=== PATIENT | female | born 1975 | race Caucasian/White ===

== ENCOUNTER 2016-11-18 22:35 | Emergency (ER) | payer OTHER ==
[2016-11-18 22:39] VITALS: RESP 18
[2016-11-18] MEDS ORDERED: SODIUM CHLORIDE 0.9% 1,000 ML IV STA ×2 (22:49)
[2016-11-18] MEDS ORDERED: MORPHINE SULFATE 4 MG/ML SYRINGE IV STA (22:49)
[2016-11-18 23:06] LABS: Appearance,Urine Clear (Clear); Basophils # (A) 0.1 k/uL (0-0.2); Basophils % (A) 1 %; Bilirubin,Urine Negative (Negative); CH 30.5; CHCM 33.6; Eosinophils # (A) 0.1 k/uL (0-0.7); Eosinophils % (A) 2 %; Glucose,Urine (UA) Negative (Negative); HCT 42.1 % (34.0-46.0); HDW 2.53; HGB 13.5 gm/dL (11.4-16.0); Ketones,Urine Negative (Negative); Leukocyte Esterase,Urine Negative (Negative); Luc # (Auto) 0.11; Luc % (Auto) 2; Lymphocytes # (A) 2.4 k/uL (1.0-4.8); Lymphocytes % (A) 32 %; MCH 29.3 pg (25.0-35.0); MCHC 32.1 g/dL (31.0-37.0); MCV 91.1 fL (80.0-100.0); Monocytes # (A) 0.4 k/uL (0-1.0); Monocytes % (A) 6 %; Neutrophils # (A) 4.4 k/uL (1.3-7.7); Neutrophils % (A) 58 %; Nitrite,Urine Negative (Negative); PH, Urine 5.5 (5.0-8.0); Protein,Urine Negative (Negative); RBC 4.63 m/uL (3.80-5.40); RDW 13.6 % (11.5-15.5); Specific Gravity,Urine 1.017 (1.001-1.035); UA Billing (MACRO vs. MICRO) CHEM; Urobilinogen,Urine <2.0 mg/dL (<2.0); WBC 7.5 k/uL (3.8-10.6); WBC (Perox) 7.61
[2016-11-18 23:15] LABS: ALT 20 U/L (9-52); AST 23 U/L (14-36); Alkaline Phosphatase 81 U/L (38-126); Amylase 49 U/L (30-110); Anion Gap 14 mmol/L; Blood Urea Nitrogen 9 mg/dL (7-17); Calcium 9.3 mg/dL (8.4-10.2); Carbon Dioxide 23 mmol/L (22-30); Chloride 104 mmol/L (98-107); Glucose 121 mg/dL (74-99); Non-African American GFR(MDRD) >60 (>60 ml/min/1.73 sqM); Potassium 4.4 mmol/L (3.5-5.1); Sodium 141 mmol/L (137-145); Total Bilirubin 0.3 mg/dL (0.2-1.3); Total Protein 6.9 g/dL (6.3-8.2)
[2016-11-18 23:28] LABS: Creatine Kinase 29 U/L (30-135)
[2016-11-18 23:41] LABS: Creatine Kinase MB <0.2 ng/mL (0.0-2.4); Troponin I <0.012 ng/mL (0.000-0.034)
--- NOTE | 2016-11-18 23:50 | ED ---
General Adult HPI - General Chief complaint: Abdominal Pain Stated complaint: Abd Pain Time Seen by Provider: 11/18/16 22:42 Source: patient, RN notes reviewed, old records reviewed Mode of arrival: ambulatory Limitations: no limitations - History of Present Illness Initial comments: This is a 40-year-old female is here for evaluation of dollop injury. Patient states she has history of 2 pregnancies, 2 live births. Other medical history is significant for psychiatric disease. Patient takes no medications medically and day basis. No evolution a questionable diabetes, no significant chest pain or shortness of breath. Patient states she does have anterior epigastric and right upper quadrant abdominal pain and mild nausea no vomiting no change in bowel or bladder issues. No recent fevers. No sick contacts, no family members with similar symptoms. She denies history of gallbladder disease during her . No vaginal symptoms. - Related Data Home Medications Medication Instructions Recorded Confirmed Metoprolol Succinate [Toprol XL] 50 mg PO HS 08/14/15 11/18/16 Albuterol Sulfate [Ventolin HFA] 2 puff INHALATION RT-Q6H PRN 11/24/15 11/18/16 Cholecalciferol [Vitamin D3] 5,000 unit PO DAILY 11/18/16 11/18/16 Cyanocobalamin [Vitamin B-12] 500 mcg PO DAILY 11/18/16 11/18/16 DULoxetine HCL [Cymbalta] 60 mg PO HS 11/18/16 11/18/16 Hydrocodone/Acetaminophen [[place] 1 tab PO Q8H PRN 11/18/16 11/18/16 10-325] Allergies Allergy/AdvReac Type Severity Reaction Status Date / Time aripiprazole [From Abilify] Allergy Hallucinati Verified 11/18/16 22:55 ons Review of Systems ROS Statement: Those systems with pertinent positive or pertinent negative responses have been documented in the HPI. ROS Other: All systems not noted in ROS Statement are negative. Past Medical History Past Medical History: Hypertension Additional Past Medical History / Comment(s): Bipolar. Anemia. Morbid Obesity. LT SCIATICA. RECENT UTI, . History of Any Multi-Drug Resistant Organisms: None Reported Past Surgical History: Ablation, Hysterectomy, Tubal Ligation Additional Past Surgical History / Comment(s): d & c Past Psychological History: Anxiety, Bipolar, Depression, PTSD Additional Psychological History / Comment(s): Under care of psychiatrist. Smoking Status: Former smoker Past Alcohol Use History: None Reported Past Drug Use History: None Reported General Exam Limitations: no limitations General appearance: alert, in no apparent distress Head exam: Present: atraumatic, normocephalic, normal inspection Eye exam: Present: normal appearance, PERRL, EOMI. Absent: scleral icterus, conjunctival injection, periorbital swelling ENT exam: Present: normal exam, mucous membranes moist Neck exam: Present: normal inspection. Absent: tenderness, meningismus, lymphadenopathy Respiratory exam: Present: normal lung sounds bilaterally. Absent: respiratory distress, wheezes, rales, rhonchi, stridor Cardiovascular Exam: Present: regular rate, normal rhythm, normal heart sounds. Absent: systolic murmur, diastolic murmur, rubs, gallop, clicks GI/Abdominal exam: Present: soft, tenderness (Epigastric), normal bowel sounds. Absent: distended, guarding, rebound, rigid Extremities exam: Present: normal inspection, full ROM, normal capillary refill. Absent: tenderness, pedal edema, joint swelling, calf tenderness Back exam: Present: normal inspection Neurological exam: Present: alert, oriented X3, CN II-XII intact Psychiatric exam: Present: normal affect, normal mood Skin exam: Present: warm, dry, intact, normal color. Absent: rash Course Vital Signs 11/18/16 22:37 Temperature 97.4 F L Pulse Rate 89 Respiratory 18 Rate Blood Pressure 134/91 O2 Sat by Pulse 98 Oximetry - Reevaluation(s) Reevaluation #1: 11/19/16 00:15 Patient's pain at this point is improved, controlled, no symptoms Medical Decision Making - Medical Decision Making 40 female year for various abdominal pain, epigastric right upper quadrant abdominal pain, bowel, positive gastritis. No fevers. No significant other complaints. No specific abdominal tenderness IS NEGATIVE LAB WORK IS NORMAL PATIENT CAN BE DISCHARGED HOME. PATIENT WILL RETURN TO ER IF SYMPTOMS WORSEN, ANOREXIA OR DEVELOPED A FEVER - Lab Data Result diagrams: 11/18/16 21:50 11/18/16 21:50 Lab Results 11/18/16 11/18/16 11/18/16 Range/Units 21:50 21:50 21:50 WBC (3.8-10.6) k/uL RBC (3.80-5.40) m/uL Hgb (11.4-16.0) gm/dL Hct (34.0-46.0) % MCV (80.0-100.0) fL MCH (25.0-35.0) pg MCHC (31.0-37.0) g/dL RDW (11.5-15.5) % Plt Count (150-450) k/uL Neutrophils % % Lymphocytes % % Monocytes % % Eosinophils % % Basophils % % Neutrophils # (1.3-7.7) k/uL Lymphocytes # (1.0-4.8) k/uL Monocytes # (0-1.0) k/uL Eosinophils # (0-0.7) k/uL Basophils # (0-0.2) k/uL Sodium 141 (137-145) mmol/L Potassium 4.4 (3.5-5.1) mmol/L Chloride 104 (98-107) mmol/L Carbon Dioxide 23 (22-30) mmol/L Anion Gap 14 mmol/L BUN 9 (7-17) mg/dL Creatinine 0.80 (0.52-1.04) mg/dL Est GFR (MDRD) Af Amer >60 (>60 ml/min/1.73 sqM) Est GFR (MDRD) Non-Af >60 (>60 ml/min/1.73 sqM) Glucose 121 H (74-99) mg/dL Calcium 9.3 (8.4-10.2) mg/dL Total Bilirubin 0.3 (0.2-1.3) mg/dL AST 23 (14-36) U/L ALT 20 (9-52) U/L Alkaline Phosphatase 81 (38-126) U/L Total Creatine Kinase 29 L (30-135) U/L CK-MB (CK-2) <0.2 (0.0-2.4) ng/mL CK-MB (CK-2) Rel Index Troponin I <0.012 (0.000-0.034) ng/mL Total Protein 6.9 (6.3-8.2) g/dL Albumin 4.0 (3.5-5.0) g/dL Amylase 49 (30-110) U/L Lipase 133 (23-300) U/L Urine Color Urine Appearance (Clear) Urine pH (5.0-8.0) Ur Specific [place] (1.001-1.035) Urine Protein (Negative) Urine Glucose (UA) (Negative) Urine Ketones (Negative) Urine Blood (Negative) Urine Nitrate (Negative) Urine Bilirubin (Negative) Urine Urobilinogen (<2.0) mg/dL Ur Leukocyte Esterase (Negative) Urine HCG, Qual Not Detected (Not Detectd) 11/18/16 11/18/16 Range/Units 21:50 21:50 WBC 7.5 (3.8-10.6) k/uL RBC 4.63 (3.80-5.40) m/uL Hgb 13.5 (11.4-16.0) gm/dL Hct 42.1 (34.0-46.0) % MCV 91.1 (80.0-100.0) fL MCH 29.3 (25.0-35.0) pg MCHC 32.1 (31.0-37.0) g/dL RDW 13.6 (11.5-15.5) % Plt Count 287 (150-450) k/uL Neutrophils % 58 % Lymphocytes % 32 % Monocytes % 6 % Eosinophils % 2 % Basophils % 1 % Neutrophils # 4.4 (1.3-7.7) k/uL Lymphocytes # 2.4 (1.0-4.8) k/uL Monocytes # 0.4 (0-1.0) k/uL Eosinophils # 0.1 (0-0.7) k/uL Basophils # 0.1 (0-0.2) k/uL Sodium (137-145) mmol/L Potassium (3.5-5.1) mmol/L Chloride (98-107) mmol/L Carbon Dioxide (22-30) mmol/L Anion Gap mmol/L BUN (7-17) mg/dL Creatinine (0.52-1.04) mg/dL Est GFR (MDRD) Af Amer (>60 ml/min/1.73 sqM) Est GFR (MDRD) Non-Af (>60 ml/min/1.73 sqM) Glucose (74-99) mg/dL Calcium (8.4-10.2) mg/dL Total Bilirubin (0.2-1.3) mg/dL AST (14-36) U/L ALT (9-52) U/L Alkaline Phosphatase (38-126) U/L Total Creatine Kinase (30-135) U/L CK-MB (CK-2) (0.0-2.4) ng/mL CK-MB (CK-2) Rel Index Troponin I (0.000-0.034) ng/mL Total Protein (6.3-8.2) g/dL Albumin (3.5-5.0) g/dL Amylase (30-110) U/L Lipase (23-300) U/L Urine Color Yellow Urine Appearance Clear (Clear) Urine pH 5.5 (5.0-8.0) Ur Specific [place] 1.017 (1.001-1.035) Urine Protein Negative (Negative) Urine Glucose (UA) Negative (Negative) Urine Ketones Negative (Negative) Urine Blood Negative (Negative) Urine Nitrate Negative (Negative) Urine Bilirubin Negative (Negative) Urine Urobilinogen <2.0 (<2.0) mg/dL Ur Leukocyte Esterase Negative (Negative) Urine HCG, Qual (Not Detectd) - Radiology Data Radiology results: report reviewed (Ultrasound is negative for gallbladder disease), image reviewed Disposition Clinical Impression: Abdominal pain Disposition: HOME SELF-CARE Instructions: Abdominal Pain (ED) Referrals: Una Benson MD [Primary Care Provider] - 1-2 days
--- NOTE | 2016-11-18 23:56 | US ---
EXAMINATION TYPE: US gallbladder DATE OF EXAM: 11/18/2016 11:30 PM COMPARISON: NONE CLINICAL HISTORY: Abd pain with nausea x a few days. EXAM MEASUREMENTS: Liver Length: 19.6cm Gallbladder Wall: 0.2cm CBD: 0.7cm Right Kidney: 9.5 x 4.9 x 4.5cm ANATOMY: TECHNOLOGIST IMPRESSION: large body habitus, patient NPO 2 hours, overlying bowel gas limits exam Pancreas: limited views appears wnl Liver: enlarged and heterogeneous, probable focal fatty sparring Gallbladder: no obvious stones or abnormality seen at this time Evidence for sonographic House's sign: no CBD: upper limits of normal Right Kidney: limited views, appears wnl IMPRESSION: 1. No significant acute abnormality is noted in the right upper quadrant of abdomen. 2. No gallstones in the gallbladder. No definite acute cholecystitis changes are noted.
[2016-11-19 00:49] VITALS: BP 126/70; PULSE 82; TEMP 99
== END 2016-11-19 01:19 | disposition home or self-care (01) ==
LOC: EC 22:35
DX: R10.13 Epigastric pain (principal); R10.11 Right upper quadrant pain; R11.0 Nausea; I10 Essential (primary) hypertension; F32.9 Major depressive disorder, single episode, unspecified; F41.9 Anxiety disorder, unspecified; Z87.891 Personal history of nicotine dependence; Z79.899 Other long term (current) drug therapy; E66.01 Morbid (severe) obesity due to excess calories; Z88.8 Allergy status to other drugs, medicaments and biological substances
CPT/HCPCS: 99284; 96374; 96361; 36415; 80053; 82150; 82550; 82553; 83690; 84484; 85025; 81003; 81025; 87086; 76705; J2270

== ENCOUNTER 2016-11-23 21:12 | Emergency (ER) | payer OTHER ==
[2016-11-23 21:17] VITALS: TEMP 98.7
[2016-11-23] MEDS ORDERED: ONDANSETRON 4 MG/2 ML VIAL IVP STA (21:44)
[2016-11-23] MEDS ORDERED: HYDROmorphone 1 MG/ML 1 ML SYRINGE IVP STA (21:44)
[2016-11-23] MEDS ORDERED: SODIUM CHLORIDE 0.9% 1,000 ML IV ONE (21:46)
--- NOTE | 2016-11-23 21:52 | ED ---
Abdominal Pain HPI - General Chief Complaint: Abdominal Pain Stated Complaint: right side abdominal pain-revisit Time Seen by Provider: 11/23/16 21:27 Source: patient, RN notes reviewed Mode of arrival: ambulatory Limitations: no limitations - History of Present Illness Initial Comments: Patient is a 40-year-old female presenting to emergency department with chief complaint of right upper quadrant abdominal pain. She reports that she was seen in the emergency room one week ago and was given an ultrasound and was determined have biliary colic. She reports that yesterday she went to [facility] for similar abdominal pain and was also get an ultrasound and lab work which showed continued biliary colic no evidence of acute cholecystitis. She reports that her pain is not being managed with her at home pain medication of [place]. She also reports that she feels nauseated. She states that she is given prescription for Prilosec steroids that isn't helped with her pain. She does have an appointment with a surgeon on Friday. Patient denies any recent fever , chills, shortness of breath, chest pain, back pain, vomiting, numbness or tingling, dysuria or hematuria, constipation or diarrhea, headaches or visual changes, or any other current symptoms. His past medical history is negative for hypertension. She reports that she is a "questionable diabetic". She has a surgical history significant for hysterectomy and tubal ligation one year ago. - Related Data Home Medications Medication Instructions Recorded Confirmed Metoprolol Succinate [Toprol XL] 50 mg PO HS 08/14/15 11/23/16 Albuterol Sulfate [Ventolin HFA] 2 puff INHALATION RT-Q6H PRN 11/24/15 11/23/16 Cholecalciferol [Vitamin D3] 5,000 unit PO DAILY 11/18/16 11/23/16 Cyanocobalamin [Vitamin B-12] 500 mcg PO DAILY 11/18/16 11/23/16 DULoxetine HCL [Cymbalta] 60 mg PO HS 11/18/16 11/23/16 Hydrocodone/Acetaminophen [[place] 1 tab PO Q8H PRN 11/18/16 11/23/16 10-325] Previous Rx's Medication Instructions Recorded Ondansetron [Zofran] 4 mg PO Q8HR PRN #8 tab 11/23/16 Allergies Allergy/AdvReac Type Severity Reaction Status Date / Time aripiprazole [From Abilify] Allergy Hallucinati Verified 11/23/16 21:17 ons Review of Systems ROS Statement: Those systems with pertinent positive or pertinent negative responses have been documented in the HPI. ROS Other: All systems not noted in ROS Statement are negative. Past Medical History Past Medical History: Hypertension Additional Past Medical History / Comment(s): Bipolar. Anemia. Morbid Obesity. LT SCIATICA. RECENT UTI, . History of Any Multi-Drug Resistant Organisms: None Reported Past Surgical History: Ablation, Hysterectomy, Tubal Ligation Additional Past Surgical History / Comment(s): d & c Past Psychological History: Anxiety, Bipolar, Depression, PTSD Additional Psychological History / Comment(s): Under care of psychiatrist. Smoking Status: Former smoker Past Alcohol Use History: None Reported Past Drug Use History: None Reported General Exam - General Exam Comments Initial Comments: Patient is a morbidly obese 40-year-old female. She does not appear to be in any acute distress. Limitations: no limitations General appearance: alert, in no apparent distress Head exam: Present: atraumatic, normocephalic, normal inspection Eye exam: Present: normal appearance, PERRL, EOMI. Absent: scleral icterus, conjunctival injection, periorbital swelling ENT exam: Present: normal exam, mucous membranes moist Neck exam: Present: normal inspection. Absent: tenderness, meningismus, lymphadenopathy Respiratory exam: Present: normal lung sounds bilaterally. Absent: respiratory distress, wheezes, rales, rhonchi, stridor Cardiovascular Exam: Present: regular rate, normal rhythm, normal heart sounds. Absent: systolic murmur, diastolic murmur, rubs, gallop, clicks GI/Abdominal exam: Present: soft, tenderness (Patient has mild right upper quadrant tenderness.), normal bowel sounds. Absent: distended, guarding, rebound, rigid Extremities exam: Present: normal inspection, full ROM, normal capillary refill. Absent: tenderness, pedal edema, joint swelling, calf tenderness Back exam: Present: normal inspection Neurological exam: Present: alert, oriented X3, CN II-XII intact Psychiatric exam: Present: normal affect, normal mood Skin exam: Present: warm, dry, intact, normal color. Absent: rash Course Vital Signs 11/23/16 11/23/16 21:13 23:52 Temperature 98.7 F Pulse Rate 82 78 Respiratory 20 16 Rate Blood Pressure 141/66 118/72 O2 Sat by Pulse 98 95 Oximetry Medical Decision Making - Medical Decision Making Patient is a 40-year-old female with a chief complaint of right upper quadrant abdominal pain. She should receive in the emergency room twice in one week for similar pain however does not manage. 2 right upper quadrant ultrasound showed no evidence of acute cholecystitis and she was diagnosed with biliary colic twice. She reports she did not receive a computed tomography scan. Patient's lab work was reviewed from today and is no acute abnormalities. I did review patient's lab work from her visit yesterday at [facility]. There is no acute changes in the lab work and the ultrasound revealed a gallbladder polyp measuring 1.9 cm and recommended a 3 month follow-up exam to reassess the area. Patient continues to report pain. I advised patient that she needs to do her at home pain medication I will prescribe her some nausea medications. Patient instructed to follow-up with Dr. Coelho the surgeon on Friday. Patient understands treatment plan and will comply. Return parameters were discussed. - Lab Data Result diagrams: 11/23/16 21:30 11/23/16 21:30 Lab Results 11/23/16 11/23/16 11/23/16 Range/Units 21:30 21:30 22:42 WBC 5.3 (3.8-10.6) k/uL RBC 4.40 (3.80-5.40) m/uL Hgb 13.0 (11.4-16.0) gm/dL Hct 41.4 (34.0-46.0) % MCV 94.0 (80.0-100.0) fL MCH 29.5 (25.0-35.0) pg MCHC 31.4 (31.0-37.0) g/dL RDW 13.5 (11.5-15.5) % Plt Count 245 (150-450) k/uL Neutrophils % 50 % Lymphocytes % 39 % Monocytes % 6 % Eosinophils % 1 % Basophils % 2 % Neutrophils # 2.7 (1.3-7.7) k/uL Lymphocytes # 2.1 (1.0-4.8) k/uL Monocytes # 0.3 (0-1.0) k/uL Eosinophils # 0.1 (0-0.7) k/uL Basophils # 0.1 (0-0.2) k/uL Sodium 140 (137-145) mmol/L Potassium 4.1 (3.5-5.1) mmol/L Chloride 104 (98-107) mmol/L Carbon Dioxide 26 (22-30) mmol/L Anion Gap 10 mmol/L BUN 8 (7-17) mg/dL Creatinine 0.69 (0.52-1.04) mg/dL Est GFR (MDRD) Af Amer >60 (>60 ml/min/1.73 sqM) Est GFR (MDRD) Non-Af >60 (>60 ml/min/1.73 sqM) Glucose 103 H (74-99) mg/dL Calcium 9.1 (8.4-10.2) mg/dL Total Bilirubin 0.4 (0.2-1.3) mg/dL AST 23 (14-36) U/L ALT 27 (9-52) U/L Alkaline Phosphatase 75 (38-126) U/L Total Protein 6.8 (6.3-8.2) g/dL Albumin 3.8 (3.5-5.0) g/dL Amylase 36 (30-110) U/L Lipase 77 (23-300) U/L Urine Color Yellow Urine Appearance Clear (Clear) Urine pH 5.5 (5.0-8.0) Ur Specific [place] 1.014 (1.001-1.035) Urine Protein Negative (Negative) Urine Glucose (UA) Negative (Negative) Urine Ketones Negative (Negative) Urine Blood Negative (Negative) Urine Nitrate Negative (Negative) Urine Bilirubin Negative (Negative) Urine Urobilinogen <2.0 (<2.0) mg/dL Ur Leukocyte Esterase Negative (Negative) - Radiology Data Radiology results: report reviewed Patient's KUB x-ray shows an overall nonobstructive Bowel gas pattern. Dr. Kim gray Disposition Clinical Impression: Biliary colic Disposition: HOME SELF-CARE Condition: Good Instructions: Biliary Colic (ED) Additional Instructions: Patient instructed to follow-up with surgeon. At the bland diet and avoid any spicy or fatty foods. at home pain meds. Take nausea medication as needed. Return to the [facility] if any alarming signs or symptoms occur. Prescriptions: Ondansetron [Zofran] 4 mg PO Q8HR PRN #8 tab PRN Reason: Nausea And Vomiting Referrals: Una Benson MD [Primary Care Provider] - 1-2 days Time of Disposition: 23:53
[2016-11-23 22:27] LABS: Basophils # (A) 0.1 k/uL (0-0.2); Basophils % (A) 2 %; CH 30.8; CHCM 32.9; Eosinophils # (A) 0.1 k/uL (0-0.7); Eosinophils % (A) 1 %; HCT 41.4 % (34.0-46.0); Luc # (Auto) 0.14; Luc % (Auto) 3; Lymphocytes # (A) 2.1 k/uL (1.0-4.8); Lymphocytes % (A) 39 %; MCH 29.5 pg (25.0-35.0); MCHC 31.4 g/dL (31.0-37.0); Mean Platelet Volume 8.4; Monocytes # (A) 0.3 k/uL (0-1.0); Monocytes % (A) 6 %; Neutrophils # (A) 2.7 k/uL (1.3-7.7); Neutrophils % (A) 50 %; RDW 13.5 % (11.5-15.5); WBC 5.3 k/uL (3.8-10.6); WBC (Perox) 5.29
--- NOTE | 2016-11-23 22:28 | XR ---
EXAMINATION TYPE: XR KUB DATE OF EXAM: 11/23/2016 10:21 PM COMPARISON: November 04, 2015 HISTORY: Right upper quadrant pain and recent diagnosis of biliary colic. TECHNIQUE: 2 frontal radiographs of abdomen were obtained in upright position. FINDINGS: There is mild gaseous distention of the bowel loops in the abdomen and pelvis. No significa nt bowel obstruction is noted. No abnormal calcifications are noted. No visceromegaly is noted. IMPRESSION: 1. No significant bowel obstruction changes are present. 2. No significant interval change.
[2016-11-23 22:33] LABS: ALT 27 U/L (9-52); AST 23 U/L (14-36); Alkaline Phosphatase 75 U/L (38-126); Amylase 36 U/L (30-110); Anion Gap 10 mmol/L; Blood Urea Nitrogen 8 mg/dL (7-17); Calcium 9.1 mg/dL (8.4-10.2); Carbon Dioxide 26 mmol/L (22-30); Chloride 104 mmol/L (98-107); Glucose 103 mg/dL (74-99); Non-African American GFR(MDRD) >60 (>60 ml/min/1.73 sqM); Potassium 4.1 mmol/L (3.5-5.1); Sodium 140 mmol/L (137-145); Total Bilirubin 0.4 mg/dL (0.2-1.3); Total Protein 6.8 g/dL (6.3-8.2)
[2016-11-23 23:41] LABS: Appearance,Urine Clear (Clear); Bilirubin,Urine Negative (Negative); Glucose,Urine (UA) Negative (Negative); Ketones,Urine Negative (Negative); Leukocyte Esterase,Urine Negative (Negative); Nitrite,Urine Negative (Negative); PH, Urine 5.5 (5.0-8.0); Protein,Urine Negative (Negative); Specific Gravity,Urine 1.014 (1.001-1.035); UA Billing (MACRO vs. MICRO) CHEM; Urobilinogen,Urine <2.0 mg/dL (<2.0)
[2016-11-23 23:53] VITALS: BP 118/72; PULSE 78; RESP 16
== END 2016-11-24 00:06 | disposition home or self-care (01) ==
LOC: EC 21:12
DX: K80.50 Calculus of bile duct without cholangitis or cholecystitis without obstruction (principal); I10 Essential (primary) hypertension; E66.01 Morbid (severe) obesity due to excess calories; D64.9 Anemia, unspecified; F32.9 Major depressive disorder, single episode, unspecified; F41.9 Anxiety disorder, unspecified; Z68.43 Body mass index [BMI] 50.0-59.9, adult; Z88.8 Allergy status to other drugs, medicaments and biological substances; Z87.891 Personal history of nicotine dependence; Z79.899 Other long term (current) drug therapy
CPT/HCPCS: 99284; 96374; 96375; 96361; 36415; 80053; 82150; 83690; 85025; 81003; 74000; J2405; J1170

== ENCOUNTER → 2016-11-25 | Outpatient (CLI) | payer OTHER ==
--- NOTE | 2016-11-26 09:00 | NM ---
Nuclear medicine hepatobiliary scan. HISTORY: Pain. The patient received 8 ounces of oral ensure plus and 5 mCi of Technetium 99m Choletec. There is normal hepatic extraction. The gallbladder is seen by 20 minutes. There is biliary to robles l clearance by 30 minutes. Ejection fraction is 80%. IMPRESSION: 1. No evidence of cholecystitis. 2. Ejection fraction is 80%.
== END | disposition home or self-care (01) ==
LOC: RADNMMAIN 14:56
PROVIDERS: ATTEND Surgery
DX: R10.84 Generalized abdominal pain (principal); R11.0 Nausea
CPT/HCPCS: 78226; A9537

== ENCOUNTER → 2016-11-27 | Outpatient (CLI) | payer OTHER ==
--- NOTE | 2016-11-28 08:25 | CT ---
EXAMINATION TYPE: CT abdomen pelvis w con DATE OF EXAM: 11/27/2016 7:24 PM COMPARISON: 05/12/2015 HISTORY: Right upper quadrant pain with nausea x [address] DLP: 3984.00 mGycm Automated exposure control for dose reduction was used. CONTRAST: CT scan of the abdomen pelvis is performed with IV Contrast, patient injected with 100 mL of Omnipaqu e 300. FINDINGS- LUNG BASES- No significant abnormality is appreciated. LIVER/GB- No gross abnormality is appreciated. PANCREAS- No gross abnormality is seen. SPLEEN- No gross abnormality is seen. ADRENALS- No gross abnormality is seen. KIDNEYS/BLADDER- no hydronephrosis nephrolithiasis. Tiny hypodensity involving the upper pole the lef t kidney is too small to characterize. Finding is stable and therefore likely benign. BOWEL- no bowel dilatation. Normal appendix. LYMPH NODES- No greater than 1cm abdominal or pelvic lymph nodes are appreciated. OSSEOUS STRUCTURES- No significant abnormality is seen. OTHER: 1 cm follicle or left ovarian cyst. Correlate for previous hysterectomy. IMPRESSION- 1. No acute process. 2. 1 cm left adnexal cyst. Possibly ovarian correlate clinically
== END | disposition home or self-care (01) ==
LOC: RADCTMAIN 18:54
PROVIDERS: ATTEND Surgery
DX: N85.8 Other specified noninflammatory disorders of uterus (principal); R11.0 Nausea
CPT/HCPCS: 74177; Q9967

== ENCOUNTER → 2017-02-25 | Outpatient (CLI) | payer OTHER ==
[2017-02-05 13:25] VITALS: BMI 49.9
[2017-02-25 15:42] VITALS: BP 118/81; PULSE 78; RESP 18; TEMP 98
--- NOTE | 2017-02-26 08:06 | P.PAINCN ---
History of Present Illness - Reason for Consult Consult date: 02/25/17 - History of Present Illness This is initial consultation visit for this for 1 years old females with a chronic history of severe right-sided neck pain and headache, she had this pain for more than 5 years, and intensity of the pain increased over the last 6 months, pain is constant and increases with any neck movement and mostly localized on the right side, patient was seen by Dr. Sagar Adams neurologist, and she was diagnosed with occipital neuralgia and 1 she was referred to [facility] clinic to have right-sided occipital nerve block, patient denies any numbness or tingling in the upper extremity, he denies any weakness or night sweats she denies any loss of consciousness,, and she reported that the intensity of the headache interfering with her quality of life Past Medical History Past Medical History: Asthma, Hypertension Additional Past Medical History / Comment(s): LT SCIATICA. Neck pain,FATTY LIVER History of Any Multi-Drug Resistant Organisms: None Reported Past Surgical History: Hysterectomy, Tubal Ligation, Uterine Ablation Additional Past Surgical History / Comment(s): d & c Past Anesthesia/Blood Transfusion Reactions: No Reported Reaction Past Psychological History: Anxiety, Bipolar, Depression, PTSD Additional Psychological History / Comment(s): Under care of psychiatrist. Smoking Status: Former smoker Past Alcohol Use History: None Reported Additional Past Alcohol Use History / Comment(s): smoked off and on <1ppd quit 10 years ago Past Drug Use History: None Reported - Past Family History Mother Family Medical History: No Reported History Medications and Allergies Home Medications Medication Instructions Recorded Confirmed Type Metoprolol Succinate [Toprol XL] 50 mg PO HS 08/14/15 02/25/17 History Albuterol Sulfate [Ventolin HFA] 2 puff INHALATION RT-Q6H PRN 11/24/15 02/05/17 History Cholecalciferol [Vitamin D3] 5,000 unit PO DAILY 11/18/16 02/25/17 History Cyanocobalamin [Vitamin B-12] 500 mcg PO DAILY 11/18/16 02/25/17 History DULoxetine HCL [Cymbalta] 60 mg PO HS 11/18/16 02/25/17 History Hydrocodone/Acetaminophen [Industry 1 tab PO Q8H PRN 11/18/16 02/25/17 History 10-325] Lisinopril 40 mg PO DAILY 02/05/17 02/25/17 History Allergies Allergy/AdvReac Type Severity Reaction Status Date / Time aripiprazole [From [facility]] Allergy Hallucinati Verified 02/25/17 15:27 ons Physical Exam Vitals: Vital Signs Temp Pulse Resp BP 02/25/17 15:33 98 F 78 18 118/81 Intake and Output 02/25/17 02/26/17 02/26/17 22:59 06:59 14:59 Other: Weight 136.078 kg Social history : not smoker , NO ETOH , NO Illegal drugs use Review of Systems : 1- Constitutional : no chills , no fever , no night sweats , 2- Ears : no ear discharge , no change in hearing 3-Nose, Mouth ,Throat ; no bleeding gums, no sore throat , no epistaxis , 4-Cardiovascular : Denies chest pain, , no orthopnea , no palpitation 5-Respiratory : Denies cough , no dyspnea , no hemoptysis 6-Gastrointestinal :, no change in bowel habits , no coffee- ground emesis . 7-Genitourinary : No hematuria , no discharge , no incontinence, 8-Musculoskeletal : No gait dysfunction , report right-sided neck pain 9- Neurological : no ataxia , no tremor , no sezure , , reports headache 10-Psychatric , no suicidal ideation no hallucination 11- Endocrine : no cold intolerence , no polyuria , no polydypsia , 12-Hematologic : no easy bleeding , no easy brusing , 13-Allergic / immunology : no angioedema , no wheezing ,no allergic rhinitis 14-Integumentary : no brttle nails , no change hair / nails , no foot/leg ulcers . Physical Examinations : 1-Constitutional : Cooperative , not in acute distress . 2-HEENT : nech ; supple , no Lymphadenopathy , no Thyromegaly , :eyes , no icterus, no photophobia . ENT : , normal oropharynx , no Thrush 3- Respiratory : Chest clear to auscultations Bilaterally , no wheezing . 4- Cardiovascular : regular rate and rhythem , S1 , S2 , no S3 , no S4. 5- Gastrointestinal: abdomen soft no tenderness , no organomegally . 6- Genitourinary : Defferred . 7-Integumentary : No cellulitis , no ulcers , normal skin turgor , no cyanotic . 8- neurologic : Cranial nerve II to XII intact , no focal neurological deffecit 9-psychatric : alert , oriented X 3 , appropriate affect , intact judgment and insight . 10-Lymphatic : no Lymphadenopathy. 11- musculoskeltal: normal gait exams of the cervical spine = motor stregnth in the deltoid and biceps, normal right side , normal Left side motor stregnth biceps and the wrist extensors normal right side ,normal left side . motor stregnth in the triceps muscle . normal Right side , normal Left side deep tendon reflexes normal at the biceps , normal at Brachioradialis , normal at triceps. positive cervical facet loading test ., Mainly on the right side Multiple trigger point identified in the cervical paravertebral muscles and suprascapular area exams of the Lumber spine = moter stegnth lower extremities , thigh and legs 5/5 Right side , 5/5 Left side Assessment and Plan Plan: Assessment and plan= 1- Right occipital neuralgia. 2-myofascial pain syndrome right-sided cervical paravertebral muscles. 3-rule out cervicogenic headaches secondary to cervical spondylosis. Recommend continue Cymbalta 60 mg daily, continue Industry 10 every 8 hours, and patient could benefit from adding baclofen 10 mg twice a day, And patient will be good candidate to have right -sided occipital nerve block and also trigger point injections in the right- sided cervical paravertebral muscles, treatment plan and the procedure risk and benefits and alternatives discussed with the patient and she agreed with proceeding Time with Patient: Greater than 30 PQRS Measure Charge Sheet PQRS Narrative: Smoking Status Former smoker Do You Want the Pneumonia No Vaccine AT THIS TIME? Blood Pressure 118/81 Pain Intensity [Neck] 9 Scale Used Numeric (1 - 10) Hx Alcohol Use (MH) No Home Medications: Ambulatory Orders Metoprolol Succinate [Toprol XL] 50 mg PO HS 08/14/15 Albuterol Sulfate [Ventolin HFA] 2 puff INHALATION RT-Q6H PRN 11/24/15 Cholecalciferol [Vitamin D3] 5,000 unit PO DAILY 11/18/16 Cyanocobalamin [Vitamin B-12] 500 mcg PO DAILY 11/18/16 DULoxetine HCL [Cymbalta] 60 mg PO HS 11/18/16 Hydrocodone/Acetaminophen [Industry 10-325] 1 tab PO Q8H PRN 11/18/16 Lisinopril 40 mg PO DAILY 02/05/17
== END | disposition home or self-care (01) ==
LOC: PNWHC3 14:19
PROVIDERS: ATTEND Specialist
DX: M54.81 Occipital neuralgia (principal); M79.1 Myalgia; I10 Essential (primary) hypertension; J45.909 Unspecified asthma, uncomplicated; F41.9 Anxiety disorder, unspecified; F32.9 Major depressive disorder, single episode, unspecified; F43.10 Post-traumatic stress disorder, unspecified; Z87.891 Personal history of nicotine dependence; Z79.899 Other long term (current) drug therapy; Z88.8 Allergy status to other drugs, medicaments and biological substances
CPT/HCPCS: 99211

== ENCOUNTER → 2017-03-19 | Outpatient (CLI) | payer OTHER ==
--- NOTE | 2017-03-19 12:41 | MR ---
MR brain without contrast HISTORY: Occipital neuralgia right side, migraine headaches Correlation to head CT dated December Multiplanar multisequence imaging through the brain There is no restricted diffusion. There is no hemorrhage or hydrocephalus. Corpus callosum, cervical medullary junction, cerebellopontine angles are normal. There are normal vascular flow voids. Partial ly empty sella is present. The orbits show symmetric appearance. Abbie bullosa noted incidentally on the left. Brain signal is normal. No evident sinus disease with the exception of some minimal inflam matory change left frontal sinus. IMPRESSION: No significant brain abnormality evident. Minimal frontal sinus disease.
== END | disposition home or self-care (01) ==
LOC: RADMRIMAIN 09:57
PROVIDERS: ATTEND Psychiatry & Neurology Neurology
DX: M54.81 Occipital neuralgia (principal)
CPT/HCPCS: 70551

== ENCOUNTER 2017-03-27 12:53 | Day surgery (SDC) | payer OTHER ==
[2017-03-25 16:00] VITALS: BMI 49.1
[~2017-03-27 12:53] MED LIST: LACTATED RINGERS 1,000 ML IV SCH
[2017-03-27 13:39] VITALS: RESP 16; TEMP 95.7
[2017-03-27] MEDS ORDERED: LIDOCAINE 1% 20 ML VIAL (10MG/ML) FOR IV START INTRADERMA ONE (13:44)
[2017-03-27] MEDS ORDERED: fentaNYL (PF) 50 MCG/ML 2 ML AMP ONE (14:35)
[2017-03-27] MEDS ORDERED: BUPIVACAINE (PF) 0.75% 30 ML VIAL ONE (14:35)
[2017-03-27] MEDS ORDERED: MIDAZOLAM 2 MG/2 ML VIAL ONE (14:35)
[2017-03-27] MEDS ORDERED: TRIAMCINOLONE ACETONIDE 40 MG/ML 1 ML VIAL ONE (14:35)
[2017-03-27] MEDS ORDERED: IV FLUID CONTINUATION 1,000 ML IV ONE (14:56)
[2017-03-27] MEDS ORDERED: ONDANSETRON 4 MG/2 ML VIAL IVP ONE (15:07)
[2017-03-27 15:16] VITALS: BP 123/90; PULSE 75
--- NOTE | 2017-03-27 15:16 | P.PCN ---
Date of Procedure: 03/27/17 Procedure(s) Performed: Pre-operative diagnosis: 1- Right occipital neuralgea. 2-myofascial pain syndrome cervical paravertebral muscles. 3-cervicogenic headache Post Operative Diagnosis same as preoperative diagnosis Procedure: 1-right occipital nerve block 2-trigger point injections cervical paravertebral muscles total of 4 trigger point injected ANESTHESIA: Conscious sedation with Versed.2 mg and fentanyl 100 micrograms EBL: Minimal PROCEDURE INDICATION: The patient with neck pain and headache secondary to occipital neuralgea unresponsive to conservative treatments. PROCEDURE DESCRIPTION / TECHNIQUE: The patient was seen and identified in the preoperative area. Risks, benefits, complications, and alternatives were discussed with the patient, the patient agreed to proceed with the procedure and signed the consent. IV was started. Vital signs remained stable throughout the procedure. Patient was taken to the OR and time out was completed. The patient was placed in the sitting position on the procedure table. A pillow was placed under the patients chest to increase the cervical interlaminar space. The cervical area and right occiptial area were prepped with alcohol swab. Critical pause was taken. Vital signs were closely monitored during the procedure. Conscious sedation was used during the procedure to decrease patients anxiety. The right occiptal ridge was palpated and was then accessed with a 25 G needle. Then after negative aspiration, 6 ml of the block solution containing 6 ml of PF Buvicaine 0.5% and Kenalog 40 mg was injected. Needle was withdrawn intact. After that the trigger point which was marked in the preop holding area, 4 trigger points identified in the right-sided cervical paravertebral muscles each one of them injected with Marcaine 0.75% 2 ml injected at each trigger point using 25-gauge needle, ejection on after negative aspiration and there was no paresthesia during the injection , and also 8 ML of Marcaine 0.75% used mixed with 40 mg of Kenalog, and a used 2 mL of the mixture to each trigger point Patient tolerated procedure well. No acute complications.
== END 2017-03-27 15:26 | disposition home or self-care (01) ==
LOC: ORPAIN 12:53
PROVIDERS: ATTEND Specialist
DX: M54.81 Occipital neuralgia (principal); M79.1 Myalgia; R51 Headache
CPT/HCPCS: 20553; 64405; J2250; J3301; J2405; J3010

== ENCOUNTER 2017-04-24 08:22 | Day surgery (SDC) | payer OTHER ==
[2017-04-22 11:17] VITALS: BMI 51.9
[2017-04-24 09:05] VITALS: TEMP 98.3
[2017-04-24] MEDS ORDERED: LIDOCAINE 1% 20 ML VIAL (10MG/ML) FOR IV START SQ ONE (09:12)
[2017-04-24] MEDS ORDERED: TRIAMCINOLONE ACETONIDE 40 MG/ML 1 ML VIAL ONE (09:55)
[2017-04-24] MEDS ORDERED: fentaNYL (PF) 50 MCG/ML 2 ML AMP ONE (09:55)
[2017-04-24] MEDS ORDERED: MIDAZOLAM 2 MG/2 ML VIAL ONE (09:55)
[2017-04-24] MEDS ORDERED: BUPIVACAINE (PF) 0.75% 30 ML VIAL ONE (09:55)
--- NOTE | 2017-04-24 10:18 | P.PCN ---
Date of Procedure: 04/24/17 Preoperative Diagnosis: Postoperative Diagnosis: Procedure(s) Performed: Pre-operative diagnosis: 1- Right occipital neuralgea. 2-myofascial pain syndrome cervical paravertebral muscles. 3-cervicogenic headache Post Operative Diagnosis same as pre op diagnosis Procedure: 1- Right occipital nerve block . 2- trigger points injections cervical paravertebral muscles ( 4 trigger points injected in the right cervical paravertebral muscles ) ANESTHESIA: Conscious sedation with Versed.2 mg and fentanyl 100 micrograms EBL: Minimal PROCEDURE INDICATION: The patient with neck pain and headache secondary to occipital neuralgea unresponsive to conservative treatments. PROCEDURE DESCRIPTION / TECHNIQUE: The patient was seen and identified in the preoperative area. Risks, benefits, complications, and alternatives were discussed with the patient, the patient agreed to proceed with the procedure and signed the consent. IV was started. Vital signs remained stable throughout the procedure. Patient was taken to the OR and time out was completed. The patient was placed in the pron (sitting ) position on the procedure table. A pillow was placed under the patients chest to increase the cervical interlaminar space. The cervical area and right occiptial area were prepped with alcohol swab. Critical pause was taken. Vital signs were closely monitored during the procedure. Conscious sedation was used during the procedure to decrease patients anxiety. The right occiptal ridge was palpated and was then accessed with a 25 G needle. Then after negative aspiration, 6 ml of the block solution containing 6 ml of PF Buvicaine 0.75% and Kenalog 40 mg was injected. Needle was withdrawn intact. Then the reports injections done steril technique, showed a trigger point that is marked in the preop holding area each one of them injected with Marcaine 0.75 % 2 ml injected using 25-gauge needle, injection done after negative S aspiration under was no paresthesia during the injections, patient tolerated the procedure well without any complications Patient tolerated procedure well. No acute complications. Implants: Indications for Procedure: Operative Findings: Description of Procedure:
[2017-04-24] MEDS ORDERED: IV FLUID CONTINUATION 750 ML IV ONE ×2 (10:23)
[2017-04-24 10:46] VITALS: BP 116/78; PULSE 83; RESP 20
== END 2017-04-24 10:55 | disposition home or self-care (01) ==
LOC: ORPAIN 08:22
PROVIDERS: ATTEND Specialist
DX: M54.81 Occipital neuralgia (principal); M79.1 Myalgia; Z88.8 Allergy status to other drugs, medicaments and biological substances
CPT/HCPCS: 20553; 64405; J2250; J3301; J3010

== ENCOUNTER 2017-05-24 14:57 | Observation (INO) | payer OTHER ==
[2017-05-24] MEDS ORDERED: KETOROLAC 30 MG/ML 1 ML VIAL IVP STA (15:21)
[2017-05-24] MEDS ORDERED: SODIUM CHLORIDE 0.9% 1,000 ML IV STA (15:21)
--- NOTE | 2017-05-24 15:38 | ED ---
Abdominal Pain HPI - General Chief Complaint: Abdominal Pain Stated Complaint: RIGHT SIDED BACK PAIN RADIATING TO SHOULDER BLADE Time Seen by Provider: 05/24/17 15:15 Source: patient, RN notes reviewed Mode of arrival: ambulatory Limitations: no limitations - History of Present Illness Initial Comments: This is a 41-year-old female history of morbid obesity who states she had the onset several hours ago of right upper quadrant bowel pain radiating around to her back and shoulder blade. He states that sharp in nature severe it does increase somewhat with deep breathing or movement she has had no cough fevers chills or sweats no nausea or vomiting. She believes it is her gallbladder. She has report of the past for this which included a HIDA scan ultrasound which did not apparently show any major findings. He does not relate this to food MD Complaint: abdominal pain - Related Data Home Medications Medication Instructions Recorded Confirmed Cholecalciferol [Vitamin D3] 5,000 unit PO DAILY 11/18/16 05/24/17 Cyanocobalamin [Vitamin B-12] 1,000 mcg PO DAILY 11/18/16 05/24/17 DULoxetine HCL [Cymbalta] 60 mg PO BID 11/18/16 05/24/17 Hydrocodone/Acetaminophen [[place] 1 tab PO Q8H PRN 11/18/16 05/24/17 10-325] Lisinopril 40 mg PO DAILY 02/05/17 05/24/17 Fenofibrate Nanocrystallized 48 mg PO DAILY 03/25/17 05/24/17 [Tricor] Omeprazole [PriLOSEC] 20 mg PO AC-BRKFST 05/24/17 05/24/17 Allergies Allergy/AdvReac Type Severity Reaction Status Date / Time aripiprazole [From [facility]] Allergy Hallucinati Verified 05/24/17 15:43 ons Review of Systems ROS Statement: Those systems with pertinent positive or pertinent negative responses have been documented in the HPI. ROS Other: All systems not noted in ROS Statement are negative. Past Medical History Past Medical History: Asthma, Hypertension Additional Past Medical History / Comment(s): LT SCIATICA. Neck pain,FATTY LIVER History of Any Multi-Drug Resistant Organisms: None Reported Past Surgical History: Hysterectomy, Tubal Ligation, Uterine Ablation Additional Past Surgical History / Comment(s): d & c , PAIN CLINIC PROCEDURES Past Anesthesia/Blood Transfusion Reactions: No Reported Reaction Past Psychological History: Anxiety, Bipolar, Depression, PTSD Smoking Status: Former smoker Past Alcohol Use History: None Reported Past Drug Use History: None Reported - Past Family History Mother Family Medical History: No Reported History General Exam - General Exam Comments Initial Comments: This is a well-developed well-nourished awake alert oriented 1 female Limitations: no limitations General appearance: alert, anxious, obese Head exam: Present: atraumatic, normocephalic, normal inspection Eye exam: Present: normal appearance, PERRL, EOMI. Absent: scleral icterus, conjunctival injection, periorbital swelling ENT exam: Present: normal exam, mucous membranes moist Neck exam: Present: normal inspection. Absent: tenderness, meningismus, lymphadenopathy Respiratory exam: Present: normal lung sounds bilaterally. Absent: respiratory distress, wheezes, rales, rhonchi, stridor Cardiovascular Exam: Present: regular rate, normal rhythm, tachycardia, normal heart sounds. Absent: systolic murmur, diastolic murmur, rubs, gallop, clicks GI/Abdominal exam: Present: soft, tenderness (Right upper quadrant tenderness palpation with some voluntary guarding), normal bowel sounds. Absent: distended , guarding, rebound, rigid Extremities exam: Present: normal inspection, full ROM, normal capillary refill. Absent: tenderness, pedal edema, joint swelling, calf tenderness Back exam: Present: normal inspection Neurological exam: Present: alert, oriented X3, CN II-XII intact Psychiatric exam: Present: normal affect, normal mood Skin exam: Present: warm, dry, intact, normal color. Absent: rash Course Vital Signs 05/24/17 05/24/17 05/24/17 15:01 15:43 17:31 Temperature 98.0 F Pulse Rate 117 H 99 86 Respiratory 18 18 18 Rate Blood Pressure 136/71 115/57 121/73 O2 Sat by Pulse 96 96 96 Oximetry 05/24/17 20:00 Temperature Pulse Rate 96 Respiratory 18 Rate Blood Pressure 116/57 O2 Sat by Pulse 97 Oximetry - Reevaluation(s) Reevaluation #1: 05/24/17 15:52 Further information patient does have a family history of kidney stones and did admit to nursing staff that she has intermittently passing black specks in her urine. Medical Decision Making - Medical Decision Making Patient was reevaluated on multiple occasions still persistently having abdominal pain. I did review the imaging and reports and the findings with the patient and family. Patient will be admitted for observation with surgical consultation by Dr. Coelho with patient has seen before. - Lab Data Result diagrams: 05/24/17 15:42 05/24/17 15:42 Lab Results 05/24/17 05/24/17 05/24/17 Range/Units 15:42 15:42 15:42 WBC 7.3 (3.8-10.6) k/uL RBC 4.45 (3.80-5.40) m/uL Hgb 13.6 (11.4-16.0) gm/dL Hct 40.4 (34.0-46.0) % MCV 90.9 (80.0-100.0) fL MCH 30.7 (25.0-35.0) pg MCHC 33.8 (31.0-37.0) g/dL RDW 13.8 (11.5-15.5) % Plt Count 268 (150-450) k/uL Neutrophils % 65 % Lymphocytes % 26 % Monocytes % 5 % Eosinophils % 2 % Basophils % 1 % Neutrophils # 4.7 (1.3-7.7) k/uL Lymphocytes # 1.9 (1.0-4.8) k/uL Monocytes # 0.4 (0-1.0) k/uL Eosinophils # 0.1 (0-0.7) k/uL Basophils # 0.0 (0-0.2) k/uL Sodium 138 (137-145) mmol/L Potassium 4.5 (3.5-5.1) mmol/L Chloride 104 (98-107) mmol/L Carbon Dioxide 23 (22-30) mmol/L Anion Gap 11 mmol/L BUN 8 (7-17) mg/dL Creatinine 0.70 (0.52-1.04) mg/dL Est GFR (MDRD) Af Amer >60 (>60 ml/min/1.73 sqM) Est GFR (MDRD) Non-Af >60 (>60 ml/min/1.73 sqM) Glucose 128 H (74-99) mg/dL Calcium 9.6 (8.4-10.2) mg/dL Total Bilirubin 0.4 (0.2-1.3) mg/dL AST 27 (14-36) U/L ALT 28 (9-52) U/L Alkaline Phosphatase 70 (38-126) U/L Total Protein 6.9 (6.3-8.2) g/dL Albumin 4.0 (3.5-5.0) g/dL Amylase 37 (30-110) U/L Lipase 102 (23-300) U/L Urine Color Yellow Urine Appearance Cloudy H (Clear) Urine pH 5.0 (5.0-8.0) Ur Specific [place] 1.016 (1.001-1.035) Urine Protein Negative (Negative) Urine Glucose (UA) 1+ H (Negative) Urine Ketones Negative (Negative) Urine Blood Negative (Negative) Urine Nitrite Negative (Negative) Urine Bilirubin Negative (Negative) Urine Urobilinogen <2.0 (<2.0) mg/dL Ur Leukocyte Esterase Small H (Negative) Urine RBC 1 (0-5) /hpf Urine WBC 8 H (0-5) /hpf Ur Squamous Epith Cells 9 H (0-4) /hpf Urine Bacteria Occasional H (None) /hpf Urine Mucus Occasional H (None) /hpf Urine HCG, Qual (Not Detectd) 05/24/17 Range/Units 15:42 WBC (3.8-10.6) k/uL RBC (3.80-5.40) m/uL Hgb (11.4-16.0) gm/dL Hct (34.0-46.0) % MCV (80.0-100.0) fL MCH (25.0-35.0) pg MCHC (31.0-37.0) g/dL RDW (11.5-15.5) % Plt Count (150-450) k/uL Neutrophils % % Lymphocytes % % Monocytes % % Eosinophils % % Basophils % % Neutrophils # (1.3-7.7) k/uL Lymphocytes # (1.0-4.8) k/uL Monocytes # (0-1.0) k/uL Eosinophils # (0-0.7) k/uL Basophils # (0-0.2) k/uL Sodium (137-145) mmol/L Potassium (3.5-5.1) mmol/L Chloride (98-107) mmol/L Carbon Dioxide (22-30) mmol/L Anion Gap mmol/L BUN (7-17) mg/dL Creatinine (0.52-1.04) mg/dL Est GFR (MDRD) Af Amer (>60 ml/min/1.73 sqM) Est GFR (MDRD) Non-Af (>60 ml/min/1.73 sqM) Glucose (74-99) mg/dL Calcium (8.4-10.2) mg/dL Total Bilirubin (0.2-1.3) mg/dL AST (14-36) U/L ALT (9-52) U/L Alkaline Phosphatase (38-126) U/L Total Protein (6.3-8.2) g/dL Albumin (3.5-5.0) g/dL Amylase (30-110) U/L Lipase (23-300) U/L Urine Color Urine Appearance (Clear) Urine pH (5.0-8.0) Ur Specific [place] (1.001-1.035) Urine Protein (Negative) Urine Glucose (UA) (Negative) Urine Ketones (Negative) Urine Blood (Negative) Urine Nitrite (Negative) Urine Bilirubin (Negative) Urine Urobilinogen (<2.0) mg/dL Ur Leukocyte Esterase (Negative) Urine RBC (0-5) /hpf Urine WBC (0-5) /hpf Ur Squamous Epith Cells (0-4) /hpf Urine Bacteria (None) /hpf Urine Mucus (None) /hpf Urine HCG, Qual Not Detected (Not Detectd) Disposition Clinical Impression: Intractable abdominal pain Disposition: ADMITTED IP TO THIS [facility] Condition: Stable Referrals: Una Benson MD [Primary Care Provider] - 1-2 days Decision Time: 19:30
[2017-05-24 15:57] LABS: Basophils % (A) 1 %; CH 30.4; CHCM 33.6; Eosinophils # (A) 0.1 k/uL (0-0.7); Eosinophils % (A) 2 %; HCT 40.4 % (34.0-46.0); HDW 2.36; HGB 13.6 gm/dL (11.4-16.0); Luc # (Auto) 0.13; Luc % (Auto) 2; Lymphocytes # (A) 1.9 k/uL (1.0-4.8); Lymphocytes % (A) 26 %; MCH 30.7 pg (25.0-35.0); MCHC 33.8 g/dL (31.0-37.0); MCV 90.9 fL (80.0-100.0); Mean Platelet Volume 7.7; Monocytes # (A) 0.4 k/uL (0-1.0); Monocytes % (A) 5 %; Neutrophils # (A) 4.7 k/uL (1.3-7.7); Neutrophils % (A) 65 %; RBC 4.45 m/uL (3.80-5.40); RDW 13.8 % (11.5-15.5); WBC 7.3 k/uL (3.8-10.6); WBC (Perox) 6.87
[2017-05-24 16:05] LABS: Appearance,Urine Cloudy (Clear); Bacteria,Urine Occasional /hpf; Bilirubin,Urine Negative (Negative); Glucose,Urine (UA) 1+ (Negative); Ketones,Urine Negative (Negative); Leukocyte Esterase,Urine Small (Negative); Mucus,Urine Occasional /hpf; Nitrite,Urine Negative (Negative); Particle Count 8569; Protein,Urine Negative (Negative); RBC,Urine 1 /hpf (0-5); Specific Gravity,Urine 1.016 (1.001-1.035); Squamous Epithelial Cell,Urine 9 /hpf (0-4); UA Billing (MACRO vs. MICRO) MICRO; Urobilinogen,Urine <2.0 mg/dL (<2.0); WBC,Urine 8 /hpf (0-5)
[2017-05-24 16:06] LABS: ALT 28 U/L (9-52); AST 27 U/L (14-36); Alkaline Phosphatase 70 U/L (38-126); Amylase 37 U/L (30-110); Anion Gap 11 mmol/L; Blood Urea Nitrogen 8 mg/dL (7-17); Calcium 9.6 mg/dL (8.4-10.2); Carbon Dioxide 23 mmol/L (22-30); Chloride 104 mmol/L (98-107); Glucose 128 mg/dL (74-99); Non-African American GFR(MDRD) >60 (>60 ml/min/1.73 sqM); Potassium 4.5 mmol/L (3.5-5.1); Sodium 138 mmol/L (137-145); Total Bilirubin 0.4 mg/dL (0.2-1.3); Total Protein 6.9 g/dL (6.3-8.2)
[2017-05-24] MEDS ORDERED: HYDROmorphone 1 MG/ML 1 ML SYRINGE IVP STA (17:36)
--- NOTE | 2017-05-24 17:46 | US ---
EXAMINATION TYPE: US abd limited kidneys/bladder DATE OF EXAM: 05/24/2017 COMPARISON: US 2017, CT 2017 CLINICAL HISTORY: 41-year-old female Pain. EC patient with RUQ pain x 2 hours, had coffee with cream at 10:30 today. TECHNIQUE: Multiple sonographic images of the right upper quadrant, both kidneys, and bladder were ob tained. FINDINGS: Liver Length: 19.0 cm Gallbladder Wall: 0.2 cm CBD: 0.3 cm Right Kidney: 10.4 x 6.2 x 4.2 cm Left Kidney: 11.0 x 5.3 x 5.0 cm Pancreas: hyperechoic and tail gassed out Liver: Enlarged, echogenic, and attenuating. This secondarily limits assessment for focal lesion. Gallbladder: No abnormal gallbladder distention, wall thickening, pericholecystic fluid, or shadowin g calculi. CBD: wnl Right Kidney: No hydronephrosis. Left Kidney: No hydronephrosis. Small upper cortical cyst = 0.6 x 0.4 x 0.6cm Bladder: Suboptimal evaluation as it is collapsed. This limits assessment for the ureteral jets. IMPRESSION: 1. Hepatomegaly with marked hepatic steatosis. Correlate with LFTs, lipid profile, and patient risk f actors. 2. No hydronephrosis. 3. Nondistention of the bladder limits its evaluation.
--- NOTE | 2017-05-24 17:54 | XR ---
EXAMINATION TYPE: Acute abdominal series DATE OF EXAM: 05/24/2017 COMPARISON: Chest 12/03/2015 HISTORY: 41 year-old female right upper quadrant pain FINDINGS: Frontal view of the chest shows heart at the upper limits of normal in size. Chronic mild diffuse int erstitial prominence. No consolidation or pleural effusion. No evidence for free intraperitoneal air. No small bowel air fluid levels or abnormal bowel dilatation. Scattered mild stool burden. No suspicious calcifications identified. Numerous pelvic phleboliths. IMPRESSION: 1. Chest with chronic changes without acute cardiopulmonary process. 2. No evidence for free air or bowel obstruction.
[2017-05-24] MEDS ORDERED: MORPHINE SULFATE 10 MG/ML SYRINGE IVP STA (18:40)
[2017-05-24] MEDS ORDERED: DICYCLOMINE 10 MG/ML 2 ML AMP IM STA (18:40)
[2017-05-24] MEDS ORDERED: NALOXONE 0.4 MG/ML 1 ML VIAL IV PRN (20:46)
[2017-05-24] MEDS: SODIUM CHLORIDE 0.9% 1,000 ML IV SCH (23:18)
[2017-05-25] MEDS: PANTOPRAZOLE 40 MG/10 ML VIAL IV SCH ×3 (00:12→22:13)
[2017-05-25] MEDS: HYDROmorphone 1 MG/ML 1 ML SYRINGE IV PRN ×3 (00:16→10:38)
[2017-05-25] MEDS: SODIUM CHLORIDE 0.9% 1,000 ML IV SCH ×3 (05:24→22:14)
[2017-05-25] MEDS: ONDANSETRON 4 MG/2 ML VIAL IVP PRN ×2 (06:02→17:47)
--- NOTE | 2017-05-25 12:48 | P.GSCN ---
History of Present Illness Consult date: 05/25/17 History of present illness: Patient is a 41 year old with sever epigastric pain that is unrelenting. It radiates to the back and has not responded to pain medication. She is unable to tolerate it and has lost 7 lbs weight hse has had an EGD that was unremarkable. Review of Systems - Constitutional Reports as per HPI, Reports anorexia - Cardiovascular Denies chest pain, Denies shortness of breath - Respiratory Denies cough, Denies 7 - Gastrointestinal Reports as per HPI Past Medical History Past Medical History: Asthma, Hypertension Additional Past Medical History / Comment(s): LT SCIATICA. Neck pain,FATTY LIVER History of Any Multi-Drug Resistant Organisms: None Reported Past Surgical History: Hysterectomy, Tubal Ligation, Uterine Ablation Additional Past Surgical History / Comment(s): d & c , PAIN CLINIC PROCEDURES Past Anesthesia/Blood Transfusion Reactions: No Reported Reaction Past Psychological History: Anxiety, Bipolar, Depression, PTSD Additional Psychological History / Comment(s): Under care of psychiatrist. Smoking Status: Former smoker Past Alcohol Use History: None Reported Past Drug Use History: None Reported - Past Family History Mother Family Medical History: No Reported History Medications and Allergies Home Medications Medication Instructions Recorded Confirmed Type Cholecalciferol [Vitamin D3] 5,000 unit PO DAILY 11/18/16 05/24/17 History Cyanocobalamin [Vitamin B-12] 1,000 mcg PO DAILY 11/18/16 05/24/17 History DULoxetine HCL [Cymbalta] 60 mg PO BID 11/18/16 05/24/17 History Hydrocodone/Acetaminophen [[place] 1 tab PO Q8H PRN 11/18/16 05/24/17 History 10-325] Lisinopril 40 mg PO DAILY 02/05/17 05/24/17 History Fenofibrate Nanocrystallized 48 mg PO DAILY 03/25/17 05/24/17 History [Tricor] Omeprazole [PriLOSEC] 20 mg PO AC-BRKFST 05/24/17 05/24/17 History Allergies Allergy/AdvReac Type Severity Reaction Status Date / Time aripiprazole [From Abilify] Allergy Hallucinati Verified 05/24/17 15:43 ons Surgical - Exam Vital Signs Temp Pulse Resp BP Pulse Ox 98.0 F 117 H 18 136/71 96 05/24/17 15:01 05/24/17 15:01 05/24/17 15:01 05/24/17 15:01 05/24/17 15:01 - General well developed, severe pain, obese - Eyes PERRL, normal ocular movement, no icteric - ENT normal pinna, normal nares - Neck no masses, no bruits - Respiratory normal expansion, normal respiratory effort - Cardiovascular Rhythm: regular - Abdomen Abdomen: tender - Genitourinary normal external genitalia, normal perineum Results - Labs 05/24/17 15:42 05/24/17 15:42 Abnormal Lab Results - Last 24 Hours (Table) 05/24/17 05/24/17 Range/Units 15:42 15:42 Glucose 128 H (74-99) mg/dL Urine Appearance Cloudy H (Clear) Urine Glucose (UA) 1+ H (Negative) Ur Leukocyte Esterase Small H (Negative) Urine WBC 8 H (0-5) /hpf Ur Squamous Epith Cells 9 H (0-4) /hpf Urine Bacteria Occasional H (None) /hpf Urine Mucus Occasional H (None) /hpf Diabetes panel 05/24/17 Range/Units 15:42 Sodium 138 (137-145) mmol/L Potassium 4.5 (3.5-5.1) mmol/L Chloride 104 (98-107) mmol/L Carbon Dioxide 23 (22-30) mmol/L BUN 8 (7-17) mg/dL Creatinine 0.70 (0.52-1.04) mg/dL Glucose 128 H (74-99) mg/dL Calcium 9.6 (8.4-10.2) mg/dL AST 27 (14-36) U/L ALT 28 (9-52) U/L Alkaline Phosphatase 70 (38-126) U/L Total Protein 6.9 (6.3-8.2) g/dL Albumin 4.0 (3.5-5.0) g/dL Calcium panel 05/24/17 Range/Units 15:42 Calcium 9.6 (8.4-10.2) mg/dL Albumin 4.0 (3.5-5.0) g/dL Pituitary panel 05/24/17 Range/Units 15:42 Sodium 138 (137-145) mmol/L Potassium 4.5 (3.5-5.1) mmol/L Chloride 104 (98-107) mmol/L Carbon Dioxide 23 (22-30) mmol/L BUN 8 (7-17) mg/dL Creatinine 0.70 (0.52-1.04) mg/dL Glucose 128 H (74-99) mg/dL Calcium 9.6 (8.4-10.2) mg/dL Adrenal panel 05/24/17 Range/Units 15:42 Sodium 138 (137-145) mmol/L Potassium 4.5 (3.5-5.1) mmol/L Chloride 104 (98-107) mmol/L Carbon Dioxide 23 (22-30) mmol/L BUN 8 (7-17) mg/dL Creatinine 0.70 (0.52-1.04) mg/dL Glucose 128 H (74-99) mg/dL Calcium 9.6 (8.4-10.2) mg/dL Total Bilirubin 0.4 (0.2-1.3) mg/dL AST 27 (14-36) U/L ALT 28 (9-52) U/L Alkaline Phosphatase 70 (38-126) U/L Total Protein 6.9 (6.3-8.2) g/dL Albumin 4.0 (3.5-5.0) g/dL Assessment and Plan (1) Abdominal pain Status: Acute Plan: The patient has had an extensive work up and there is no identifiable cause of her pain. Will manage her pain conservatively and get HIDA today.
--- NOTE | 2017-05-25 15:18 | P.HPIM ---
History of Present Illness H&P Date: 05/25/17 Chief Complaint: Abdominal pain 41-year-old female with a history of nonspecific abdominal pain for the last 4 months which is intermittent in nature comes in to the hospital with complains of right upper quadrant abdominal pain that is radiating to her back this was sudden onset. Patient does not have an attribute inciting event Patient states that the pain is right upper quadrant has been constant no alleviating or exacerbating factors reported except for pain medications hence came in to the hospital for further evaluation. Off note patient has been evaluated with the similar pain in the past underwent a radiologic imaging of the abdomen had a HIDA scan at that time as well was noted to have a EF of 80% Patient was also evaluated with a EGD apparently and was negative States that patient has abdominal pain associated with intractable nausea and vomiting Denies having headaches recent travel history chest pain difficulty breathing lower extremity edema urinary urgency or frequency Laboratory data was reviewed and reveal any abnormalities Review of Systems All systems: negative (Noted in HPI) Past Medical History Past Medical History: Asthma, Hypertension Additional Past Medical History / Comment(s): LT SCIATICA. Neck pain,FATTY LIVER History of Any Multi-Drug Resistant Organisms: None Reported Past Surgical History: Hysterectomy, Tubal Ligation, Uterine Ablation Additional Past Surgical History / Comment(s): d & c , PAIN CLINIC PROCEDURES Past Anesthesia/Blood Transfusion Reactions: No Reported Reaction Past Psychological History: Anxiety, Bipolar, Depression, PTSD Additional Psychological History / Comment(s): Under care of psychiatrist. Smoking Status: Former smoker Past Alcohol Use History: None Reported Past Drug Use History: None Reported - Past Family History Mother Family Medical History: No Reported History Medications and Allergies Home Medications Medication Instructions Recorded Confirmed Type Cholecalciferol [Vitamin D3] 5,000 unit PO DAILY 11/18/16 05/24/17 History Cyanocobalamin [Vitamin B-12] 1,000 mcg PO DAILY 11/18/16 05/24/17 History DULoxetine HCL [Cymbalta] 60 mg PO BID 11/18/16 05/24/17 History Hydrocodone/Acetaminophen [[place] 1 tab PO Q8H PRN 11/18/16 05/24/17 History 10-325] Lisinopril 40 mg PO DAILY 02/05/17 05/24/17 History Fenofibrate Nanocrystallized 48 mg PO DAILY 03/25/17 05/24/17 History [Tricor] Omeprazole [PriLOSEC] 20 mg PO AC-BRKFST 05/24/17 05/24/17 History Allergies Allergy/AdvReac Type Severity Reaction Status Date / Time aripiprazole [From Abilify] Allergy Hallucinati Verified 05/24/17 15:43 ons Physical Exam Vitals: Vital Signs Temp Pulse Pulse Resp BP BP Pulse Ox 05/25/17 07:00 97.9 F 92 18 114/72 95 05/24/17 23:00 97.7 F 96 18 100/68 97 05/24/17 22:21 92 18 118/75 97 05/24/17 20:00 96 18 116/57 97 05/24/17 17:31 86 18 121/73 96 05/24/17 15:43 99 18 115/57 96 Intake and Output 05/25/17 05/25/17 05/25/17 06:59 14:59 22:59 Intake Total 0 Balance 0 Intake: Oral 0 Other: # Voids 1 Physical exam Gen. appearance oriented 3 in no distress Neck is supple no JVD Lungs good air entry clear to auscultation no rhonchi or wheezing Heart S1-S2 heard regular rate and rhythm no murmurs appreciated Abdomen right upper quadrant tenderness noted Bowel sounds are intact no organomegaly appreciated no rebound tenderness noted Neurologically cranial nerves II-12 grossly intact no focal motor or sensory deficits noted Skin no abnormalities appreciated Results CBC & Chem 7: 05/24/17 15:42 05/24/17 15:42 Labs: Abnormal Lab Results - Last 24 Hours (Table) 05/24/17 05/24/17 Range/Units 15:42 15:42 Glucose 128 H (74-99) mg/dL Urine Appearance Cloudy H (Clear) Urine Glucose (UA) 1+ H (Negative) Ur Leukocyte Esterase Small H (Negative) Urine WBC 8 H (0-5) /hpf Ur Squamous Epith Cells 9 H (0-4) /hpf Urine Bacteria Occasional H (None) /hpf Urine Mucus Occasional H (None) /hpf Thrombosis Risk Factor Assmnt - Choose All That Apply Each Factor Represents 1 point: Age 41-60 years, Obesity (BMI >25) Thrombosis Risk Factor Assessment Total Risk Factor Score: 2 Thrombosis Risk Factor Assessment Level: Low Risk Assessment and Plan Plan: 1 abdominal pain nonspecific #2 DEE #3 history of hypertension. #4 obesity #5 dyslipidemia Peripheral neuropathy Plan Patient has nonspecific abdominal pain a HIDA scan was ordered by the erp consultant We'll need to consider a repeat EGD Continue with IV PPI therapy We'll obtain HbA1c as well If HIDA is negative weight may need to consider a gastric emptying study DVT prophylaxis pain control
--- NOTE | 2017-05-25 17:30 | NM ---
EXAMINATION TYPE: NM hepatobiliary w EF DATE OF EXAM: 05/25/2017 COMPARISON: 11/25/2016 HISTORY: Abdominal pain TECHNIQUE: After the intravenous administration of 5.3 mCi Tc 99m Mebrofenin hepatobiliary scintigrap hy is performed. Immediate images post injection. FINDINGS: There is satisfactory initial accumulation of tracer by the liver. The gallbladder is visualized wit hin 36 minutes. The small bowel activity is noted within 15 minutes. At one hour 8 ounces of oral e nsure plus is given to mimic CCK and gallbladder ejection fraction is calculated at 26 %, in the norm al range. Therefore there is no scintigraphic evidence of cystic or common bile duct obstruction to suggest acute cholecystitis or gallbladder dyskinesia. There is no focal liver defect. IMPRESSION: No evidence of cystic duct or common bile duct obstruction. There is abnormal hypokinetic gallbladder ejection fraction of 26% with the stimulation. Normal is greater than 35%. This is a gabriel nge compared to old exam.
[2017-05-25] MEDS: KETOROLAC 30 MG/ML 1 ML VIAL IVP SCH ×2 (17:40→22:28)
[2017-05-25] MEDS: MORPHINE SULFATE 2 MG/ML SYRINGE IVP PRN ×2 (17:47→22:23)
[2017-05-25] MEDS: DULoxetine HCL 60 MG CAPSULE.DR PO SCH (22:13)
[2017-05-26] MEDS: SODIUM CHLORIDE 0.9% 1,000 ML IV SCH ×3 (06:05→23:23)
[2017-05-26] MEDS: MORPHINE SULFATE 2 MG/ML SYRINGE IVP PRN ×2 (06:36→23:28)
[2017-05-26] MEDS: KETOROLAC 30 MG/ML 1 ML VIAL IVP SCH ×2 (06:43→11:12)
[2017-05-26] MEDS: LISINOPRIL 20 MG TAB PO SCH (07:12)
[2017-05-26] MEDS: PANTOPRAZOLE 40 MG/10 ML VIAL IV SCH ×2 (08:26→23:22)
--- NOTE | 2017-05-26 09:18 | P.PN ---
Subjective 41-year-old female seen and evaluated currently resting in bed. Patient aware the plan of care. Discussed with the patient surgery will be scheduled on 05-27 for a lap cholecystectomy per . Patient continues to report having epigastric discomfort radiates into the back patient has had an extensive workup for the abdominal pain. A HIDA scan done on May 25 showed EF of 26% with gallbladder dyskinesia patient does state the pain medication "does help but does not completely relieve the discomfort denies any nausea vomiting. Objective - Vital Signs Vital signs: Vital Signs Temp 97.3 F L 05/26/17 07:04 Pulse 80 05/26/17 07:04 Resp 18 05/26/17 07:04 BP 99/63 05/26/17 07:04 Pulse Ox 96 05/26/17 07:04 Intake & Output 05/25/17 05/26/17 05/26/17 18:59 06:59 18:59 Other: # Voids 2 2 # Bowel Movements 0 0 - Exam Physical exam 41-year-old female resting in bed pleasant cooperative oriented 3 Lungs essentially clear adequate air movement on room air no shortness of breath no cough Heart S1-S2 audible and regular Abdomen obese soft not distended does report having epigastric discomfort no reports of nausea vomiting Extremities no edema noted - Labs CBC & Chem 7: 05/24/17 15:42 05/24/17 15:42 Assessment and Plan Plan: Impression Abnormal HIDA scan EF 26% with evidence of gallbladder dyskinesia Morbid obesity BMI 52 Persistent severe epigastric pain with nausea vomiting present on admission suspect due to gallbladder disease HIDA scan showing dyskinesia Recent EGD with no acute findings Dyslipidemia Plan Pain control IV fluid as ordered Nothing by mouth after midnight plan for lap cholecystectomy on 05-[address] Coelho discussed with patient DVT and GI prophylaxis Continue PPI protonix 40 mg IV twice a day Resume home meds as appropriate The above impression and plan of care have been discussed and directed by signing physician. Mena Summers nurse practitioner acting as scribe for signing physician.
[2017-05-26 09:27] LABS: ALT 20 U/L (9-52); AST 24 U/L (14-36); Alkaline Phosphatase 57 U/L (38-126); Anion Gap 5 mmol/L; Blood Urea Nitrogen 10 mg/dL (7-17); Calcium 8.3 mg/dL (8.4-10.2); Carbon Dioxide 27 mmol/L (22-30); Chloride 106 mmol/L (98-107); Glucose 94 mg/dL (74-99); Non-African American GFR(MDRD) >60 (>60 ml/min/1.73 sqM); Potassium 4.3 mmol/L (3.5-5.1); Sodium 138 mmol/L (137-145); Total Bilirubin 0.5 mg/dL (0.2-1.3); Total Protein 5.6 g/dL (6.3-8.2)
[2017-05-26 09:31] LABS: Basophils % (A) 0 %; CH 29.2; CHCM 31.8; Eosinophils # (A) 0.1 k/uL (0-0.7); Eosinophils % (A) 2 %; HCT 34.2 % (34.0-46.0); HDW 2.35; HGB 11.3 gm/dL (11.4-16.0); Luc # (Auto) 0.11; Luc % (Auto) 3; Lymphocytes # (A) 1.3 k/uL (1.0-4.8); Lymphocytes % (A) 33 %; MCH 30.5 pg (25.0-35.0); MCV 92.4 fL (80.0-100.0); Mean Platelet Volume 7.7; Monocytes # (A) 0.3 k/uL (0-1.0); Monocytes % (A) 8 %; Neutrophils # (A) 2.2 k/uL (1.3-7.7); Neutrophils % (A) 55 %; RDW 13.5 % (11.5-15.5); WBC 3.9 k/uL (3.8-10.6); WBC (Perox) 4.18
[2017-05-26] MEDS: DULoxetine HCL 60 MG CAPSULE.DR PO SCH ×2 (09:31→23:23)
--- NOTE | 2017-05-26 18:14 | P.PN ---
Subjective 41-year-old female with a history of nonspecific abdominal pain for the last 4 months which is intermittent in nature comes in to the hospital with complains of right upper quadrant abdominal pain that is radiating to her back this was sudden onset. Patient does not have an attribute inciting event Patient states that the pain is right upper quadrant has been constant no alleviating or exacerbating factors reported except for pain medications hence came in to the hospital for further evaluation. Off note patient has been evaluated with the similar pain in the past underwent a radiologic imaging of the abdomen had a HIDA scan at that time as well was noted to have a EF of 80% Patient was also evaluated with a EGD apparently and was negative States that patient has abdominal pain associated with intractable nausea and vomiting Denies having headaches recent travel history chest pain difficulty breathing lower extremity edema urinary urgency or frequency Laboratory data was reviewed and reveal any abnormalities 2016 Patient states to have some symptoms of nausea and intermittent right upper quadrant abdominal pain HIDA scan was positive Fevers chills chest pain difficulty breathing urinary urgency or frequency is reported Objective - Vital Signs Vital signs: Vital Signs Temp 96.9 F L 05/26/17 15:00 Pulse 63 05/26/17 15:00 Resp 18 05/26/17 15:00 BP 115/63 05/26/17 15:00 Pulse Ox 92 L 05/26/17 15:00 Intake & Output 05/25/17 05/26/17 05/26/17 18:59 06:59 18:59 Intake Total 1000 Balance 1000 Intake: IV 1000 Sodium Chloride 0.9% 1, 1000 000 ml @ 125 mls/hr IV . Q8H [facility] Rx#:[id number] Other: # Voids 2 2 3 # Bowel Movements 0 0 - Exam Physical exam Gen. appearance oriented 3 in no distress Neck is supple no JVD Lungs good air entry clear to auscultation no rhonchi or wheezing Heart S1-S2 heard regular rate and rhythm no murmurs appreciated Abdomen soft tenderness in the right upper quadrant no organomegaly noted obese Neurologically cranial nerves II-12 grossly intact no focal motor or sensory deficits noted Skin no abnormalities appreciated - Labs CBC & Chem 7: 05/26/17 07:58 05/26/17 07:58 Labs: Abnormal Lab Results - Last 24 Hours (Table) 05/26/17 05/26/17 Range/Units 07:58 07:58 RBC 3.70 L (3.80-5.40) m/uL Hgb 11.3 L (11.4-16.0) gm/dL Calcium 8.3 L (8.4-10.2) mg/dL Total Protein 5.6 L (6.3-8.2) g/dL Albumin 3.0 L (3.5-5.0) g/dL Assessment and Plan Plan: 1 abdominal pain due to biliary dyskinesia #2 DEE #3 history of hypertension. #4 obesity #5 dyslipidemia Peripheral neuropathy Plan Surgical resection of the gallbladder in the a.m. Vitals are stable Patient was able to perform greater than 4 METS prior to admission No further workup is necessary for cardiovascular evaluation Patient is cleared for surgery
[2017-05-27] MEDS: SODIUM CHLORIDE 0.9% 1,000 ML IV SCH ×3 (05:55→21:03)
[2017-05-27] MEDS: DULoxetine HCL 60 MG CAPSULE.DR PO SCH ×2 (07:57→21:02)
[2017-05-27] MEDS: LISINOPRIL 20 MG TAB PO SCH (07:58)
[2017-05-27] MEDS: PANTOPRAZOLE 40 MG/10 ML VIAL IV SCH ×2 (07:58→21:02)
[2017-05-27 08:47] LABS: Basophils % (A) 0 %; CHCM 32.6; Eosinophils # (A) 0.1 k/uL (0-0.7); Eosinophils % (A) 1 %; HCT 33.8 % (34.0-46.0); HDW 2.35; HGB 11.4 gm/dL (11.4-16.0); Luc % (Auto) 2; Lymphocytes # (A) 1.4 k/uL (1.0-4.8); Lymphocytes % (A) 31 %; MCH 31.3 pg (25.0-35.0); MCHC 33.8 g/dL (31.0-37.0); MCV 92.6 fL (80.0-100.0); Mean Platelet Volume 7.8; Monocytes # (A) 0.3 k/uL (0-1.0); Monocytes % (A) 8 %; Neutrophils # (A) 2.5 k/uL (1.3-7.7); Neutrophils % (A) 57 %; RBC 3.65 m/uL (3.80-5.40); RDW 13.6 % (11.5-15.5); WBC 4.4 k/uL (3.8-10.6); WBC (Perox) 4.31
[2017-05-27 09:09] LABS: ALT 21 U/L (9-52); AST 28 U/L (14-36); Alkaline Phosphatase 55 U/L (38-126); Anion Gap 5 mmol/L; Blood Urea Nitrogen 6 mg/dL (7-17); Calcium 8.2 mg/dL (8.4-10.2); Carbon Dioxide 26 mmol/L (22-30); Chloride 108 mmol/L (98-107); Glucose 90 mg/dL (74-99); Non-African American GFR(MDRD) >60 (>60 ml/min/1.73 sqM); Potassium 4.7 mmol/L (3.5-5.1); Sodium 139 mmol/L (137-145); Total Bilirubin 0.4 mg/dL (0.2-1.3); Total Protein 5.7 g/dL (6.3-8.2)
[2017-05-27] MEDS ORDERED: ACETAMINOPHEN IV (For NPO) 1,000 MG in EMPTY BAG 1 BAG IVPB ONE (12:00)
[2017-05-27] MEDS ORDERED: IV FLUID CONTINUATION 1,000 ML IV ONE (13:46)
[2017-05-27] MEDS ORDERED: ceFAZolin 2 GM in SODIUM CHLORIDE 0.9% 100 ML IVPB STA (14:16)
[2017-05-27] MEDS ORDERED: LIDOCAINE 1% INJ 10MG/ML (20 ML MDV) ONE (14:52)
[2017-05-27] MEDS ORDERED: NEOSTIGMINE 1 MG/ML 10 ML VIAL ONE (14:52)
[2017-05-27] MEDS ORDERED: ROCURONIUM BROMIDE 10 MG/ML 10 ML VIAL IV ONE (14:52)
[2017-05-27] MEDS ORDERED: GLYCOPYRROLATE 0.2 MG/ML 2 ML VIAL ONE ×2 (14:52)
[2017-05-27] MEDS ORDERED: PROPOFOL 10 MG/ML 20 ML VIAL IV ONE (14:52)
[2017-05-27] MEDS ORDERED: fentaNYL (PF) 50 MCG/ML 2 ML AMP ONE (14:52)
[2017-05-27] MEDS ORDERED: MIDAZOLAM 2 MG/2 ML VIAL ONE (14:52)
[2017-05-27] MEDS ORDERED: SUCCINYLCHOLINE CHLORIDE 100 MG/5 ML SYR IV ONE (14:52)
[2017-05-27] MEDS ORDERED: LIDOCAINE 1%-EPI 1:100,000 20 ML VIAL SQ ONE (15:41)
[2017-05-27] MEDS ORDERED: LACTATED RINGERS 1,000 ML IV ONE (15:47)
--- NOTE | 2017-05-27 16:20 | P.PN ---
Subjective 41-year-old female with a history of nonspecific abdominal pain for the last 4 months which is intermittent in nature comes in to the hospital with complains of right upper quadrant abdominal pain that is radiating to her back this was sudden onset. Patient does not have an attribute inciting event Patient states that the pain is right upper quadrant has been constant no alleviating or exacerbating factors reported except for pain medications hence came in to the hospital for further evaluation. Off note patient has been evaluated with the similar pain in the past underwent a radiologic imaging of the abdomen had a HIDA scan at that time as well was noted to have a EF of 80% Patient was also evaluated with a EGD apparently and was negative States that patient has abdominal pain associated with intractable nausea and vomiting Denies having headaches recent travel history chest pain difficulty breathing lower extremity edema urinary urgency or frequency Laboratory data was reviewed and reveal any abnormalities 2016 Patient states to have some symptoms of nausea and intermittent right upper quadrant abdominal pain HIDA scan was positive no Fevers chills chest pain difficulty breathing urinary urgency or frequency is reported 05/27/2017 Patient is anxious to undergo cholecystectomy No fevers chills nausea vomiting or diarrhea reported Objective - Vital Signs Vital signs: Vital Signs Temp 97.7 F 05/27/17 13:49 Pulse 74 05/27/17 13:49 Resp 16 05/27/17 13:49 BP 139/83 05/27/17 13:49 Pulse Ox 96 05/27/17 13:49 Intake & Output 05/26/17 05/27/17 05/27/17 18:59 06:59 18:59 Intake Total 1000 125 Balance 1000 125 Intake: IV 1000 125 Sodium Chloride 0.9% 1, 1000 000 ml @ 125 mls/hr IV . Q8H [facility] Rx#:[id number] Other: Voiding Method Toilet # Voids 3 2 1 # Bowel Movements 0 - Exam Physical exam Gen. appearance oriented 3 in no distress Neck is supple no JVD Lungs good air entry clear to auscultation no rhonchi or wheezing Heart S1-S2 heard regular rate and rhythm no murmurs appreciated Abdomen soft tenderness in the right upper quadrant no organomegaly noted obese Neurologically cranial nerves II-12 grossly intact no focal motor or sensory deficits noted Skin no abnormalities appreciated - Labs CBC & Chem 7: 05/27/17 07:28 05/27/17 07:28 Labs: Abnormal Lab Results - Last 24 Hours (Table) 05/27/17 05/27/17 Range/Units 07:28 07:28 RBC 3.65 L (3.80-5.40) m/uL Hct 33.8 L (34.0-46.0) % Chloride 108 H (98-107) mmol/L BUN 6 L (7-17) mg/dL Calcium 8.2 L (8.4-10.2) mg/dL Total Protein 5.7 L (6.3-8.2) g/dL Albumin 3.0 L (3.5-5.0) g/dL Assessment and Plan Plan: 1 abdominal pain due to biliary dyskinesia #2 DEE #3 history of hypertension. #4 obesity #5 dyslipidemia Peripheral neuropathy Plan Surgical resection of the gallbladder today Vitals are stable Patient was able to perform greater than 4 METS prior to admission No further workup is necessary for cardiovascular evaluation Patient is cleared for surgery
--- NOTE | 2017-05-27 16:51 | P.OP ---
Date of Procedure: 05/27/17 Preoperative Diagnosis: Biliary dyskinesia Postoperative Diagnosis: Acute cholecystitis Procedure(s) Performed: Roabor asissted laparoscopic choelcystectomy Implants: Anesthesia: AYLINA Surgeon: Flavia Coelho Pathology: other Condition: stable Disposition: PACU Indications for Procedure: Operative Findings: Acutely inflamed gall bladder Rather rigid liver with changes of early cirrhosis and hepatic steatosis. Deep intrahepatic gallbladder Description of Procedure: Patient is a 41-year-old female who presented with right upper quadrant pain and a clinical diagnosis of biliary dyskinesia was made. After appropriate informed consent and answering all the patient's questions patient taken the operating placement position and given general anesthesia with endotracheal intubation. The left upper quadrant was identified and Veress needle was used to enter the abdominal cavity and insufflated to 15 mmHg after confirming its position with the drop test. Once the abdomen insufflated 5 mm Optiview was used to enter the abdominal cavity through the LUQ. Three 8 mm ports were then placed for the robot in the left upper quadrant and right upper quadrant. The 5 mm port in the infraumbilical crease was replaced with a 12 mm port and a 5mm assist port was placed in the left lower quadrant. Once ports were then placed the patient was placed in appropriate position of left side down and reverse Trendelenburg. The robot was docked and Prograsp was taken in arm 3, Cardiere forceps in arm 2. Camera was through the 12 mm umbilical port site. And a hook cautery was taken in the arm 1. Gallbladder was retracted cephalad and superiorly. Inflammatory adhesions were taken down with the help of electrocautery. The cystic artery were clearly identified and the proximal proximally and then transected with the help of electrocautery. The patient had a deep intrahepatic gallbladder with a very large liver which that had hepatic steatosis. Retraction superiorly of the liver was difficult because of the density of the liver. Meticulous dissection was done on the left and right side of the gallbladder and the as we continued to dissect the gallbladder was taken off the hepatic plate clearly and passed identifying the cystic duct which was cleared and clips were fired across it after which was transected with scissors. Of note that the complete critical view was obtained prior to transection of the cystic duct. The gallbladder was then taken off the gallbladder fossa with the help of electrocautery. Gallbladder B unfired clips was then placed in Endo Catch bag and removed through 12 port site after undocking the robot. Abdomen was then again visualized and completely irrigated and sucked dry. 12 mm port site was closed with the help of a Abhijeet Avitia under direct laparoscopic view using 0 Vicryl. At this point the procedure was terminated and all ports were removed. Local anesthesia infiltrated into the incisions skin was closed with 4-0 Monocryl and Dermabond was applied. Patient is tolerated the procedure well with no complications. She was extubated and taken to recovery room in stable condition.
[2017-05-27] MEDS ORDERED: KETOROLAC 30 MG/ML 1 ML VIAL IVP ONE (17:03)
[2017-05-27] MEDS: HYDROcodone/APAP 5-325MG 1 EACH TAB PO PRN ×2 (18:38→23:20)
[2017-05-28] MEDS: HYDROcodone/APAP 5-325MG 1 EACH TAB PO PRN ×2 (05:28→10:57)
[2017-05-28] MEDS: SODIUM CHLORIDE 0.9% 1,000 ML IV SCH ×2 (05:34→12:00)
[2017-05-28] MEDS: DULoxetine HCL 60 MG CAPSULE.DR PO SCH (07:45)
[2017-05-28] MEDS: LISINOPRIL 20 MG TAB PO SCH (07:45)
[2017-05-28] MEDS: PANTOPRAZOLE 40 MG/10 ML VIAL IV SCH (07:45)
[2017-05-28 07:53] VITALS: BP 122/58; PULSE 94; RESP 16; TEMP 98.6
[2017-05-28] MEDS ORDERED: ENOXAPARIN 40 MG/0.4 ML SYRINGE SQ SCH (09:00)
--- NOTE | 2017-05-28 11:58 | P.PN ---
Subjective 41-year-old female being seen and examined this morning with Dr. de la rosa. Patient is postop robotic-assisted laparoscopic cholecystectomy done on the 27 of May for acute cholecystitis with biliary dyskinesis. Patient states she has not been up out of bed ambulating in the stout and is experiencing gas discomfort. Surgical sites benign. The abdomen is soft. Not distended Is tolerating a diet. Objective - Vital Signs Vital signs: Vital Signs Temp 98.6 F 05/28/17 07:00 Pulse 94 05/28/17 07:00 Resp 16 05/28/17 07:00 BP 122/58 05/28/17 07:00 Pulse Ox 91 L 05/28/17 07:00 Intake & Output 05/27/17 05/28/17 05/28/17 18:59 06:59 18:59 Intake Total 525 700 Output Total 10 Balance 515 700 Intake: IV 525 Oral 700 Output: Estimated Blood Loss 10 Other: Voiding Method Toilet Toilet # Voids 1 3 # Bowel Movements 0 - Exam Physical exam 41-year-old female obese sitting up in bed tolerated diet appears in no acute distress Lungs essentially clear adequate air movement on room air no cough noted Heart S1-S2 audible and regular Abdomen obese soft nontender not distended bowel tones present passing gas rectally surgical sites benign no redness Extremities no edema - Labs CBC & Chem 7: 05/27/17 07:28 05/27/17 07:28 Assessment and Plan Plan: Impression Abnormal HIDA scan EF 26% with evidence of gallbladder dyskinesia Morbid obesity BMI 52 Persistent severe epigastric pain with nausea vomiting present on admission suspect due to gallbladder disease HIDA scan showing dyskinesia Recent EGD with no acute findings Dyslipidemia Postop May 27 robotic-assisted up Rohan be cholecystectomy for acute cholecystitis Plan Pain control From a surgical perspective patient is felt to be surgically stable and appropriate to proceed with a discharge defer to the timing of the discharge to medical service DVT and GI prophylaxis Follow-up one week with Dr. de la rosa Resume home meds as appropriate The above impression and plan of care have been discussed and directed by signing physician. Mena Summers nurse practitioner acting as scribe for signing physician.
--- NOTE | 2017-05-28 16:44 | P.DS ---
Providers Date of admission: 05/24/17 20:46 Attending physician: Vasile Raza MD Consults: 05/24/17 20:49 Consult Physician Routine Consulting Provider: Flavia De La Rosa Consult Reason/Comments: Intractable abdominal pain Do you want consulting provider notified?: Yes Primary care physician: Una [facility] Course: 41-year-old female with a history of nonspecific abdominal pain for the last 4 months which is intermittent in nature comes in to the hospital with complains of right upper quadrant abdominal pain that is radiating to her back this was sudden onset. Patient does not have an attribute inciting event Patient states that the pain is right upper quadrant has been constant no alleviating or exacerbating factors reported except for pain medications hence came in to the hospital for further evaluation. Off note patient has been evaluated with the similar pain in the past underwent a radiologic imaging of the abdomen had a HIDA scan at that time as well was noted to have a EF of 80% Patient was also evaluated with a EGD apparently and was negative States that patient has abdominal pain associated with intractable nausea and vomiting Denies having headaches recent travel history chest pain difficulty breathing lower extremity edema urinary urgency or frequency Laboratory data was reviewed and reveal any abnormalities 2016 Patient states to have some symptoms of nausea and intermittent right upper quadrant abdominal pain HIDA scan was positive no Fevers chills chest pain difficulty breathing urinary urgency or frequency is reported 05/27/2017 Patient is anxious to undergo cholecystectomy No fevers chills nausea vomiting or diarrhea reported - Exam Physical exam Gen. appearance oriented 3 in no distress Neck is supple no JVD Lungs good air entry clear to auscultation no rhonchi or wheezing Heart S1-S2 heard regular rate and rhythm no murmurs appreciated Abdomen soft tenderness in the right upper quadrant no organomegaly noted obese Neurologically cranial nerves II-12 grossly intact no focal motor or sensory deficits noted Skin no abnormalities appreciated Assessment and Plan Plan: 1 abdominal pain due to biliary dyskinesia #2 DEE #3 history of hypertension. #4 obesity #5 dyslipidemia Peripheral neuropathy S post cholecystectomy discharged home in a stable condition to follow up with Dr. De La Rosa Patient Condition at Discharge: Stable Plan - Discharge Summary New Discharge Prescriptions: Continue Hydrocodone/Acetaminophen [[place] 10-325] 1 tab PO Q8H PRN PRN Reason: Pain DULoxetine HCL [Cymbalta] 60 mg PO BID Cyanocobalamin [Vitamin B-12] 1,000 mcg PO DAILY Cholecalciferol [Vitamin D3] 5,000 unit PO DAILY Lisinopril 40 mg PO DAILY Fenofibrate Nanocrystallized [Tricor] 48 mg PO DAILY Omeprazole [PriLOSEC] 20 [facility] PO [facility] Discharge Medication List Cholecalciferol [Vitamin D3] 5,000 unit PO DAILY 11/18/16 [History] Cyanocobalamin [Vitamin B-12] 1,000 mcg PO DAILY 11/18/16 [History] DULoxetine HCL [Cymbalta] 60 mg PO BID 11/18/16 [History] Hydrocodone/Acetaminophen [[place] 10-325] 1 tab PO Q8H PRN 11/18/16 [History] Lisinopril 40 mg PO DAILY 02/05/17 [History] Fenofibrate Nanocrystallized [Tricor] 48 mg PO DAILY 03/25/17 [History] Omeprazole [PriLOSEC] 20 mg PO [facility] 05/24/17 [History] Follow up Appointment(s)/Referral(s): Flavia De La Rosa MD [STAFF PHYSICIAN] - 06/04/17 2:00 pm Una Benson MD [Primary Care Provider] - 1 Week Patient Instructions/Handouts: Low Fat Diet (DC), Laparoscopic Cholecystectomy (DC) Activity/Diet/Wound Care/Special Instructions: Low fat diet. No lifting over 10 pounds until seen in follow-up surgical visit with Dr. de la rosa May shower No tub baths for 1 week Discharge Disposition: HOME SELF-CARE
== END 2017-05-28 13:10 | disposition home or self-care (01) ==
LOC: EC 14:57 → 4MS4W 20:46
PROVIDERS: ADMIT Internal Medicine; ATTEND Internal Medicine
DX: K81.2 Acute cholecystitis with chronic cholecystitis (principal); E66.01 Morbid (severe) obesity due to excess calories; Z68.43 Body mass index [BMI] 50.0-59.9, adult; Z79.899 Other long term (current) drug therapy; Z88.8 Allergy status to other drugs, medicaments and biological substances; J45.909 Unspecified asthma, uncomplicated; I10 Essential (primary) hypertension; K76.0 Fatty (change of) liver, not elsewhere classified; M54.32 Sciatica, left side; F43.10 Post-traumatic stress disorder, unspecified; F31.9 Bipolar disorder, unspecified; Z87.891 Personal history of nicotine dependence; E78.5 Hyperlipidemia, unspecified; K75.81 Nonalcoholic steatohepatitis (NASH); G62.9 Polyneuropathy, unspecified; K74.60 Unspecified cirrhosis of liver; Q44.1 Other congenital malformations of gallbladder
CPT/HCPCS: 47562; 96361; 96372; 96375; 99285; S2900; 36415; 74022; 76705; 76770; 78226; 80053; 81001; 81025; 82150; 83690; 85025; 88304; 96365; 96376

== ENCOUNTER 2017-12-06 21:23 | Emergency (ER) | payer OTHER ==
[2017-12-06] MEDS ORDERED: RX INFO: IV CONTRAST WAS GIVEN 1 EACH MISC MISCELLANE PRN (21:56)
[2017-12-06] MEDS ORDERED: KETOROLAC 30 MG/ML 1 ML VIAL IVP STA (21:57)
[2017-12-06] MEDS ORDERED: SODIUM CHLORIDE 0.9% 1,000 ML IV ONE (21:57)
[2017-12-06 22:27] LABS: Basophils % (A) 1 %; Eosinophils # (A) 0.1 k/uL (0-0.7); Eosinophils % (A) 1 %; HCT 41.1 % (34.0-46.0); Lymphocytes # (A) 2.8 k/uL (1.0-4.8); Lymphocytes % (A) 36 %; MCH 28.3 pg (25.0-35.0); MCHC 31.6 g/dL (31.0-37.0); MCV 89.7 fL (80.0-100.0); Mean Platelet Volume 7.4; Monocytes # (A) 0.5 k/uL (0-1.0); Monocytes % (A) 6 %; Neutrophils # (A) 4.1 k/uL (1.3-7.7); Neutrophils % (A) 53 %; Platelet Count 346 k/uL (150-450); RBC 4.58 m/uL (3.80-5.40); WBC 7.7 k/uL (3.8-10.6)
[2017-12-06 22:34] LABS: Appearance,Urine Cloudy (Clear); Bilirubin,Urine Negative (Negative); Blood,Urine Negative (Negative); Color,Urine Yellow; Glucose,Urine (UA) Negative (Negative); Ketones,Urine Negative (Negative); Leukocyte Esterase,Urine Negative (Negative); Mucus,Urine Few /hpf; Nitrite,Urine Negative (Negative); PH, Urine 6.5 (5.0-8.0); Protein,Urine Trace (Negative); RBC,Urine 1 /hpf (0-5); Specific Gravity,Urine 1.022 (1.001-1.035); Squamous Epithelial Cell,Urine 11 /hpf (0-4); Urobilinogen,Urine <2.0 mg/dL (<2.0); WBC,Urine 4 /hpf (0-5)
[2017-12-06 22:36] LABS: ALT 31 U/L (9-52); AST 25 U/L (14-36); Albumin 4.1 g/dL (3.5-5.0); Alkaline Phosphatase 69 U/L (38-126); Anion Gap 12 mmol/L; Blood Urea Nitrogen 12 mg/dL (7-17); Calcium 9.8 mg/dL (8.4-10.2); Carbon Dioxide 25 mmol/L (22-30); Chloride 104 mmol/L (98-107); Glucose 110 mg/dL (74-99); Lipase 88 U/L (23-300); Potassium 4.5 mmol/L (3.5-5.1); Sodium 141 mmol/L (137-145); Total Bilirubin 0.2 mg/dL (0.2-1.3); Total Protein 7.2 g/dL (6.3-8.2)
--- NOTE | 2017-12-06 23:16 | ED ---
Abdominal Pain HPI - General Chief Complaint: Abdominal Pain Stated Complaint: Abd pain Time Seen by Provider: 12/06/17 21:48 Source: patient Mode of arrival: ambulatory Limitations: no limitations - History of Present Illness Initial Comments: patient is a 42-year-old female presents with a chief complaint of right lower quadrant pain. She states the pain started today. She cannot identify any inciting incidences. There are no aggravating or alleviating factors. Timing is constant. Patient admits to having some decreased appetite, and mild nausea. She has not vomited. She states that she has been having looser stools and that she has gone 2-3 times today. She denies any fever. Patient states that she is concerned that she has appendicitis. - Related Data Home Medications Medication Instructions Recorded Confirmed Cholecalciferol [Vitamin D3] 5,000 unit PO DAILY 11/18/16 05/24/17 Cyanocobalamin [Vitamin B-12] 1,000 mcg PO DAILY 11/18/16 05/24/17 DULoxetine HCL [Cymbalta] 60 mg PO BID 11/18/16 05/24/17 Hydrocodone/Acetaminophen [[place] 1 tab PO Q8H PRN 11/18/16 05/24/17 10-325] Lisinopril 40 mg PO DAILY 02/05/17 05/24/17 Fenofibrate Nanocrystallized 48 mg PO DAILY 03/25/17 05/24/17 [Tricor] Omeprazole [PriLOSEC] 20 mg PO [facility] 05/24/17 05/24/17 Previous Rx's Medication Instructions Recorded Dicyclomine [Bentyl] 20 mg PO QID #20 tablet 12/06/17 Ondansetron Odt [Zofran Odt] 4 mg PO Q8HR PRN #20 tab 12/06/17 Allergies Allergy/AdvReac Type Severity Reaction Status Date / Time aripiprazole [From Abilify] Allergy Hallucinati Verified 12/06/17 21:38 ons hydromorphone [From Dilaudid] AdvReac Itching Verified 12/06/17 21:38 Review of Systems ROS Statement: Those systems with pertinent positive or pertinent negative responses have been documented in the HPI. ROS Other: All systems not noted in ROS Statement are negative. Gastrointestinal: Reports: abdominal pain, nausea Past Medical History Past Medical History: Asthma, Hypertension Additional Past Medical History / Comment(s): LT SCIATICA. Neck pain,FATTY LIVER History of Any Multi-Drug Resistant Organisms: None Reported Past Surgical History: Hysterectomy, Tubal Ligation, Uterine Ablation Additional Past Surgical History / Comment(s): d & c , PAIN CLINIC PROCEDURES Past Anesthesia/Blood Transfusion Reactions: No Reported Reaction Past Psychological History: Anxiety, Bipolar, Depression, PTSD Smoking Status: Former smoker Past Alcohol Use History: None Reported Past Drug Use History: None Reported - Past Family History Mother Family Medical History: No Reported History General Exam Limitations: no limitations General appearance: alert, in no apparent distress, obese Head exam: Present: atraumatic, normocephalic Eye exam: Present: normal appearance ENT exam: Present: normal exam Neck exam: Present: normal inspection Respiratory exam: Present: normal lung sounds bilaterally. Absent: respiratory distress Cardiovascular Exam: Present: regular rate, normal rhythm GI/Abdominal exam: Present: soft, tenderness (patient has tenderness in the right lower quadrant, abdominal exam is somewhat limited secondary to body habitus.). Absent: distended Rectal exam: Present: deferred Back exam: Present: CVA tenderness (R), CVA tenderness (L) Neurological exam: Present: alert, oriented X3 Psychiatric exam: Present: normal affect, normal mood Skin exam: Present: warm, dry, intact Course Vital Signs 12/06/17 21:36 Temperature 98.3 F Pulse Rate 89 Respiratory 20 Rate Blood Pressure 137/79 O2 Sat by Pulse 96 Oximetry Medical Decision Making - Medical Decision Making patient presents with a chief complaint of right lower quadrant pain. On initial evaluation, vital signs are stable, patient is in no acute distress. Physical exam is somewhat concerning for appendicitis however the patient does not have a fever, she ate 2 hours prior to arrival, she has not vomited, and does not have convincing diarrhea. We'll send basic labs, including a urinalysis, and sent patient for a computed tomography scan of the abdomen and pelvis with contrast. 11:47 PM Lab evaluation this patient is unremarkable. Computed tomography scan of the abdomen and pelvis does not show any acute process. I discussed the results with the patient. At this time we will treat her symptomaticallywith Motrin and Tylenol. I will prescribe Bentyl and Zofran for outpatient use. She is instructed to follow-up with her primary care doctor or return to the emergency department if symptoms worsen or change. She was given explicit signs and symptoms that should prompt return visit to the emergency department. She are agreeable. - Lab Data Result diagrams: 12/06/17 22:08 12/06/17 22:08 Lab Results 12/06/17 12/06/17 12/06/17 Range/Units 22:01 22:08 22:08 WBC 7.7 (3.8-10.6) k/uL RBC 4.58 (3.80-5.40) m/uL Hgb 13.0 (11.4-16.0) gm/dL Hct 41.1 (34.0-46.0) % MCV 89.7 (80.0-100.0) fL MCH 28.3 (25.0-35.0) pg MCHC 31.6 (31.0-37.0) g/dL RDW 14.0 (11.5-15.5) % Plt Count 346 (150-450) k/uL Neutrophils % 53 % Lymphocytes % 36 % Monocytes % 6 % Eosinophils % 1 % Basophils % 1 % Neutrophils # 4.1 (1.3-7.7) k/uL Lymphocytes # 2.8 (1.0-4.8) k/uL Monocytes # 0.5 (0-1.0) k/uL Eosinophils # 0.1 (0-0.7) k/uL Basophils # 0.0 (0-0.2) k/uL Sodium 141 (137-145) mmol/L Potassium 4.5 (3.5-5.1) mmol/L Chloride 104 (98-107) mmol/L Carbon Dioxide 25 (22-30) mmol/L Anion Gap 12 mmol/L BUN 12 (7-17) mg/dL Creatinine 0.80 (0.52-1.04) mg/dL Est GFR (MDRD) Af Amer >60 (>60 ml/min/1.73 sqM) Est GFR (MDRD) Non-Af >60 (>60 ml/min/1.73 sqM) Glucose 110 H (74-99) mg/dL Calcium 9.8 (8.4-10.2) mg/dL Total Bilirubin 0.2 (0.2-1.3) mg/dL AST 25 (14-36) U/L ALT 31 (9-52) U/L Alkaline Phosphatase 69 (38-126) U/L Total Protein 7.2 (6.3-8.2) g/dL Albumin 4.1 (3.5-5.0) g/dL Lipase 88 (23-300) U/L Urine Color Yellow Urine Appearance Cloudy H (Clear) Urine pH 6.5 (5.0-8.0) Ur Specific Salters 1.022 (1.001-1.035) Urine Protein Trace H (Negative) Urine Glucose (UA) Negative (Negative) Urine Ketones Negative (Negative) Urine Blood Negative (Negative) Urine Nitrite Negative (Negative) Urine Bilirubin Negative (Negative) Urine Urobilinogen <2.0 (<2.0) mg/dL Ur Leukocyte Esterase Negative (Negative) Urine RBC 1 (0-5) /hpf Urine WBC 4 (0-5) /hpf Ur Squamous Epith Cells 11 H (0-4) /hpf Urine Mucus Few H (None) /hpf Disposition Clinical Impression: Abdominal pain Disposition: HOME SELF-CARE Instructions: Abdominal Pain (ED) Referrals: Nonstaff,Physician [REFERRING] - 1-2 days
--- NOTE | 2017-12-06 23:26 | CT ---
EXAMINATION TYPE: CT abdomen pelvis w con DATE OF EXAM: 12/06/2017 COMPARISON: 11/27/2016 HISTORY: RLQ pain CT DLP: 3440.10 mGycm Automated exposure control for dose reduction was used. TECHNIQUE: Helical acquisition of images was performed from the lung bases through the pelvis. CONTRAST: Performed without Oral Contrast and with IV Contrast, patient injected with 100 mL of Omnipaque 300. FINDINGS: Lung bases are clear. There is no pleural effusion. There is low attenuation throughout the liver rel ated to fatty infiltration. Spleen appears normal. There is no pancreatic mass. Gallbladder appears a bsent. Bile ducts are not dilated. There is no adrenal mass. Kidneys show satisfactory contrast opacification. There is no hydronephrosi s. There is no retroperitoneal adenopathy. There is no ascites. Bladder is almost empty. I see no pel mac mass. I see no intestinal wall thickening. There are no dilated loops. There is a small ventral h ernia that contains fat and measures 3 x 1 cm. There is small umbilical hernia that contains fat. Appendix is not seen. There is no sign of appendicitis. I see no bony destructive process. There is no evidence of a pelvic mass. IMPRESSION: THERE IS APPARENT CHOLECYSTECTOMY SINCE LAST EXAM. FATTY INFILTRATION OF THE LIVER. THERE IS NEW UPPE R ABDOMINAL VENTRAL HERNIA THAT CONTAINS OMENTAL FAT. NO SIGN OF AN ACUTE ABDOMEN AND PELVIS.
[2017-12-07 00:01] VITALS: BP 121/60; PULSE 75; RESP 16; TEMP 97.8
== END 2017-12-07 00:01 | disposition home or self-care (01) ==
LOC: EC 21:23
DX: R10.31 Right lower quadrant pain (principal); R63.0 Anorexia; R11.0 Nausea; I10 Essential (primary) hypertension; F41.9 Anxiety disorder, unspecified; F32.9 Major depressive disorder, single episode, unspecified; Z98.51 Tubal ligation status; Z87.891 Personal history of nicotine dependence; Z79.899 Other long term (current) drug therapy; Z88.8 Allergy status to other drugs, medicaments and biological substances; Z88.0 Allergy status to penicillin
CPT/HCPCS: 99284; 96374; 36415; 80053; 83690; 85025; 81001; 74177; J1885; Q9967

== ENCOUNTER → 2017-12-22 | Outpatient (CLI) | payer OTHER ==
[2017-12-22 14:59] VITALS: BP 131/85; PULSE 66; RESP 16; TEMP 98.3; BMI 53.8
--- NOTE | 2017-12-22 15:35 | P.HPBAR ---
Bariatric H&P - History & Physicial H&P Date: 12/22/17 History & Physicial: Visit/CC: initial visit Patient initial contact: Initial weight: 142.485 kg Initial weight in pounds: 314.13 Height: 5 ft 4 in Initial BMI: 53.8 Last weight: Current weight: 142.485 kg Current weight in pounds: 314.13 Current BMI: 53.8 [place] body weight (based on NIH guidelines): 54.431 kg Excess body weight loss: 0.0% The patient is a 42 year-old F who presents for Bariatric Assessment. The patient presents today for new patient consultation for sleeve gastrectomy. Her BMI is 54. Patient has had lifetime problems obesity. She has developed severe comorbidities related to morbid obesity. Past Medical History Past Medical History: Asthma, Hypertension Additional Past Medical History / Comment(s): LT SCIATICA. Neck pain,FATTY LIVER History of Any Multi-Drug Resistant Organisms: None Reported Past Surgical History: Hysterectomy, Tubal Ligation, Uterine Ablation Additional Past Surgical History / Comment(s): d & c , PAIN CLINIC PROCEDURES ( last visit 2016) Past Anesthesia/Blood Transfusion Reactions: No Reported Reaction Smoking Status: Former smoker - Past Family History Mother Family Medical History: No Reported History Surgical - Exam Vital Signs Temp Pulse Resp BP 98.3 F 66 16 131/85 12/22/17 14:57 12/22/17 14:57 12/22/17 14:57 12/22/17 14:57 BMI 54 - General well developed, no distress - Eyes PERRL - ENT normal pinna - Neck no masses - Respiratory normal expansion - Cardiovascular Rhythm: regular - Abdomen Abdomen: soft, non tender Bariatric Assessment & Plan Plan: Morbid obesity with severe comorbidities disease. The patient has a good understanding of the sleeve gastrectomy. She is aware the risks and benefits of the surgery. Patient will be scheduled for a EGD. She'll follow-up in the bariatric clinic in 4 weeks. Bariatric Checklist Checklist: Plan: Checklist: EGD: 1. Hiatal hernia: 2. H. Pylori: HgbA1c: Vitamin D: Smoking: Former smoker Primary care physician referral: [facility] Psychiatry clearance: Cardiology clearance: Sleep study: Diet journal: VTE risk score: VTE risk level: Rehab needs at discharge:
[2017-12-22 15:52] LABS: HGB 12.5 gm/dL (11.4-16.0); MCH 28.8 pg (25.0-35.0); MCHC 32.1 g/dL (31.0-37.0); MCV 89.6 fL (80.0-100.0); Mean Platelet Volume 7.8; Platelet Count 307 k/uL (150-450); RBC 4.35 m/uL (3.80-5.40); RDW 13.9 % (11.5-15.5); WBC 8.1 k/uL (3.8-10.6)
[2017-12-22 16:38] LABS: ALT 26 U/L (9-52); AST 34 U/L (14-36); Albumin 4.2 g/dL (3.5-5.0); Alkaline Phosphatase 69 U/L (38-126); Anion Gap 10 mmol/L; Blood Urea Nitrogen 12 mg/dL (7-17); Calcium 9.9 mg/dL (8.4-10.2); Carbon Dioxide 27 mmol/L (22-30); Chloride 102 mmol/L (98-107); Glucose 117 mg/dL (74-99); Potassium 4.2 mmol/L (3.5-5.1); Sodium 139 mmol/L (137-145); Total Bilirubin 0.3 mg/dL (0.2-1.3); Total Protein 7.2 g/dL (6.3-8.2)
[2017-12-23 01:50] LABS: Hemoglobin A1C 6.1 % (4.0-6.0)
== END | disposition home or self-care (01) ==
LOC: BARWHC3 14:29
PROVIDERS: ATTEND Surgery
DX: E66.01 Morbid (severe) obesity due to excess calories (principal); J45.909 Unspecified asthma, uncomplicated; I10 Essential (primary) hypertension; M54.32 Sciatica, left side; M54.2 Cervicalgia; Z90.710 Acquired absence of both cervix and uterus; Z68.43 Body mass index [BMI] 50.0-59.9, adult; Z87.891 Personal history of nicotine dependence
CPT/HCPCS: 80053; 85027; 83036; 93005; 36415; G0463; 99201

== ENCOUNTER 2017-12-31 11:12 | Day surgery (SDC) | payer OTHER ==
[2017-12-29 11:01] VITALS: BMI 53.5
[2017-12-31 11:27] VITALS: RESP 18; TEMP 98
[2017-12-31] MEDS ORDERED: LACTATED RINGERS 1,000 ML IV ONE (11:27)
[2017-12-31] MEDS ORDERED: LIDOCAINE 1% 20 ML VIAL (10MG/ML) FOR IV START INTRADERMA ONE (11:42)
[2017-12-31 11:45] LABS: Glucose,Whole Blood 71 mg/dL (75-99)
[2017-12-31] MEDS ORDERED: KETAMINE 10 MG/ML 20 ML VIAL ONE (12:20)
[2017-12-31] MEDS ORDERED: PROPOFOL 10 MG/ML 20 ML VIAL IV ONE (12:20)
[2017-12-31] MEDS ORDERED: GLYCOPYRROLATE 0.2 MG/ML 2 ML VIAL ONE (12:20)
[2017-12-31] MEDS ORDERED: LIDOCAINE 1% INJ 10MG/ML (20 ML MDV) ONE (12:20)
--- NOTE | 2017-12-31 12:29 | P.GSHP ---
History of Present Illness H&P Date: 12/31/17 Chief Complaint: morbid obesity, gerd This is a 42-year-old female who presents today for EGD. She is currently undergoing workup for sleeve gastrectomy. She is a history of GERD. Her BMI is 54. Past Medical History Past Medical History: Asthma, Hypertension Additional Past Medical History / Comment(s): LT SCIATICA. Neck pain,FATTY LIVER History of Any Multi-Drug Resistant Organisms: None Reported Past Surgical History: Cholecystectomy, Hysterectomy, Tubal Ligation, Uterine Ablation Additional Past Surgical History / Comment(s): d & c , PAIN CLINIC PROCEDURES Past Anesthesia/Blood Transfusion Reactions: No Reported Reaction Smoking Status: Former smoker - Past Family History Mother Family Medical History: No Reported History Medications and Allergies Home Medications Medication Instructions Recorded Confirmed Type Cholecalciferol [Vitamin D3] 5,000 unit PO DAILY 11/18/16 12/29/17 History Cyanocobalamin [Vitamin B-12] 1,000 mcg PO DAILY 11/18/16 12/29/17 History DULoxetine HCL [Cymbalta] 60 mg PO DAILY 11/18/16 12/29/17 History Hydrocodone/Acetaminophen [[place] 1 tab PO Q8H PRN 11/18/16 12/29/17 History 10-325] Lisinopril 40 mg PO DAILY 02/05/17 12/29/17 History Fenofibrate 54 mg PO DAILY 12/19/17 12/29/17 History metFORMIN HCL [Glucophage] 250 mg PO BID 12/19/17 12/29/17 History Allergies Allergy/AdvReac Type Severity Reaction Status Date / Time aripiprazole [From Abilify] Allergy Hallucinati Verified 12/29/17 10:57 ons hydromorphone [From Dilaudid] AdvReac Itching Verified 12/29/17 10:57 Surgical - Exam Vital Signs Temp Pulse Resp BP Pulse Ox 98.0 F 83 18 118/56 96 12/31/17 11:26 12/31/17 11:26 12/31/17 11:26 12/31/17 11:26 12/31/17 11:26 - General well developed, no distress - Eyes PERRL - ENT normal pinna - Neck no masses - Respiratory normal expansion - Cardiovascular Rhythm: regular - Abdomen Abdomen: soft, non tender Results - Labs Abnormal Lab Results - Last 24 Hours (Table) 12/31/17 Range/Units 11:37 POC Glucose (mg/dL) 71 L (75-99) mg/dL Assessment and Plan Assessment: GERD, obesity. We'll perform EGD.
--- NOTE | 2017-12-31 12:34 | P.OP ---
Date of Procedure: 12/31/17 Preoperative Diagnosis: Morbid obesity GERD Postoperative Diagnosis: Mild antral gastritis Procedure(s) Performed: EGD Anesthesia: MAC Surgeon: Woody Santos Pathology: other (Antrum) Condition: stable Disposition: PACU Description of Procedure: The patient's placed on the endoscopy table in the lateral position. She received IV sedation. The gastroscope placed oropharynx and passed in the esophagus and the stomach. Scope was then placed through the pylorus. The first and second portion of the duodenum appeared normal. Scope was then brought back the antrum and this was mildly inflamed. A biopsies performed. The scope was unretroflexed and remainder of the stomach appeared normal. The GE junction was at the Center meters. There is no significant hiatal hernia. The distal esophagus appeared normal. The proximal esophagus appeared normal. Scope was withdrawn for patient.
[2017-12-31 12:54] VITALS: BP 106/68; PULSE 89
== END 2017-12-31 13:27 | disposition home or self-care (01) ==
LOC: ORWHC2ENDO 11:12
PROVIDERS: ATTEND Surgery
DX: K29.50 Unspecified chronic gastritis without bleeding (principal); E66.01 Morbid (severe) obesity due to excess calories; Z68.43 Body mass index [BMI] 50.0-59.9, adult; J45.909 Unspecified asthma, uncomplicated; I10 Essential (primary) hypertension; K76.0 Fatty (change of) liver, not elsewhere classified; M54.32 Sciatica, left side; E11.9 Type 2 diabetes mellitus without complications; Z98.51 Tubal ligation status; Z79.84 Long term (current) use of oral hypoglycemic drugs; Z79.899 Other long term (current) drug therapy; Z87.891 Personal history of nicotine dependence; Z88.8 Allergy status to other drugs, medicaments and biological substances; Z88.5 Allergy status to narcotic agent
CPT/HCPCS: 88305; 43239; J2001; J2704

== ENCOUNTER → 2018-01-12 | Outpatient (CLI) | payer OTHER ==
[2018-01-12 16:11] VITALS: BP 129/85; PULSE 100; TEMP 98.2; BMI 68.1
--- NOTE | 2018-01-13 11:18 | P.HPBAR ---
Bariatric H&P - History & Physicial H&P Date: 01/12/18 History & Physicial: Visit/CC: egd follow up Patient initial contact: Initial weight: 142.485 kg Initial weight in pounds: 314.13 Height: 5 ft 4 in Initial BMI: 53.8 Last weight: Current weight: 179.895 kg Current weight in pounds: 396.60 Current BMI: 68.1 [place] body weight (based on NIH guidelines): 54.431 kg Excess body weight loss: The patient is a 42 year-old F who presents for Bariatric Assessment. The patient presents for preoperative sleeve constipation. This is her second preoperative visit. Patient is morbidly obese with BMI of 68. We will over the risks and benefits of sleeve gastrectomy again. She seems to have a good understanding of the sleeve gastrectomy. Past Medical History Past Medical History: Asthma, Hypertension Additional Past Medical History / Comment(s): LT SCIATICA. Neck pain,FATTY LIVER History of Any Multi-Drug Resistant Organisms: None Reported Past Surgical History: Hysterectomy, Tubal Ligation, Uterine Ablation Additional Past Surgical History / Comment(s): d & c , PAIN CLINIC PROCEDURES Past Anesthesia/Blood Transfusion Reactions: No Reported Reaction Past Psychological History: Anxiety, Bipolar, Depression, PTSD Additional Psychological History / Comment(s): Under care of psychiatrist. Smoking Status: Former smoker Past Alcohol Use History: None Reported Additional Past Alcohol Use History / Comment(s): smoked off and on <1ppd quit 2006 Past Drug Use History: None Reported - Past Family History Mother Family Medical History: No Reported History Surgical - Exam Vital Signs Temp Pulse BP 98.2 F 100 129/85 01/12/18 16:01 01/12/18 16:01 01/12/18 16:01 - General well developed, no distress - Eyes PERRL - ENT normal pinna - Neck no masses - Respiratory normal expansion - Cardiovascular Rhythm: regular - Abdomen Abdomen: soft, non tender Bariatric Assessment & Plan Plan: Morbid obesity with BMI 60. Patient will be authorize for sleeve gastrectomy. She will attend preoperative dietary education class. Bariatric Checklist Checklist: Plan: Checklist: EGD: 1. Hiatal hernia: 2. H. Pylori: HgbA1c: Vitamin D: Smoking: Former smoker Primary care physician referral: [facility] Psychiatry clearance: Cardiology clearance: Sleep study: Diet journal: VTE risk score: VTE risk level: Rehab needs at discharge:
[2018-01-16 13:01] LABS: Anabasine Urine <2.0 ng/mL (<2.0)
== END | disposition home or self-care (01) ==
LOC: BARWHC3 15:36
PROVIDERS: ATTEND Surgery
DX: Z48.815 Encounter for surgical aftercare following surgery on the digestive system (principal); E66.01 Morbid (severe) obesity due to excess calories; B96.81 Helicobacter pylori [H. pylori] as the cause of diseases classified elsewhere; Z68.44 Body mass index [BMI] 60.0-69.9, adult; Z87.891 Personal history of nicotine dependence; Z90.710 Acquired absence of both cervix and uterus
CPT/HCPCS: 83013; 80307; G0480 ×2; G0463; 80323; 80364; 99211

== ENCOUNTER → 2018-02-03 | Outpatient (CLI) | payer OTHER ==
--- NOTE | 2018-02-04 12:01 | MM ---
Reason for exam: screening (asymptomatic). Last mammogram was performed 3 years and 9 months ago. History: Family history of breast cancer in paternal aunt. Physical Findings: A clinical breast exam by your physician is recommended on an annual basis and results should be correlated with mammographic findings. MG Screening Mammo w CAD Bilateral CC, MLO, XCCL, and CV view(s) were taken. Prior study comparison: May 17, 2014, bilateral MG screening mammo w CAD. There are benign appearing bilateral overall stable masses. No suspicious abnormality. No significant changes when compared with prior studies. ASSESSMENT: Benign, BI-RAD 2 RECOMMENDATION: Routine screening mammogram of both breasts in 1 year.
== END | disposition home or self-care (01) ==
LOC: RADMAMWWP 13:50
PROVIDERS: ATTEND Family Medicine
DX: Z12.31 Encounter for screening mammogram for malignant neoplasm of breast (principal)
CPT/HCPCS: 77067

== ENCOUNTER 2018-02-19 14:27 | Emergency (ER) | payer OTHER ==
[2018-02-19] MEDS ORDERED: SODIUM CHLORIDE 0.9% 1,000 ML IV ONE (16:02)
[2018-02-19] MEDS ORDERED: diphenhydrAMINE 50 MG/ML 1 ML VIAL IVP STA (16:02)
[2018-02-19] MEDS ORDERED: METOCLOPRAMIDE 5 MG/ML 2 ML VIAL IVP STA (16:02)
[2018-02-19] MEDS ORDERED: KETOROLAC 30 MG/ML 1 ML VIAL IVP STA (16:02)
--- NOTE | 2018-02-19 17:38 | CT ---
EXAMINATION TYPE: CT brain wo con DATE OF EXAM: 02/19/2018 COMPARISON: 01/13/2015 INDICATION: Headache and weakness, history of migraines. DLP: 1021.3 mGycm, Automated exposure control for dose reduction was used. CONTRAST: None CT of the brain is performed utilizing 3 mm thick sections through the posterior fossa and 3 mm thick sections through the remaining calvarium. Study is performed within 24 hours of arrival to the hosp [facility]. No abnormal hyperdensity is present to suggest an acute intracranial hemorrhage. No mass lesion is evident. No acute infarcts are evident. Ventricles and sulci are appropriate for the patient age. Paranasal sinuses and mastoid air cells within the [id number] are clear. IMPRESSIONS: 1. No acute intracranial process.
--- NOTE | 2018-02-19 18:10 | ED ---
Headache HPI - General Chief Complaint: Headache Stated Complaint: Migraine & weakness Time Seen by Provider: 02/19/18 15:41 Mode of arrival: ambulatory Limitations: no limitations - History of Present Illness Initial Comments: 42-year-old morbidly obese female with past medical history of occipital neuralgia presented for evaluation of headache for the last 2 days. She states that the onset was sudden 10 out of 10 asked no intensity and onset and different from previous headaches and she states this one is globally throughout her entire head and not just restricted to her occipital areas in a bandlike fashion which was her previous presentations. She says she also feels some tingling down into her bilateral arms and hands as well as her lower extremity's however there is no lateralizing weakness or loss of sensation. She denies any change in vision, chest pain, shortness breath, nausea, vomiting , fevers, chills, nuchal rigidity or skin lesions. She is not follow-up with her primary care physician concerning this and states that she tried to hold off coming but her made her come to the ED. - Related Data Home Medications Medication Instructions Recorded Confirmed Cholecalciferol [Vitamin D3] 2,000 unit PO DAILY 11/18/16 02/19/18 DULoxetine HCL [Cymbalta] 60 mg PO HS 11/18/16 02/19/18 Hydrocodone/Acetaminophen [[place] 1 tab PO QID PRN 11/18/16 02/19/18 10-325] Lisinopril 40 mg PO DAILY 02/05/17 02/19/18 Estrogens, Conjugated [Premarin] 0.3 mg PO DAILY 02/19/18 02/19/18 Multivitamin [Multivitamins Adult 1 tab PO DAILY 02/19/18 02/19/18 Gummies] metFORMIN HCL ER [Glucophage Xr] 500 mg PO PC-SUPPER 02/19/18 02/19/18 Previous Rx's Medication Instructions Recorded Ibuprofen [Motrin] 800 mg PO Q6HR #30 tab 02/19/18 Allergies Allergy/AdvReac Type Severity Reaction Status Date / Time aripiprazole [From Abilify] Allergy Hallucinati Verified 02/19/18 16:25 ons hydromorphone [From Dilaudid] AdvReac Itching Verified 02/19/18 16:25 Review of Systems ROS Statement: Those systems with pertinent positive or pertinent negative responses have been documented in the HPI. ROS Other: All systems not noted in ROS Statement are negative. Constitutional: Denies: fever, chills, weakness, night sweats Eyes: Denies: eye pain, eye discharge, vision change ENT: Denies: ear pain, throat pain Respiratory: Denies: cough, dyspnea, wheezes Cardiovascular: Denies: chest pain, palpitations Endocrine: Reports: fatigue (Generalized). Denies: polydipsia, polyuria Gastrointestinal: Denies: abdominal pain, nausea, vomiting Genitourinary: Denies: urgency, dysuria Musculoskeletal: Denies: back pain, arthralgia, myalgia Skin: Denies: rash, lesions Neurological: Reports: headache, paresthesias (Upper and lower extremities equally). Denies: weakness, numbness, confusion, abnormal gait, vertigo Psychiatric: Denies: anxiety, depression Hematological/Lymphatic: Denies: easy bleeding, easy bruising Past Medical History Past Medical History: Asthma, Diabetes Mellitus, Hypertension Additional Past Medical History / Comment(s): LT SCIATICA. Neck pain,FATTY LIVER History of Any Multi-Drug Resistant Organisms: None Reported Past Surgical History: Hysterectomy, Tubal Ligation, Uterine Ablation Additional Past Surgical History / Comment(s): d & c , PAIN CLINIC PROCEDURES Past Anesthesia/Blood Transfusion Reactions: No Reported Reaction Past Psychological History: Anxiety, Bipolar, Depression, PTSD Smoking Status: Former smoker Past Alcohol Use History: None Reported Past Drug Use History: None Reported - Past Family History Mother Family Medical History: No Reported History General Exam Limitations: no limitations General appearance: alert, in no apparent distress Head exam: Present: atraumatic, normocephalic Eye exam: Present: normal appearance, PERRL, EOMI. Absent: scleral icterus, conjunctival injection, periorbital swelling ENT exam: Present: normal exam, mucous membranes moist Neck exam: Present: normal inspection. Absent: tenderness, meningismus, lymphadenopathy Respiratory exam: Present: normal lung sounds bilaterally. Absent: respiratory distress, wheezes, rales, rhonchi, stridor Cardiovascular Exam: Present: regular rate, normal rhythm, normal heart sounds. Absent: systolic murmur, diastolic murmur, rubs, gallop, clicks GI/Abdominal exam: Present: soft, normal bowel sounds. Absent: distended, tenderness, guarding, rebound, rigid Rectal exam: Present: deferred Extremities exam: Present: normal inspection, full ROM, normal capillary refill. Absent: tenderness, pedal edema, joint swelling, calf tenderness Back exam: Present: normal inspection, full ROM Neurological exam: Present: alert, oriented X3, CN II-XII intact Psychiatric exam: Present: normal affect, normal mood Skin exam: Present: warm, dry, intact, normal color. Absent: rash Course Vital Signs 02/19/18 02/19/18 02/19/18 14:38 18:42 19:25 Temperature 98.2 F 97.7 F Pulse Rate 79 76 76 Respiratory 18 20 18 Rate Blood Pressure 141/64 133/65 133/65 O2 Sat by Pulse 97 98 97 Oximetry Medical Decision Making - Medical Decision Making 42-year-old female with past medical history of migraines and occipital neuralgia presented for evaluation of headache for the last 2 days. Even patient's description of maximum intensity at onset and not consistent with previous headaches concern for subarachnoid hemorrhage and patient sent for CT head which showed no acute process. Further review with the patient's history and previous visits shows that she has had similar presentations TIMES in the past with the headache acute onset parents her head and numbness and tingling to the upper extremity's. When the patient returned from CT she was further inquired upon her symptoms and she stated that she has had these previously. At this point the patient was informed that although the CT was negative a lumbar puncture would be required to rule out subarachnoid hemorrhage. She stated her symptoms were improving however and that she would refer not to undergo the lumbar puncture. She was kept in the ED a little while longer and on reevaluation continued to have improvement in her symptoms and stated that she was feeling much better. She was advised follow-up with her primary care physician but given her strict return instructions. The patient acknowledged an understanding. Information provided and agreed with this plan of care. Disposition Clinical Impression: Headache Disposition: HOME SELF-CARE Condition: Stable Instructions: Acute Headache (ED) Additional Instructions: Please use medication as discussed. Please follow up with family doctor if symptoms have not improved over the next two days. Please return to the emergency room if your symptoms increase or worsen or for any other concerns. Prescriptions: Ibuprofen [Motrin] 800 mg PO Q6HR #30 tab Referrals: Lola Way MD [Primary Care Provider] - 1-2 days Time of Disposition: 18:56
[2018-02-19] MEDS ORDERED: DIAZEPAM 5 MG/ML 2 ML INJ IVP STA (18:22)
[2018-02-19 18:44] VITALS: BP 133/65; PULSE 76
[2018-02-19 19:27] VITALS: RESP 18; TEMP 97.7
== END 2018-02-19 19:27 | disposition home or self-care (01) ==
LOC: EC 14:27
DX: R51 Headache (principal); R20.2 Paresthesia of skin; E11.9 Type 2 diabetes mellitus without complications; I10 Essential (primary) hypertension; F41.9 Anxiety disorder, unspecified; F31.9 Bipolar disorder, unspecified; E66.01 Morbid (severe) obesity due to excess calories; Z68.43 Body mass index [BMI] 50.0-59.9, adult; Z87.891 Personal history of nicotine dependence; Z86.69 Personal history of other diseases of the nervous system and sense organs; Z79.84 Long term (current) use of oral hypoglycemic drugs; Z79.899 Other long term (current) drug therapy; Z88.5 Allergy status to narcotic agent; Z88.8 Allergy status to other drugs, medicaments and biological substances
CPT/HCPCS: 70450; 99284; 96374; 96375 ×3; 96361; J1200; J2765; J3360; J1885

== ENCOUNTER → 2018-03-09 | Outpatient (CLI) | payer OTHER ==
[2018-03-09 13:00] VITALS: BP 122/64; PULSE 82; RESP 16; TEMP 98.8; BMI 53.4
--- NOTE | 2018-03-26 14:37 | P.HPBAR ---
Bariatric H&P - History & Physicial H&P Date: 03/09/18 History & Physicial: Visit/CC: Criteria follow-up Patient initial contact: Initial weight: 142.485 kg Initial weight in pounds: 314.13 Height: 5 ft 4 in Initial BMI: 53.8 Last weight: Current weight: 141.237 kg Current weight in pounds: 311.38 Current BMI: 53.4 [place] body weight (based on NIH guidelines): 54.431 kg Excess body weight loss: 1.4% The patient is a 42 year-old F who presents for Bariatric Assessment.patient presents today for preoperative consultation for sleeve gastrectomy. Patient has had lifetime problems obesity. She is morbidly obese with a BMI of 54. She is requesting to undergo sleeve gastrectomy. Past Medical History Past Medical History: Asthma, Diabetes Mellitus, Hypertension Additional Past Medical History / Comment(s): LT SCIATICA. Neck pain,FATTY LIVER History of Any Multi-Drug Resistant Organisms: None Reported Past Surgical History: Hysterectomy, Tubal Ligation, Uterine Ablation Additional Past Surgical History / Comment(s): d & c , PAIN CLINIC PROCEDURES Past Anesthesia/Blood Transfusion Reactions: No Reported Reaction Past Psychological History: Anxiety, Bipolar, Depression, PTSD Additional Psychological History / Comment(s): Under care of psychiatrist. Smoking Status: Former smoker Past Alcohol Use History: None Reported Additional Past Alcohol Use History / Comment(s): smoked off and on <1ppd quit 2006 Past Drug Use History: None Reported - Past Family History Mother Family Medical History: No Reported History Surgical - Exam Vital Signs Temp Pulse Resp BP 98.8 F 82 16 122/64 03/09/18 12:56 03/09/18 12:56 03/09/18 12:56 03/09/18 12:56 - General well developed, no distress - Eyes PERRL - ENT normal pinna - Neck no masses - Respiratory normal expansion - Cardiovascular Rhythm: regular - Abdomen Abdomen: soft, non tender Bariatric Assessment & Plan Plan: morbid obesity with severe comorbidities related to obesity. Patient has a good understanding of sleeve gastrectomy surgery. She understands the risks and benefits of the procedure. We had a lengthy discussion regarding gastric sleeve leak, obstruction and GERD. The patient will be scheduled for EGD. Bariatric Checklist Checklist: Plan: Checklist: EGD: 1. Hiatal hernia: 2. H. Pylori: HgbA1c: Vitamin D: Smoking: Former smoker Primary care physician referral: [facility] Psychiatry clearance: Cardiology clearance: Sleep study: Diet journal: VTE risk score: VTE risk level: Rehab needs at discharge:
== END | disposition home or self-care (01) ==
LOC: BARWHC3 12:26
PROVIDERS: ATTEND Surgery
DX: Z09 Encounter for follow-up examination after completed treatment for conditions other than malignant neoplasm (principal); E66.01 Morbid (severe) obesity due to excess calories; K21.9 Gastro-esophageal reflux disease without esophagitis; J45.909 Unspecified asthma, uncomplicated; E11.9 Type 2 diabetes mellitus without complications; I10 Essential (primary) hypertension; F41.9 Anxiety disorder, unspecified; F32.9 Major depressive disorder, single episode, unspecified; F43.10 Post-traumatic stress disorder, unspecified; Z87.891 Personal history of nicotine dependence; Z98.84 Bariatric surgery status; Z98.890 Other specified postprocedural states; Z68.43 Body mass index [BMI] 50.0-59.9, adult
CPT/HCPCS: 99211

== ENCOUNTER → 2018-03-10 | Outpatient (CLI) | payer OTHER ==
--- NOTE | 2018-03-10 15:31 | US ---
EXAMINATION TYPE: US venous doppler duplex LE RT DATE OF EXAM: 03/10/2018 3:16 PM COMPARISON: NONE CLINICAL HISTORY: M79.604 pain right leg; Z87.828. Right ankle sprain last week, right lower leg vida a and bruising SIDE PERFORMED: Right TECHNIQUE: The lower extremity deep venous system is examined utilizing real time linear array sonog pat with graded compression, doppler sonography and color-flow sonography. VESSELS IMAGED: External Iliac Vein (EIV) Common Femoral Vein Deep Femoral Vein Greater Saphenous Vein * Femoral Vein Popliteal Vein Small Saphenous Vein * Proximal Calf Veins (* superficial vessels) Right Leg: No evidence of DVT as visualized. Technical limitations due to patient's body habitus and patient had a difficult time tolerating compressions. IMPRESSION: No definite evidence for DVT at this time.
== END | disposition home or self-care (01) ==
LOC: RADUSWWP 14:15
PROVIDERS: ATTEND Family Medicine
DX: M79.604 Pain in right leg (principal); Z87.828 Personal history of other (healed) physical injury and trauma

== ENCOUNTER 2018-04-22 20:54 | Emergency (ER) | payer OTHER ==
[2018-04-22] MEDS ORDERED: KETOROLAC 30 MG/ML 1 ML VIAL IVP STA (21:54)
[2018-04-22] MEDS ORDERED: ONDANSETRON 4 MG/2 ML VIAL IVP STA (21:54)
[2018-04-22] MEDS ORDERED: SODIUM CHLORIDE 0.9% 1,000 ML IV STA (21:54)
[2018-04-22 22:31] LABS: Basophils % (A) 0 %; Eosinophils # (A) 0.1 k/uL (0-0.7); Eosinophils % (A) 2 %; HGB 12.8 gm/dL (11.4-16.0); Lymphocytes # (A) 2.1 k/uL (1.0-4.8); Lymphocytes % (A) 31 %; MCH 28.8 pg (25.0-35.0); MCHC 32.9 g/dL (31.0-37.0); MCV 87.5 fL (80.0-100.0); Mean Platelet Volume 7.8; Monocytes # (A) 0.3 k/uL (0-1.0); Monocytes % (A) 5 %; Neutrophils # (A) 4.2 k/uL (1.3-7.7); Neutrophils % (A) 61 %; Platelet Count 260 k/uL (150-450); RBC 4.46 m/uL (3.80-5.40); RDW 14.2 % (11.5-15.5); WBC 6.9 k/uL (3.8-10.6)
[2018-04-22 22:42] LABS: Appearance,Urine Cloudy (Clear); Bilirubin,Urine Negative (Negative); Blood,Urine Negative (Negative); Color,Urine Yellow; Glucose,Urine (UA) Negative (Negative); Ketones,Urine Negative (Negative); Leukocyte Esterase,Urine Small (Negative); Mucus,Urine Rare /hpf; Nitrite,Urine Negative (Negative); PH, Urine 5.5 (5.0-8.0); Protein,Urine Negative (Negative); RBC,Urine 3 /hpf (0-5); Specific Gravity,Urine 1.022 (1.001-1.035); Squamous Epithelial Cell,Urine 7 /hpf (0-4); Urobilinogen,Urine <2.0 mg/dL (<2.0); WBC,Urine 5 /hpf (0-5)
[2018-04-22 22:47] LABS: ALT 25 U/L (9-52); AST 23 U/L (14-36); Albumin 4.2 g/dL (3.5-5.0); Alkaline Phosphatase 85 U/L (38-126); Amylase 59 U/L (30-110); Anion Gap 14 mmol/L; Blood Urea Nitrogen 13 mg/dL (7-17); C Reactive Protein 27.4 mg/L (<10.0); Carbon Dioxide 26 mmol/L (22-30); Chloride 100 mmol/L (98-107); Glucose 103 mg/dL (74-99); Lipase 87 U/L (23-300); Potassium 4.1 mmol/L (3.5-5.1); Sodium 140 mmol/L (137-145); Total Bilirubin 0.2 mg/dL (0.2-1.3); Total Protein 7.1 g/dL (6.3-8.2)
[2018-04-22 23:24] VITALS: BP 134/81
--- NOTE | 2018-04-22 23:30 | CT ---
EXAMINATION TYPE: CT abdomen pelvis w con DATE OF EXAM: 04/22/2018 COMPARISON: 12/06/2017 HISTORY: Prior on synapse, mid to right sided abd pain that radiates to back and right leg,with nause a, history of cholecystectomy and hysterectomy CT DLP: 3483.90 mGycm Automated exposure control for dose reduction was used. TECHNIQUE: Helical acquisition of images was performed from the lung bases through the pelvis. CONTRAST: Performed without Oral Contrast and with IV Contrast, patient injected with 100 mL of Isovue 300. FINDINGS: Lung bases are clear. There is no pleural effusion. There is no focal liver defect. Spleen appears no rmal. There is no pancreatic mass. There is no dilated ducts. Gallbladder is absent. There is no adrenal mass. Kidneys show satisfactory contrast opacification. There is no hydronephrosi s. Ureters are not dilated. There is no retroperitoneal adenopathy. There is no ascites. I see no intestinal wall thickening. The re are no dilated loops. I see no bony destructive process. There is small ventral hernia to the righ t of midline. This contains omental fat and measures 3 x 2 cm. There is some minimal fatty infiltrati on of the liver. IMPRESSION: SMALL VENTRAL HERNIA IS STABLE COMPARED TO LAST EXAM. MILD FATTY INFILTRATION OF THE LIVER. NO SIGN O F ACUTE ABDOMEN AND PELVIS.
[2018-04-23] MEDS ORDERED: DICYCLOMINE 10 MG/ML 2 ML AMP IM STA (00:18)
--- NOTE | 2018-04-23 00:18 | ED ---
Abdominal Pain HPI - General Chief Complaint: Abdominal Pain Stated Complaint: abdominal/leg/back pain Time Seen by Provider: 04/22/18 21:34 Source: patient Mode of arrival: ambulatory Limitations: no limitations - History of Present Illness Initial Comments: 42-year-old male patient presents to the emergency department today for evaluation of right lower quadrant abdominal pain that radiates into her back. Patient states that this started approximately 4-5 hours ago. Patient states that she has had some nausea with this but has not vomited. She denies any fevers or chills. States that she has been having diarrhea approximately every half hour. Patient denies any recent travel or sick contacts. Denies any hematuria, dysuria, urinary frequency, urinary urgency. Has had cholecystectomy and hysterectomy. Patient denies any recent rash, shortness breath, chest pain, numbness, tingling, dizziness, weakness, headache, visual changes, or any other complaints. - Related Data Home Medications Medication Instructions Recorded Confirmed Cholecalciferol [Vitamin D3] 2,000 unit PO DAILY 11/18/16 04/22/18 DULoxetine HCL [Cymbalta] 60 mg PO HS 11/18/16 04/22/18 Hydrocodone/Acetaminophen [[place]av[place] 1 tab PO QID PRN 11/18/16 04/22/18 10-325] Lisinopril 40 mg PO DAILY 02/05/17 04/22/18 metFORMIN HCL ER [Glucophage Xr] 500 mg PO PC-SUPPER 02/19/18 04/22/18 Previous Rx's Medication Instructions Recorded Dicyclomine [Bentyl] 20 mg PO QID #10 tablet 04/23/18 Allergies Allergy/AdvReac Type Severity Reaction Status Date / Time aripiprazole [From Abilify] Allergy Hallucinati Verified 04/22/18 22:15 ons hydromorphone [From Dilaudid] AdvReac Itching Verified 04/22/18 22:15 Review of Systems ROS Statement: Those systems with pertinent positive or pertinent negative responses have been documented in the HPI. ROS Other: All systems not noted in ROS Statement are negative. Past Medical History Past Medical History: Asthma, Diabetes Mellitus, Hypertension Additional Past Medical History / Comment(s): LT SCIATICA. Neck pain,FATTY LIVER History of Any Multi-Drug Resistant Organisms: None Reported Past Surgical History: Cholecystectomy, Hysterectomy, Tubal Ligation, Uterine Ablation Additional Past Surgical History / Comment(s): d & c , PAIN CLINIC PROCEDURES Past Anesthesia/Blood Transfusion Reactions: No Reported Reaction Past Psychological History: Anxiety, Bipolar, Depression, PTSD Smoking Status: Former smoker Past Alcohol Use History: None Reported Past Drug Use History: None Reported - Past Family History Mother Family Medical History: No Reported History General Exam Limitations: no limitations General appearance: alert, in no apparent distress, other (This is a well- developed, obese adult female patient in no acute distress. Vital signs upon presentation are temperature 98.2F, pulse 87, respirations 20, blood pressure 132/85, pulse ox 97% on room air.) Eye exam: Present: normal appearance, PERRL, EOMI. Absent: scleral icterus, conjunctival injection, periorbital swelling ENT exam: Present: normal exam, normal oropharynx, mucous membranes moist Respiratory exam: Present: normal lung sounds bilaterally. Absent: respiratory distress, wheezes, rales, rhonchi, stridor Cardiovascular Exam: Present: regular rate, normal rhythm, normal heart sounds. Absent: systolic murmur, diastolic murmur, rubs, gallop, clicks GI/Abdominal exam: Present: soft, tenderness (Left lower quadrant and right lower quadrant tenderness.), normal bowel sounds. Absent: distended, guarding, rebound, rigid Back exam: Present: normal inspection. Absent: CVA tenderness (R), CVA tenderness (L) Neurological exam: Present: alert, oriented X3, CN II-XII intact Psychiatric exam: Present: normal affect, normal mood Skin exam: Present: warm, dry, intact, normal color. Absent: rash Course Vital Signs 04/22/18 04/22/18 04/23/18 21:13 23:21 00:26 Temperature 98.2 F 97.5 F L Pulse Rate 87 84 77 Respiratory 20 18 16 Rate Blood Pressure 132/85 134/81 134/81 O2 Sat by Pulse 97 99 97 Oximetry Medical Decision Making - Medical Decision Making 42-year-old male patient presented to the emergency department today for evaluation of right lower quadrant abdominal pain. Physical examination did reveal right lower quadrant and left lower quadrant abdominal tenderness. Labs reviewed and are unremarkable. Patient's C-reactive protein is mildly elevated in the mid 20s. CT of the abdomen and pelvis was obtained and shows no acute intra-abdominal process. Patient is having diarrhea and has had some slight nausea do feel it is more related to enteritis. Patient will be given a dose of Bentyl. She be given a prescription for Bentyl. She is instructed to follow -up with her primary care physician for recheck in 1-2 days. She is instructed to return here immediately for any new, worsening, or concerning symptoms. - Lab Data Result diagrams: 04/22/18 22:00 04/22/18 22:00 Lab Results 04/22/18 04/22/18 04/22/18 Range/Units 22:00 22:00 22:00 WBC 6.9 (3.8-10.6) k/uL RBC 4.46 (3.80-5.40) m/uL Hgb 12.8 (11.4-16.0) gm/dL Hct 39.0 (34.0-46.0) % MCV 87.5 (80.0-100.0) fL MCH 28.8 (25.0-35.0) pg MCHC 32.9 (31.0-37.0) g/dL RDW 14.2 (11.5-15.5) % Plt Count 260 (150-450) k/uL Neutrophils % 61 % Lymphocytes % 31 % Monocytes % 5 % Eosinophils % 2 % Basophils % 0 % Neutrophils # 4.2 (1.3-7.7) k/uL Lymphocytes # 2.1 (1.0-4.8) k/uL Monocytes # 0.3 (0-1.0) k/uL Eosinophils # 0.1 (0-0.7) k/uL Basophils # 0.0 (0-0.2) k/uL Sodium 140 (137-145) mmol/L Potassium 4.1 (3.5-5.1) mmol/L Chloride 100 (98-107) mmol/L Carbon Dioxide 26 (22-30) mmol/L Anion Gap 14 mmol/L BUN 13 (7-17) mg/dL Creatinine 0.60 (0.52-1.04) mg/dL Est GFR (CKD-EPI)AfAm >90 (>60 ml/min/1.73 sqM) Est GFR (CKD-EPI)NonAf >90 (>60 ml/min/1.73 sqM) Glucose 103 H (74-99) mg/dL Plasma Lactic Acid Rom[place] (0.7-2.0) mmol/L Calcium 10.0 (8.4-10.2) mg/dL Total Bilirubin 0.2 (0.2-1.3) mg/dL AST 23 (14-36) U/L ALT 25 (9-52) U/L Alkaline Phosphatase 85 (38-126) U/L C-Reactive Protein 27.4 H (<10.0) mg/L Total Protein 7.1 (6.3-8.2) g/dL Albumin 4.2 (3.5-5.0) g/dL Amylase 59 (30-110) U/L Lipase 87 (23-300) U/L Urine Color Yellow Urine Appearance Cloudy H (Clear) Urine pH 5.5 (5.0-8.0) Ur Specific [place] 1.022 (1.001-1.035) Urine Protein Negative (Negative) Urine Glucose (UA) Negative (Negative) Urine Ketones Negative (Negative) Urine Blood Negative (Negative) Urine Nitrite Negative (Negative) Urine Bilirubin Negative (Negative) Urine Urobilinogen <2.0 (<2.0) mg/dL Ur Leukocyte Esterase Small H (Negative) Urine RBC 3 (0-5) /hpf Urine WBC 5 (0-5) /hpf Ur Squamous Epith Cells 7 H (0-4) /hpf Urine Mucus Rare H (None) /hpf 04/22/18 Range/Units 22:00 WBC (3.8-10.6) k/uL RBC (3.80-5.40) m/uL Hgb (11.4-16.0) gm/dL Hct (34.0-46.0) % MCV (80.0-100.0) fL MCH (25.0-35.0) pg MCHC (31.0-37.0) g/dL RDW (11.5-15.5) % Plt Count (150-450) k/uL Neutrophils % % Lymphocytes % % Monocytes % % Eosinophils % % Basophils % % Neutrophils # (1.3-7.7) k/uL Lymphocytes # (1.0-4.8) k/uL Monocytes # (0-1.0) k/uL Eosinophils # (0-0.7) k/uL Basophils # (0-0.2) k/uL Sodium (137-145) mmol/L Potassium (3.5-5.1) mmol/L Chloride (98-107) mmol/L Carbon Dioxide (22-30) mmol/L Anion Gap mmol/L BUN (7-17) mg/dL Creatinine (0.52-1.04) mg/dL Est GFR (CKD-EPI)AfAm (>60 ml/min/1.73 sqM) Est GFR (CKD-EPI)NonAf (>60 ml/min/1.73 sqM) Glucose (74-99) mg/dL Plasma Lactic Acid [place] 1.1 (0.7-2.0) mmol/L Calcium (8.4-10.2) mg/dL Total Bilirubin (0.2-1.3) mg/dL AST (14-36) U/L ALT (9-52) U/L Alkaline Phosphatase (38-126) U/L C-Reactive Protein (<10.0) mg/L Total Protein (6.3-8.2) g/dL Albumin (3.5-5.0) g/dL Amylase (30-110) U/L Lipase (23-300) U/L Urine Color Urine Appearance (Clear) Urine pH (5.0-8.0) Ur Specific [place] (1.001-1.035) Urine Protein (Negative) Urine Glucose (UA) (Negative) Urine Ketones (Negative) Urine Blood (Negative) Urine Nitrite (Negative) Urine Bilirubin (Negative) Urine Urobilinogen (<2.0) mg/dL Ur Leukocyte Esterase (Negative) Urine RBC (0-5) /hpf Urine WBC (0-5) /hpf Ur Squamous Epith Cells (0-4) /hpf Urine Mucus (None) /hpf - Radiology Data Radiology results: report reviewed, image reviewed CT abdomen and pelvis was obtained with contrast. Report was reviewed in its entirety. Impression by Dr. Claros shows small ventral hernia stable compared to last exam. Mild fatty infiltration of the liver. No sign of acute abdomen and pelvis. Disposition Clinical Impression: Abdominal pain, Enteritis Disposition: HOME SELF-CARE Condition: Good Instructions: Abdominal Pain (ED), Enteritis (ED) Additional Instructions: Increase fluids. Follow-up with her primary care physician for recheck in 1-2 days. Return here immediately for any new, worsening, or concerning symptoms. Prescriptions: Dicyclomine [Bentyl] 20 mg PO QID #10 tablet Is patient prescribed a controlled substance at d/c from ED?: No Referrals: Lola Way MD [Primary Care Provider] - 1-2 days Time of Disposition: 00:18
[2018-04-23 00:29] VITALS: PULSE 77; RESP 16; TEMP 97.5
== END 2018-04-23 00:33 | disposition home or self-care (01) ==
LOC: EC 20:54
DX: K52.9 Noninfective gastroenteritis and colitis, unspecified (principal); E11.9 Type 2 diabetes mellitus without complications; I10 Essential (primary) hypertension; F41.9 Anxiety disorder, unspecified; F31.9 Bipolar disorder, unspecified; Z87.891 Personal history of nicotine dependence; Z90.49 Acquired absence of other specified parts of digestive tract; Z90.710 Acquired absence of both cervix and uterus; Z98.890 Other specified postprocedural states; Z79.84 Long term (current) use of oral hypoglycemic drugs; Z79.899 Other long term (current) drug therapy; Z88.5 Allergy status to narcotic agent; Z88.8 Allergy status to other drugs, medicaments and biological substances
CPT/HCPCS: 36415; 80053; 82150; 83605; 83690; 85025; 86140; 81001; 74177; 99284; 96374; 96375; 96361; 96372; J2405; J1885; Q9967

== ENCOUNTER → 2018-04-27 | Outpatient (CLI) | payer OTHER ==
[2018-04-27 13:29] VITALS: BP 136/76; PULSE 100; RESP 20; TEMP 98.8; BMI 53.1
--- NOTE | 2018-04-27 15:13 | P.HPBAR ---
Bariatric H&P - History & Physicial H&P Date: 04/27/18 History & Physicial: Visit/CC: pursuing sleeve Patient initial contact: Initial weight: 142.485 kg Initial weight in pounds: 314.13 Height: 5 ft 4 in Initial BMI: 53.8 Last weight: Current weight: 140.523 kg Current weight in pounds: 309.80 Current BMI: 53.1 [place] body weight (based on NIH guidelines): 54.431 kg Excess body weight loss: 2.2% The patient is a 42 year-old F who presents for Bariatric Assessment. Patient presents for preoperative sleeve gastrectomy constipation. She's had some complaints of abdominal pain. She was seen recently in the emergency room and found have evidence of a small ventral hernia. Patient had a previous cholestatic me by Dr. Tena last May. Past Medical History Past Medical History: Asthma, Diabetes Mellitus, Hypertension Additional Past Medical History / Comment(s): LT SCIATICA. Neck pain,FATTY LIVER History of Any Multi-Drug Resistant Organisms: None Reported Past Surgical History: Cholecystectomy, Hysterectomy, Tubal Ligation, Uterine Ablation Additional Past Surgical History / Comment(s): d & c , PAIN CLINIC PROCEDURES Past Anesthesia/Blood Transfusion Reactions: No Reported Reaction Smoking Status: Former smoker - Past Family History Mother Family Medical History: No Reported History Surgical - Exam Vital Signs Temp Pulse Resp BP 98.8 F 100 20 136/76 04/27/18 13:22 04/27/18 13:22 04/27/18 13:22 04/27/18 13:22 - General well developed, well nourished, no distress - Eyes PERRL - ENT normal pinna - Abdomen Abdomen: soft Hernia: epigastric Bariatric Assessment & Plan Plan: Morbid obesity with BMI 55. The patient will be scheduled for sleeve gastrectomy. She has a small ventral hernia related to her previously laparoscopic cholestatic. I discussed the patient that we will observe her and when she was inflated we will repair her hernia. Patient has been tentatively scheduled. For sleeve gastrectomy Bariatric Checklist Checklist: Plan: Checklist: EGD: 1. Hiatal hernia: 2. H. Pylori: HgbA1c: Vitamin D: Smoking: Former smoker Primary care physician referral: [facility] Psychiatry clearance: Cardiology clearance: Sleep study: Diet journal: VTE risk score: VTE risk level: Rehab needs at discharge:
== END | disposition home or self-care (01) ==
LOC: BARWHC3 12:41
PROVIDERS: ATTEND Surgery
DX: E66.01 Morbid (severe) obesity due to excess calories (principal); K43.9 Ventral hernia without obstruction or gangrene; Z68.43 Body mass index [BMI] 50.0-59.9, adult; Z87.891 Personal history of nicotine dependence; Z90.49 Acquired absence of other specified parts of digestive tract; Z90.710 Acquired absence of both cervix and uterus
CPT/HCPCS: 99211

== ENCOUNTER 2018-05-21 12:35 | Emergency (ER) | payer OTHER ==
[2018-05-21] MEDS ORDERED: MORPHINE SULFATE 2 MG/ML SYRINGE IVP STA (13:28)
[2018-05-21] MEDS ORDERED: KETOROLAC 30 MG/ML 1 ML VIAL IVP STA (13:28)
[2018-05-21] MEDS ORDERED: ONDANSETRON 4 MG/2 ML VIAL IVP STA (13:28)
[2018-05-21] MEDS ORDERED: SODIUM CHLORIDE 0.9% 1,000 ML IV STA ×2 (13:28)
[2018-05-21 14:02] LABS: Basophils % (A) 0 %; Eosinophils # (A) 0.1 k/uL (0-0.7); Eosinophils % (A) 1 %; HGB 12.9 gm/dL (11.4-16.0); Lymphocytes % (A) 32 %; MCH 28.8 pg (25.0-35.0); MCHC 32.3 g/dL (31.0-37.0); Mean Platelet Volume 7.9; Monocytes # (A) 0.3 k/uL (0-1.0); Monocytes % (A) 5 %; Neutrophils # (A) 3.7 k/uL (1.3-7.7); Neutrophils % (A) 60 %; Platelet Count 257 k/uL (150-450); RDW 14.3 % (11.5-15.5); WBC 6.2 k/uL (3.8-10.6)
[2018-05-21 14:12] LABS: ALT 27 U/L (9-52); AST 32 U/L (14-36); Albumin 4.2 g/dL (3.5-5.0); Alkaline Phosphatase 86 U/L (38-126); Amylase 43 U/L (30-110); Anion Gap 13 mmol/L; Blood Urea Nitrogen 8 mg/dL (7-17); Calcium 9.3 mg/dL (8.4-10.2); Carbon Dioxide 25 mmol/L (22-30); Chloride 102 mmol/L (98-107); Glucose 135 mg/dL (74-99); Lipase 65 U/L (23-300); Potassium 3.9 mmol/L (3.5-5.1); Sodium 140 mmol/L (137-145); Total Bilirubin 0.4 mg/dL (0.2-1.3)
[2018-05-21 14:14] LABS: Amorphous Sediment,Urine Many /hpf; Appearance,Urine Turbid (Clear); Bilirubin,Urine Negative (Negative); Blood,Urine Negative (Negative); Color,Urine Yellow; Glucose,Urine (UA) Negative (Negative); Ketones,Urine Trace (Negative); Leukocyte Esterase,Urine Negative (Negative); Mucus,Urine Moderate /hpf; Nitrite,Urine Negative (Negative); PH, Urine 5.5 (5.0-8.0); Protein,Urine Trace (Negative); Specific Gravity,Urine 1.024 (1.001-1.035); Squamous Epithelial Cell,Urine 4 /hpf (0-4)
--- NOTE | 2018-05-21 14:17 | ED ---
Abdominal Pain HPI - General Chief Complaint: Abdominal Pain Stated Complaint: lt sided pain Time Seen by Provider: 05/21/18 12:56 Source: patient, RN notes reviewed, old records reviewed Mode of arrival: ambulatory Limitations: no limitations - History of Present Illness Initial Comments: 42-year-old female presents emergency Department chief complaint of left-sided abdominal pain for the past few hours. She reports that she does have a dark urine. Doesn't diarrhea. No bloody stools or bloody emesis. She reports she' s had history of cholecystectomy and vaginal hysterectomy. She denies any fever or chills. She does report that the pain radiates from her pelvis to her back. - Related Data Home Medications Medication Instructions Recorded Confirmed Cholecalciferol [Vitamin D3] 2,000 unit PO DAILY 11/18/16 05/21/18 DULoxetine HCL [Cymbalta] 60 mg PO BID 11/18/16 05/21/18 Hydrocodone/Acetaminophen [[place] 1 tab PO QID PRN 11/18/16 05/21/18 10-325] Lisinopril 40 mg PO DAILY 02/05/17 05/21/18 metFORMIN HCL ER [Glucophage Xr] 500 mg PO PC-SUPPER 02/19/18 05/21/18 Atorvastatin [Lipitor] 40 mg PO HS 05/21/18 05/21/18 Cyanocobalamin (Vitamin B-12) 1,000 mcg PO DAILY 05/21/18 05/21/18 [Vitamin B-12] Previous Rx's Medication Instructions Recorded Loperamide [Imodium] 2 mg PO TID #10 capsule 05/21/18 Allergies Allergy/AdvReac Type Severity Reaction Status Date / Time aripiprazole [From Abilify] Allergy Hallucinati Verified 05/21/18 13:44 ons hydromorphone [From Dilaudid] AdvReac Itching Verified 05/21/18 13:44 Review of Systems ROS Statement: Those systems with pertinent positive or pertinent negative responses have been documented in the HPI. ROS Other: All systems not noted in ROS Statement are negative. Past Medical History Past Medical History: Asthma, Diabetes Mellitus, Hypertension Additional Past Medical History / Comment(s): LT SCIATICA. Neck pain,FATTY LIVER History of Any Multi-Drug Resistant Organisms: None Reported Past Surgical History: Cholecystectomy, Hysterectomy, Tubal Ligation, Uterine Ablation Additional Past Surgical History / Comment(s): d & c , PAIN CLINIC PROCEDURES Past Anesthesia/Blood Transfusion Reactions: No Reported Reaction Past Psychological History: Anxiety, Bipolar, Depression, PTSD Smoking Status: Former smoker Past Alcohol Use History: None Reported Past Drug Use History: None Reported - Past Family History Mother Family Medical History: No Reported History General Exam - General Exam Comments Initial Comments: 42-year-old female. Alert and oriented. No acute distress. Limitations: no limitations General appearance: alert, in no apparent distress Head exam: Present: atraumatic, normocephalic, normal inspection Eye exam: Present: normal appearance, PERRL, EOMI. Absent: scleral icterus, conjunctival injection, periorbital swelling ENT exam: Present: normal exam, mucous membranes moist Neck exam: Present: normal inspection. Absent: tenderness, meningismus, lymphadenopathy Respiratory exam: Present: normal lung sounds bilaterally. Absent: respiratory distress, wheezes, rales, rhonchi, stridor Cardiovascular Exam: Present: regular rate, normal rhythm, normal heart sounds. Absent: systolic murmur, diastolic murmur, rubs, gallop, clicks GI/Abdominal exam: Present: soft, tenderness (Left lower quadrant and right upper quadrant tenderness.), normal bowel sounds. Absent: distended, guarding, rebound, rigid Extremities exam: Present: normal inspection, full ROM, normal capillary refill. Absent: tenderness, pedal edema, joint swelling, calf tenderness Back exam: Present: normal inspection Course Vital Signs 05/21/18 05/21/18 12:51 15:03 Temperature 98.2 F 98.4 F Pulse Rate 92 69 Respiratory 20 18 Rate Blood Pressure 153/88 132/68 O2 Sat by Pulse 97 97 Oximetry Medical Decision Making - Medical Decision Making 42-year-old female presents emergency room today with left-sided abdominal pain episodes of diarrhea. She reports her urine was somewhat dark. Patient is given IV fluids, routine. Labwork was reviewed and unremarkable. Computed tomography scan of pelvis without contrast was completed. There is no evidence of any acute abdomen ice causing the patient's os Patient likely suffered from enteritis consistent with her diarrhea and some pain. I discussed discharging the Patient with some Imodium. She can follow-up with her primary care physician. RETURN PARAMETERS WERE DISCUSSED. - Lab Data Result diagrams: 05/21/18 13:45 05/21/18 13:45 Lab Results 05/21/18 05/21/18 05/21/18 Range/Units 13:45 13:45 13:45 WBC 6.2 (3.8-10.6) k/uL RBC 4.50 (3.80-5.40) m/uL Hgb 12.9 (11.4-16.0) gm/dL Hct 40.0 (34.0-46.0) % MCV 89.0 (80.0-100.0) fL MCH 28.8 (25.0-35.0) pg MCHC 32.3 (31.0-37.0) g/dL RDW 14.3 (11.5-15.5) % Plt Count 257 (150-450) k/uL Neutrophils % 60 % Lymphocytes % 32 % Monocytes % 5 % Eosinophils % 1 % Basophils % 0 % Neutrophils # 3.7 (1.3-7.7) k/uL Lymphocytes # 2.0 (1.0-4.8) k/uL Monocytes # 0.3 (0-1.0) k/uL Eosinophils # 0.1 (0-0.7) k/uL Basophils # 0.0 (0-0.2) k/uL Sodium 140 (137-145) mmol/L Potassium 3.9 (3.5-5.1) mmol/L Chloride 102 (98-107) mmol/L Carbon Dioxide 25 (22-30) mmol/L Anion Gap 13 mmol/L BUN 8 (7-17) mg/dL Creatinine 0.65 (0.52-1.04) mg/dL Est GFR (CKD-EPI)AfAm >90 (>60 ml/min/1.73 sqM) Est GFR (CKD-EPI)NonAf >90 (>60 ml/min/1.73 sqM) Glucose 135 H (74-99) mg/dL Calcium 9.3 (8.4-10.2) mg/dL Total Bilirubin 0.4 (0.2-1.3) mg/dL AST 32 (14-36) U/L ALT 27 (9-52) U/L Alkaline Phosphatase 86 (38-126) U/L Total Protein 7.0 (6.3-8.2) g/dL Albumin 4.2 (3.5-5.0) g/dL Amylase 43 (30-110) U/L Lipase 65 (23-300) U/L Urine Color Yellow Urine Appearance Turbid H (Clear) Urine pH 5.5 (5.0-8.0) Ur Specific [place] 1.024 (1.001-1.035) Urine Protein Trace H (Negative) Urine Glucose (UA) Negative (Negative) Urine Ketones Trace H (Negative) Urine Blood Negative (Negative) Urine Nitrite Negative (Negative) Urine Bilirubin Negative (Negative) Urine Urobilinogen 2.0 (<2.0) mg/dL Ur Leukocyte Esterase Negative (Negative) Ur Squamous Epith Cells 4 (0-4) /hpf Amorphous Sediment Many H (None) /hpf Urine Mucus Moderate H (None) /hpf - Radiology Data Radiology results: report reviewed CT is negative for any acute intra-abdominal findings. Redemonstrated of hepatic steatosis and small ventral umbilical hernia. Disposition Clinical Impression: Diarrhea, Enteritis, Dehydration Disposition: HOME SELF-CARE Condition: Good Instructions: Dehydration (ED), Acute Diarrhea (ED) Additional Instructions: Patient has a follow-up with primary care physician. Take the medication as prescribed. Return to the emergency department if any alarming signs or symptoms occur. Prescriptions: Loperamide [Imodium] 2 mg PO TID #10 capsule Is patient prescribed a controlled substance at d/c from ED?: No When asked, does pt state using other controlled substances?: No If prescribed controlled substance>3 days was MAPS reviewed?: No If opioid is for acute pain is fill amount 7 days or less?: No If Rx opioid, was Start Talking consent form obtained?: No Referrals: Lola Way MD [Primary Care Provider] - 1-2 days Time of Disposition: 14:52
--- NOTE | 2018-05-21 14:44 | CT ---
EXAMINATION TYPE: CT abdomen pelvis wo con DATE OF EXAM: 05/21/2018 COMPARISON: 04/22/2018 HISTORY: Patient complains of left flank pain, nausea, and diarrhea. CT DLP: 2064.7 mGycm Automated exposure control for dose reduction was used. TECHNIQUE: Helical acquisition of images was performed from the lung bases through the pelvis. FINDINGS: LUNG BASES: Interval bibasilar subsegmental atelectasis. LIVER/GB: Hepatic parenchyma is diffusely hypoattenuated in comparison to that of the spleen, most co mmonly seen in hepatic steatosis. This finding limits evaluation for hepatic masses. No gross evidenc e of hepatic mass is seen. No intrahepatic biliary ductal dilatation. PANCREAS: No significant abnormality is seen. SPLEEN: Splenule seen adjacent to the prominent sycuan spleen. [place] spleen measures 13.4 cm. ADRENALS: No significant abnormality is seen. KIDNEYS: No significant abnormality is seen. No hydronephrosis or nephrolithiasis. FREE AIR: No free air is visualized RETROPERITONEAL ADENOPATHY: No greater than 1 cm short axis lymph nodes within the abdomen or pelvis . REPRODUCTIVE ORGANS: Uterus appears surgically absent. URINARY BLADDER: Incompletely distended and incompletely evaluated. OSSEOUS STRUCTURES: Minimal multilevel degenerative changes of the spine. BOWEL: No dilation or obstruction. Appendix is within normal limits. OTHER: Again there is a small right paracentral that filled ventral hernia. IMPRESSION: 1. NO ACUTE INTRA-ABDOMINAL FINDING. 2. REDEMONSTRATION OF HEPATIC STEATOSIS AND SMALL VENTRAL UMBILICAL HERNIA.
[2018-05-21 15:04] VITALS: BP 132/68; PULSE 69; RESP 18; TEMP 98.4
== END 2018-05-21 15:00 | disposition home or self-care (01) ==
LOC: EC 12:35
DX: K52.9 Noninfective gastroenteritis and colitis, unspecified (principal); E86.0 Dehydration; E11.9 Type 2 diabetes mellitus without complications; I10 Essential (primary) hypertension; F31.9 Bipolar disorder, unspecified; F41.9 Anxiety disorder, unspecified; F43.10 Post-traumatic stress disorder, unspecified; Z87.891 Personal history of nicotine dependence; Z79.84 Long term (current) use of oral hypoglycemic drugs; Z79.899 Other long term (current) drug therapy; Z88.5 Allergy status to narcotic agent; Z88.8 Allergy status to other drugs, medicaments and biological substances; Z90.49 Acquired absence of other specified parts of digestive tract
CPT/HCPCS: 36415; 80053; 82150; 83690; 85025; 81001; 87086; 74176; 99285; 96374; 96375 ×2; 96361; J2405; J1885; J2270

== ENCOUNTER → 2018-06-08 | Outpatient (CLI) | payer OTHER ==
[2018-06-08 15:47] VITALS: BP 132/83; PULSE 97; TEMP 97.2; BMI 53.6
--- NOTE | 2018-06-08 17:05 | P.HPBAR ---
Bariatric H&P - History & Physicial H&P Date: 06/08/18 History & Physicial: Visit/CC: Patient initial contact: Initial weight: 142.485 kg Initial weight in pounds: 314.13 Height: 5 ft 4 in Initial BMI: 53.8 Last weight: Current weight: 141.929 kg Current weight in pounds: 312.90 Current BMI: 53.6 [place] body weight (based on NIH guidelines): 54.431 kg Excess body weight loss: 0.6% The patient is a 42 year-old F who presents for Bariatric Assessment. Patient rents today for preoperative surgical consultation. The patient is attempting to get authorized for sleeve gastrectomy. She is still having to do her psychiatric evaluation. He is morbidly obese with BMI of 54. Past Medical History Past Medical History: Asthma, Diabetes Mellitus, Hypertension Additional Past Medical History / Comment(s): LT SCIATICA. Neck pain,FATTY LIVER History of Any Multi-Drug Resistant Organisms: None Reported Past Surgical History: Cholecystectomy, Hysterectomy, Tubal Ligation, Uterine Ablation Additional Past Surgical History / Comment(s): d & c , PAIN CLINIC PROCEDURES Past Anesthesia/Blood Transfusion Reactions: No Reported Reaction Past Psychological History: Anxiety, Bipolar, Depression, PTSD Additional Psychological History / Comment(s): Under care of psychiatrist. Smoking Status: Former smoker Past Alcohol Use History: None Reported Additional Past Alcohol Use History / Comment(s): smoked off and on <1ppd quit 2006 Past Drug Use History: None Reported - Past Family History Mother Family Medical History: No Reported History Surgical - Exam Vital Signs Temp Pulse BP 97.2 F L 97 132/83 06/08/18 15:43 06/08/18 15:43 06/08/18 15:43 - General well developed, no distress - Eyes PERRL - ENT normal pinna - Neck no masses - Respiratory normal expansion - Cardiovascular Rhythm: regular - Abdomen Abdomen: soft, non tender Bariatric Assessment & Plan Plan: Morbid obesity with BMI of 55. Patient has a good understanding a sleeve gastrectomy. We went over the risks and benefits of procedure including conversion O procedure and injury to the stomach liver spleen. She is also aware the risk of gastric staple line disruption scarring of bleeding. The patient will follow-up in 2 months. Hopefully her psychiatric consultation is been done by that time. And she'll be arthritis for sleeve gastrectomy. Bariatric Checklist Checklist: Plan: Checklist: EGD: 1. Hiatal hernia: 2. H. Pylori: HgbA1c: Vitamin D: Smoking: Former smoker Primary care physician referral: [facility] Psychiatry clearance: Cardiology clearance: Sleep study: Diet journal: VTE risk score: VTE risk level: Rehab needs at discharge:
== END | disposition home or self-care (01) ==
LOC: BARWHC3 13:17
PROVIDERS: ATTEND Surgery
DX: Z01.818 Encounter for other preprocedural examination (principal); E66.01 Morbid (severe) obesity due to excess calories; F41.9 Anxiety disorder, unspecified; F32.9 Major depressive disorder, single episode, unspecified; F43.10 Post-traumatic stress disorder, unspecified; Z98.51 Tubal ligation status; Z90.710 Acquired absence of both cervix and uterus; Z98.890 Other specified postprocedural states; Z87.891 Personal history of nicotine dependence; Z90.49 Acquired absence of other specified parts of digestive tract; Z68.43 Body mass index [BMI] 50.0-59.9, adult
CPT/HCPCS: 99211

== ENCOUNTER 2018-08-03 11:43 | Emergency (ER) | payer OTHER ==
[2018-08-03 13:15] LABS: Appearance,Urine Clear (Clear); Basophils % (A) 0 %; Bilirubin,Urine Negative (Negative); Blood,Urine Negative (Negative); Color,Urine Yellow; Eosinophils # (A) 0.1 k/uL (0-0.7); Eosinophils % (A) 1 %; Glucose,Urine (UA) Negative (Negative); HCT 41.4 % (34.0-46.0); HGB 13.5 gm/dL (11.4-16.0); Ketones,Urine Negative (Negative); Leukocyte Esterase,Urine Negative (Negative); Lymphocytes # (A) 2.2 k/uL (1.0-4.8); Lymphocytes % (A) 28 %; MCH 29.4 pg (25.0-35.0); MCHC 32.6 g/dL (31.0-37.0); MCV 90.2 fL (80.0-100.0); Mean Platelet Volume 7.4; Monocytes # (A) 0.4 k/uL (0-1.0); Monocytes % (A) 4 %; Neutrophils # (A) 5.2 k/uL (1.3-7.7); Neutrophils % (A) 65 %; Nitrite,Urine Negative (Negative); PH, Urine 5.5 (5.0-8.0); Platelet Count 294 k/uL (150-450); Protein,Urine Negative (Negative); RBC 4.59 m/uL (3.80-5.40); RDW 14.7 % (11.5-15.5); Specific Gravity,Urine 1.021 (1.001-1.035); Urobilinogen,Urine <2.0 mg/dL (<2.0)
[2018-08-03 13:28] LABS: ALT 22 U/L (9-52); AST 31 U/L (14-36); Albumin 4.2 g/dL (3.5-5.0); Alkaline Phosphatase 93 U/L (38-126); Amylase 56 U/L (30-110); Anion Gap 10 mmol/L; Blood Urea Nitrogen 11 mg/dL (7-17); Calcium 9.3 mg/dL (8.4-10.2); Carbon Dioxide 24 mmol/L (22-30); Chloride 105 mmol/L (98-107); Glucose 102 mg/dL (74-99); Lipase 75 U/L (23-300); Potassium 4.5 mmol/L (3.5-5.1); Sodium 139 mmol/L (137-145); Total Bilirubin 0.6 mg/dL (0.2-1.3); Total Protein 7.5 g/dL (6.3-8.2)
[2018-08-03] MEDS ORDERED: ONDANSETRON ODT 4 MG TAB PO STA (14:35)
[2018-08-03] MEDS ORDERED: HYDROmorphone 1 MG/ML 1 ML SYRINGE IM STA (14:35)
--- NOTE | 2018-08-03 14:42 | ED ---
General Adult HPI - General Chief complaint: Abdominal Pain Stated complaint: SIde Abd Pain Time Seen by Provider: 08/03/18 14:18 Source: patient, RN notes reviewed Mode of arrival: ambulatory Limitations: no limitations - History of Present Illness Initial comments: Patient 42-year-old female sent in the past medical history for ovarian cyst, presented to the emergency room today with chief complaint of increased left lower quadrant pain that started this morning. Patient is admit to a sharp constant type pain that started this morning. She states consistent with ovarian cyst that she's had in the past. She states she tried Tylenol and her [place] at home had little relief. Patient denies any other complaints or symptoms. Patient denies any recent fever, chills, shortness of breath, chest pain, back pain, nausea or vomiting, numbness or tingling, dysuria or hematuria , constipation or diarrhea, headaches or visual changes, or any other complaints. - Related Data Home Medications Medication Instructions Recorded Confirmed Cholecalciferol [Vitamin D3] 2,000 unit PO DAILY 11/18/16 08/03/18 DULoxetine HCL [Cymbalta] 60 mg PO HS 11/18/16 08/03/18 Hydrocodone/Acetaminophen [[place] 1 tab PO QID PRN 11/18/16 08/03/18 10-325] Lisinopril 40 mg PO DAILY 02/05/17 08/03/18 metFORMIN HCL ER [Glucophage Xr] 500 mg PO PC-SUPPER 02/19/18 08/03/18 Atorvastatin [Lipitor] 40 mg PO HS 05/21/18 08/03/18 Cyanocobalamin (Vitamin B-12) 1,000 mcg PO DAILY 05/21/18 08/03/18 [Vitamin B-12] Albuterol Inhaler [Ventolin Hfa 1 - 2 puff INHALATION RT-Q6H PRN 08/03/18 Inhaler] buPROPion XL [Wellbutrin Xl] 150 mg PO DAILY 08/03/18 08/03/18 Allergies Allergy/AdvReac Type Severity Reaction Status Date / Time aripiprazole [From Abilify] Allergy Hallucinati Verified 08/03/18 14:27 ons hydromorphone [From Dilaudid] AdvReac Itching Verified 08/03/18 14:27 Review of Systems ROS Statement: Those systems with pertinent positive or pertinent negative responses have been documented in the HPI. ROS Other: All systems not noted in ROS Statement are negative. Past Medical History Past Medical History: Asthma, Diabetes Mellitus, Hypertension Additional Past Medical History / Comment(s): LT SCIATICA. Neck pain,FATTY LIVER History of Any Multi-Drug Resistant Organisms: None Reported Past Surgical History: Cholecystectomy, Hysterectomy, Tubal Ligation, Uterine Ablation Additional Past Surgical History / Comment(s): d & c , PAIN CLINIC PROCEDURES Past Anesthesia/Blood Transfusion Reactions: No Reported Reaction Past Psychological History: Anxiety, Bipolar, Depression, PTSD Smoking Status: Former smoker Past Alcohol Use History: None Reported Past Drug Use History: None Reported - Past Family History Mother Family Medical History: No Reported History General Exam - General Exam Comments Initial Comments: General: The patient is awake and alert, in no distress, and does not appear acutely ill. Eye: Pupils are equal, round and reactive to light. Extra-ocular movements are intact. No nystagmus. There is normal conjunctiva bilaterally. No signs of icterus. Ears, nose, mouth and throat: There are moist mucous membranes and no oral lesions. Neck: The neck is supple, there is no tenderness or JVD. Cardiovascular: There is a regular rate and rhythm. No murmur, rub or gallop is appreciated. Respiratory: Lungs are clear to auscultation, respirations are non-labored, breath sounds are equal. No wheezes, stridor, rales, or rhonchi. Gastrointestinal: Soft on palpation. Patient does have mild tenderness left lower quadrant. No rebound, guarding or CVA tenderness. Musculoskeletal: Normal ROM, no tenderness. Sensation intact. Strength 5/5. Pulses equal bilaterally 2+. Neurological: A&O x 3. CN II-XII intact, There are no obvious motor or sensory deficits. Coordination appears grossly intact. Speech is normal. Skin: Skin is warm and dry and no rashes or lesions are noted. Psychiatric: Cooperative, appropriate mood & affect, normal judgment. Limitations: no limitations Course Vital Signs 08/03/18 08/03/18 11:48 14:43 Temperature 98.4 F 97.1 F L Pulse Rate 105 H 81 Respiratory 20 18 Rate Blood Pressure 138/86 118/61 O2 Sat by Pulse 96 100 Oximetry Medical Decision Making - Medical Decision Making Patient reexamined at this time states she is feeling better after pain medication. Options were discussed about imaging with Ultrasound. She states it is consistent with a ovarian cyst that she's had in the past. At this time patient has declined states she feels couple follow-up with her [facility]. She is advised to return here to emergency room if any symptoms increase or worsen or for any other concerns. - Lab Data Result diagrams: 08/03/18 12:58 08/03/18 12:58 Lab Results 08/03/18 08/03/18 08/03/18 Range/Units 12:58 12:58 12:58 WBC 8.0 (3.8-10.6) k/uL RBC 4.59 (3.80-5.40) m/uL Hgb 13.5 (11.4-16.0) gm/dL Hct 41.4 (34.0-46.0) % MCV 90.2 (80.0-100.0) fL MCH 29.4 (25.0-35.0) pg MCHC 32.6 (31.0-37.0) g/dL RDW 14.7 (11.5-15.5) % Plt Count 294 (150-450) k/uL Neutrophils % 65 % Lymphocytes % 28 % Monocytes % 4 % Eosinophils % 1 % Basophils % 0 % Neutrophils # 5.2 (1.3-7.7) k/uL Lymphocytes # 2.2 (1.0-4.8) k/uL Monocytes # 0.4 (0-1.0) k/uL Eosinophils # 0.1 (0-0.7) k/uL Basophils # 0.0 (0-0.2) k/uL Sodium 139 (137-145) mmol/L Potassium 4.5 (3.5-5.1) mmol/L Chloride 105 (98-107) mmol/L Carbon Dioxide 24 (22-30) mmol/L Anion Gap 10 mmol/L BUN 11 (7-17) mg/dL Creatinine 0.62 (0.52-1.04) mg/dL Est GFR (CKD-EPI)AfAm >90 (>60 ml/min/1.73 sqM) Est GFR (CKD-EPI)NonAf >90 (>60 ml/min/1.73 sqM) Glucose 102 H (74-99) mg/dL Calcium 9.3 (8.4-10.2) mg/dL Total Bilirubin 0.6 (0.2-1.3) mg/dL AST 31 (14-36) U/L ALT 22 (9-52) U/L Alkaline Phosphatase 93 (38-126) U/L Total Protein 7.5 (6.3-8.2) g/dL Albumin 4.2 (3.5-5.0) g/dL Amylase 56 (30-110) U/L Lipase 75 (23-300) U/L Urine Color Yellow Urine Appearance Clear (Clear) Urine pH 5.5 (5.0-8.0) Ur Specific [place] 1.021 (1.001-1.035) Urine Protein Negative (Negative) Urine Glucose (UA) Negative (Negative) Urine Ketones Negative (Negative) Urine Blood Negative (Negative) Urine Nitrite Negative (Negative) Urine Bilirubin Negative (Negative) Urine Urobilinogen <2.0 (<2.0) mg/dL Ur Leukocyte Esterase Negative (Negative) Disposition Clinical Impression: Ovarian cyst Disposition: HOME SELF-CARE Condition: Good Instructions: Ovarian Cyst (ED) Additional Instructions: Please follow-up with the family doctor or E[facility]ER over the next 2 days. Please return here to the emergency room symptoms increase worsen or for any other Concerns. Is patient prescribed a controlled substance at d/c from ED?: No Referrals: Lola Way MD [Primary Care Provider] - 1-2 days Jose Anderson DO [Doctor of Osteopathic Medicine] - 1-2 days Time of Disposition: 15:14
[2018-08-03 14:44] VITALS: BP 118/61; PULSE 81; RESP 18; TEMP 97.1
== END 2018-08-03 15:24 | disposition home or self-care (01) ==
LOC: EC 11:43
DX: N83.202 Unspecified ovarian cyst, left side (principal); E11.9 Type 2 diabetes mellitus without complications; I10 Essential (primary) hypertension; J45.909 Unspecified asthma, uncomplicated; F31.9 Bipolar disorder, unspecified; F41.9 Anxiety disorder, unspecified; F43.10 Post-traumatic stress disorder, unspecified; Z87.891 Personal history of nicotine dependence; Z79.84 Long term (current) use of oral hypoglycemic drugs; Z79.899 Other long term (current) drug therapy; Z88.5 Allergy status to narcotic agent; Z88.8 Allergy status to other drugs, medicaments and biological substances; Z90.710 Acquired absence of both cervix and uterus; Z98.51 Tubal ligation status
CPT/HCPCS: 36415; 80053; 82150; 83690; 85025; 81003; 99284; 96372; J1170

== ENCOUNTER 2018-08-17 12:31 | Emergency (ER) | payer OTHER ==
[2018-08-17 13:07] VITALS: TEMP 98.7
[2018-08-17] MEDS ORDERED: SODIUM CHLORIDE 0.9% 1,000 ML IV ONE (14:33)
[2018-08-17] MEDS ORDERED: KETOROLAC 30 MG/ML 1 ML VIAL IVP STA (14:33)
[2018-08-17] MEDS ORDERED: SODIUM CHLORIDE 0.9% 1,000 ML IV SCH (14:45)
--- NOTE | 2018-08-17 14:59 | ED ---
Abdominal Pain HPI - General Chief Complaint: Abdominal Pain Stated Complaint: ovarian cyst pain Time Seen by Provider: 08/17/18 13:49 Source: patient, RN notes reviewed, old records reviewed Mode of arrival: ambulatory Limitations: no limitations - History of Present Illness Initial Comments: Patient is a 42-year-old female presents return today she went lower left-sided abdominal pain made her groin. Patient reports that she's had no fevers or chills. She reports normal urination or bowel habits. She states that the pain started last night into today, of the left lower abdominal pain in her groin. She states that she has followed up with OBGYN, Dr. Olivas. She denies any back pain. Patient reports that she was diagnosed with the ovarian cysts a few momhs ago. - Related Data Home Medications Medication Instructions Recorded Confirmed Cholecalciferol [Vitamin D3] 2,000 unit PO DAILY 11/18/16 08/17/18 DULoxetine HCL [Cymbalta] 60 mg PO HS 11/18/16 08/17/18 Hydrocodone/Acetaminophen [[place] 1 tab PO QID PRN 11/18/16 08/17/18 10-325] Lisinopril 40 mg PO DAILY 02/05/17 08/17/18 metFORMIN HCL ER [Glucophage Xr] 500 mg PO PC-SUPPER 02/19/18 08/17/18 Atorvastatin [Lipitor] 40 mg PO HS 05/21/18 08/17/18 Cyanocobalamin (Vitamin B-12) 1,000 mcg PO DAILY 05/21/18 08/17/18 [Vitamin B-12] Albuterol Inhaler [Ventolin Hfa 2 puff INHALATION RT-Q6H PRN 08/03/18 08/17/18 Inhaler] buPROPion XL [Wellbutrin Xl] 150 mg PO DAILY 08/03/18 08/17/18 Loratadine [Claritin] 10 mg PO DAILY 08/17/18 08/17/18 Multivitamin [Multivitamins Adult 2 tab PO DAILY 08/17/18 08/17/18 Gummies] Allergies Allergy/AdvReac Type Severity Reaction Status Date / Time aripiprazole [From Abilify] Allergy Hallucinati Verified 08/17/18 13:50 ons hydromorphone [From Dilaudid] AdvReac Itching Verified 08/17/18 13:50 Review of Systems ROS Statement: Those systems with pertinent positive or pertinent negative responses have been documented in the HPI. ROS Other: All systems not noted in ROS Statement are negative. Past Medical History Past Medical History: Asthma, Diabetes Mellitus, Hypertension Additional Past Medical History / Comment(s): LT SCIATICA. Neck pain,FATTY LIVER History of Any Multi-Drug Resistant Organisms: None Reported Past Surgical History: Cholecystectomy, Hysterectomy, Tubal Ligation, Uterine Ablation Additional Past Surgical History / Comment(s): d & c , PAIN CLINIC PROCEDURES Past Anesthesia/Blood Transfusion Reactions: No Reported Reaction Past Psychological History: Anxiety, Bipolar, Depression, PTSD Smoking Status: Former smoker Past Alcohol Use History: None Reported Past Drug Use History: None Reported - Past Family History Mother Family Medical History: No Reported History General Exam - General Exam Comments Initial Comments: 42-year-old female. Alert and oriented. No distress. Limitations: no limitations General appearance: alert, in no apparent distress Head exam: Present: atraumatic, normocephalic, normal inspection Eye exam: Present: normal appearance, PERRL, EOMI. Absent: scleral icterus, conjunctival injection, periorbital swelling ENT exam: Present: normal exam, mucous membranes moist Neck exam: Present: normal inspection. Absent: tenderness, meningismus, lymphadenopathy Respiratory exam: Present: normal lung sounds bilaterally. Absent: respiratory distress, wheezes, rales, rhonchi, stridor Cardiovascular Exam: Present: regular rate, normal rhythm, normal heart sounds. Absent: systolic murmur, diastolic murmur, rubs, gallop, clicks GI/Abdominal exam: Present: soft, tenderness (Left lower quadrant groin tenderness.), normal bowel sounds. Absent: distended, guarding, rebound, rigid Extremities exam: Present: normal inspection, full ROM, normal capillary refill. Absent: tenderness, pedal edema, joint swelling, calf tenderness Back exam: Present: normal inspection Neurological exam: Present: alert, oriented X3, CN II-XII intact Psychiatric exam: Present: normal affect, normal mood Skin exam: Present: warm, dry, intact, normal color. Absent: rash Course Vital Signs 08/17/18 13:02 Temperature 98.7 F Pulse Rate 101 H Respiratory 18 Rate Blood Pressure 146/86 O2 Sat by Pulse 96 Oximetry Medical Decision Making - Medical Decision Making 42-year-old female presents today with chief complaint of left groin pain. Patient started for ovarian cyst. At this time patient's labwork was reviewed and unremarkable for any acute process. She is concerned for ovarian cysts or worsening abortions. Patient ultrasound does show a 3.7 cm ovarian cyst. This is decreased in size from her previous ultrasound. Patient at this time has been advised to follow-up with her [facility]. Request a dose of pain medicine before discharge. I discussed that she can take her at home narcotic pain medications. Discussed return parameters. - Lab Data Result diagrams: 08/17/18 14:50 08/17/18 14:50 Lab Results 08/17/18 08/17/18 08/17/18 Range/Units 14:50 14:50 14:50 WBC 5.2 (3.8-10.6) k/uL RBC 4.50 (3.80-5.40) m/uL Hgb 13.0 (11.4-16.0) gm/dL Hct 40.9 (34.0-46.0) % MCV 90.8 (80.0-100.0) fL MCH 28.9 (25.0-35.0) pg MCHC 31.9 (31.0-37.0) g/dL RDW 14.3 (11.5-15.5) % Plt Count 248 (150-450) k/uL Neutrophils % 53 % Lymphocytes % 38 % Monocytes % 6 % Eosinophils % 2 % Basophils % 1 % Neutrophils # 2.7 (1.3-7.7) k/uL Lymphocytes # 2.0 (1.0-4.8) k/uL Monocytes # 0.3 (0-1.0) k/uL Eosinophils # 0.1 (0-0.7) k/uL Basophils # 0.0 (0-0.2) k/uL PT (9.0-12.0) sec INR (<1.2) APTT (22.0-30.0) sec Sodium 140 (137-145) mmol/L Potassium 4.9 (3.5-5.1) mmol/L Chloride 105 (98-107) mmol/L Carbon Dioxide 26 (22-30) mmol/L Anion Gap 9 mmol/L BUN 9 (7-17) mg/dL Creatinine 0.66 (0.52-1.04) mg/dL Est GFR (CKD-EPI)AfAm >90 (>60 ml/min/1.73 sqM) Est GFR (CKD-EPI)NonAf >90 (>60 ml/min/1.73 sqM) Glucose 88 (74-99) mg/dL Calcium 9.0 (8.4-10.2) mg/dL Total Bilirubin 0.4 (0.2-1.3) mg/dL AST 29 (14-36) U/L ALT 23 (9-52) U/L Alkaline Phosphatase 88 (38-126) U/L Total Protein 7.3 (6.3-8.2) g/dL Albumin 3.9 (3.5-5.0) g/dL Amylase 56 (30-110) U/L Lipase 92 (23-300) U/L Urine Color Yellow Urine Appearance Cloudy H (Clear) Urine pH 6.5 (5.0-8.0) Ur Specific [place] 1.023 (1.001-1.035) Urine Protein Trace H (Negative) Urine Glucose (UA) Negative (Negative) Urine Ketones Negative (Negative) Urine Blood Negative (Negative) Urine Nitrite Negative (Negative) Urine Bilirubin Negative (Negative) Urine Urobilinogen <2.0 (<2.0) mg/dL Ur Leukocyte Esterase Negative (Negative) Urine RBC 1 (0-5) /hpf Urine WBC 8 H (0-5) /hpf Ur Squamous Epith Cells 27 H (0-4) /hpf Amorphous Sediment Occasional H (None) /hpf Urine Bacteria Occasional H (None) /hpf Hyaline Casts 1 (0-2) /lpf Urine Mucus Few H (None) /hpf Urine Yeast (Budding) Rare H (None) /hpf 08/17/18 Range/Units 14:50 WBC (3.8-10.6) k/uL RBC (3.80-5.40) m/uL Hgb (11.4-16.0) gm/dL Hct (34.0-46.0) % MCV (80.0-100.0) fL MCH (25.0-35.0) pg MCHC (31.0-37.0) g/dL RDW (11.5-15.5) % Plt Count (150-450) k/uL Neutrophils % % Lymphocytes % % Monocytes % % Eosinophils % % Basophils % % Neutrophils # (1.3-7.7) k/uL Lymphocytes # (1.0-4.8) k/uL Monocytes # (0-1.0) k/uL Eosinophils # (0-0.7) k/uL Basophils # (0-0.2) k/uL PT 11.6 (9.0-12.0) sec INR 1.2 H (<1.2) APTT 19.9 L (22.0-30.0) sec Sodium (137-145) mmol/L Potassium (3.5-5.1) mmol/L Chloride (98-107) mmol/L Carbon Dioxide (22-30) mmol/L Anion Gap mmol/L BUN (7-17) mg/dL Creatinine (0.52-1.04) mg/dL Est GFR (CKD-EPI)AfAm (>60 ml/min/1.73 sqM) Est GFR (CKD-EPI)NonAf (>60 ml/min/1.73 sqM) Glucose (74-99) mg/dL Calcium (8.4-10.2) mg/dL Total Bilirubin (0.2-1.3) mg/dL AST (14-36) U/L ALT (9-52) U/L Alkaline Phosphatase (38-126) U/L Total Protein (6.3-8.2) g/dL Albumin (3.5-5.0) g/dL Amylase (30-110) U/L Lipase (23-300) U/L Urine Color Urine Appearance (Clear) Urine pH (5.0-8.0) Ur Specific [place] (1.001-1.035) Urine Protein (Negative) Urine Glucose (UA) (Negative) Urine Ketones (Negative) Urine Blood (Negative) Urine Nitrite (Negative) Urine Bilirubin (Negative) Urine Urobilinogen (<2.0) mg/dL Ur Leukocyte Esterase (Negative) Urine RBC (0-5) /hpf Urine WBC (0-5) /hpf Ur Squamous Epith Cells (0-4) /hpf Amorphous Sediment (None) /hpf Urine Bacteria (None) /hpf Hyaline Casts (0-2) /lpf Urine Mucus (None) /hpf Urine Yeast (Budding) (None) /hpf Disposition Clinical Impression: Left ovarian cyst Disposition: HOME SELF-CARE Condition: Good Instructions: Ovarian Cyst (ED) Additional Instructions: Follow-up with your [facility]. Return to the emergency department if any alarming signs or symptoms occur. Is patient prescribed a controlled substance at d/c from ED?: No Referrals: Lola Way MD [Primary Care Provider] - 1-2 days Time of Disposition: 16:33
[2018-08-17 15:09] LABS: Basophils % (A) 1 %; Eosinophils # (A) 0.1 k/uL (0-0.7); Eosinophils % (A) 2 %; HCT 40.9 % (34.0-46.0); Lymphocytes % (A) 38 %; MCH 28.9 pg (25.0-35.0); MCHC 31.9 g/dL (31.0-37.0); MCV 90.8 fL (80.0-100.0); Monocytes # (A) 0.3 k/uL (0-1.0); Monocytes % (A) 6 %; Neutrophils # (A) 2.7 k/uL (1.3-7.7); Neutrophils % (A) 53 %; Platelet Count 248 k/uL (150-450); RDW 14.3 % (11.5-15.5); WBC 5.2 k/uL (3.8-10.6)
[2018-08-17 15:15] LABS: ALT 23 U/L (9-52); AST 29 U/L (14-36); Albumin 3.9 g/dL (3.5-5.0); Alkaline Phosphatase 88 U/L (38-126); Amylase 56 U/L (30-110); Anion Gap 9 mmol/L; Blood Urea Nitrogen 9 mg/dL (7-17); Carbon Dioxide 26 mmol/L (22-30); Chloride 105 mmol/L (98-107); Glucose 88 mg/dL (74-99); Lipase 92 U/L (23-300); Potassium 4.9 mmol/L (3.5-5.1); Sodium 140 mmol/L (137-145); Total Bilirubin 0.4 mg/dL (0.2-1.3); Total Protein 7.3 g/dL (6.3-8.2)
[2018-08-17 15:27] LABS: Amorphous Sediment,Urine Occasional /hpf; Appearance,Urine Cloudy (Clear); Bacteria,Urine Occasional /hpf; Bilirubin,Urine Negative (Negative); Blood,Urine Negative (Negative); Budding Yeast,Urine Rare /hpf; Color,Urine Yellow; Glucose,Urine (UA) Negative (Negative); Hyaline Casts,Urine 1 /lpf (0-2); Ketones,Urine Negative (Negative); Leukocyte Esterase,Urine Negative (Negative); Mucus,Urine Few /hpf; Nitrite,Urine Negative (Negative); PH, Urine 6.5 (5.0-8.0); Protein,Urine Trace (Negative); RBC,Urine 1 /hpf (0-5); Specific Gravity,Urine 1.023 (1.001-1.035); Squamous Epithelial Cell,Urine 27 /hpf (0-4); Urobilinogen,Urine <2.0 mg/dL (<2.0); WBC,Urine 8 /hpf (0-5)
[2018-08-17 15:34] LABS: INR 1.2 (<1.2); Prothrombin Time 11.6 sec (9.0-12.0)
[2018-08-17 15:35] LABS: Partial Thromboplastin Time 19.9 sec (22.0-30.0)
--- NOTE | 2018-08-17 16:01 | US ---
EXAMINATION TYPE: US transvaginal DATE OF EXAM: 08/17/2018 COMPARISON: NONE CLINICAL HISTORY: Pain. Left pelvic pain. History of left ovarian cyst 1 month ago (per patient, CT d one at [facility]). Partial hysterectomy 12/01 TECHNIQUE: Transvaginal (TV). Date of LMP: unknown EXAM MEASUREMENTS: Uterus: Surgically absent Endometrial Stripe: Surgically absent Right Ovary: unable to visualize Left Ovary: 3.8 x 3.4 x 3.5 cm 1. Uterus: Surgically absent 2. Endometrium: Surgically absent 3. Right Ovary: Obscured by overlying bowel gas 4. Left Ovary: cystic area = 3.7 x 2.9 x 3.4cm Spectral, color and waveform doppler imaging shows good arterial and venous flow within the left ov fior; there is no evidence for ovarian torsion. 5. Bilateral Adnexa: appears wnl IMPRESSION: 1. There is a 3.7 cm cyst in the left adnexa. Likely ovarian. Has a simple appearance. Follow-up CT s can could be performed as clinically warranted. 2. Findings suggestive previous hysterectomy.
[2018-08-17] MEDS ORDERED: MORPHINE SULFATE 2 MG/ML SYRINGE IVP ONE (16:33)
[2018-08-17 16:49] VITALS: BP 137/85; PULSE 98; RESP 16
== END 2018-08-17 16:40 | disposition home or self-care (01) ==
LOC: EC 12:31
DX: N83.202 Unspecified ovarian cyst, left side (principal); E11.9 Type 2 diabetes mellitus without complications; I10 Essential (primary) hypertension; F43.10 Post-traumatic stress disorder, unspecified; F31.9 Bipolar disorder, unspecified; F41.9 Anxiety disorder, unspecified; J45.909 Unspecified asthma, uncomplicated; Z87.891 Personal history of nicotine dependence; Z79.84 Long term (current) use of oral hypoglycemic drugs; Z79.899 Other long term (current) drug therapy; Z88.5 Allergy status to narcotic agent; Z88.8 Allergy status to other drugs, medicaments and biological substances; Z90.710 Acquired absence of both cervix and uterus; Z98.890 Other specified postprocedural states; Z98.51 Tubal ligation status
CPT/HCPCS: 99285 ×2; 96374 ×2; 96375 ×2; 96361 ×2; 36415; 80053; 82150; 83690; 85025; 85610; 85730; 81001; 87086; 93976; 76830; J1885; J2270

== ENCOUNTER → 2018-08-24 | Outpatient (CLI) | payer OTHER ==
[2018-08-24 15:26] VITALS: BP 132/98; PULSE 114; RESP 16; TEMP 98; BMI 53.8
--- NOTE | 2018-08-25 12:21 | P.HPBAR ---
Bariatric H&P - History & Physicial H&P Date: 08/25/18 History & Physicial: Visit/CC: WORKING ON CRITERIA Patient initial contact: Initial weight: 142.485 kg Initial weight in pounds: 314.13 Height: 5 ft 4 in Initial BMI: 53.8 Last weight: Current weight: 142.428 kg Current weight in pounds: 314.00 Current BMI: 53.8 [place] body weight (based on NIH guidelines): 54.431 kg Excess body weight loss: 0.0% The patient is a 42 year-old F who presents for Bariatric Assessment. This a 42 -year-old female who presents today for preoperative sleeve gastrectomy constipation. The patient is working on her authorization criteria. She is scheduled to see a psychologist soon. Her current BMI is 54. Past Medical History Past Medical History: Asthma, Diabetes Mellitus, Hypertension Additional Past Medical History / Comment(s): LT SCIATICA. Neck pain,FATTY LIVER History of Any Multi-Drug Resistant Organisms: None Reported Past Surgical History: Cholecystectomy, Hysterectomy, Tubal Ligation, Uterine Ablation Additional Past Surgical History / Comment(s): d & c , PAIN CLINIC PROCEDURES Past Anesthesia/Blood Transfusion Reactions: No Reported Reaction Past Psychological History: Anxiety, Bipolar, Depression, PTSD Additional Psychological History / Comment(s): Under care of psychiatrist. Smoking Status: Former smoker Past Alcohol Use History: None Reported Additional Past Alcohol Use History / Comment(s): smoked off and on <1ppd quit 2006 Past Drug Use History: None Reported - Past Family History Mother Family Medical History: No Reported History Surgical - Exam Vital Signs Temp Pulse Resp BP 98 F 114 H 16 132/98 08/24/18 15:24 08/24/18 15:24 08/24/18 15:24 08/24/18 15:24 - General well developed, no distress - Eyes PERRL - ENT normal pinna - Abdomen Abdomen: soft, non tender Bariatric Assessment & Plan Plan: Morbid obesity with severe comorbidities. Patient's BMI is 54. Patient will follow-up in 8 weeks. She is densely detailed on the risks and benefits of sleeve gastrectomy at this visit. We will over the risks of possible gastric staple line disruption, bleeding or scarring. Bariatric Checklist Checklist: Plan: Checklist: EGD: 1. Hiatal hernia: 2. H. Pylori: HgbA1c: Vitamin D: Smoking: Former smoker Primary care physician referral: [facility] Psychiatry clearance: Cardiology clearance: Sleep study: Diet journal: VTE risk score: VTE risk level: Rehab needs at discharge:
== END | disposition home or self-care (01) ==
LOC: BARWHC3 15:02
PROVIDERS: ATTEND Surgery
DX: E66.01 Morbid (severe) obesity due to excess calories (principal); Z68.43 Body mass index [BMI] 50.0-59.9, adult; Z87.891 Personal history of nicotine dependence; Z90.49 Acquired absence of other specified parts of digestive tract; Z90.710 Acquired absence of both cervix and uterus; Z98.890 Other specified postprocedural states
CPT/HCPCS: 99211

== ENCOUNTER → 2018-08-31 | Outpatient (CLI) | payer OTHER ==
[2018-08-31 14:22] VITALS: BMI 53.8
== END | disposition home or self-care (01) ==
LOC: BARWHC3 08:46
PROVIDERS: ATTEND Surgery
DX: E66.01 Morbid (severe) obesity due to excess calories (principal); Z68.43 Body mass index [BMI] 50.0-59.9, adult
CPT/HCPCS: 97804

== ENCOUNTER → 2018-10-05 | Outpatient (CLI) | payer OTHER ==
[2018-10-05 13:30] VITALS: BP 131/85; PULSE 75; TEMP 97.5; BMI 52.8
--- NOTE | 2018-10-05 15:29 | P.HPBAR ---
Bariatric H&P - History & Physicial H&P Date: 10/05/18 History & Physicial: Visit/CC: presurgical visit Patient initial contact: Initial weight: 142.485 kg Initial weight in pounds: 314.13 Height: 5 ft 4 in Initial BMI: 53.8 Last weight: Current weight: 139.706 kg Current weight in pounds: 308.00 Current BMI: 52.8 [place] body weight (based on NIH guidelines): 54.431 kg Excess body weight loss: 3.1% The patient is a 42 year-old F who presents for Bariatric Assessment. Patient presents today for pre-surgical gastric sleeve consultation. She has been seeing her PCP. She has 3 more months to go before being authorized for surgery. The patient is having her psych evaluation the next month. She has no real questions about sleeve. She is morbidly obese with a BMI 53. Past Medical History Past Medical History: Asthma, Diabetes Mellitus, Hypertension Additional Past Medical History / Comment(s): LT SCIATICA. Neck pain,FATTY LIVER History of Any Multi-Drug Resistant Organisms: None Reported Past Surgical History: Cholecystectomy, Hysterectomy, Tubal Ligation, Uterine Ablation Additional Past Surgical History / Comment(s): d & c , PAIN CLINIC PROCEDURES Past Anesthesia/Blood Transfusion Reactions: No Reported Reaction Past Psychological History: Anxiety, Bipolar, Depression, PTSD Additional Psychological History / Comment(s): Under care of psychiatrist. Smoking Status: Former smoker Past Alcohol Use History: None Reported Additional Past Alcohol Use History / Comment(s): smoked off and on <1ppd quit 2006 Past Drug Use History: None Reported - Past Family History Mother Family Medical History: No Reported History Surgical - Exam Vital Signs Temp Pulse BP 97.5 F L 75 131/85 10/05/18 13:27 10/05/18 13:27 10/05/18 13:27 - General well developed, no distress - Eyes PERRL - ENT normal pinna - Neck no masses - Respiratory normal expansion - Cardiovascular Rhythm: regular - Abdomen Abdomen: soft, non tender Bariatric Assessment & Plan Plan: Morbid obesity, BMI 53. Patient will follow-up next month after her psychiatric evaluation. She'll be scheduled for surgery when she's met her preauthorization requirements. Bariatric Checklist Checklist: Plan: Checklist: EGD: 1. Hiatal hernia: 2. H. Pylori: HgbA1c: Vitamin D: Smoking: Former smoker Primary care physician referral: [facility] Psychiatry clearance: Cardiology clearance: Sleep study: Diet journal: VTE risk score: VTE risk level: Rehab needs at discharge:
== END ==
LOC: BARWHC3 12:34
PROVIDERS: ATTEND Surgery
DX: E66.01 Morbid (severe) obesity due to excess calories (principal); Z68.43 Body mass index [BMI] 50.0-59.9, adult; Z87.891 Personal history of nicotine dependence
CPT/HCPCS: 99211

== ENCOUNTER → 2018-11-23 | Outpatient (CLI) | payer OTHER ==
[2018-11-23 13:58] VITALS: BP 125/82; PULSE 81; RESP 16; TEMP 98.2; BMI 53.5
--- NOTE | 2018-11-23 16:00 | P.HPBAR ---
Bariatric H&P - History & Physicial H&P Date: 11/23/18 History & Physicial: Visit/CC: working on swl Patient initial contact: Initial weight: 142.485 kg Initial weight in pounds: 314.13 Height: 5 ft 4 in Initial BMI: 53.8 Last weight: Current weight: 141.521 kg Current weight in pounds: 312.00 Current BMI: 53.5 [place] body weight (based on NIH guidelines): 54.431 kg Excess body weight loss: 1.0% The patient is a 42 year-old F who presents for Bariatric Assessment. Patient presents today for presurgical consultation. She is morbidly obese with BMI 54. She is currently working on her insurance authorization requirements. Past Medical History Past Medical History: Asthma, Diabetes Mellitus, Hypertension Additional Past Medical History / Comment(s): LT SCIATICA. Neck pain,FATTY LIVER History of Any Multi-Drug Resistant Organisms: None Reported Past Surgical History: Cholecystectomy, Hysterectomy, Tubal Ligation, Uterine Ablation Additional Past Surgical History / Comment(s): d & c , PAIN CLINIC PROCEDURES Past Anesthesia/Blood Transfusion Reactions: No Reported Reaction Past Psychological History: Anxiety, Bipolar, Depression, PTSD Additional Psychological History / Comment(s): Under care of psychiatrist. Smoking Status: Former smoker Past Alcohol Use History: None Reported Additional Past Alcohol Use History / Comment(s): smoked off and on <1ppd quit 2006 Past Drug Use History: None Reported - Past Family History Mother Family Medical History: No Reported History Surgical - Exam Vital Signs Temp Pulse Resp BP 98.2 F 81 16 125/82 11/23/18 13:55 11/23/18 13:55 11/23/18 13:55 11/23/18 13:55 - General well developed, well nourished, no distress - Eyes PERRL - ENT normal pinna - Neck no masses - Respiratory normal expansion - Cardiovascular Rhythm: regular - Abdomen Abdomen: soft, non tender Bariatric Assessment & Plan Plan: Morbid obesity with BMI 54. Patient will follow-up in one month. Bariatric Checklist Checklist: Plan: Checklist: EGD: 1. Hiatal hernia: 2. H. Pylori: HgbA1c: Vitamin D: Smoking: Former smoker Primary care physician referral: [facility] Psychiatry clearance: Cardiology clearance: Sleep study: Diet journal: VTE risk score: VTE risk level: Rehab needs at discharge:
== END | disposition home or self-care (01) ==
LOC: BARWHC3 13:22
PROVIDERS: ATTEND Surgery
DX: E66.01 Morbid (severe) obesity due to excess calories (principal); F41.9 Anxiety disorder, unspecified; F31.9 Bipolar disorder, unspecified; F43.10 Post-traumatic stress disorder, unspecified; Z68.43 Body mass index [BMI] 50.0-59.9, adult; Z87.891 Personal history of nicotine dependence; Z90.49 Acquired absence of other specified parts of digestive tract; Z90.710 Acquired absence of both cervix and uterus; Z98.890 Other specified postprocedural states
CPT/HCPCS: 99211

== ENCOUNTER 2019-01-03 11:00 | Emergency (ER) | payer OTHER ==
[2019-01-03 11:25] VITALS: BP 112/80; PULSE 87; RESP 16; TEMP 98.2
--- NOTE | 2019-01-03 12:00 | XR ---
EXAMINATION TYPE: XR foot complete RT DATE OF EXAM: 01/03/2019 COMPARISON: NONE HISTORY: 43-year-old female with right foot pain TECHNIQUE: 3 views FINDINGS: Mild bunion formation. Minimal degenerative spurring at the first MTP joint. No acute fracture, sublu xation, or dislocation seen. Smooth delineation to the Achilles tendon. IMPRESSION: Mild bunion. Minimal degenerative spurring first MTP joint. No acute osseous anomaly seen.
--- NOTE | 2019-01-03 12:11 | ED ---
General Adult HPI - General Chief complaint: Extremity Problem,Nontraumatic Stated complaint: right foot pain Time Seen by Provider: 01/03/19 11:26 Source: patient Mode of arrival: ambulatory Limitations: no limitations - History of Present Illness Initial comments: 43-year-old female past history hyperlipidemia, hypertension diabetes presented for chief complaint of right foot pain. Patient denies any trauma. She states began bugging her along her heel and arch yesterday evening, increases with any type of ambulation or weightbearing. Patient denies any erythema, fever chills or night sweats. Patient denies any recent trauma to the ankle or foot. Patient denies ever experiencing this before. Patient denies history of gout. Remaining review of systems negative, patient denies any recent fever, chills, shortness of breath, chest pain, back pain, abdominal pain, nausea or vomiting, numbness or tingling, dysuria or hematuria, constipation or diarrhea, headaches or visual changes, or any other complaints. VS WNL. - Related Data Home Medications Medication Instructions Recorded Confirmed Cholecalciferol [Vitamin D3] 2,000 unit PO DAILY 11/18/16 01/03/19 DULoxetine HCL [Cymbalta] 60 mg PO HS 11/18/16 01/03/19 Hydrocodone/Acetaminophen [[place] 1 tab PO QID PRN 11/18/16 01/03/19 10-325] Lisinopril 40 mg PO DAILY 02/05/17 01/03/19 metFORMIN HCL ER [Glucophage Xr] 500 mg PO PC-SUPPER 02/19/18 01/03/19 Atorvastatin [Lipitor] 40 mg PO HS 05/21/18 01/03/19 Cyanocobalamin (Vitamin B-12) 1,000 mcg PO DAILY 05/21/18 01/03/19 [Vitamin B-12] Loratadine [Claritin] 10 mg PO DAILY 08/17/18 01/03/19 Fluticasone/Vilanterol [[place] 1 puff INHALATION RT-DAILY 09/01/18 01/03/19 Ellipta 100-25 Mcg Inhaler] buPROPion XL [Wellbutrin Xl] 300 mg PO DAILY 01/03/19 01/03/19 Allergies Allergy/AdvReac Type Severity Reaction Status Date / Time aripiprazole [From Abilify] Allergy Hallucinati Verified 01/03/19 11:39 ons hydromorphone [From Dilaudid] AdvReac Itching Verified 01/03/19 11:39 Review of Systems ROS Statement: Those systems with pertinent positive or pertinent negative responses have been documented in the HPI. ROS Other: All systems not noted in ROS Statement are negative. Past Medical History Past Medical History: Asthma, Diabetes Mellitus, Hypertension Additional Past Medical History / Comment(s): LT SCIATICA. Neck pain,FATTY LIVER History of Any Multi-Drug Resistant Organisms: None Reported Past Surgical History: Cholecystectomy, Hysterectomy, Tubal Ligation, Uterine Ablation Additional Past Surgical History / Comment(s): d & c , PAIN CLINIC PROCEDURES Past Anesthesia/Blood Transfusion Reactions: No Reported Reaction Past Psychological History: Anxiety, Bipolar, Depression, PTSD Smoking Status: Former smoker - Past Family History Mother Family Medical History: No Reported History General Exam - General Exam Comments Initial Comments: General: The patient is awake and alert, in no distress, and does not appear acutely ill. Eye: Pupils are equal, round and reactive to light, extra-ocular movements are intact. No nystagmus. There is normal conjunctiva bilaterally. No signs of icterus. Ears, nose, mouth and throat: There are moist mucous membranes and no oral lesions. Neck: The neck is supple, there is no tenderness or JVD. Cardiovascular: There is a regular rate and rhythm. No murmur, rub or gallop is appreciated. Respiratory: Lungs are clear to auscultation, respirations are non-labored, breath sounds are equal. No wheezes, stridor, rales, or rhonchi. Musculoskeletal: She is able to fully range the ankle and foot. Patient does admit to tenderness to palpation at the heel along the arch on the medial aspect. Patient is able to ambulate. Normal ROM, no tenderness at the knee and hip. Strength 5/5 of the lower extremities equal bilaterally. Sensation intact of the lower extremities equal bilaterally. DP pulses equal bilaterally 2 +. Warm to palpation, capillary refill < 2 second b/l. No contusions or ecchymosis. No erythema of the foot or toes. Neurological: A&O x 3. CN II-XII intact, There are no obvious motor or sensory deficits. Coordination appears grossly intact. Speech is normal. Skin: Skin is warm and dry and no rashes or lesions are noted. Psychiatric: Cooperative, appropriate mood & affect, normal judgment. Limitations: no limitations Course Vital Signs 01/03/19 11:23 Temperature 98.2 F Pulse Rate 87 Respiratory 16 Rate Blood Pressure 112/80 O2 Sat by Pulse 95 Oximetry Medical Decision Making - Medical Decision Making X-ray negative for acute osseous process. Patient does deny any trauma. There is no evidence concerning and physical examination for infectious process. No erythema or increased warmth to palpation. Exam findings and history concerning for plantar fasciitis given the location of pain. Patient states she does have shoes that have a small arch/flat. Recommended a she with good arch support as well as rolling heal over a frozen water bottle and taking over- the-counter pain medications for relief. In addition patient was given with [facility] follow-up for persistent symptoms. Patient is to follow-up with primary care provider in one to 2 days. Patient is agreeable plan discharge patient denies questions at this time. Patient was given Tylenol prior to discharge. Pt discharged appearing well. Briefly discussed case with attending Dr. Larson. Disposition Clinical Impression: Plantar fasciitis of right foot Disposition: HOME SELF-CARE Condition: Good Instructions (If sedation given, give patient instructions): Plantar Fasciitis (ED) Additional Instructions: Please use medication as discussed. Please follow-up with family doctor in the next 2 days, please see your orthopedic surgeon if pain persists. Please return to emergency room if the symptoms increase or worsen or for any other concerns. Is patient prescribed a controlled substance at d/c from ED?: No Referrals: Lola Way MD [Primary Care Provider] - 1-2 days Nic Ruiz DO [Medical Doctor] - 1-2 days Time of Disposition: 12:10
[2019-01-03] MEDS ORDERED: ACETAMINOPHEN TAB 325 MG TAB PO STA (12:53)
== END 2019-01-03 12:55 | disposition home or self-care (01) ==
LOC: EC 11:00
DX: M72.2 Plantar fascial fibromatosis (principal); I10 Essential (primary) hypertension; J45.909 Unspecified asthma, uncomplicated; E11.9 Type 2 diabetes mellitus without complications; F41.9 Anxiety disorder, unspecified; E78.5 Hyperlipidemia, unspecified; F32.9 Major depressive disorder, single episode, unspecified; Z79.899 Other long term (current) drug therapy; Z79.84 Long term (current) use of oral hypoglycemic drugs; Z88.5 Allergy status to narcotic agent; Z88.8 Allergy status to other drugs, medicaments and biological substances; Z87.891 Personal history of nicotine dependence
CPT/HCPCS: 99283

== ENCOUNTER → 2019-01-18 | Outpatient (CLI) | payer OTHER ==
[2019-01-18 13:29] VITALS: BP 132/84; PULSE 111; TEMP 97.8; BMI 52.7
--- NOTE | 2019-01-18 14:50 | P.HPBAR ---
Bariatric H&P - History & Physicial H&P Date: 01/18/19 History & Physicial: Visit/CC: Patient initial contact: Initial weight: 142.485 kg Initial weight in pounds: 314.13 Height: 5 ft 4 in Initial BMI: 53.8 Last weight: Current weight: 139.253 kg Current weight in pounds: 307.00 Current BMI: 52.7 [place] body weight (based on NIH guidelines): 54.431 kg Excess body weight loss: 3.6% The patient is a 43 year-old F who presents for Bariatric Assessment. Patient presents today for presurgical consultation. She has not lost enough weight prior to surgical authorization. She is on lost 5 pounds since her last visit. She is brought obesity BMI 53. Past Medical History Past Medical History: Asthma, Diabetes Mellitus, Hypertension Additional Past Medical History / Comment(s): LT SCIATICA. Neck pain,FATTY LIVER , bilateral plantar fascitis (left worse than right) History of Any Multi-Drug Resistant Organisms: None Reported Past Surgical History: Cholecystectomy, Hysterectomy, Tubal Ligation, Uterine Ablation Additional Past Surgical History / Comment(s): d & c , PAIN CLINIC PROCEDURES Past Anesthesia/Blood Transfusion Reactions: No Reported Reaction Past Psychological History: Anxiety, Bipolar, Depression, PTSD Additional Psychological History / Comment(s): Under care of psychiatrist. Smoking Status: Former smoker Past Alcohol Use History: None Reported Additional Past Alcohol Use History / Comment(s): smoked off and on <1ppd quit 2006 Past Drug Use History: None Reported - Past Family History Mother Family Medical History: No Reported History Surgical - Exam Vital Signs Temp Pulse BP 97.8 F 111 H 132/84 01/18/19 13:21 01/18/19 13:21 01/18/19 13:21 - General well developed, well nourished, no distress - Eyes PERRL - ENT normal pinna - Neck no masses - Respiratory normal expansion - Cardiovascular Rhythm: regular - Abdomen Abdomen: soft, non tender Bariatric Assessment & Plan Plan: Morbid obesity with BMI 53. Patient is doing well. She will continue her weight loss. She'll follow-up in 2 weeks and meet with the dietitian. She is morbidly obese. Bariatric Checklist Checklist: Plan: Checklist: EGD: 1. Hiatal hernia: 2. H. Pylori: HgbA1c: Vitamin D: Smoking: Former smoker Primary care physician referral: Dr. Gaspar" ([place]) [phone] Psychiatry clearance: Cardiology clearance: Sleep study: Diet journal: VTE risk score: VTE risk level: Rehab needs at discharge:
== END ==
LOC: BARWHC3 12:43
PROVIDERS: ATTEND Surgery
DX: Z48.815 Encounter for surgical aftercare following surgery on the digestive system (principal); E66.01 Morbid (severe) obesity due to excess calories; Z87.891 Personal history of nicotine dependence; Z98.84 Bariatric surgery status; Z68.43 Body mass index [BMI] 50.0-59.9, adult
CPT/HCPCS: 99211

== ENCOUNTER → 2019-02-01 | Outpatient (CLI) | payer OTHER ==
[2019-02-01 14:36] VITALS: BP 137/80; PULSE 99; RESP 16; TEMP 98.9; BMI 53.1
--- NOTE | 2019-02-01 14:57 | P.HPBAR ---
Bariatric H&P - History & Physicial H&P Date: 02/01/19 History & Physicial: Visit/CC: Working on Criteria Patient initial contact: Initial weight: 142.485 kg Initial weight in pounds: 314.13 Height: 5 ft 4 in Initial BMI: 53.8 Last weight: Current weight: 140.614 kg Current weight in pounds: 310.00 Current BMI: 53.1 [place] body weight (based on NIH guidelines): 54.431 kg Excess body weight loss: 2.1% The patient is a 43 year-old F who presents for Bariatric Assessment. The patient presents today for pre-surgical consultation. She is scheduled for her psychiatric evaluation next month. She is completing her medical follow-up as well. She seems to have a good understanding of the sleeve gastrectomy. We went over the risks and benefits again. Past Medical History Past Medical History: Asthma, Diabetes Mellitus, Hypertension Additional Past Medical History / Comment(s): LT SCIATICA. Neck pain,FATTY LIVER , bilateral plantar fascitis (left worse than right) History of Any Multi-Drug Resistant Organisms: None Reported Past Surgical History: Cholecystectomy, Hysterectomy, Tubal Ligation, Uterine Ablation Additional Past Surgical History / Comment(s): d & c , PAIN CLINIC PROCEDURES Past Anesthesia/Blood Transfusion Reactions: No Reported Reaction Past Psychological History: Anxiety, Bipolar, Depression, PTSD Additional Psychological History / Comment(s): Under care of psychiatrist. Smoking Status: Former smoker Past Alcohol Use History: None Reported Additional Past Alcohol Use History / Comment(s): smoked off and on <1ppd quit 2006 Past Drug Use History: None Reported - Past Family History Mother Family Medical History: No Reported History Surgical - Exam Vital Signs Temp Pulse Resp BP 98.9 F 99 16 137/80 02/01/19 14:22 02/01/19 14:22 02/01/19 14:22 02/01/19 14:22 - General well developed, well nourished, no distress - Eyes PERRL - ENT normal pinna - Neck no masses - Respiratory normal expansion - Abdomen Abdomen: soft, non tender Bariatric Assessment & Plan Plan: Morbid obesity with BMI 53. Patient will be scheduled for sleeve gastrectomy once she has obtained insurance authorization. She'll follow-up in 4 weeks. Bariatric Checklist Checklist: Plan: Checklist: EGD: 1. Hiatal hernia: 2. H. Pylori: HgbA1c: Vitamin D: Smoking: Former smoker Primary care physician referral: Dr. Gaspar" ([place]) [phone] Psychiatry clearance: Cardiology clearance: Sleep study: Diet journal: VTE risk score: VTE risk level: Rehab needs at discharge:
== END | disposition home or self-care (01) ==
LOC: BARWHC3 13:50
PROVIDERS: ATTEND Surgery
DX: Z01.818 Encounter for other preprocedural examination (principal); E66.01 Morbid (severe) obesity due to excess calories; E11.9 Type 2 diabetes mellitus without complications; I10 Essential (primary) hypertension; Z90.49 Acquired absence of other specified parts of digestive tract; Z68.43 Body mass index [BMI] 50.0-59.9, adult; Z90.710 Acquired absence of both cervix and uterus; Z98.51 Tubal ligation status; Z98.890 Other specified postprocedural states; Z87.891 Personal history of nicotine dependence
CPT/HCPCS: 99211

== ENCOUNTER 2019-02-09 19:55 | Emergency (ER) | payer OTHER ==
[2019-02-09] MEDS ORDERED: IPRATROPIUM-ALBUTEROL 3 ML NEB INHALATION STA (20:32)
[2019-02-09] MEDS ORDERED: SODIUM CHLORIDE 0.9% 500 ML 500 ML IV STA (20:34)
[2019-02-09] MEDS ORDERED: diphenhydrAMINE 50 MG/ML 1 ML VIAL IVP STA (20:34)
[2019-02-09] MEDS ORDERED: METOCLOPRAMIDE 5 MG/ML 2 ML VIAL IVP STA (20:34)
[2019-02-09 21:05] LABS: Anion Gap 9 mmol/L; Blood Urea Nitrogen 11 mg/dL (7-17); Calcium 8.9 mg/dL (8.4-10.2); Carbon Dioxide 24 mmol/L (22-30); Chloride 106 mmol/L (98-107); Glucose 131 mg/dL (74-99); Potassium 3.9 mmol/L (3.5-5.1); Sodium 139 mmol/L (137-145)
[2019-02-09 21:08] LABS: Basophils % (A) 1 %; Eosinophils # (A) 0.1 k/uL (0-0.7); Eosinophils % (A) 2 %; HCT 36.7 % (34.0-46.0); HGB 12.1 gm/dL (11.4-16.0); Lymphocytes % (A) 19 %; MCH 29.8 pg (25.0-35.0); MCHC 32.9 g/dL (31.0-37.0); MCV 90.6 fL (80.0-100.0); Mean Platelet Volume 7.6; Monocytes # (A) 0.4 k/uL (0-1.0); Monocytes % (A) 7 %; Neutrophils # (A) 3.5 k/uL (1.3-7.7); Neutrophils % (A) 69 %; Platelet Count 300 k/uL (150-450); RBC 4.05 m/uL (3.80-5.40); RDW 15.2 % (11.5-15.5)
--- NOTE | 2019-02-09 21:23 | XR ---
EXAMINATION TYPE: XR chest 2V DATE OF EXAM: 02/09/2019 COMPARISON: 12/03/2015 HISTORY: Cough TECHNIQUE: Frontal and lateral views of the chest are obtained. FINDINGS: Heart and mediastinum are normal. Lungs are clear. Diaphragm is normal. Bony thorax appear s normal. IMPRESSION: Normal chest. No change.
--- NOTE | 2019-02-09 22:40 | ED ---
URI HPI - General Chief Complaint: Upper Respiratory Infection Stated Complaint: Chest pain, cough Time Seen by Provider: 02/09/19 20:03 Source: patient Mode of arrival: ambulatory Limitations: no limitations - History of Present Illness Initial Comments: The patient is a 43-year-old female with past history of asthma who presents to the emergency department with complaint of a cough. She states that it started today. It is nonproductive. She has no associated fevers or chills. She denies any chest pain. Does admit to chest wall tenderness secondary from coughing. Denies any sick contacts or recent travel. Denies any ear pain or nasal congestion. Does admit to a scratchy throat. Denies any neck pain or stiffness. Denies ripping or tearing sensation to her back. No pleuritic chest pain. No abdominal pain. Does admit to one episode of diarrhea today. Denies any melanotic stools or hematochezia. She did use her inhaler today with some improvement in her symptoms. She does have a mild headache. States she has had headaches before in the past. This is not the worse headache of her life. Denies any visual changes. No unilateral numbness or weakness. Denies photophobia. There are no other alleviating, precipitating or modifying factors - Related Data Home Medications Medication Instructions Recorded Confirmed Cholecalciferol [Vitamin D3] 2,000 unit PO DAILY 11/18/16 02/09/19 DULoxetine HCL [Cymbalta] 60 mg PO HS 11/18/16 02/09/19 Hydrocodone/Acetaminophen [[place] 1 tab PO QID PRN 11/18/16 02/09/19 10-325] Lisinopril 40 mg PO DAILY 02/05/17 02/09/19 metFORMIN HCL ER [Glucophage Xr] 500 mg PO PC-SUPPER 02/19/18 02/09/19 Atorvastatin [Lipitor] 40 mg PO HS 05/21/18 02/09/19 Cyanocobalamin (Vitamin B-12) 1,000 mcg PO DAILY 05/21/18 02/09/19 [Vitamin B-12] Loratadine [Claritin] 10 mg PO DAILY 08/17/18 02/09/19 buPROPion XL [Wellbutrin Xl] 300 mg PO DAILY 01/03/19 02/09/19 Previous Rx's Medication Instructions Recorded Benzonatate [Tessalon Perles] 200 mg PO TID PRN #15 capsule 02/09/19 predniSONE 20 mg PO BID 5 Days #10 tab 02/09/19 Allergies Allergy/AdvReac Type Severity Reaction Status Date / Time aripiprazole [From Abilify] AdvReac Hallucinati Verified 02/09/19 20:26 ons hydromorphone [From Dilaudid] AdvReac Itching Verified 02/09/19 20:26 Review of Systems ROS Statement: Those systems with pertinent positive or pertinent negative responses have been documented in the HPI. ROS Other: All systems not noted in ROS Statement are negative. Past Medical History Past Medical History: Asthma, Diabetes Mellitus, Hypertension Additional Past Medical History / Comment(s): LT SCIATICA. Neck pain,FATTY LIVER , bilateral plantar fascitis (left worse than right) History of Any Multi-Drug Resistant Organisms: None Reported Past Surgical History: Cholecystectomy, Hysterectomy, Tubal Ligation, Uterine Ablation Additional Past Surgical History / Comment(s): d & c , PAIN CLINIC PROCEDURES, Past Anesthesia/Blood Transfusion Reactions: No Reported Reaction Past Psychological History: Anxiety, Bipolar, Depression, PTSD Smoking Status: Former smoker Past Alcohol Use History: None Reported Past Drug Use History: None Reported - Past Family History Mother Family Medical History: No Reported History General Exam Limitations: no limitations General appearance: alert, in no apparent distress Head exam: Present: atraumatic, normocephalic, normal inspection Eye exam: Present: normal appearance, PERRL, EOMI. Absent: scleral icterus, conjunctival injection, periorbital swelling ENT exam: Present: normal exam, mucous membranes moist Neck exam: Present: normal inspection. Absent: tenderness, meningismus, lympha denopathy Respiratory exam: Present: normal lung sounds bilaterally. Absent: respiratory distress, wheezes, rales, rhonchi, stridor Cardiovascular Exam: Present: regular rate, normal rhythm, normal heart sounds. Absent: systolic murmur, diastolic murmur, rubs, gallop, clicks GI/Abdominal exam: Present: soft, normal bowel sounds. Absent: distended, tenderness, guarding, rebound, rigid Extremities exam: Present: normal inspection, full ROM, normal capillary refill. Absent: tenderness, pedal edema, joint swelling, calf tenderness Back exam: Present: normal inspection Neurological exam: Present: alert, oriented X3, CN II-XII intact Psychiatric exam: Present: normal affect, normal mood Skin exam: Present: warm, dry, intact, normal color. Absent: rash Course Vital Signs 02/09/19 02/09/19 02/09/19 19:57 20:28 20:57 Temperature 98.9 F Pulse Rate 103 H 92 Respiratory 18 21 Rate Blood Pressure 117/75 O2 Sat by Pulse 97 Oximetry 02/09/19 02/09/19 21:04 22:44 Temperature 98.5 F Pulse Rate 87 91 Respiratory 18 Rate Blood Pressure 138/83 O2 Sat by Pulse 97 Oximetry Medical Decision Making - Medical Decision Making The patient was seen by myself. She was placed into room 2. She was placed on continuous pulse ox and cardiac monitoring. We did conduct a 12-lead EKG which demonstrated a normal sinus rhythm. We did provide the patient with a DuoNeb breathing treatment. I did recommend laboratory studies. The patient was swa bbed for influenza. We also completed a chest x-ray. IV access was established and the patient was given 10 mg of Reglan and 25 mg of Benadryl. She is reevaluated has had complete resolution of her headache. She admits to improved breathing. I did discuss the diagnosis, differential diagnosis and treatment options. I did recommend treating the patient with prednisone. She was given a 5 day prescription. The patient is a diabetic so I did inform her that she much watch her sugars closely while taking the medication. She is to use her inhaler every 4 hours. I also provided the patient with a prescription for Tessalon Perles. She needs to follow up with her primary care physician in 2 days. Should she have any new or worsening symptoms, she should return to the emergency room. Patient was in agreement with the treatment plan and discharged home in stable condition. - Differential Diagnosis Upper respiratory infection, bronchitis, asthma exacerbation, viral illness - Lab Data Result diagrams: 02/09/19 20:20 02/09/19 20:20 Lab Results 02/09/19 02/09/19 02/09/19 Range/Units 20:20 20:20 20:20 WBC 5.0 (3.8-10.6) k/uL RBC 4.05 (3.80-5.40) m/uL Hgb 12.1 (11.4-16.0) gm/dL Hct 36.7 (34.0-46.0) % MCV 90.6 (80.0-100.0) fL MCH 29.8 (25.0-35.0) pg MCHC 32.9 (31.0-37.0) g/dL RDW 15.2 (11.5-15.5) % Plt Count 300 (150-450) k/uL Neutrophils % 69 % Lymphocytes % 19 % Monocytes % 7 % Eosinophils % 2 % Basophils % 1 % Neutrophils # 3.5 (1.3-7.7) k/uL Lymphocytes # 1.0 (1.0-4.8) k/uL Monocytes # 0.4 (0-1.0) k/uL Eosinophils # 0.1 (0-0.7) k/uL Basophils # 0.0 (0-0.2) k/uL Sodium 139 (137-145) mmol/L Potassium 3.9 (3.5-5.1) mmol/L Chloride 106 (98-107) mmol/L Carbon Dioxide 24 (22-30) mmol/L Anion Gap 9 mmol/L BUN 11 (7-17) mg/dL Creatinine 0.64 (0.52-1.04) mg/dL Est GFR (CKD-EPI)AfAm >90 (>60 ml/min/1.73 sqM) Est GFR (CKD-EPI)NonAf >90 (>60 ml/min/1.73 sqM) Glucose 131 H (74-99) mg/dL Calcium 8.9 (8.4-10.2) mg/dL Influenza Type A RNA Not Detected (Not Detectd) Influenza Type B (PCR) Not Detected (Not Detectd) - EKG Data -: EKG Interpreted by [place] EKG shows normal: sinus rhythm When compared to previous EKG there are: no significant change Interpretation: no acute changes - Radiology Data Radiology results: report reviewed Chest x-ray demonstrates no acute findings Disposition Clinical Impression: Upper respiratory infection, Bronchitis Disposition: HOME SELF-CARE Condition: Good Instructions (If sedation given, give patient instructions): Upper Respiratory Infection (ED) Additional Instructions: Please follow-up with your primary care physician within 2-4 days. Please check your blood sugars closely while on the steroids. Return to the emergency department for any new or worsening symptoms. Prescriptions: predniSONE 20 mg PO BID 5 Days #10 tab Benzonatate [Tessalon Perles] 200 mg PO TID PRN #15 capsule PRN Reason: Cough Is patient prescribed a controlled substance at d/c from ED?: No Referrals: Lola Way MD [Primary Care Provider] - 1-2 days Time of Disposition: 22:40
[2019-02-09 22:47] VITALS: BP 138/83; PULSE 91; RESP 18; TEMP 98.5
== END 2019-02-09 22:50 | disposition home or self-care (01) ==
LOC: EC 19:55
DX: J45.901 Unspecified asthma with (acute) exacerbation (principal); J06.9 Acute upper respiratory infection, unspecified; B34.9 Viral infection, unspecified; E11.9 Type 2 diabetes mellitus without complications; I10 Essential (primary) hypertension; F41.9 Anxiety disorder, unspecified; F31.9 Bipolar disorder, unspecified; Z79.84 Long term (current) use of oral hypoglycemic drugs; Z79.899 Other long term (current) drug therapy; Z88.5 Allergy status to narcotic agent; Z88.8 Allergy status to other drugs, medicaments and biological substances; Z87.891 Personal history of nicotine dependence
CPT/HCPCS: 36415; 94640; 80048; 85025; 87502; 71046; 99284; 96374; 96375; J1200; J2765

== ENCOUNTER → 2019-03-22 | Outpatient (CLI) | payer OTHER ==
[2019-03-22 14:29] LABS: Basophils # (A) 0.1 k/uL (0-0.2); Basophils % (A) 1 %; Eosinophils # (A) 0.1 k/uL (0-0.7); Eosinophils % (A) 1 %; HCT 39.2 % (34.0-46.0); HGB 12.5 gm/dL (11.4-16.0); Lymphocytes # (A) 2.3 k/uL (1.0-4.8); Lymphocytes % (A) 28 %; MCH 28.5 pg (25.0-35.0); MCHC 31.8 g/dL (31.0-37.0); MCV 89.7 fL (80.0-100.0); Monocytes # (A) 0.4 k/uL (0-1.0); Monocytes % (A) 5 %; Neutrophils # (A) 5.3 k/uL (1.3-7.7); Neutrophils % (A) 63 %; Platelet Count 302 k/uL (150-450); RBC 4.37 m/uL (3.80-5.40); RDW 15.6 % (11.5-15.5); WBC 8.4 k/uL (3.8-10.6)
[2019-03-22 14:31] LABS: ALT 27 U/L (9-52); AST 23 U/L (14-36); Albumin 4.2 g/dL (3.5-5.0); Alkaline Phosphatase 74 U/L (38-126); Anion Gap 6 mmol/L; Blood Urea Nitrogen 12 mg/dL (7-17); Calcium 9.9 mg/dL (8.4-10.2); Carbon Dioxide 31 mmol/L (22-30); Chloride 102 mmol/L (98-107); Glucose 101 mg/dL (74-99); Potassium 4.3 mmol/L (3.5-5.1); Sodium 139 mmol/L (137-145); Total Bilirubin 0.4 mg/dL (0.2-1.3)
== END ==
LOC: LABPAT 13:43
PROVIDERS: ATTEND Surgery
DX: Z01.812 Encounter for preprocedural laboratory examination (principal)
CPT/HCPCS: 36415; 80053; 85025

== ENCOUNTER → 2019-03-22 | Outpatient (CLI) | payer OTHER ==
[2019-03-22 13:13] VITALS: BP 108/84; PULSE 103; TEMP 98.1; BMI 53.4
--- NOTE | 2019-03-22 16:34 | P.HPBAR ---
Bariatric H&P - History & Physicial H&P Date: 03/22/19 History & Physicial: Visit/CC: presurgical visit Patient initial contact: Initial weight: 142.485 kg Initial weight in pounds: 314.13 Height: 5 ft 4 in Initial BMI: 53.8 Last weight: Current weight: 141.067 kg Current weight in pounds: 311.00 Current BMI: 53.4 [place] body weight (based on NIH guidelines): 54.431 kg Excess body weight loss: 1.6% The patient is a 43 year-old F who presents for Bariatric Assessment. Patient presents today for presurgical consultation. She currently is being scheduled in the next 2 weeks for sleeve gastrectomy. She is mildly obese with BMI 53. Past Medical History Past Medical History: Asthma, Diabetes Mellitus, Hypertension Additional Past Medical History / Comment(s): LT SCIATICA. Neck pain,FATTY LIVER , bilateral plantar fascitis (left worse than right) History of Any Multi-Drug Resistant Organisms: None Reported Past Surgical History: Cholecystectomy, Hysterectomy, Tubal Ligation, Uterine Ablation Additional Past Surgical History / Comment(s): d & c , PAIN CLINIC PROCEDURES, Past Anesthesia/Blood Transfusion Reactions: No Reported Reaction Past Psychological History: Anxiety, Bipolar, Depression, PTSD Additional Psychological History / Comment(s): Under care of psychiatrist. Smoking Status: Former smoker Past Alcohol Use History: None Reported Additional Past Alcohol Use History / Comment(s): smoked off and on <1ppd quit 2006 Past Drug Use History: None Reported - Past Family History Mother Family Medical History: No Reported History Surgical - Exam Vital Signs Temp Pulse BP 98.1 F 103 H 108/84 03/22/19 13:10 03/22/19 13:10 03/22/19 13:10 - General well developed, well nourished, no distress - Eyes PERRL - ENT normal pinna - Abdomen Abdomen: soft, non tender Bariatric Assessment & Plan Plan: Morbid obesity, BMI 53. We'll perform sleeve gastrectomy. I have discussed wi th the patient regarding risks and complications of surgery. Patient's aware of risk of gastric staple line disruption, bleeding scarring. Bariatric Checklist Checklist: Plan: Checklist: EGD: 1. Hiatal hernia: 2. H. Pylori: HgbA1c: Vitamin D: Smoking: Former smoker Primary care physician referral: Dr. Gaspar" ([place]) [phone] Psychiatry clearance: Cardiology clearance: Sleep study: Diet journal: VTE risk score: VTE risk level: Rehab needs at discharge:
== END | disposition home or self-care (01) ==
LOC: BARWHC3 12:52
PROVIDERS: ATTEND Surgery
DX: Z01.818 Encounter for other preprocedural examination (principal); E66.01 Morbid (severe) obesity due to excess calories; Z68.43 Body mass index [BMI] 50.0-59.9, adult; Z90.49 Acquired absence of other specified parts of digestive tract
CPT/HCPCS: 99211

== ENCOUNTER 2019-04-05 08:00 | Inpatient (IN) | payer OTHER ==
[~2019-04-05 08:00] MED LIST changes: +DEXAMETHASONE SOD PHOSPHATE 10 MG/ML 1 ML VIAL IV ONE; +MIDAZOLAM 2 MG/2 ML VIAL IV PRN; +ONDANSETRON 4 MG/2 ML VIAL IVP ONE; +SCOPOLAMINE 1.5MG/72HR PATCH TRANSDERM ONE; +ceFAZolin 3 GM in SODIUM CHLORIDE 0.9% 100 ML IVPB ONE; +fentaNYL (PF) 50 MCG/ML 2 ML AMP IV PRN
[2019-04-05] MEDS ORDERED: LIDOCAINE 1% 20 ML VIAL (10MG/ML) FOR IV START INTRADERMA ONE (10:13)
[2019-04-05 10:34] LABS: Glucose,Whole Blood 108 mg/dL (75-99)
[2019-04-05] MEDS ORDERED: HEPARIN SODIUM,PORCINE 5,000 UNIT/ML 1 ML VIAL IV ONE (10:35)
--- NOTE | 2019-04-05 11:12 | P.GSHP ---
History of Present Illness H&P Date: 04/05/19 Chief Complaint: Morbid obesity This a 43-year-old female with history of morbid obesity. Patient's BMI is 53. She resents today for sleeve gastrectomy. Patient is aware the risks of surgery including gastric staple line disruption, bleeding or scarring. Past Medical History Past Medical History: Asthma, Diabetes Mellitus, Hyperlipidemia, Hypertension, Musculoskeletal Disorder Additional Past Medical History / Comment(s): LT SCIATICA. Neck pain, FATTY LIVER , bilateral plantar fascitis (left worse than right) History of Any Multi-Drug Resistant Organisms: None Reported Past Surgical History: Cholecystectomy, Hysterectomy, Tubal Ligation, Uterine Ablation Additional Past Surgical History / Comment(s): D&C, PAIN CLINIC PROCEDURES, EGD Past Anesthesia/Blood Transfusion Reactions: Previous Problems w/ Anesthesia Additional Past Anesthesia/Blood Transfusion Reaction / Comment(s): OCC "HAVE A HARD TIME COMING OUT OF IT (ANESTHESIA)." Smoking Status: Former smoker - Past Family History Mother Family Medical History: No Reported History Medications and Allergies Home Medications Medication Instructions Recorded Confirmed Type DULoxetine HCL [Cymbalta] 60 mg PO HS 11/18/16 04/05/19 History Hydrocodone/Acetaminophen [[place] 1 tab PO QID PRN 11/18/16 04/05/19 History 10-325] Lisinopril 40 mg PO DAILY 02/05/17 04/05/19 History metFORMIN HCL ER [Glucophage Xr] 500 mg PO PC-SUPPER 02/19/18 04/05/19 History Cyanocobalamin (Vitamin B-12) 1,000 mcg PO DAILY 05/21/18 04/05/19 History [Vitamin B-12] Loratadine [Claritin] 10 mg PO DAILY 08/17/18 04/05/19 History buPROPion XL [Wellbutrin Xl] 300 mg PO DAILY 01/03/19 04/05/19 History Albuterol Inhaler [Ventolin Hfa 1 - 2 puff INHALATION RT-Q6H PRN 03/30/19 04/05/19 History Inhaler] Ergocalciferol [Vitamin D2] 50,000 unit PO TH 03/30/19 04/05/19 History Allergies Allergy/AdvReac Type Severity Reaction Status Date / Time hydromorphone [From Dilaudid] Allergy Itching Verified 04/05/19 10:00 [facility] AdvReac Hallucinati Verified 04/05/19 10:00 ons Surgical - Exam Vital Signs Temp Pulse Resp BP Pulse Ox 99.2 F 95 16 138/78 97 04/05/19 09:44 04/05/19 09:44 04/05/19 09:44 04/05/19 09:44 04/05/19 09:44 - General well developed, well nourished, no distress - Eyes PERRL - ENT normal pinna - Neck no masses - Respiratory normal expansion - Cardiovascular Rhythm: regular - Abdomen Abdomen: soft, non tender Results - Labs Abnormal Lab Results - Last 24 Hours (Table) 04/05/19 Range/Units 10:11 POC Glucose (mg/dL) 108 H (75-99) mg/dL Assessment and Plan Assessment: RBC. We'll perform laparoscopic sleeve gastrectomy..
[2019-04-05] MEDS ORDERED: MIDAZOLAM 2 MG/2 ML VIAL ONE (12:24)
[2019-04-05] MEDS ORDERED: PROPOFOL 10 MG/ML 20 ML VIAL IV ONE (12:24)
[2019-04-05] MEDS ORDERED: KETOROLAC 30 MG/ML 1 ML VIAL ONE (12:24)
[2019-04-05] MEDS ORDERED: fentaNYL (PF) 50 MCG/ML 2 ML AMP ONE (12:24)
[2019-04-05] MEDS ORDERED: HYDROmorphone (PF) 1 MG/ML ONE (12:24)
[2019-04-05] MEDS ORDERED: NEOSTIGMINE 1 MG/ML 10 ML VIAL ONE (12:24)
[2019-04-05] MEDS ORDERED: GLYCOPYRROLATE 0.2 MG/ML 2 ML VIAL ONE (12:24)
[2019-04-05] MEDS ORDERED: ROCURONIUM BROMIDE 10 MG/ML 10 ML VIAL IV ONE (12:24)
[2019-04-05] MEDS ORDERED: LACTATED RINGERS 1,000 ML IV ONE ×2 (12:32→13:36)
[2019-04-05] MEDS ORDERED: BUPIVACAIN-EPI 0.5%-1:200,000 30 ML VIAL SQ ONE (13:03)
[2019-04-05] MEDS ORDERED: HYOSCYAMINE ORAL DROPS 1.875 MG/15 ML BOTTLE PO PRN (14:20)
[2019-04-05] MEDS ORDERED: diphenhydrAMINE 50 MG/ML 1 ML VIAL IVP PRN (14:20)
[2019-04-05] MEDS ORDERED: SIMETHICONE 40 MG/0.6 ML DROPS 2,000 MG/30 ML BOTTLE PO PRN (14:20)
[2019-04-05] MEDS ORDERED: NALOXONE 0.4 MG/ML 1 ML VIAL IV PRN (14:20)
[2019-04-05] MEDS ORDERED: HYDROmorphone 1 MG/ML 1 ML SYRINGE IVP ONE ×2 (14:49→15:00)
[2019-04-05] MEDS: ALBUTEROL NEBULIZED 2.5 MG/3 ML INHALATION SCH ×2 (16:05→20:37)
--- NOTE | 2019-04-05 16:18 | P.OP ---
Date of Procedure: 04/05/19 Preoperative Diagnosis: Morbid obesity, BMI 53 Postoperative Diagnosis: Morbid obesity, BMI 53 Procedure(s) Performed: Laparoscopic sleeve gastrectomy Anesthesia: VENU Surgeon: Woody Santos Estimated Blood Loss (ml): 20 Pathology: other (Gastric remnant) Condition: stable Disposition: PACU Description of Procedure: LThe patient was placed on the operating room table in the supine position. She received general anesthesia and then was placed in dorsal lithotomy position. Her abdomen was prepped and draped in sterile fashion. The skin incision sites were anesthetized 1% local Xylocaine. And then the skin was incised with an 11 blade in the left lateral position. Using a blade less trocar under direct visualization the peritoneal cavity was entered. The abdomen was insufflated and then a 5 mm laparoscope was placed into the peritoneal cavity. A 5 mm trocar was placed in the right epigastric, and right lateral position. A 15 mm trocar was placed in the supra-umbilical position and another 5 mm trocar was placed in the left lateral position. The left lateral lobe of the liver was retracted. The stomach was visualized. The greater curvature of the stomach was then dissected using the Harmonic scissors. The dissection occurred approximately 5 cm from the pylorus to the level of the left sharon. There was no hiatal hernia seen. At this point a 40-Kazakh bougie dilator was placed the oropharynx and passed into the esophagus and into the stomach by the BILLBOARD ERECTOR. The sleeve gastrectomy was performed by using the powered echelon stapler with a seam guard buttress material. Sequential firings of the stapler were performed. The gastric remnant was then brought out through the 15 mm trocar site. The dilator was withdrawn. And a orogastric tube was replaced into the stomach. The stomach was insufflated with 200 mL of methylene blue normal saline. There was no evidence of extravasation. The abdomen was irrigated there is no bleeding seen. The Abhijeet-Hien device was used to close the 15 mm trocar with 0 Vicryl. Skin was closed with interrupted 3-0 Monocryl sutures once the trochars withdrawn. Dermabond dressing was applied. Patient was sent to recovery in stable condition.
[2019-04-05 16:47] LABS: Glucose,Whole Blood 169 mg/dL (75-99)
[2019-04-05] MEDS: 0.9% NACL WITH KCL 20 MEQ/L 1,000 ML IV SCH ×2 (17:19→20:00)
[2019-04-05] MEDS: KETOROLAC 30 MG/ML 1 ML VIAL IVP SCH ×2 (17:20→23:37)
[2019-04-05] MEDS ORDERED: ALBUTEROL INHALER 60 PUFF/8 GM INHALER INHALATION PRN (17:33)
[2019-04-05] MEDS ORDERED: hydrALAZINE HCL 20 MG/ML 1 ML VIAL IVP PRN (17:34)
[2019-04-05] MEDS: FAMOTIDINE 20 MG TAB PO SCH (20:00)
[2019-04-05 21:47] LABS: Glucose,Whole Blood 163 mg/dL (75-99)
[2019-04-05] MEDS: INSULIN ASPART (NovoLOG) 100 UNIT/ML VIAL SQ SCH (22:12)
[2019-04-05] MEDS: ONDANSETRON 4 MG/2 ML VIAL IVP PRN (22:12)
[2019-04-05] MEDS: HYDROmorphone 1 MG/ML 1 ML SYRINGE IVP PRN (22:16)
--- NOTE | 2019-04-06 00:38 | CONS ---
CONSULTATION DATE OF SERVICE: 04/05/2019 REASON FOR CONSULTATION: Advice regarding history of asthma, diabetes requested by Dr. Santos. HISTORY OF PRESENT ILLNESS: This 43-year-old woman with a past medical history of asthma, diabetes, hypertension, hyperlipidemia being followed by Dr. Lola Way in the outpatient setting underwent laparoscopic sleeve gastrectomy for morbid obesity. The patient tolerated the procedure well. Patient being closely monitored. There is no history of fever, rigors or chills. No history of headache, loss of consciousness or seizures. The blood sugars are 108 and 169. The blood pressure was found to be slightly elevated, which is improving at this time. There is no history of fever, rigors or chills. No history of headache, loss of consciousness, seizures, chest pain, palpitations, shortness of breath, hematochezia or melena at this time. PAST MEDICAL HISTORY: Asthma diabetes type 2, history of hypertension, hyperlipidemia, musculoskeletal disorder. MEDICATIONS: Prior to admission include home medications are: 1. Glucophage XR 500 mg at supper. 2. Wellbutrin XL 300 mg. 3. Claritin 10 mg daily. 4. Lisinopril 40 mg daily. 5. [place] 10 mg q.i.d. p.r.n. 6. Vitamin D2 50,000 p.o. . 7. Cymbalta 60 mg q.h.s. 8. Vitamin B12 1000 mcg p.o. 9. Ventolin HFA 1-2 puffs q.6h p.r.n. ALLERGIES: DILAUDID AND ABILIFY. FAMILY HISTORY: No history of heart disease or strokes in the family. SOCIAL HISTORY: Previous history of smoking. No history of current smoking or alcohol intake. REVIEW OF SYSTEMS: ENT: No diminished vision. No diminished hearing. CARDIO SYSTEM: No angina or palpitations. RESPIRATORY SYSTEM: No cough noted. GI mentioned earlier. no dysuria. NERVOUS SYSTEMS: No numbness or weakness. ALLERGY/IMMUNOLOGY: No asthma or hayfever. MUSCULOSKELETAL: As mentioned earlier. HEMATOLOGY/ONCOLOGY: No history of anemia. ENDOCRINE as mentioned earlier. CONSTITUTIONAL: As mentioned earlier. DERMATOLOGY: Negative. RHEUMATOLOGY: Negative. PSYCHIATRY: As mentioned earlier. PHYSICAL EXAMINATION: GENERAL: Alert and oriented times three. VITAL SIGNS: Pulse 102, blood pressure 145/93. Respirations 20. Temp is normal. Pulse ox is 96% on 3 L nasal cannula. HEENT: Conjunctivae normal. Oral mucosa moist. Neck is no jugular venous distention. No carotid bruit. No lymph node enlargement. CARDIOVASCULAR SYSTEM: S1, S2. No S3, no S4. RESPIRATORY: Breath sounds diminished in the bases. No rhonchi. No crackles. ABDOMEN: Soft, status post surgery. LEGS: No edema. No swelling. NERVOUS SYSTEM: Higher functions as mentioned earlier. Moves all 4 limbs. No focal motor or sensory deficits. LYMPHATICS: No lymph nodes palpable in the neck, axilla and groin. JOINTS: No active deforming arthropathy. LAB STUDIES: At this time shows Accu-Cheks 108, 169. Otherwise, CO2 is 31. ASSESSMENT: 1. Status post laparoscopic sleeve gastrectomy for morbid obesity. 2. Asthma. 3. Diabetes mellitus type 2. 4. Hypertension. 5. Hyperlipidemia. 6. Left sciatica. 7. Cholecystectomy. 8. Anxiety, bipolar depression, PTSD. 9. FULL CODE. RECOMMENDATIONS AND DISCUSSION: This 43-year-old woman who presented with multiple complex medical issues, we will monitor the patient closely. Continue the current medications, symptomatic treatment. I recommend incentive spirometry. Otherwise, resume the home medications. Monitor blood sugars closely. DVT prophylaxis. Will follow the patient closely with you and p.r.n. blood pressure medications are also ordered. The patient may be asked to follow up with Dr. Lola Way closely in the outpatient setting. Thank you, Dr. Santos, for letting us participate in the care of this patient. MMODL / IJN: [id number] / WILLIAM
[2019-04-06] MEDS: 0.9% NACL WITH KCL 20 MEQ/L 1,000 ML IV SCH (04:15)
[2019-04-06] MEDS: ONDANSETRON 4 MG/2 ML VIAL IVP PRN ×3 (04:23→21:13)
[2019-04-06] MEDS: HYDROmorphone 1 MG/ML 1 ML SYRINGE IVP PRN (04:25)
[2019-04-06] MEDS: KETOROLAC 30 MG/ML 1 ML VIAL IVP SCH ×3 (06:16→18:33)
[2019-04-06 07:31] LABS: Glucose,Whole Blood 111 mg/dL (75-99)
[2019-04-06 07:48] LABS: Basophils % (A) 0 %; Eosinophils % (A) 0 %; HCT 35.8 % (34.0-46.0); HGB 11.1 gm/dL (11.4-16.0); Hypochromasia Slight; Lymphocytes # (A) 1.2 k/uL (1.0-4.8); Lymphocytes % (A) 15 %; MCH 28.2 pg (25.0-35.0); MCHC 30.9 g/dL (31.0-37.0); MCV 91.2 fL (80.0-100.0); Mean Platelet Volume 8.1; Monocytes # (A) 0.5 k/uL (0-1.0); Monocytes % (A) 6 %; Neutrophils # (A) 6.6 k/uL (1.3-7.7); Neutrophils % (A) 77 %; Platelet Count 324 k/uL (150-450); RBC 3.92 m/uL (3.80-5.40); RDW 14.9 % (11.5-15.5); WBC 8.5 k/uL (3.8-10.6)
[2019-04-06 07:52] LABS: Anion Gap 6 mmol/L; Blood Urea Nitrogen 11 mg/dL (7-17); Calcium 8.3 mg/dL (8.4-10.2); Carbon Dioxide 26 mmol/L (22-30); Chloride 106 mmol/L (98-107); Phosphorus 2.9 mg/dL (2.5-4.5); Potassium 4.5 mmol/L (3.5-5.1); Sodium 138 mmol/L (137-145)
[2019-04-06] MEDS: ALBUTEROL NEBULIZED 2.5 MG/3 ML INHALATION SCH ×4 (08:05→19:44)
[2019-04-06] MEDS: INSULIN ASPART (NovoLOG) 100 UNIT/ML VIAL SQ SCH ×4 (09:15→21:09)
--- NOTE | 2019-04-06 10:12 | FL ---
EXAMINATION TYPE: FL UGI DATE OF EXAM: 04/06/2019 LIMITED UGI: CLINICAL HISTORY: Gastric sleeve one day prior. TECHNIQUE: Limited esophagram is performed utilizing 25 mL of Isovue-370. A total of 1 minute and 12 seconds of fluoroscopic time was utilized during procedure. 17 fluoroscopic images were saved during the examination. COMPARISON: None. FINDINGS: The patient swallowed contrast without difficulty or delay. Esophageal peristalsis and mo tility are within normal limits. There is moderately delayed flow of contrast along the diaphragmati c hiatus into proximal stomach and subsequent flow into gastric sleeve. There is marked delayed flow from distal sleeve into pylorus and duodenal sweep is not seen despite prolonged imaging. Patient rem ains asymptomatic. There is no evidence of contrast extravasation to suggest leak. IMPRESSION: No evidence of leak. Overall moderate obstruction status post recent gastric sleeve surge ry with no advancement of contrast into the duodenal sweep despite prolonged imaging.
[2019-04-06] MEDS ORDERED: DEXAMETHASONE SOD PHOSPHATE 4 MG/ML 1 ML VIAL IV PRN (10:21)
[2019-04-06] MEDS: FAMOTIDINE 20 MG TAB PO SCH (11:07)
[2019-04-06] MEDS: buPROPion XL 300 MG TAB.ER.24H PO SCH (11:08)
[2019-04-06] MEDS: PANTOPRAZOLE 40 MG/10 ML VIAL IV SCH (11:08)
[2019-04-06] MEDS: LISINOPRIL 20 MG TAB PO SCH (11:08)
[2019-04-06] MEDS: ENOXAPARIN 60 MG/0.6 ML SYRINGE SQ SCH ×2 (11:08→21:08)
[2019-04-06 11:34] VITALS: BMI 53.4
[2019-04-06 11:42] LABS: Glucose,Whole Blood 130 mg/dL (75-99)
[2019-04-06] MEDS ORDERED: METOCLOPRAMIDE 5 MG/ML 2 ML VIAL IVP PRN (12:45)
--- NOTE | 2019-04-06 12:50 | P.PN ---
Subjective Progress Note Date: 04/06/19 CHIEF COMPLAINT: morbid obesity HISTORY OF PRESENT ILLNESS: 43-year-old female who underwent laparoscopic sleeve gastrectomy with Dr. Santos on 04/05/2019. POD #1. Patient examined at the bedside. Patient currently pains of pain near incision sites. She reports 2 episodes of emesis last night. No vomiting this morning. Tolerating ice chips. Esophagram completed this morning is negative for leak. Overall moderate obstruction. PHYSICAL EXAM: VITAL SIGNS: Reviewed. GENERAL: Well-developed in no acute distress. HEENT: No sclera icterus. Extraocular movements grossly intact. Moist buccal mucosa. Head is atraumatic, normocephalic. ABDOMEN: Obese. Soft. Nondistended. Appropriate surgical tenderness. Surgical sites clean dry and intact with no drainage or erythema. NEUROLOGIC: Alert and oriented. Cranial nerves II through XII grossly intact. ASSESSMENT: 1. Morbid obesity, status post laparoscopic sleeve gastrectomy PLAN: 1. Decadron 4mg IV q 4 hours 2. Clear liquid diet as tolerated 3. Resume home [place]. Patient will not require Rx for narcotics at discharge 4. Activity as tolerated 5. Incentive spirometry 6. Anticipate discharge home tomorrow Nurse practitioner note has been reviewed by physician. Signing provider agrees with the documented findings, assessment, and plan of care. Objective - Vital Signs Vital signs: Vital Signs Temp 98 F 04/06/19 07:00 Pulse 92 04/06/19 12:18 Resp 26 H 04/06/19 08:11 BP 132/83 04/06/19 07:00 Pulse Ox 91 L 04/06/19 08:11 Intake & Output 04/05/19 04/06/19 04/06/19 18:59 06:59 18:59 Intake Total 2450 790 Output Total 10 Balance 2440 790 Weight 141.067 kg Intake: IV 2450 Oral 790 Output: Estimated Blood Loss 10 Other: # Voids 2 - Labs CBC & Chem 7: 04/06/19 06:52 04/06/19 06:52 Labs: Abnormal Lab Results - Last 24 Hours (Table) 04/05/19 04/05/19 04/06/19 Range/Units 16:44 21:47 06:52 Hgb 11.1 L (11.4-16.0) gm/dL MCHC 30.9 L (31.0-37.0) g/dL Creatinine (0.52-1.04) mg/dL POC Glucose (mg/dL) 169 H 163 H (75-99) mg/dL Calcium (8.4-10.2) mg/dL 04/06/19 04/06/19 04/06/19 Range/Units 06:52 07:29 11:39 Hgb (11.4-16.0) gm/dL MCHC (31.0-37.0) g/dL Creatinine 0.51 L (0.52-1.04) mg/dL POC Glucose (mg/dL) 111 H 130 H (75-99) mg/dL Calcium 8.3 L (8.4-10.2) mg/dL
--- NOTE | 2019-04-06 13:35 | PN ---
PROGRESS NOTE DATE OF SERVICE: 04/06/2019 This 43-year-old woman who was admitted after laparoscopic sleeve gastrectomy for morbid obesity, is being closely monitored. No chest pain or palpitations. No fever. PHYSICAL EXAMINATION: On exam, alert and oriented x3. Pulse is 100, blood pressure is 132/83, respiration 26, temperature 98 degrees, pulse ox 91% HEENT: Conjunctivae normal. Oral mucosa moist. NECK: No jugular venous distention. No carotid bruit. No lymph node enlargement. CARDIOVASCULAR: S1, S2. No S3, no S4. RESPIRATORY: Breath sounds diminished at the bases. A few scattered rhonchi. ABDOMEN: Soft, status post surgery. LEGS: No edema. No swelling. NERVOUS SYSTEM: No focal deficits. LABS: WBC 8.5, hemoglobin 11.1. Sodium 138, potassium 4.5. ASSESSMENT: 1. Status post laparoscopic sleeve gastrectomy for morbid obesity. 2. History of asthma. 3. Diabetes mellitus type 2. 4. Hypertension. 5. Hyperlipidemia. 6. Left sciatica. 7. Cholecystectomy. 8. Anxiety, depression bipolar, posttraumatic stress disorder. 9. FULL CODE. RECOMMENDATIONS AND DISCUSSION: Recommend to continue current medications, continue symptomatic treatment. I recommend incentive spirometry. DVT prophylaxis. Resume the home medications. Continue to monitor. Further recommendation to follow. Discussed with staff. MMODL / IJN: [id number] / [email or web address]
[2019-04-06] MEDS: 1: MVI, ADULT NO.4 WITH VIT K 10 ML, THIAMINE 100 MG, FOLIC ACID 1 MG, POTASSIUM CHLORID IV SCH ×12 (15:50→21:18)
[2019-04-06 16:52] LABS: Glucose,Whole Blood 117 mg/dL (75-99)
[2019-04-06] MEDS: DEXAMETHASONE SOD PHOSPHATE 4 MG/ML 1 ML VIAL IV SCH ×3 (17:54→21:09)
[2019-04-06 20:55] LABS: Glucose,Whole Blood 165 mg/dL (75-99)
[2019-04-06] MEDS ORDERED: DULoxetine HCL 60 MG CAPSULE.DR PO SCH (21:00)
[2019-04-06] MEDS: HYDROcodone/APAP 10-325MG 1 EACH TAB PO PRN (21:08)
[2019-04-07] MEDS: DEXAMETHASONE SOD PHOSPHATE 4 MG/ML 1 ML VIAL IV SCH ×3 (00:05→09:08)
[2019-04-07] MEDS: KETOROLAC 30 MG/ML 1 ML VIAL IVP SCH ×2 (00:05→04:57)
[2019-04-07 02:27] VITALS: RESP 18
[2019-04-07 07:38] VITALS: BP 144/72; PULSE 106; TEMP 99.3
[2019-04-07] MEDS: 1: MVI, ADULT NO.4 WITH VIT K 10 ML, THIAMINE 100 MG, FOLIC ACID 1 MG, POTASSIUM CHLORID IV SCH ×6 (08:21)
[2019-04-07] MEDS: ALBUTEROL NEBULIZED 2.5 MG/3 ML INHALATION SCH ×2 (08:37→11:49)
[2019-04-07 08:59] LABS: Glucose,Whole Blood 126 mg/dL (75-99)
[2019-04-07] MEDS: INSULIN ASPART (NovoLOG) 100 UNIT/ML VIAL SQ SCH (09:00)
[2019-04-07] MEDS: buPROPion XL 300 MG TAB.ER.24H PO SCH (09:07)
[2019-04-07] MEDS: ENOXAPARIN 60 MG/0.6 ML SYRINGE SQ SCH (09:07)
[2019-04-07] MEDS: LISINOPRIL 20 MG TAB PO SCH (09:07)
[2019-04-07] MEDS: PANTOPRAZOLE 40 MG/10 ML VIAL IV SCH (09:08)
[2019-04-07] MEDS: HYDROcodone/APAP 10-325MG 1 EACH TAB PO PRN (09:27)
--- NOTE | 2019-04-07 11:31 | P.DS ---
Providers Date of admission: 04/05/19 09:18 Expected date of discharge: 04/07/19 Attending physician: Woody Santos Consults: 04/05/19 14:20 Consult Physician Routine Consulting Provider: Tong Brennan Consult Reason/Comments: Medical management Do you want consulting provider notified?: Yes Primary care physician: [facility] Hospital Course: 43-year-old female who underwent laparoscopic sleeve gastrectomy with Dr. Santos on 04/05/2019. Patient is doing well postoperatively. Patient is tolerating liquid diet without difficulty. Pain is controlled on oral medications. Patient is stable for discharge home today. Please see EMR for further hospital course details. Patient takes [place] at home. No Rx for narcotics given at time of discharge. Patient instructed to resume her home dose of [place]. Discharge diagnosis 1. Morbid obesity, status post laparoscopic sleeve gastrectomy Nurse practitioner note has been reviewed by physician. Signing provider agrees with the documented findings, assessment, and plan of care. Plan - Discharge Summary Discharge Rx Participant: Yes New Discharge Prescriptions: New Sucralfate [Carafate] 1 gm PO BID #500 ml Bisacodyl [Dulcolax] 5 mg PO DAILY PRN #10 tablet. PRN Reason: Constipation Omeprazole [PriLOSEC] 20 mg PO AC-BRKFST #30 cap Ondansetron Odt [Zofran Odt] 4 mg PO Q8HR PRN #9 tab PRN Reason: Nausea Continue Hydrocodone/Acetaminophen [[place] 10-325] 1 tab PO QID PRN PRN Reason: Pain No Action DULoxetine HCL [Cymbalta] 60 mg PO HS Lisinopril 40 mg PO DAILY metFORMIN HCL ER [Glucophage Xr] 500 mg PO PC-SUPPER Cyanocobalamin (Vitamin B-12) [Vitamin B-12] 1,000 mcg PO DAILY Loratadine [Claritin] 10 mg PO DAILY buPROPion XL [Wellbutrin Xl] 300 mg PO DAILY Ergocalciferol [Vitamin D2] 50,000 unit PO TH Albuterol Inhaler [Ventolin Hfa Inhaler] 1 - 2 puff INHALATION RT-Q6H PRN PRN Reason: Shortness Of Breath Discharge Medication List DULoxetine HCL [Cymbalta] 60 mg PO HS 11/18/16 [History] Hydrocodone/Acetaminophen [[place] 10-325] 1 tab PO QID PRN 11/18/16 [History] Lisinopril 40 mg PO DAILY 02/05/17 [History] metFORMIN HCL ER [Glucophage Xr] 500 mg PO PC-SUPPER 02/19/18 [History] Cyanocobalamin (Vitamin B-12) [Vitamin B-12] 1,000 mcg PO DAILY 05/21/18 [History] Loratadine [Claritin] 10 mg PO DAILY 08/17/18 [History] buPROPion XL [Wellbutrin Xl] 300 mg PO DAILY 01/03/19 [History] Albuterol Inhaler [Ventolin Hfa Inhaler] 1 - 2 puff INHALATION RT-Q6H PRN 03/30/19 [History] Ergocalciferol [Vitamin D2] 50,000 unit PO TH 03/30/19 [History] Bisacodyl [Dulcolax] 5 mg PO DAILY PRN #10 tablet. 04/07/19 [Rx] Omeprazole [PriLOSEC] 20 mg PO AC-BRKFST #30 cap 04/07/19 [Rx] Ondansetron Odt [Zofran Odt] 4 mg PO Q8HR PRN #9 tab 04/07/19 [Rx] Sucralfate [Carafate] 1 gm PO BID #500 ml 04/07/19 [Rx] Follow up Appointment(s)/Referral(s): [facility] [NON-STAFF] - 1 Week Activity/Diet/Wound Care/Special Instructions: No driving while taking [place] No lifting over 10 pounds You may shower. No soaking or tub baths Very light activity until you are reevaluated at your follow up appointment with your surgeon Liquid diet
[2019-04-07 11:42] LABS: Glucose,Whole Blood 142 mg/dL (75-99)
--- NOTE | 2019-04-07 21:31 | PN ---
PROGRESS NOTE DATE OF SERVICE: 04/07/2019 This 43-year-old woman who was admitted for laparoscopic sleeve gastrectomy for morbid obesity is improving significantly. No chest pain. No palpitations. No fever. On exam, alert and oriented x3. Pulse is 106, blood pressure 144/72, respiration 18, temperature 99.1, pulse ox 93% on room air. HEENT: Conjunctivae normal. NECK: No jugular venous distention. CARDIOVASCULAR SYSTEM: S1, S2 muffled. RESPIRATORY SYSTEM: Breath sounds diminished at the bases. Scattered rhonchi and crackles. ABDOMEN: Soft, obese. Status post surgery. LEGS: No edema. No swelling. NERVOUS SYSTEM: No focal deficit. LABS: WBC 8.5, hemoglobin 11.1. ASSESSMENT: 1. Status post laparoscopic sleeve gastrectomy for morbid obesity. 2. History of asthma. 3. Diabetes mellitus, type 2. 4. Hypertension. 5. Hyperlipidemia. 6. Left sciatica. 7. Cholecystectomy. 8. Anxiety, depression, bipolar, post-traumatic stress disorder. 9. FULL CODE. RECOMMENDATIONS AND DISCUSSION: I recommend to continue current management, symptomatic treatment. Otherwise at this time I recommend continuing with home medications, incentive spirometry. Further recommendations to follow. MMODL / IJN: [id number] /
--- NOTE | 2019-04-09 06:07 | CDI ---
Documentation Clarification Form Date: 04/09/19 From: Jacoby Dunham Phone: call to [phone] Admit Date: 04/05/2019 9:18:00 AM Patient Name: Xiao Shipman Visit Number: [id number] Discharge Date: 04/07/2019 12:36:00 PM ATTENTION: The Clinical Documentation Specialists (CDI) and [facility] Coding Staff appreciate your assistance in clarifying documentation. Please respond to the clarification below the line at the bottom and electronically sign. The CDI & [facility] Coding staff will review the response and follow-up if needed. Please note: Queries are made part of the Legal Health Record. If you have any questions, please contact the author of this message via ITS. Dr. Woody Santos The patient presented with the following Morbid obesity underwent sleeve gastrectomy. In progress note 04/06 documented as "Overall moderate obstruction" documented by Cassidy Shannon History/Risk Factors: Morbid obesity Radiology findings: UGI Radiology shows "Overall moderate obstruction status post recent gastric sleeve surgery with no advancement of contrast into the duodenal sweep despite prolonged imaging." In your professional opinion, can you please clarify Obstruction? Related Post- Op complication(gastric/duodenal). Intestinal(gastric/dueodenal) not related to complication. Other, please specify Unable to determine. MTDD
== END 2019-04-07 12:36 | disposition home or self-care (01) | DRG 621 ==
LOC: 2ORMAIN 09:18 → 4SSUR 14:00
PROVIDERS: ADMIT Surgery; ATTEND Surgery
PROC: 0DB64Z3 Excision of Stomach, Percutaneous Endoscopic Approach, Vertical (ICD-10-PCS; principal; 2019-04-05 11:00)
DX: E66.01 Morbid (severe) obesity due to excess calories (principal); E11.9 Type 2 diabetes mellitus without complications; I10 Essential (primary) hypertension; E78.5 Hyperlipidemia, unspecified; J45.909 Unspecified asthma, uncomplicated; F31.9 Bipolar disorder, unspecified; K29.50 Unspecified chronic gastritis without bleeding; F43.10 Post-traumatic stress disorder, unspecified; K76.0 Fatty (change of) liver, not elsewhere classified; M54.32 Sciatica, left side; Z68.43 Body mass index [BMI] 50.0-59.9, adult; Z79.84 Long term (current) use of oral hypoglycemic drugs; Z79.899 Other long term (current) drug therapy; Z87.891 Personal history of nicotine dependence; Z90.710 Acquired absence of both cervix and uterus; Z90.49 Acquired absence of other specified parts of digestive tract; Z98.51 Tubal ligation status; Z88.5 Allergy status to narcotic agent; Z88.8 Allergy status to other drugs, medicaments and biological substances
CPT/HCPCS: 74240; 80051; 82310; 82565; 83735; 84100; 84520; 85025; 88307; 94640

== ENCOUNTER → 2019-04-09 | Outpatient (CLI) | payer OTHER ==
[2019-04-09 11:56] VITALS: BP 115/79; PULSE 84; TEMP 97.9; BMI 52.7
== END ==
LOC: BARWHC3 10:45
PROVIDERS: ATTEND Surgery
DX: Z48.815 Encounter for surgical aftercare following surgery on the digestive system (principal)
CPT/HCPCS: 99211

== ENCOUNTER → 2019-04-19 | Outpatient (CLI) | payer OTHER ==
[~2019-04-19] MED LIST changes: -DEXAMETHASONE SOD PHOSPHATE 10 MG/ML 1 ML VIAL IV ONE; -LACTATED RINGERS 1,000 ML IV SCH; -MIDAZOLAM 2 MG/2 ML VIAL IV PRN; -ONDANSETRON 4 MG/2 ML VIAL IVP ONE; -SCOPOLAMINE 1.5MG/72HR PATCH TRANSDERM ONE; +SODIUM CHLORIDE 0.9% 1,000 ML IV ONE; -ceFAZolin 3 GM in SODIUM CHLORIDE 0.9% 100 ML IVPB ONE; -fentaNYL (PF) 50 MCG/ML 2 ML AMP IV PRN
[2019-04-19 13:57] VITALS: BP 131/83; PULSE 97; RESP 16; TEMP 98.8; BMI 49.1
--- NOTE | 2019-04-19 16:06 | P.HPBAR ---
Bariatric H&P - History & Physicial H&P Date: 04/19/19 History & Physicial: Visit/CC: hydration Patient initial contact: Initial weight: 142.485 kg Initial weight in pounds: 314.13 Height: 5 ft 4 in Initial BMI: 53.8 Last weight: Current weight: 129.727 kg Current weight in pounds: 286.00 Current BMI: 49.1 [place] body weight (based on NIH guidelines): 54.431 kg Excess body weight loss: 14.4% The patient is a 43 year-old F who presents for Bariatric Assessment. Patient presents today for sleeve gastrectomy follow-up. She's had some complaints of dysphagia. Past Medical History Past Medical History: Asthma, Diabetes Mellitus, Hyperlipidemia, Hypertension, Musculoskeletal Disorder Additional Past Medical History / Comment(s): LT SCIATICA. Neck pain, FATTY LIVER , bilateral plantar fascitis (left worse than right) History of Any Multi-Drug Resistant Organisms: None Reported Past Surgical History: Bariatric Surgery, Cholecystectomy, Hysterectomy, Tubal Ligation, Uterine Ablation Additional Past Surgical History / Comment(s): D&C, PAIN CLINIC PROCEDURES, EGD sleeve gastrectomy 04-05-19 Past Anesthesia/Blood Transfusion Reactions: Previous Problems w/ Anesthesia Additional Past Anesthesia/Blood Transfusion Reaction / Comm: OCC "HAVE A HARD TIME COMING OUT OF IT (ANESTHESIA)." Smoking Status: Former smoker - Past Family History Mother Family Medical History: No Reported History Surgical - Exam Vital Signs Temp Pulse Resp BP 98.8 F 97 16 131/83 04/19/19 13:54 04/19/19 13:54 04/19/19 13:54 04/19/19 13:54 - General well developed, well nourished, no distress - Abdomen Abdomen: soft, non tender Bariatric Assessment & Plan Plan: Due to the patient's symptoms of dysphagia esophagram was performed. There is some obstruction of her sleeve. The patient is able tolerate some clear liquids. 2 will stay on clear liquids. She received fluid hydration for the next 48 hours. We will repeat her x-ray on . Bariatric Checklist Checklist: Plan: Checklist: EGD: 1. Hiatal hernia: 2. H. Pylori: HgbA1c: Vitamin D: Smoking: Former smoker Primary care physician referral: Dr. Gaspar" ([place]) [phone] Psychiatry clearance: Cardiology clearance: Sleep study: Diet journal: VTE risk score: VTE risk level: Rehab needs at discharge:
--- NOTE | 2019-04-20 07:56 | FL ---
EXAMINATION TYPE: FL barium swallow DATE OF EXAM: 04/19/2019 CLINICAL HISTORY: Recent gastric sleeve surgery approximately 2 weeks ago with dysphagia TECHNIQUE: Limited esophagram is performed utilizing 1.5 ounces of thin barium. A total of 1 minute and 24 seconds of fluoroscopic time was utilized during procedure. 23 fluoroscopic images were saved during the examination. COMPARISON: None. FINDINGS: The patient swallowed contrast without difficulty or delay. Esophageal peristalsis and mo tility are within normal limits. There is moderate initial delayed flow of contrast along the diaphr agmatic hiatus and then severe flow subsequently with no contrast extending through the gastroesophag eal junction despite prolonged imaging. There is delay of flow through the sleeve. There is no eviden ce of contrast extravasation to suggest leak. IMPRESSION: No evidence of leak. Moderate to severe obstruction status post recent gastric sleeve jenaro shelley with only trickle of contrast extending through the gastric sleeve despite prolonged imaging. In itial note was placed in the patient's chart on 04/20/2019 directly after the examination.
== END | disposition home or self-care (01) ==
LOC: BARWHC3 13:29
PROVIDERS: ATTEND Surgery
DX: E86.0 Dehydration (principal); E66.01 Morbid (severe) obesity due to excess calories; Z68.42 Body mass index [BMI] 45.0-49.9, adult
CPT/HCPCS: 74220; 97803; 96360; G0463; 99211

== ENCOUNTER → 2019-05-03 | Outpatient (CLI) | payer OTHER ==
[2019-05-03 13:41] VITALS: BP 121/80; PULSE 73; RESP 16; TEMP 98.2; BMI 48.4
--- NOTE | 2019-05-03 15:59 | P.HPBAR ---
Bariatric H&P - History & Physicial H&P Date: 05/03/19 History & Physicial: Visit/CC: post sleeve Patient initial contact: Initial weight: 142.485 kg Initial weight in pounds: 314.13 Height: 5 ft 4 in Initial BMI: 53.8 Last weight: Current weight: 127.913 kg Current weight in pounds: 282.00 Current BMI: 48.4 [place] body weight (based on NIH guidelines): 54.431 kg Excess body weight loss: 16.5% The patient is a 43 year-old F who presents for Bariatric Assessment. Patient presents today for sleeve gastrectomy follow-up. She has had some complaints of dysphagia. She has lost 4 pounds since her last visit. She is able to drink without difficulty. O Past Medical History Past Medical History: Asthma, Diabetes Mellitus, Hyperlipidemia, Hypertension, Musculoskeletal Disorder Additional Past Medical History / Comment(s): LT SCIATICA. Neck pain, FATTY LIVER , bilateral plantar fascitis (left worse than right) History of Any Multi-Drug Resistant Organisms: None Reported Past Surgical History: Bariatric Surgery, Cholecystectomy, Hysterectomy, Tubal Ligation, Uterine Ablation Additional Past Surgical History / Comment(s): D&C, PAIN CLINIC PROCEDURES, EGD sleeve gastrectomy 04-05-19 Past Anesthesia/Blood Transfusion Reactions: Previous Problems w/ Anesthesia Additional Past Anesthesia/Blood Transfusion Reaction / Comm: OCC "HAVE A HARD TIME COMING OUT OF IT (ANESTHESIA)." Smoking Status: Former smoker - Past Family History Mother Family Medical History: No Reported History Surgical - Exam Vital Signs Temp Pulse Resp BP 98.2 F 73 16 121/80 05/03/19 13:38 05/03/19 13:38 05/03/19 13:38 05/03/19 13:38 - General well developed, well nourished, no distress - Eyes PERRL - Abdomen Abdomen: soft, non tender Bariatric Assessment & Plan Plan: Status post sleeve gastrectomy. Patient is doing quite well. She has some mild dysphagia. She is tolerating liquids well. The patient will continue soft food. She'll follow-up in 4 weeks. Bariatric Checklist Checklist: Plan: Checklist: EGD: 1. Hiatal hernia: 2. H. Pylori: HgbA1c: Vitamin D: Smoking: Former smoker Primary care physician referral: zaira Psychiatry clearance: Cardiology clearance: Sleep study: Diet journal: VTE risk score: VTE risk level: Rehab needs at discharge:
== END | disposition home or self-care (01) ==
LOC: BARWHC3 13:18
PROVIDERS: ATTEND Surgery
DX: Z48.815 Encounter for surgical aftercare following surgery on the digestive system (principal); R13.10 Dysphagia, unspecified; E66.01 Morbid (severe) obesity due to excess calories; Z68.42 Body mass index [BMI] 45.0-49.9, adult; Z90.49 Acquired absence of other specified parts of digestive tract; Z98.84 Bariatric surgery status; Z87.891 Personal history of nicotine dependence
CPT/HCPCS: 97804; G0463; 99211

== ENCOUNTER → 2019-05-17 | Outpatient (CLI) | payer OTHER ==
[2019-05-17 15:28] VITALS: BP 124/79; PULSE 71; TEMP 98.2; BMI 48.3
--- NOTE | 2019-06-04 13:38 | P.HPBAR ---
Bariatric H&P - History & Physicial H&P Date: 05/17/19 History & Physicial: Visit/CC: 6 week post sleeve (sx 04/05/19) Patient initial contact: Initial weight: 142.485 kg Initial weight in pounds: 314.13 Height: 5 ft 4 in Initial BMI: 53.8 Last weight: Current weight: 127.732 kg Current weight in pounds: 281.60 Current BMI: 48.3 [place] body weight (based on NIH guidelines): 54.431 kg Excess body weight loss: 16.7% The patient is a 43 year-old F who presents for Bariatric Assessment. Patient presents today for sleeve gastrectomy follow-up. She states her dysphagia has improved. He's had some minimal GERD. Past Medical History Past Medical History: Asthma, Diabetes Mellitus, Hyperlipidemia, Hypertension, Musculoskeletal Disorder Additional Past Medical History / Comment(s): LT SCIATICA. Neck pain, FATTY MARYA ER , bilateral plantar fascitis (left worse than right) History of Any Multi-Drug Resistant Organisms: None Reported Past Surgical History: Bariatric Surgery, Cholecystectomy, Hysterectomy, Tubal Ligation, Uterine Ablation Additional Past Surgical History / Comment(s): D&C, PAIN CLINIC PROCEDURES, EGD sleeve gastrectomy 04-05-19 (Dr. Santos) Past Anesthesia/Blood Transfusion Reactions: Previous Problems w/ Anesthesia Additional Past Anesthesia/Blood Transfusion Reaction / Comm: OCC "HAVE A HARD TIME COMING OUT OF IT (ANESTHESIA)." Past Psychological History: Anxiety, Bipolar, Depression, PTSD Additional Psychological History / Comment(s): Under care of psychiatrist. Smoking Status: Former smoker Past Alcohol Use History: None Reported Additional Past Alcohol Use History / Comment(s): smoked off and on, <1ppd, quit 2006 Past Drug Use History: None Reported - Past Family History Mother Family Medical History: No Reported History Surgical - Exam Vital Signs Temp Pulse BP 98.2 F 71 124/79 05/17/19 15:24 05/17/19 15:24 05/17/19 15:24 - General well developed, well nourished, no distress - Eyes PERRL - ENT normal pinna - Neck no masses - Respiratory normal expansion - Abdomen Abdomen: soft, non tender Bariatric Assessment & Plan Plan: Status post sleeve gastrectomy. Patient GERD has improved. She'll follow-up in 4 weeks. Bariatric Checklist Checklist: Plan: Checklist: EGD: 1. Hiatal hernia: 2. H. Pylori: HgbA1c: Vitamin D: Smoking: Former smoker Primary care physician referral: [facility] (Dr. Kacie Smith(??) Psychiatry clearance: Cardiology clearance: Sleep study: Diet journal: VTE risk score: VTE risk level: Rehab needs at discharge:
== END | disposition home or self-care (01) ==
LOC: BARWHC3 14:53
PROVIDERS: ATTEND Surgery
DX: Z48.815 Encounter for surgical aftercare following surgery on the digestive system (principal); K21.9 Gastro-esophageal reflux disease without esophagitis; Z87.891 Personal history of nicotine dependence; Z98.84 Bariatric surgery status
CPT/HCPCS: 99211

== ENCOUNTER → 2019-05-31 | Outpatient (CLI) | payer OTHER ==
[2019-05-31 14:51] VITALS: BP 124/75; PULSE 78; RESP 16; TEMP 98.3; BMI 46.3
--- NOTE | 2019-06-04 13:25 | P.HPBAR ---
Bariatric H&P - History & Physicial H&P Date: 05/31/19 History & Physicial: Visit/CC: follow-up sleeve Patient initial contact: Initial weight: 142.485 kg Initial weight in pounds: 314.13 Height: 5 ft 4 in Initial BMI: 53.8 Last weight: Current weight: 122.47 kg Current weight in pounds: 270.00 Current BMI: 46.3 [place] body weight (based on NIH guidelines): 54.431 kg Excess body weight loss: 22.7% The patient is a 43 year-old F who presents for Bariatric Assessment. Patient presents today for sleeve gastrectomy follow-up. She's had some minimal GERD. Her weight has been relatively stable. She's had a slight weight gain. Past Medical History Past Medical History: Asthma, Diabetes Mellitus, Hyperlipidemia, Hypertension, Musculoskeletal Disorder Additional Past Medical History / Comment(s): LT SCIATICA. Neck pain, FATTY LIVER , bilateral plantar fascitis (left worse than right) History of Any Multi-Drug Resistant Organisms: None Reported Past Surgical History: Bariatric Surgery, Cholecystectomy, Hysterectomy, Tubal Ligation, Uterine Ablation Additional Past Surgical History / Comment(s): D&C, PAIN CLINIC PROCEDURES, EGD sleeve gastrectomy 04-05-19 (Dr. Santos) Past Anesthesia/Blood Transfusion Reactions: Previous Problems w/ Anesthesia Additional Past Anesthesia/Blood Transfusion Reaction / Comm: OCC "HAVE A HARD TIME COMING OUT OF IT (ANESTHESIA)." Past Psychological History: Anxiety, Bipolar, Depression, PTSD Additional Psychological History / Comment(s): Under care of psychiatrist. Smoking Status: Former smoker Past Alcohol Use History: None Reported Additional Past Alcohol Use History / Comment(s): smoked off and on, <1ppd, quit 2006 Past Drug Use History: None Reported - Past Family History Mother Family Medical History: No Reported History Surgical - Exam Vital Signs Temp Pulse Resp BP 98.3 F 78 16 124/75 05/31/19 14:49 05/31/19 14:49 05/31/19 14:49 05/31/19 14:49 - General well developed, well nourished, no distress - Eyes PERRL - Abdomen Abdomen: soft, non tender Bariatric Assessment & Plan Plan: Status post sleeve gastrectomy. Patient's had minimal GERD. The patient has had a slight weight gain. She will follow-up in one month. She will see the dietitian. Bariatric Checklist Checklist: Plan: Checklist: EGD: 1. Hiatal hernia: 2. H. Pylori: HgbA1c: Vitamin D: Smoking: Former smoker Primary care physician referral: [facility] (Dr. Kacie Smith(??) Psychiatry clearance: Cardiology clearance: Sleep study: Diet journal: VTE risk score: VTE risk level: Rehab needs at discharge:
== END | disposition home or self-care (01) ==
LOC: BARWHC3 14:28
PROVIDERS: ATTEND Surgery
DX: Z48.815 Encounter for surgical aftercare following surgery on the digestive system (principal); Z87.891 Personal history of nicotine dependence; K21.9 Gastro-esophageal reflux disease without esophagitis
CPT/HCPCS: 99211

== ENCOUNTER → 2019-06-21 | Outpatient (CLI) | payer OTHER ==
[2019-06-21 13:57] VITALS: BP 131/86; PULSE 76; TEMP 98.1; BMI 44.1
--- NOTE | 2019-06-21 14:53 | P.HPBAR ---
Bariatric H&P - History & Physicial H&P Date: 06/21/19 History & Physicial: Visit/CC: sleeve follow up Patient initial contact: Initial weight: 142.485 kg Initial weight in pounds: 314.13 Height: 5 ft 4 in Initial BMI: 53.8 Last weight: Current weight: 116.573 kg Current weight in pounds: 257.00 Current BMI: 44.1 [place] body weight (based on NIH guidelines): 54.431 kg Excess body weight loss: 29.4% The patient is a 43 year-old F who presents for Bariatric Assessment. The patient presents today for sleeve gastrectomy follow-up. She's had complaints of GERD. She's had excellent weight loss. She denies any significant dysphagia. Past Medical History Past Medical History: Asthma, Diabetes Mellitus, Hyperlipidemia, Hypertension, Musculoskeletal Disorder Additional Past Medical History / Comment(s): LT SCIATICA. Neck pain, FATTY LIVER , bilateral plantar fascitis (left worse than right) History of Any Multi-Drug Resistant Organisms: None Reported Past Surgical History: Bariatric Surgery, Cholecystectomy, Hysterectomy, Tubal Ligation, Uterine Ablation Additional Past Surgical History / Comment(s): D&C, PAIN CLINIC PROCEDURES, EGD sleeve gastrectomy 04-05-19 (Dr. Santos) Past Anesthesia/Blood Transfusion Reactions: Previous Problems w/ Anesthesia Additional Past Anesthesia/Blood Transfusion Reaction / Comm: OCC "HAVE A HARD TIME COMING OUT OF IT (ANESTHESIA)." Past Psychological History: Anxiety, Bipolar, Depression, PTSD Additional Psychological History / Comment(s): Under care of psychiatrist. Smoking Status: Former smoker Past Alcohol Use History: None Reported Additional Past Alcohol Use History / Comment(s): smoked off and on, <1ppd, quit 2006 Past Drug Use History: None Reported - Past Family History Mother Family Medical History: No Reported History Surgical - Exam Vital Signs Temp Pulse BP 98.1 F 76 131/86 06/21/19 13:55 06/21/19 13:55 06/21/19 13:55 - General well developed, well nourished, no distress - Eyes PERRL - ENT normal pinna - Neck no masses - Respiratory normal expansion - Cardiovascular Rhythm: regular - Abdomen Abdomen: soft, non tender Bariatric Assessment & Plan Plan: Status post sleeve gastrectomy. Patient's GERD will be continued to be treated with omeprazole. She'll follow-up in 4 weeks. Bariatric Checklist Checklist: Plan: Checklist: EGD: 1. Hiatal hernia: 2. H. Pylori: HgbA1c: Vitamin D: Smoking: Former smoker Primary care physician referral: [facility] (Dr. Kacie Smith(??) Psychiatry clearance: Cardiology clearance: Sleep study: Diet journal: VTE risk score: VTE risk level: Rehab needs at discharge:
== END | disposition home or self-care (01) ==
LOC: BARWHC3 13:06
PROVIDERS: ATTEND Surgery
DX: Z48.815 Encounter for surgical aftercare following surgery on the digestive system (principal); E66.01 Morbid (severe) obesity due to excess calories; K21.9 Gastro-esophageal reflux disease without esophagitis; Z68.43 Body mass index [BMI] 50.0-59.9, adult; Z87.891 Personal history of nicotine dependence; Z90.3 Acquired absence of stomach [part of]; Z90.49 Acquired absence of other specified parts of digestive tract; Z79.899 Other long term (current) drug therapy
CPT/HCPCS: 99211

== ENCOUNTER 2019-07-13 12:24 | Emergency (ER) | payer OTHER ==
[2019-07-13] MEDS ORDERED: ACETAMINOPHEN TAB 500 MG TAB PO STA (13:09)
--- NOTE | 2019-07-13 13:13 | ED ---
Extremity Problem HPI - General Chief complaint: Extremity Problem,Nontraumatic Stated complaint: right leg pain Time Seen by Provider: 07/13/19 12:53 Source: patient Mode of arrival: ambulatory Limitations: no limitations - History of Present Illness Initial comments: Patient is a 43-year-old female presenting to emergency Department with a chief complaint of right leg pain. Patient reports pain started after she woke up this morning. Patient reports the pain is exacerbated with hip flexion and alleviated at rest. Patient reports the pain is sharp in nature and radiates along the anterior aspect of the right leg down to the foot. Patient denies any numbness or tingling. Patient denies any trauma to the area. Patient denies any shortness activity in the previous day. Patient denies any edema erythema or skin discoloration. Patient denies - Related Data Home Medications Medication Instructions Recorded Confirmed DULoxetine HCL [Cymbalta] 60 mg PO HS 11/18/16 07/13/19 Loratadine [Claritin] 10 mg PO DAILY 08/17/18 07/13/19 Cholecalciferol [Vitamin D3 (25 1,000 unit PO DAILY 07/13/19 07/13/19 Mcg = 1000 Iu)] Omeprazole 40 mg PO DAILY 07/13/19 07/13/19 buPROPion HCL [Wellbutrin SR] 150 mg PO BID 07/13/19 07/13/19 Allergies Allergy/AdvReac Type Severity Reaction Status Date / Time hydromorphone [From Dilaudid] Allergy Itching Verified 07/13/19 12:50 aripiprazole [From Abilify] AdvReac Hallucinati Verified 07/13/19 12:50 ons Review of Systems ROS Statement: Those systems with pertinent positive or pertinent negative responses have been documented in the HPI. ROS Other: All systems not noted in ROS Statement are negative. Past Medical History Past Medical History: Asthma, Diabetes Mellitus, Hyperlipidemia, Hypertension, Musculoskeletal Disorder Additional Past Medical History / Comment(s): LT SCIATICA. Neck pain, FATTY LIVER , bilateral plantar fascitis (left worse than right) History of Any Multi-Drug Resistant Organisms: None Reported Past Surgical History: Bariatric Surgery, Cholecystectomy, Hysterectomy, Tubal Ligation, Uterine Ablation Additional Past Surgical History / Comment(s): D&C, PAIN CLINIC PROCEDURES, EGD sleeve gastrectomy 04-05-19 (Dr. Santos) Past Anesthesia/Blood Transfusion Reactions: Previous Problems w/ Anesthesia Additional Past Anesthesia/Blood Transfusion Reaction / Comment(s): OCC "HAVE A HARD TIME COMING OUT OF IT (ANESTHESIA)." Past Psychological History: Anxiety, Bipolar, Depression, PTSD Smoking Status: Former smoker Past Alcohol Use History: None Reported Past Drug Use History: None Reported - Past Family History Mother Family Medical History: No Reported History General Exam Limitations: no limitations General appearance: alert, in no apparent distress, obese Head exam: Present: atraumatic, normocephalic, normal inspection Eye exam: Present: normal appearance, PERRL, EOMI. Absent: conjunctival injection Pupils: Present: normal accommodation ENT exam: Present: normal exam, mucous membranes moist, normal external ear exam Neck exam: Present: normal inspection, full ROM Respiratory exam: Present: normal lung sounds bilaterally. Absent: chest wall tenderness Cardiovascular Exam: Present: regular rate, normal rhythm, normal heart sounds GI/Abdominal exam: Present: soft, normal bowel sounds. Absent: tenderness, guarding Extremities exam: Present: normal inspection, tenderness (Right hip tenderness with palpation. Tenderness near the right groin. No palpable masses noted.), normal capillary refill, other. Absent: full ROM (Limited range of motion with hip flexion.), pedal edema, joint swelling, calf tenderness Back exam: Present: normal inspection, full ROM. Absent: CVA tenderness (R), CVA tenderness (L) Neurological exam: Present: alert, oriented X3 Psychiatric exam: Present: normal affect, normal mood Skin exam: Present: warm, intact, normal color Course Vital Signs 07/13/19 07/13/19 12:47 14:26 Temperature 98.4 F 98.6 F Pulse Rate 92 86 Respiratory 16 18 Rate Blood Pressure 115/76 112/68 O2 Sat by Pulse 97 98 Oximetry Medical Decision Making - Medical Decision Making Patient is a 43-year-old male presenting to emergency Department with a chief complaint of right leg pain. X-ray of the right hip is negative for acute fracture or dislocation but does indicate a mild right femoral acetabular arthropathy. Damaging correlates clinically to the pain that she is experiencing with a right hip. Patient advised to alternate between Tylenol and ibuprofen for pain control. Strict return parameters were thoroughly discussed the patient was understanding and agreeable. Patient advised to rest illness minimize symptoms. Patient advised to follow-up with orthopedics if symptoms not improving she days. Case discussed with physician. Disposition Clinical Impression: Right hip pain Disposition: HOME SELF-CARE Condition: Stable Instructions (If sedation given, give patient instructions): Hip Pain (ED) Additional Instructions: Please follow up with orthopedics if symptoms unimproved. Alternate between Tylenol and ibuprofen for pain control. Please return to emergency department if symptoms worsen. Is patient prescribed a controlled substance at d/c from ED?: No Referrals: [facility] [Primary Care Provider] - 1-2 days Leonard Ponce DO [Doctor of Osteopathic Medicine] - 1-2 days Time of Disposition: 13:59
--- NOTE | 2019-07-13 13:26 | XR ---
EXAMINATION TYPE: XR Hip Complete RT DATE OF EXAM: 07/13/2019 CLINICAL HISTORY: Right hip pain with no known injury TECHNIQUE: AP and frogleg views of the right hip are obtained. COMPARISON: None. FINDINGS: There is no acute fracture/dislocation evident in the right hip. The joint space in the r ight hip appears aligned with mild cephalo-medial joint space narrowing. The overlying soft tissue a ppears unremarkable. IMPRESSION: There is no acute fracture or dislocation in the right hip. Mild right femoral acetabula r arthropathy.
[2019-07-13 14:26] VITALS: BP 112/68; PULSE 86; RESP 18; TEMP 98.6
== END 2019-07-13 14:26 | disposition home or self-care (01) ==
LOC: EC 12:24
DX: M25.551 Pain in right hip (principal); M13.851 Other specified arthritis, right hip; F41.9 Anxiety disorder, unspecified; F31.9 Bipolar disorder, unspecified; Z79.899 Other long term (current) drug therapy; Z88.5 Allergy status to narcotic agent; Z88.8 Allergy status to other drugs, medicaments and biological substances; Z87.891 Personal history of nicotine dependence; Z98.84 Bariatric surgery status
CPT/HCPCS: 73502; 99283

== ENCOUNTER 2019-07-22 14:43 | Emergency (ER) | payer OTHER ==
[2019-07-22 14:47] VITALS: RESP 18
[2019-07-22] MEDS ORDERED: SODIUM CHLORIDE 0.9% 1,000 ML IV STA (15:38)
[2019-07-22] MEDS ORDERED: ONDANSETRON 4 MG/2 ML VIAL IVP STA (15:40)
[2019-07-22] MEDS ORDERED: MORPHINE SULFATE 4 MG/ML SYRINGE IVP STA (15:40)
--- NOTE | 2019-07-22 15:44 | ED ---
Abdominal Pain HPI - General Chief Complaint: Abdominal Pain Stated Complaint: L sided abd pain, burning/pinching pain Time Seen by Provider: 07/22/19 15:14 Source: patient Mode of arrival: ambulatory Limitations: no limitations - History of Present Illness Initial Comments: Patient is a 43-year-old female presenting to the emergency Department with com plaints of left-sided abdominal pain 2 days. Patient has recent history of gastric sleeve performed by Dr. Santos performed in March. Patient denies any fever, chills, nausea, vomiting, diarrhea. Patient has been eating and drinking as normal today and yesterday. Patient had regular bowel movement today. Patient rates her pain 9/10. Patient states her pain is consistent and describes it as burning/sharp. Patient has history of cholecystectomy, partial hysterectomy. Patient has no other complaints at this time. Upon arrival to ER, vital signs are stable, afebrile. - Related Data Home Medications Medication Instructions Recorded Confirmed DULoxetine HCL [Cymbalta] 60 mg PO HS 11/18/16 07/22/19 Cholecalciferol [Vitamin D3 (25 5,000 unit PO DAILY 07/13/19 07/22/19 Mcg = 1000 Iu)] Omeprazole 40 mg PO DAILY 07/13/19 07/22/19 buPROPion HCL [Wellbutrin SR] 150 mg PO BID 07/13/19 07/22/19 HYDROcodone/APAP 10-325MG [[place] 1 tab PO QID PRN 07/22/19 07/22/19 10-325] Multivitamins, Thera [Multivitamin 1 tab PO DAILY 07/22/19 07/22/19 (formulary)] Allergies Allergy/AdvReac Type Severity Reaction Status Date / Time hydromorphone [From Dilaudid] Allergy Itching Verified 07/22/19 15:41 aripiprazole [From Abilify] AdvReac Hallucinati Verified 07/22/19 15:41 ons Review of Systems ROS Statement: Those systems with pertinent positive or pertinent negative responses have been documented in the HPI. ROS Other: All systems not noted in ROS Statement are negative. Past Medical History Past Medical History: Asthma, Diabetes Mellitus, Hyperlipidemia, Hypertension, Musculoskeletal Disorder Additional Past Medical History / Comment(s): LT SCIATICA. Neck pain, FATTY LIVER , bilateral plantar fascitis (left worse than right) History of Any Multi-Drug Resistant Organisms: None Reported Past Surgical History: Bariatric Surgery, Cholecystectomy, Hysterectomy, Tubal Ligation, Uterine Ablation Additional Past Surgical History / Comment(s): D&C, PAIN CLINIC PROCEDURES, EGD sleeve gastrectomy 04-05-19 (Dr. Santos) Past Anesthesia/Blood Transfusion Reactions: Previous Problems w/ Anesthesia Additional Past Anesthesia/Blood Transfusion Reaction / Comment(s): OCC "HAVE A HARD TIME COMING OUT OF IT (ANESTHESIA)." Past Psychological History: Anxiety, Bipolar, Depression, PTSD Smoking Status: Former smoker Past Alcohol Use History: None Reported Past Drug Use History: None Reported - Past Family History Mother Family Medical History: No Reported History General Exam - General Exam Comments Initial Comments: GENERAL: Well-appearing, well-nourished, obese, and in mild distress secondary to pain. HEAD: Atraumatic, normocephalic. EYES: Pupils equal round and reactive to light, extraocular movements intact, sclera anicteric, conjunctiva are normal. ENT: TMs normal, nares patent, oropharynx clear without exudates. Moist mucous membranes. NECK: Normal range of motion, supple without lymphadenopathy or JVD. LUNGS: Breath sounds clear to auscultation bilaterally and equal. No wheezes rales or rhonchi. HEART: Regular rate and rhythm without murmurs, rubs or gallops. ABDOMEN: Pain in the upper left quadrant. Soft, normoactive bowel sounds. No guarding, no rebound. No masses appreciated. : Deferred EXTREMITIES: Normal range of motion, no pitting or edema. No clubbing or cyanosis. NEUROLOGICAL: Cranial nerves II through XII grossly intact. Normal speech, normal gait. PSYCH: Normal mood, normal affect. SKIN: Warm, Dry, normal turgor, no rashes or lesions noted. Limitations: no limitations Course Vital Signs 07/22/19 07/22/19 14:44 16:39 Temperature 97.7 F 97.8 F Pulse Rate 83 69 Respiratory 18 18 Rate Blood Pressure 170/84 116/67 O2 Sat by Pulse 97 96 Oximetry Medical Decision Making - Medical Decision Making Patient is a 43-year-old female complaining of left upper quadrant pain since yesterday. Patient had gastric sleeve surgery performed by Dr. Santos in March of this year. Patient has had regular follow-ups and has been healing without The patient. Patient denies any recent fever, chills, nausea, vomiting, d iarrhea. Patient describes the pain as burning, sharp that is consistent in nature. Patient denies any pain radiation. On exam patient has tenderness and upper left quadrant. Patient looks well, does not look sick. There is no overlying rash. CBC, CMP are within normal limits. Lactic acid is 1.3. Urine does reveal 4+ ketones, 17 wbc's. KUB shows no acute abnormalities. Patient was given pain medication and fluids. Patient admits to feeling improvement. Patient states she does have a follow-up appointment with Dr. Santos on Friday. Patient is comfortable waiting for that follow-up. Discussed with patient her pain could be from dehydration, gas, or slight constipation. Strict return parameters were discussed with the patient, she verbalized understanding. Discussed with patient to continue to increase her fluid intake. Patient's vitals remain stable during stay. Patient is stable for discharge at this time. Patient is in agreement with this plan of care. Case is discussed with Dr. Hussein. - Lab Data Result diagrams: 07/22/19 15:42 07/22/19 15:42 Lab Results 07/22/19 07/22/19 07/22/19 Range/Units 15:42 15:42 15:42 WBC 6.2 (3.8-10.6) k/uL RBC 5.09 (3.80-5.40) m/uL Hgb 14.5 (11.4-16.0) gm/dL Hct 45.2 (34.0-46.0) % MCV 88.8 (80.0-100.0) fL MCH 28.6 (25.0-35.0) pg MCHC 32.2 (31.0-37.0) g/dL RDW 16.5 H (11.5-15.5) % Plt Count 233 (150-450) k/uL Neutrophils % 61 % Lymphocytes % 30 % Monocytes % 5 % Eosinophils % 3 % Basophils % 1 % Neutrophils # 3.8 (1.3-7.7) k/uL Lymphocytes # 1.8 (1.0-4.8) k/uL Monocytes # 0.3 (0-1.0) k/uL Eosinophils # 0.2 (0-0.7) k/uL Basophils # 0.0 (0-0.2) k/uL Anisocytosis Slight Sodium 141 (137-145) mmol/L Potassium 3.4 L (3.5-5.1) mmol/L Chloride 99 (98-107) mmol/L Carbon Dioxide 26 (22-30) mmol/L Anion Gap 16 mmol/L BUN 13 (7-17) mg/dL Creatinine 0.63 (0.52-1.04) mg/dL Est GFR (CKD-EPI)AfAm >90 (>60 ml/min/1.73 sqM) Est GFR (CKD-EPI)NonAf >90 (>60 ml/min/1.73 sqM) Glucose 99 (74-99) mg/dL Plasma Lactic Acid Romaine 1.3 (0.7-2.0) mmol/L Calcium 9.7 (8.4-10.2) mg/dL Total Bilirubin 0.5 (0.2-1.3) mg/dL AST 32 (14-36) U/L ALT 15 (9-52) U/L Alkaline Phosphatase 75 (38-126) U/L Total Protein 7.4 (6.3-8.2) g/dL Albumin 4.4 (3.5-5.0) g/dL Amylase 42 (30-110) U/L Lipase 127 (23-300) U/L Urine Color Urine Appearance (Clear) Urine pH (5.0-8.0) Ur Specific [place] (1.001-1.035) Urine Protein (Negative) Urine Glucose (UA) (Negative) Urine Ketones (Negative) Urine Blood (Negative) Urine Nitrite (Negative) Urine Bilirubin (Negative) Urine Urobilinogen (<2.0) mg/dL Ur Leukocyte Esterase (Negative) Urine RBC (0-5) /hpf Urine WBC (0-5) /hpf Ur Squamous Epith Cells (0-4) /hpf Urine Bacteria (None) /hpf Urine Mucus (None) /hpf 07/22/19 Range/Units 15:42 WBC (3.8-10.6) k/uL RBC (3.80-5.40) m/uL Hgb (11.4-16.0) gm/dL Hct (34.0-46.0) % MCV (80.0-100.0) fL MCH (25.0-35.0) pg MCHC (31.0-37.0) g/dL RDW (11.5-15.5) % Plt Count (150-450) k/uL Neutrophils % % Lymphocytes % % Monocytes % % Eosinophils % % Basophils % % Neutrophils # (1.3-7.7) k/uL Lymphocytes # (1.0-4.8) k/uL Monocytes # (0-1.0) k/uL Eosinophils # (0-0.7) k/uL Basophils # (0-0.2) k/uL Anisocytosis Sodium (137-145) mmol/L Potassium (3.5-5.1) mmol/L Chloride (98-107) mmol/L Carbon Dioxide (22-30) mmol/L Anion Gap mmol/L BUN (7-17) mg/dL Creatinine (0.52-1.04) mg/dL Est GFR (CKD-EPI)AfAm (>60 ml/min/1.73 sqM) Est GFR (CKD-EPI)NonAf (>60 ml/min/1.73 sqM) Glucose (74-99) mg/dL Plasma Lactic Acid [place] (0.7-2.0) mmol/L Calcium (8.4-10.2) mg/dL Total Bilirubin (0.2-1.3) mg/dL AST (14-36) U/L ALT (9-52) U/L Alkaline Phosphatase (38-126) U/L Total Protein (6.3-8.2) g/dL Albumin (3.5-5.0) g/dL Amylase (30-110) U/L Lipase (23-300) U/L Urine Color Dark Yellow Urine Appearance Cloudy H (Clear) Urine pH 6.0 (5.0-8.0) Ur Specific [place] 1.032 (1.001-1.035) Urine Protein 1+ H (Negative) Urine Glucose (UA) Negative (Negative) Urine Ketones 4+ H (Negative) Urine Blood Negative (Negative) Urine Nitrite Negative (Negative) Urine Bilirubin 2+ H (Negative) Urine Urobilinogen 6.0 (<2.0) mg/dL Ur Leukocyte Esterase Trace H (Negative) Urine RBC 5 (0-5) /hpf Urine WBC 17 H (0-5) /hpf Ur Squamous Epith Cells 10 H (0-4) /hpf Urine Bacteria Occasional H (None) /hpf Urine Mucus Many H (None) /hpf Disposition Clinical Impression: Abdominal pain Disposition: HOME SELF-CARE Condition: Stable Instructions (If sedation given, give patient instructions): Abdominal Pain (ED) Additional Instructions: Please return to the Emergency Department if symptoms worsen or any other concerns, such as fever, chills, nausea, vomiting. Follow-up with Dr. Santos on Friday as discussed. Is patient prescribed a controlled substance at d/c from ED?: No Referrals: [facility] [Primary Care Provider] - 1-2 days Woody Santos MD [STAFF PHYSICIAN] - 1-2 days
--- NOTE | 2019-07-22 16:04 | XR ---
EXAMINATION TYPE: XR KUB DATE OF EXAM: 07/22/2019 COMPARISON: NONE HISTORY: Pain TECHNIQUE: Single supine KUB image of the abdomen is obtained FINDINGS: Small bowel demonstrates no evidence for dilatation or air fluid levels. Gas and fecal material is seen in non-distended colon. No convincing evidence for pneumoperitoneum. No unusual calcifications. The lung bases are clear. The osseous structures are intact. IMPRESSION: 1. Overall nonobstructive bowel gas pattern.
[2019-07-22 16:10] LABS: Anisocytosis Slight; Basophils % (A) 1 %; Eosinophils # (A) 0.2 k/uL (0-0.7); Eosinophils % (A) 3 %; HCT 45.2 % (34.0-46.0); HGB 14.5 gm/dL (11.4-16.0); Lymphocytes # (A) 1.8 k/uL (1.0-4.8); Lymphocytes % (A) 30 %; MCH 28.6 pg (25.0-35.0); MCHC 32.2 g/dL (31.0-37.0); MCV 88.8 fL (80.0-100.0); Mean Platelet Volume 9.7; Monocytes # (A) 0.3 k/uL (0-1.0); Monocytes % (A) 5 %; Neutrophils # (A) 3.8 k/uL (1.3-7.7); Neutrophils % (A) 61 %; Platelet Count 233 k/uL (150-450); RBC 5.09 m/uL (3.80-5.40); RDW 16.5 % (11.5-15.5); WBC 6.2 k/uL (3.8-10.6)
[2019-07-22 16:11] LABS: Appearance,Urine Cloudy (Clear); Bacteria,Urine Occasional /hpf; Bilirubin,Urine 2+ (Negative); Blood,Urine Negative (Negative); Color,Urine Dark Yellow; Glucose,Urine (UA) Negative (Negative); Ketones,Urine 4+ (Negative); Leukocyte Esterase,Urine Trace (Negative); Mucus,Urine Many /hpf; Nitrite,Urine Negative (Negative); Protein,Urine 1+ (Negative); RBC,Urine 5 /hpf (0-5); Specific Gravity,Urine 1.032 (1.001-1.035); Squamous Epithelial Cell,Urine 10 /hpf (0-4)
[2019-07-22 16:18] LABS: ALT 15 U/L (9-52); AST 32 U/L (14-36); African American GFR (CKD) >90 (>60 ml/min/1.73 sqM); Albumin 4.4 g/dL (3.5-5.0); Alkaline Phosphatase 75 U/L (38-126); Amylase 42 U/L (30-110); Anion Gap 16 mmol/L; Blood Urea Nitrogen 13 mg/dL (7-17); Calcium 9.7 mg/dL (8.4-10.2); Carbon Dioxide 26 mmol/L (22-30); Chloride 99 mmol/L (98-107); Glucose 99 mg/dL (74-99); Potassium 3.4 mmol/L (3.5-5.1); Sodium 141 mmol/L (137-145); Total Bilirubin 0.5 mg/dL (0.2-1.3); Total Protein 7.4 g/dL (6.3-8.2)
[2019-07-22 16:41] VITALS: BP 116/67; PULSE 69; TEMP 97.8
== END 2019-07-22 17:25 | disposition home or self-care (01) ==
LOC: EC 14:43
DX: R10.12 Left upper quadrant pain (principal); E66.9 Obesity, unspecified; F41.9 Anxiety disorder, unspecified; F31.9 Bipolar disorder, unspecified; F43.10 Post-traumatic stress disorder, unspecified; Z79.899 Other long term (current) drug therapy; Z88.5 Allergy status to narcotic agent; Z88.8 Allergy status to other drugs, medicaments and biological substances; Z98.84 Bariatric surgery status; Z87.19 Personal history of other diseases of the digestive system; Z90.49 Acquired absence of other specified parts of digestive tract; Z90.711 Acquired absence of uterus with remaining cervical stump; Z68.39 Body mass index [BMI] 39.0-39.9, adult; Z87.891 Personal history of nicotine dependence
CPT/HCPCS: 36415; 80053; 82150; 83605; 83690; 85025; 81001; 87086; 74018; 99284; 96374; 96375; 96361; J2270; J2405

== ENCOUNTER → 2019-08-09 | Outpatient (CLI) | payer OTHER ==
[2019-08-09 14:28] VITALS: BP 110/86; PULSE 78; RESP 16; TEMP 98.1
[2019-08-09 15:04] VITALS: BMI 38.7
--- NOTE | 2019-08-12 11:15 | P.HPBAR ---
Bariatric H&P - History & Physicial H&P Date: 08/09/19 History & Physicial: Visit/CC: 4mt f/u Patient initial contact: Initial weight: 142.485 kg Initial weight in pounds: 314.13 Height: 5 ft 4 in Initial BMI: 53.8 Last weight: 257 Current weight: 102.512 kg Current weight in pounds: 226.00 Current BMI: 38.7 [place] body weight (based on NIH guidelines): 54.431 kg Excess body weight loss: 45.3% The patient is a 43 year-old F who presents for Bariatric Assessment. Patient presents today for sleeve gastrectomy follow-up. She has lost presents to 30 pounds her last visit. She's had some minimal GERD. Past Medical History Past Medical History: Asthma, Diabetes Mellitus, Hyperlipidemia, Hypertension, Musculoskeletal Disorder Additional Past Medical History / Comment(s): LT SCIATICA. Neck pain, FATTY LIVER , bilateral plantar fascitis (left worse than right) History of Any Multi-Drug Resistant Organisms: None Reported Past Surgical History: Bariatric Surgery, Cholecystectomy, Hysterectomy, Tubal Ligation, Uterine Ablation Additional Past Surgical History / Comment(s): D&C, PAIN CLINIC PROCEDURES, EGD sleeve gastrectomy 04-05-19 (Dr. Santos) Past Anesthesia/Blood Transfusion Reactions: Previous Problems w/ Anesthesia Additional Past Anesthesia/Blood Transfusion Reaction / Comm: OCC "HAVE A HARD TIME COMING OUT OF IT (ANESTHESIA)." Smoking Status: Former smoker - Past Family History Mother Family Medical History: No Reported History Surgical - Exam Vital Signs Temp Pulse Resp BP Pulse Ox 98.1 F 78 16 110/86 98 08/09/19 14:24 08/09/19 14:24 08/09/19 14:24 08/09/19 14:24 08/09/19 14:24 - General well developed, well nourished, no distress - Abdomen Abdomen: soft, non tender Bariatric Assessment & Plan Plan: Status post sleeve gastrectomy. Patient is doing quite well. Her GERD is minimal will be observed. She'll follow-up in 8 weeks. Bariatric Checklist Checklist: Plan: Checklist: EGD: 1. Hiatal hernia: 2. H. Pylori: HgbA1c: Vitamin D: Smoking: Former smoker Primary care physician referral: [facility] (Dr. Elvi Zarumba(??) Psychiatry clearance: Cardiology clearance: Sleep study: Diet journal: VTE risk score: VTE risk level: Rehab needs at discharge:
== END | disposition home or self-care (01) ==
LOC: BARWHC3 13:19
PROVIDERS: ATTEND Surgery
DX: Z48.815 Encounter for surgical aftercare following surgery on the digestive system (principal); K21.9 Gastro-esophageal reflux disease without esophagitis; Z68.38 Body mass index [BMI] 38.0-38.9, adult; E66.01 Morbid (severe) obesity due to excess calories; Z87.891 Personal history of nicotine dependence; Z98.84 Bariatric surgery status; Z90.710 Acquired absence of both cervix and uterus; Z90.49 Acquired absence of other specified parts of digestive tract; Z98.51 Tubal ligation status; Z98.890 Other specified postprocedural states
CPT/HCPCS: 97803; G0463; 99211

== ENCOUNTER → 2019-09-06 | Outpatient (CLI) | payer OTHER ==
[2019-09-06 14:08] VITALS: BP 115/72; PULSE 67; TEMP 97.7; BMI 37.2
--- NOTE | 2019-09-06 16:26 | P.HPBAR ---
Bariatric H&P - History & Physicial H&P Date: 09/06/19 History & Physicial: Visit/CC: five month follow up Patient initial contact: Initial weight: 142.485 kg Initial weight in pounds: 314.13 Height: 5 ft 4 in Initial BMI: 53.8 Last weight: Current weight: 98.43 kg Current weight in pounds: 217.00 Current BMI: 37.2 [place] body weight (based on NIH guidelines): 54.431 kg Excess body weight loss: 50.0% The patient is a 43 year-old F who presents for Bariatric Assessment. Patient presents today for follow-up. She has lost another 9 pounds since her last visit. She's had some minimal GERD. She denies any significant dysphagia. Past Medical History Past Medical History: Asthma, Diabetes Mellitus, Hyperlipidemia, Hypertension, Musculoskeletal Disorder Additional Past Medical History / Comment(s): LT SCIATICA. Neck pain, FATTY LIVER , bilateral plantar fascitis (left worse than right) History of Any Multi-Drug Resistant Organisms: None Reported Past Surgical History: Bariatric Surgery, Cholecystectomy, Hysterectomy, Tubal Ligation, Uterine Ablation Additional Past Surgical History / Comment(s): D&C, PAIN CLINIC PROCEDURES, EGD sleeve gastrectomy 04-05-19 (Dr. Santos) Past Anesthesia/Blood Transfusion Reactions: Previous Problems w/ Anesthesia Additional Past Anesthesia/Blood Transfusion Reaction / Comm: OCC "HAVE A HARD TIME COMING OUT OF IT (ANESTHESIA)." Past Psychological History: Anxiety, Bipolar, Depression, PTSD Additional Psychological History / Comment(s): Under care of psychiatrist. Smoking Status: Former smoker Past Alcohol Use History: None Reported Additional Past Alcohol Use History / Comment(s): smoked off and on, <1ppd, quit 2006 Past Drug Use History: None Reported - Past Family History Mother Family Medical History: No Reported History Surgical - Exam Vital Signs Temp Pulse BP 97.7 F 67 115/72 09/06/19 14:05 09/06/19 14:05 09/06/19 14:05 - General well developed, well nourished, no distress - Eyes PERRL - Abdomen Abdomen: soft, non tender Bariatric Assessment & Plan Plan: Status post gastric sleeve. Patient is minimal will be observed. She'll follow-up in 4 weeks. Bariatric Checklist Checklist: Plan: Checklist: EGD: 1. Hiatal hernia: 2. H. Pylori: HgbA1c: Vitamin D: Smoking: Former smoker Primary care physician referral: [facility] (Dr. Kacie Smith(??) Psychiatry clearance: Cardiology clearance: Sleep study: Diet journal: VTE risk score: VTE risk level: Rehab needs at discharge:
== END | disposition home or self-care (01) ==
LOC: BARWHC3 13:39
PROVIDERS: ATTEND Surgery
DX: Z48.815 Encounter for surgical aftercare following surgery on the digestive system (principal); Z98.84 Bariatric surgery status; Z90.49 Acquired absence of other specified parts of digestive tract; Z87.891 Personal history of nicotine dependence
CPT/HCPCS: 99211

== ENCOUNTER → 2019-10-11 | Outpatient (CLI) | payer OTHER ==
[2019-10-11 14:04] VITALS: BP 142/74; PULSE 81; RESP 16; TEMP 98.3; BMI 35.6
--- NOTE | 2019-10-11 14:07 | P.HPBAR ---
Bariatric H&P - History & Physicial H&P Date: 10/11/19 History & Physicial: Visit/CC: SLEEVE F/U Patient initial contact: Initial weight: 142.485 kg Initial weight in pounds: 314.13 Height: 5 ft 4 in Initial BMI: 53.8 Last weight: 217 Current weight: 94.347 kg Current weight in pounds: 208.00 Current BMI: 35.6 [place] body weight (based on NIH guidelines): 54.431 kg Excess body weight loss: 54.6% The patient is a 43 year-old F who presents for Bariatric Assessment. Patient presents today for sleeve follow-up. She is an excellent weight loss. She's had some minimal GERD. Past Medical History Past Medical History: Asthma, Diabetes Mellitus, Hyperlipidemia, Hypertension, Musculoskeletal Disorder Additional Past Medical History / Comment(s): LT SCIATICA. Neck pain, FATTY LIVER , bilateral plantar fascitis (left worse than right) History of Any Multi-Drug Resistant Organisms: None Reported Past Surgical History: Bariatric Surgery, Cholecystectomy, Hysterectomy, Tubal Ligation, Uterine Ablation Additional Past Surgical History / Comment(s): D&C, PAIN CLINIC PROCEDURES, EGD sleeve gastrectomy 04-05-19 (Dr. Santos) Past Anesthesia/Blood Transfusion Reactions: Previous Problems w/ Anesthesia Additional Past Anesthesia/Blood Transfusion Reaction / Comm: OCC "HAVE A HARD TIME COMING OUT OF IT (ANESTHESIA)." Past Psychological History: Anxiety, Bipolar, Depression, PTSD Additional Psychological History / Comment(s): Under care of psychiatrist. Smoking Status: Former smoker Past Alcohol Use History: None Reported Additional Past Alcohol Use History / Comment(s): smoked off and on, <1ppd, quit 2006 Past Drug Use History: None Reported - Past Family History Mother Family Medical History: No Reported History Surgical - Exam Vital Signs Temp Pulse Resp BP 98.3 F 81 16 142/74 10/11/19 14:01 10/11/19 14:01 10/11/19 14:01 10/11/19 14:01 - General well developed, well nourished, no distress - Eyes PERRL - ENT normal pinna - Neck no masses - Respiratory normal expansion - Cardiovascular Rhythm: regular - Abdomen Abdomen: soft, non tender Bariatric Assessment & Plan Plan: Status post sleeve gastrectomy. Patient is doing quite well. Her GERD is minimal. Observed. She's had excellent weight loss. She'll follow-up in 4 weeks. Bariatric Checklist Checklist: Plan: Checklist: EGD: 1. Hiatal hernia: 2. H. Pylori: HgbA1c: Vitamin D: Smoking: Former smoker Primary care physician referral: [facility] (Dr. Kacie Smith(??) Psychiatry clearance: Cardiology clearance: Sleep study: Diet journal: VTE risk score: VTE risk level: Rehab needs at discharge:
[2019-10-11 15:37] LABS: HCT 41.8 % (34.0-46.0); HGB 13.4 gm/dL (11.4-16.0); MCH 30.3 pg (25.0-35.0); MCHC 32.1 g/dL (31.0-37.0); MCV 94.4 fL (80.0-100.0); Mean Platelet Volume 7.8; Platelet Count 263 k/uL (150-450); RBC 4.43 m/uL (3.80-5.40); RDW 14.2 % (11.5-15.5); WBC 4.6 k/uL (3.8-10.6)
[2019-10-11 18:43] LABS: ALT 10 U/L (8-44); AST 23 U/L (13-35); African American GFR (CKD) 127.6 (60.0-200.0); Albumin/Globulin Ratio 1.95 (1.60-3.17); Alkaline Phosphatase 76 U/L (41-126); BUN/Creat Ratio 21.67 Ratio (12.00-20.00); Carbon Dioxide 27.9 mmol/L (21.6-31.8); Chloride 107 mmol/L (96-109); Glucose 84 mg/dL (70-110); Non-African American GFR(CKD) 110.1 (60.0-200.0); Potassium 3.4 mmol/L (3.5-5.5); Sodium 144 mmol/L (135-145); Total Bilirubin 0.3 mg/dL (0.2-1.2); Total Protein 5.9 g/dL (6.2-8.2)
[2019-10-11 19:11] LABS: Folate, Serum >24.0 ng/mL
== END ==
LOC: BARWHC3 13:29
PROVIDERS: ATTEND Surgery
DX: Z48.815 Encounter for surgical aftercare following surgery on the digestive system (principal); E66.01 Morbid (severe) obesity due to excess calories; E44.0 Moderate protein-calorie malnutrition; Z98.84 Bariatric surgery status; Z87.891 Personal history of nicotine dependence; Z68.35 Body mass index [BMI] 35.0-35.9, adult
CPT/HCPCS: 84425; 80053; 82607; 82746; 84443; 85027; 82306; 97803; 36415; G0463; 99211

== ENCOUNTER 2019-10-20 08:47 | Emergency (ER) | payer OTHER ==
[2019-10-20 08:53] VITALS: RESP 18; TEMP 98.1
--- NOTE | 2019-10-20 09:22 | ED ---
Headache HPI - General Chief Complaint: Headache Stated Complaint: LEFT EYE PROBLEM, MIGRAINE, CYST FEMALE Time Seen by Provider: 10/20/19 09:02 Source: patient, RN notes reviewed Mode of arrival: ambulatory Limitations: no limitations - History of Present Illness Initial Comments: 43-year-old female presents emergency Department with multiple complaints. Patient went of left eye drainage, irritation for last 2 days. Patient states that crossed up in the morning. Denies any blurred vision, double vision or any pain with ocular movement. No sinus congestion no fevers or chills. Denies any neck pain. She does admit that she's been having headaches which she artery sees Dr. Pineda neurology for. Patient states that she had just more often headaches and usual. She states they didn't feel like her normal headaches. Patient has no focal weakness denies any current nausea vomiting. Patient also states that she noticed a lump on her right leg last night. She states it is tender. Patient denies any discharge or drainage. - Related Data Home Medications Medication Instructions Recorded Confirmed DULoxetine HCL [Cymbalta] 60 mg PO HS 11/18/16 10/12/19 Cholecalciferol [Vitamin D3 (25 5,000 unit PO DAILY 07/13/19 10/12/19 Mcg = 1000 Iu)] Omeprazole 40 mg PO DAILY 07/13/19 10/12/19 buPROPion HCL [Wellbutrin SR] 150 mg PO BID 07/13/19 10/12/19 HYDROcodone/APAP 10-325MG [Dale 1 tab PO QID PRN 07/22/19 10/12/19 10-325] Multivitamins, Thera [Multivitamin 1 tab PO DAILY 07/22/19 10/12/19 (formulary)] Previous Rx's Medication Instructions Recorded Sulfamethox-Tmp 800-160Mg [Bactrim 1 each PO Q12HR #20 tab 10/20/19 Ds] Tobramycin [Tobrex 0.3% Ophth Soln] 1 drop LEFT EYE Q4HR #5 ml 10/20/19 Allergies Allergy/AdvReac Type Severity Reaction Status Date / Time hydromorphone [From Dilaudid] Allergy Itching Verified 09/06/19 15:24 aripiprazole [From Abilify] AdvReac Hallucinati Verified 09/06/19 15:24 ons Review of Systems ROS Statement: Those systems with pertinent positive or pertinent negative responses have been documented in the HPI. ROS Other: All systems not noted in ROS Statement are negative. Past Medical History Past Medical History: Asthma, Diabetes Mellitus, Hyperlipidemia, Hypertension, Musculoskeletal Disorder Additional Past Medical History / Comment(s): LT SCIATICA. Neck pain, FATTY LIVER , bilateral plantar fascitis (left worse than right) History of Any Multi-Drug Resistant Organisms: None Reported Past Surgical History: Bariatric Surgery, Cholecystectomy, Hysterectomy, Tubal Ligation, Uterine Ablation Additional Past Surgical History / Comment(s): D&C, PAIN CLINIC PROCEDURES, EGD sleeve gastrectomy 04-05-19 (Dr. Santos) Past Anesthesia/Blood Transfusion Reactions: Previous Problems w/ Anesthesia Additional Past Anesthesia/Blood Transfusion Reaction / Comment(s): OCC "HAVE A HARD TIME COMING OUT OF IT (ANESTHESIA)." Past Psychological History: Anxiety, Bipolar, Depression, PTSD Smoking Status: Former smoker Past Alcohol Use History: None Reported Past Drug Use History: None Reported - Past Family History Mother Family Medical History: No Reported History General Exam Limitations: no limitations General appearance: alert, in no apparent distress Head exam: Present: atraumatic, normocephalic, normal inspection Eye exam: Present: PERRL, EOMI, conjunctival injection (Mild left). Absent: normal appearance, scleral icterus, periorbital swelling, periorbital tenderness ENT exam: Present: normal exam, normal oropharynx, mucous membranes moist Neck exam: Present: normal inspection, full ROM. Absent: tenderness, meningismus, lymphadenopathy Respiratory exam: Present: normal lung sounds bilaterally. Absent: respiratory distress, wheezes, rales, rhonchi, stridor Cardiovascular Exam: Present: regular rate, normal rhythm, normal heart sounds. Absent: systolic murmur, diastolic murmur, rubs, gallop, clicks GI/Abdominal exam: Present: soft, normal bowel sounds. Absent: distended, tende rness, guarding, rebound, rigid Neurological exam: Present: alert, oriented X3, CN II-XII intact, reflexes normal, other (Finger to nose intact bilaterally). Absent: motor sensory deficit Skin exam: Present: warm, dry, intact, normal color, other (There is a 5 mm early abscess right labia that is minimally tender no drainage nonfluctuant). Absent: rash Course Vital Signs 10/20/19 08:50 Temperature 98.1 F Pulse Rate 91 Respiratory 18 Rate Blood Pressure 115/65 O2 Sat by Pulse 96 Oximetry Medical Decision Making - Medical Decision Making CT is unremarkable. Patient has chronic migraines. Patient provided medication emergency department. Patient has no neurological deficits no fevers or chills. Patient will follow-up with her neurologist. Patient treated for conjunctivitis this time with eyedrops. Patient also has early forming abscess in right labial region will be started on Bactrim warm compresses return parameters were discussed. Disposition Clinical Impression: Abscess of right genital labia, Conjunctivitis, Chronic headaches Disposition: HOME SELF-CARE Condition: Stable Instructions (If sedation given, give patient instructions): Abscess (ED), Conjunctivitis (ED) Additional Instructions: Please return to the Emergency Department if symptoms worsen or any other concerns. Prescriptions: Sulfamethox-Tmp 800-160Mg [Bactrim Ds] 1 each PO Q12HR #20 tab Tobramycin [Tobrex 0.3% Ophth Soln] 1 drop LEFT EYE Q4HR #5 ml Is patient prescribed a controlled substance at d/c from ED?: No Referrals: [facility] [Primary Care Provider] - 1-2 days Time of Disposition: 09:40
--- NOTE | 2019-10-20 09:33 | CT ---
EXAMINATION TYPE: CT brain wo con DATE OF EXAM: 10/20/2019 COMPARISON: 02/19/2018 HISTORY: Migraine CT DLP: 1074.[address] of the brain was performed. The ventricles, basal cisterns and sulci overlying the cerebral convexities demonstrate a normal appe arance. There is no evidence for intracranial hemorrhage or sulcal effacement. No mass effects are seen. Osseous calvarium is intact. If symptoms persist consider MRI as clinically warranted. IMPRESSION: 1. No acute intracranial process is seen at this time.
[2019-10-20] MEDS ORDERED: KETOROLAC 60 MG/2 ML VIAL IM STA (09:43)
[2019-10-20 10:44] VITALS: BP 138/72; PULSE 72
== END 2019-10-20 10:43 | disposition home or self-care (01) ==
LOC: EC 08:47
DX: G43.909 Migraine, unspecified, not intractable, without status migrainosus (principal); H10.9 Unspecified conjunctivitis; N76.4 Abscess of vulva; F31.9 Bipolar disorder, unspecified; F41.9 Anxiety disorder, unspecified; Z87.891 Personal history of nicotine dependence; Z88.5 Allergy status to narcotic agent; Z88.8 Allergy status to other drugs, medicaments and biological substances; Z79.899 Other long term (current) drug therapy
CPT/HCPCS: 70450; 99284; 96372; J1885

== ENCOUNTER 2019-11-18 06:56 | Emergency (ER) | payer OTHER ==
[2019-11-18 07:02] VITALS: PULSE 87; TEMP 98.1
[2019-11-18] MEDS ORDERED: SODIUM CHLORIDE 0.9% 1,000 ML IV STA (07:06)
[2019-11-18] MEDS ORDERED: MORPHINE SULFATE 4 MG/ML SYRINGE IVP PRN (07:19)
--- NOTE | 2019-11-18 07:22 | ED ---
General Adult HPI - General Chief complaint: Abdominal Pain Stated complaint: Abd pain Time Seen by Provider: 11/18/19 07:06 Source: patient Mode of arrival: ambulatory Limitations: no limitations - History of Present Illness Initial comments: Dictation was produced using [email or web address] dictation software. please excuse any grammatical, word or spelling errors. Chief Complaint: 43-year-old female past medical history of chronic back pain, diabetes, dyslipidemia presents with right lower quadrant abdominal pain. History of Present Illness: 43-year-old female she has history of bariatric surgery, chronic back pain, diabetes and hypertension. She presents today with chief complaint of right lower quadrant pain. Patient states she woke up with the symptoms. She reports that her symptoms radiate to her mid abdomen. She describes sharp and intense. States that she has history of bariatric surgery and cholecystectomy. She still does report having her appendix. Patient states she's been feeling some constitutional symptoms. She also has reported nausea no vomiting. Denies any diarrhea. Denies any urinary symptoms. The ROS documented in this emergency department record has been reviewed and confirmed by me. Those systems with pertinent positive or negative responses have been documented in the HPI. All other systems are other negative and/or noncontributory. PHYSICAL EXAM: General Impression: Alert and oriented x3, not in acute distress HEENT: Normocephalic atraumatic, extra-ocular movements intact, pupils equal and reactive to light bilaterally, mucous membranes moist. Cardiovascular: Heart regular rate and rhythm, S1&S2 audible, no murmurs, rubs or gallops Chest: Lungs clear to auscultation bilaterally, no rhonchi, no wheeze, no rales Abdomen: Tenderness in McBurney's point, positive rebound tenderness Musculoskeletal: Pulses present and equal in all extremities, no peripheral edema Motor: no focal deficits noted Neurological: CN II-XII grossly intact, no focal motor or sensory deficits noted Skin: Intact with no visualized rashes Psych: Normal affect and mood ED course: 43-year-old female presents with right lower quadrant pain. His upon arrival are within acceptable limits. Patient is afebrile. Her some concern of acute appendicitis given clinical presentation. Labs and CT abdomen and pelvis with contrast is ordered. Laboratory evaluation obtained. No leukocytosis. Coag panel unremarkable. Metabolic panel is negative. Abdominal labs are negative. Urinalysis shows greater than 182 red blood cells and 37 white blood cells. There is however 11 squamous epithelial cells. Computed tomography scan of the abdomen and pelvis was obtained radiology read identifies normal appendix. There is some left- sided pelvic the calyectasis which suggests that perhaps patient recently passed a kidney stone. She is told that there is some abnormalities to her left kidney that will need to be followed by urologist. There is also a small fat containing midline supraumbilical hernia. There is also moderate stool in the right side of the abdomen. More history was obtained from the patient. She did report that she had severe pain also on the left side. Patient was given some IV opiates and reevaluated with significant improvement of her symptoms. Patient is well-appearing at bedside. It is unclear what filling defect in the left kidney represents Harberts likely a stone. She is told to follow-up with urologist. Patient understandable agreeable plan. She is able to the palp itations and tolerating by mouth. She is told that she should follow-up really regarding these incidental CT findings. Patient is given prescription for concern of possible urinary tract infection. Pending urine cultures. Patient agreeable to discharge. Return parameters discussed. - Related Data Home Medications Medication Instructions Recorded Confirmed DULoxetine HCL [Cymbalta] 60 mg PO HS 11/18/16 10/12/19 Cholecalciferol [Vitamin D3 (25 5,000 unit PO DAILY 07/13/19 10/12/19 Mcg = 1000 Iu)] Omeprazole 40 mg PO DAILY 07/13/19 10/12/19 buPROPion HCL [Wellbutrin SR] 150 mg PO BID 07/13/19 10/12/19 HYDROcodone/APAP 10-325MG [[place] 1 tab PO QID PRN 07/22/19 10/12/19 10-325] Multivitamins, Thera [Multivitamin 1 tab PO DAILY 07/22/19 10/12/19 (formulary)] Previous Rx's Medication Instructions Recorded Sulfamethox-Tmp 800-160Mg [Bactrim 1 each PO Q12HR #20 tab 10/20/19 Ds] Tobramycin [Tobrex 0.3% Ophth Soln] 1 drop LEFT EYE Q4HR #5 ml 10/20/19 Nitrofurantoin Monohyd/M-Cryst 100 mg PO Q12HR 7 Days #14 cap 11/18/19 [Macrobid] Allergies Allergy/AdvReac Type Severity Reaction Status Date / Time hydromorphone [From Dilaudid] Allergy Itching Verified 11/18/19 07:02 aripiprazole [From Abilify] AdvReac Hallucinati Verified 11/18/19 07:02 ons Review of Systems ROS Statement: Those systems with pertinent positive or pertinent negative responses have been documented in the HPI. ROS Other: All systems not noted in ROS Statement are negative. Past Medical History Past Medical History: Asthma, Diabetes Mellitus, Hyperlipidemia, Hypertension, Musculoskeletal Disorder Additional Past Medical History / Comment(s): LT SCIATICA. Neck pain, FATTY LIVER , bilateral plantar fascitis (left worse than right) History of Any Multi-Drug Resistant Organisms: None Reported Past Surgical History: Bariatric Surgery, Cholecystectomy, Hysterectomy, Tubal Ligation, Uterine Ablation Additional Past Surgical History / Comment(s): D&C, PAIN CLINIC PROCEDURES, EGD sleeve gastrectomy 04-05-19 (Dr. Santos), Past Anesthesia/Blood Transfusion Reactions: Previous Problems w/ Anesthesia Additional Past Anesthesia/Blood Transfusion Reaction / Comment(s): OCC "HAVE A HARD TIME COMING OUT OF IT (ANESTHESIA)." Past Psychological History: Anxiety, Bipolar, Depression, PTSD Smoking Status: Former smoker Past Alcohol Use History: None Reported Past Drug Use History: None Reported - Past Family History Mother Family Medical History: No Reported History General Exam Limitations: no limitations Course Vital Signs 11/18/19 11/18/19 11/18/19 06:59 07:02 07:49 Temperature 98.1 F Pulse Rate 87 Respiratory 18 20 Rate Blood Pressure 130/85 O2 Sat by Pulse 96 96 Oximetry 11/18/19 11/18/19 11/18/19 08:00 08:02 09:00 Temperature Pulse Rate 87 Respiratory Rate Blood Pressure 149/85 163/108 169/94 O2 Sat by Pulse 96 96 96 Oximetry 11/18/19 10:01 Temperature Pulse Rate 87 Respiratory Rate Blood Pressure 166/83 O2 Sat by Pulse 96 Oximetry Medical Decision Making - Lab Data Result diagrams: 11/18/19 07:37 11/18/19 07:37 Lab Results 11/18/19 11/18/19 11/18/19 Range/Units 07:37 07:37 07:37 WBC 5.1 (3.8-10.6) k/uL RBC 4.15 (3.80-5.40) m/uL Hgb 12.7 (11.4-16.0) gm/dL Hct 39.1 (34.0-46.0) % MCV 94.1 (80.0-100.0) fL MCH 30.6 (25.0-35.0) pg MCHC 32.5 (31.0-37.0) g/dL RDW 13.5 (11.5-15.5) % Plt Count 229 (150-450) k/uL Neutrophils % 71 % Lymphocytes % 19 % Monocytes % 6 % Eosinophils % 1 % Basophils % 0 % Neutrophils # 3.6 (1.3-7.7) k/uL Lymphocytes # 1.0 (1.0-4.8) k/uL Monocytes # 0.3 (0-1.0) k/uL Eosinophils # 0.1 (0-0.7) k/uL Basophils # 0.0 (0-0.2) k/uL PT (9.0-12.0) sec INR (<1.2) APTT (22.0-30.0) sec Sodium 142 (137-145) mmol/L Potassium 3.6 (3.5-5.1) mmol/L Chloride 107 (98-107) mmol/L Carbon Dioxide 28 (22-30) mmol/L Anion Gap 7 mmol/L BUN 10 (7-17) mg/dL Creatinine 0.66 (0.52-1.04) mg/dL Est GFR (CKD-EPI)AfAm >90 (>60 ml/min/1.73 sqM) Est GFR (CKD-EPI)NonAf >90 (>60 ml/min/1.73 sqM) Glucose 88 (74-99) mg/dL Plasma Lactic Acid Romaine 1.2 (0.7-2.0) mmol/L Calcium 9.2 (8.4-10.2) mg/dL Total Bilirubin 0.6 (0.2-1.3) mg/dL AST 23 (14-36) U/L ALT 8 (4-34) U/L Alkaline Phosphatase 60 (38-126) U/L Total Protein 6.7 (6.3-8.2) g/dL Albumin 3.9 (3.5-5.0) g/dL Lipase 67 (23-300) U/L Urine Color Urine Appearance (Clear) Urine pH (5.0-8.0) Ur Specific [place] (1.001-1.035) Urine Protein (Negative) Urine Glucose (UA) (Negative) Urine Ketones (Negative) Urine Blood (Negative) Urine Nitrite (Negative) Urine Bilirubin (Negative) Urine Urobilinogen (<2.0) mg/dL Ur Leukocyte Esterase (Negative) Urine RBC (0-5) /hpf Urine WBC (0-5) /hpf Ur Squamous Epith Cells (0-4) /hpf Calcium Oxalate Crystal (None) /hpf Urine Mucus (None) /hpf 11/18/19 11/18/19 Range/Units 07:37 07:37 WBC (3.8-10.6) k/uL RBC (3.80-5.40) m/uL Hgb (11.4-16.0) gm/dL Hct (34.0-46.0) % MCV (80.0-100.0) fL MCH (25.0-35.0) pg MCHC (31.0-37.0) g/dL RDW (11.5-15.5) % Plt Count (150-450) k/uL Neutrophils % % Lymphocytes % % Monocytes % % Eosinophils % % Basophils % % Neutrophils # (1.3-7.7) k/uL Lymphocytes # (1.0-4.8) k/uL Monocytes # (0-1.0) k/uL Eosinophils # (0-0.7) k/uL Basophils # (0-0.2) k/uL PT 10.2 (9.0-12.0) sec INR 0.9 (<1.2) APTT 25.3 (22.0-30.0) sec Sodium (137-145) mmol/L Potassium (3.5-5.1) mmol/L Chloride (98-107) mmol/L Carbon Dioxide (22-30) mmol/L Anion Gap mmol/L BUN (7-17) mg/dL Creatinine (0.52-1.04) mg/dL Est GFR (CKD-EPI)AfAm (>60 ml/min/1.73 sqM) Est GFR (CKD-EPI)NonAf (>60 ml/min/1.73 sqM) Glucose (74-99) mg/dL Plasma Lactic Acid Romaine (0.7-2.0) mmol/L Calcium (8.4-10.2) mg/dL Total Bilirubin (0.2-1.3) mg/dL AST (14-36) U/L ALT (4-34) U/L Alkaline Phosphatase (38-126) U/L Total Protein (6.3-8.2) g/dL Albumin (3.5-5.0) g/dL Lipase (23-300) U/L Urine Color Light Red Urine Appearance Cloudy H (Clear) Urine pH 6.0 (5.0-8.0) Ur Specific [place] 1.022 (1.001-1.035) Urine Protein 1+ H (Negative) Urine Glucose (UA) Negative (Negative) Urine Ketones Negative (Negative) Urine Blood Large H (Negative) Urine Nitrite Negative (Negative) Urine Bilirubin Negative (Negative) Urine Urobilinogen 4.0 (<2.0) mg/dL Ur Leukocyte Esterase Moderate H (Negative) Urine RBC >182 H (0-5) /hpf Urine WBC 37 H (0-5) /hpf Ur Squamous Epith Cells 11 H (0-4) /hpf Calcium Oxalate Crystal Moderate H (None) /hpf Urine Mucus Many H (None) /hpf Disposition Clinical Impression: Abdominal pain Disposition: HOME SELF-CARE Condition: Good Instructions (If sedation given, give patient instructions): Abdominal Pain (ED) Prescriptions: Nitrofurantoin Monohyd/M-Cryst [Macrobid] 100 mg PO Q12HR 7 Days #14 cap Is patient prescribed a controlled substance at d/c from ED?: No Referrals: [facility] [Primary Care Provider] - 1-2 days Freddie Diaz MD [STAFF PHYSICIAN] - 1-2 days Time of Disposition: 10:04
[2019-11-18 07:52] LABS: Basophils % (A) 0 %; Eosinophils # (A) 0.1 k/uL (0-0.7); Eosinophils % (A) 1 %; HCT 39.1 % (34.0-46.0); HGB 12.7 gm/dL (11.4-16.0); Lymphocytes % (A) 19 %; MCH 30.6 pg (25.0-35.0); MCHC 32.5 g/dL (31.0-37.0); MCV 94.1 fL (80.0-100.0); Mean Platelet Volume 8.1; Monocytes # (A) 0.3 k/uL (0-1.0); Monocytes % (A) 6 %; Neutrophils # (A) 3.6 k/uL (1.3-7.7); Neutrophils % (A) 71 %; Platelet Count 229 k/uL (150-450); RBC 4.15 m/uL (3.80-5.40); RDW 13.5 % (11.5-15.5); WBC 5.1 k/uL (3.8-10.6)
[2019-11-18 07:57] LABS: INR 0.9 (<1.2); Partial Thromboplastin Time 25.3 sec (22.0-30.0); Prothrombin Time 10.2 sec (9.0-12.0)
[2019-11-18 08:01] LABS: ALT 8 U/L (4-34); AST 23 U/L (14-36); African American GFR (CKD) >90 (>60 ml/min/1.73 sqM); Albumin 3.9 g/dL (3.5-5.0); Alkaline Phosphatase 60 U/L (38-126); Anion Gap 7 mmol/L; Blood Urea Nitrogen 10 mg/dL (7-17); Calcium 9.2 mg/dL (8.4-10.2); Carbon Dioxide 28 mmol/L (22-30); Chloride 107 mmol/L (98-107); Glucose 88 mg/dL (74-99); Non-African American GFR(CKD) >90 (>60 ml/min/1.73 sqM); Potassium 3.6 mmol/L (3.5-5.1); Sodium 142 mmol/L (137-145); Total Bilirubin 0.6 mg/dL (0.2-1.3); Total Protein 6.7 g/dL (6.3-8.2)
[2019-11-18 08:02] LABS: Appearance,Urine Cloudy (Clear); Bilirubin,Urine Negative (Negative); Blood,Urine Large (Negative); Calcium Oxalate Crystals,Urine Moderate /hpf; Color,Urine Light Red; Glucose,Urine (UA) Negative (Negative); Ketones,Urine Negative (Negative); Leukocyte Esterase,Urine Moderate (Negative); Mucus,Urine Many /hpf; Nitrite,Urine Negative (Negative); Protein,Urine 1+ (Negative); RBC,Urine >182 /hpf (0-5); Specific Gravity,Urine 1.022 (1.001-1.035); Squamous Epithelial Cell,Urine 11 /hpf (0-4); WBC,Urine 37 /hpf (0-5)
--- NOTE | 2019-11-18 09:25 | CT ---
EXAMINATION TYPE: CT abdomen pelvis w con DATE OF EXAM: 11/18/2019 COMPARISON: 05/14/2019 HISTORY: 43-year-old female RLQ pain radiating to left side TECHNIQUE: Contiguous axial scanning of the abdomen and pelvis following administration of 100 ml Iso brendan 300 IV contrast. Delayed images through the kidneys and coronal/sagittal reconstructions perform ed. CT DLP: 1364.7 mGycm Automated exposure control for dose reduction was used. FINDINGS: Heart normal size without pericardial effusion. Lung bases clear without pleural effusion. Extreme right hepatic dome is excluded from view and not evaluated. Otherwise, no focal liver lesion or biliary ductal dilatation. Portal venous system is patent. Gallbladder surgically absent. Adrenal glands, right kidney, spleen with hilar splenule, and pancreas appear within normal limits. There is asymmetric enlargement of the left renal pelvis, new from 05/06/2019 and possible filling def ect, refer to delayed kidney axial images 33 and 35. Mild caliectasis on the left. Postsurgical changes of sleeve gastrectomy. No dilated small bowel, free fluid, or free air. Normal appendix. Moderate stool within the right side of the colon. No pericolonic inflammatory sifuentes e. No mesenteric or retroperitoneal lymphadenopathy. Redemonstrated 2 small fat-containing ventral midline supraumbilical hernias measuring up to 3.3 cm w lazaro and abdominal wall defect measuring up to 1.1 cm wide. Overall degree of fat stranding of along t hese hernias has decreased in the interval. Bladder partially distended. Uterus surgically absent. Both ovaries are visualized. Multiple pelvic p hleboliths. No abnormal fluid collection the pelvis or pelvic lymphadenopathy. Bones: Facet arthropathy lower lumbar spine. IMPRESSION: 1. NORMAL APPENDIX. 2. ASYMMETRIC LEFT-SIDED PELVICALIECTASIS. FINDINGS MAY REFLECT A RECENTLY PASSED STONE. CLINICALLY C ORRELATE. HOWEVER, ON DELAYED KIDNEY IMAGES, THERE IS THE POSSIBILITY OF A FILLING DEFECT WITHIN THE LEFT RENAL PELVIS. BLOOD CLOT OR UROTHELIAL NEOPLASM ARE IN THE DIFFERENTIAL. CORRELATE WITH URINALYS IS AND URINE CYTOLOGY. RENAL ULTRASOUND MAY BE HELPFUL TO FURTHER EVALUATE. UROLOGY FOLLOW-UP IRMA CATED. 3. A COUPLE SMALL FAT-CONTAINING MIDLINE SUPRAUMBILICAL HERNIAS MEASURING UP TO 3.3 CM. 4. MODERATE STOOL IN THE RIGHT SIDE OF THE ABDOMEN.
[2019-11-18 10:43] VITALS: BP 169/89; RESP 80
[2019-11-18] MEDS ORDERED: ONDANSETRON ODT 4 MG TAB PO STA (11:19)
== END 2019-11-18 10:47 | disposition home or self-care (01) ==
LOC: EC 06:56
DX: R10.31 Right lower quadrant pain (principal); R11.0 Nausea; F41.9 Anxiety disorder, unspecified; F31.9 Bipolar disorder, unspecified; E11.9 Type 2 diabetes mellitus without complications; I10 Essential (primary) hypertension; Z79.899 Other long term (current) drug therapy; Z88.5 Allergy status to narcotic agent; Z88.8 Allergy status to other drugs, medicaments and biological substances; Z98.84 Bariatric surgery status; Z90.49 Acquired absence of other specified parts of digestive tract; Z90.710 Acquired absence of both cervix and uterus; Z87.891 Personal history of nicotine dependence
CPT/HCPCS: 36415; 74177; 80053; 81001; 83605; 83690; 85025; 85610; 85730; 87086; 96361; 96374; 99284

== ENCOUNTER 2019-11-19 21:39 | Emergency (ER) | payer OTHER ==
[2019-11-19] MEDS ORDERED: SODIUM CHLORIDE 0.9% 1,000 ML IV STA (22:31)
[2019-11-19] MEDS ORDERED: METOCLOPRAMIDE 5 MG/ML 2 ML VIAL IVP STA (23:14)
[2019-11-19 23:15] LABS: Appearance,Urine Clear (Clear); Basophils % (A) 0 %; Bilirubin,Urine Negative (Negative); Blood,Urine Negative (Negative); Color,Urine Yellow; Eosinophils # (A) 0.1 k/uL (0-0.7); Eosinophils % (A) 2 %; Glucose,Urine (UA) Negative (Negative); HCT 41.1 % (34.0-46.0); HGB 13.1 gm/dL (11.4-16.0); Ketones,Urine 4+ (Negative); Leukocyte Esterase,Urine Negative (Negative); Lymphocytes # (A) 1.1 k/uL (1.0-4.8); Lymphocytes % (A) 36 %; MCH 29.9 pg (25.0-35.0); MCHC 31.8 g/dL (31.0-37.0); MCV 94.1 fL (80.0-100.0); Mean Platelet Volume 8.1; Monocytes # (A) 0.1 k/uL (0-1.0); Monocytes % (A) 4 %; Neutrophils # (A) 1.7 k/uL (1.3-7.7); Neutrophils % (A) 54 %; Nitrite,Urine Negative (Negative); Platelet Count 214 k/uL (150-450); Protein,Urine Trace (Negative); RBC 4.36 m/uL (3.80-5.40); RDW 13.3 % (11.5-15.5); Specific Gravity,Urine 1.023 (1.001-1.035)
[2019-11-19] MEDS ORDERED: KETOROLAC 30 MG/ML 1 ML VIAL IVP STA (23:15)
[2019-11-19] MEDS ORDERED: diphenhydrAMINE 50 MG/ML 1 ML VIAL IVP STA (23:15)
[2019-11-19 23:23] LABS: ALT 9 U/L (4-34); AST 31 U/L (14-36); African American GFR (CKD) >90 (>60 ml/min/1.73 sqM); Albumin 3.6 g/dL (3.5-5.0); Alkaline Phosphatase 68 U/L (38-126); Amylase <30 U/L (30-110); Anion Gap 6 mmol/L; Blood Urea Nitrogen 8 mg/dL (7-17); Carbon Dioxide 29 mmol/L (22-30); Chloride 102 mmol/L (98-107); Glucose 84 mg/dL (74-99); Non-African American GFR(CKD) >90 (>60 ml/min/1.73 sqM); Potassium 3.4 mmol/L (3.5-5.1); Sodium 137 mmol/L (137-145); Total Bilirubin 0.6 mg/dL (0.2-1.3); Total Protein 6.3 g/dL (6.3-8.2)
--- NOTE | 2019-11-19 23:33 | ED ---
General Adult HPI - General Chief complaint: Abdominal Pain Stated complaint: Abd pain, migraine Time Seen by Provider: 11/19/19 22:05 Source: patient, RN notes reviewed Mode of arrival: ambulatory Limitations: no limitations - History of Present Illness Initial comments: 43-year-old female with a past medical history of asthma, diabetes mellitus, hyperlipidemia, hypertension presents to the emergency department for a chief complaint of headache. Patient states she has a headache across her forehead. States that she has a history of migraines and this feels exactly similar with previous migraines. Denies maximal intensity at onset. Admits to nausea which she regularly gets with her migraines. Patient does state that she is still having abdominal pain from yesterday but denies this being any worse. Denies fevers or chills. Denies any neck pain or stiffness.Patient has no other complaints at this time including shortness of breath, chest pain, abdominal pain, nausea or vomiting, headache, or visual changes. - Related Data Home Medications Medication Instructions Recorded Confirmed DULoxetine HCL [Cymbalta] 60 mg PO HS 11/18/16 10/12/19 Cholecalciferol [Vitamin D3 (25 5,000 unit PO DAILY 07/13/19 10/12/19 Mcg = 1000 Iu)] Omeprazole 40 mg PO DAILY 07/13/19 10/12/19 buPROPion HCL [Wellbutrin SR] 150 mg PO BID 07/13/19 10/12/19 HYDROcodone/APAP 10-325MG [[place] 1 tab PO QID PRN 07/22/19 10/12/19 10-325] Multivitamins, Thera [Multivitamin 1 tab PO DAILY 07/22/19 10/12/19 (formulary)] Previous Rx's Medication Instructions Recorded Sulfamethox-Tmp 800-160Mg [Bactrim 1 each PO Q12HR #20 tab 10/20/19 Ds] Tobramycin [Tobrex 0.3% Ophth Soln] 1 drop LEFT EYE Q4HR #5 ml 10/20/19 Nitrofurantoin Monohyd/M-Cryst 100 mg PO Q12HR 7 Days #14 cap 11/18/19 [Macrobid] Allergies Allergy/AdvReac Type Severity Reaction Status Date / Time hydromorphone [From Dilaudid] Allergy Itching Verified 11/19/19 21:42 aripiprazole [From Abilify] AdvReac Hallucinati Verified 11/19/19 21:42 ons Review of Systems ROS Statement: Those systems with pertinent positive or pertinent negative responses have been documented in the HPI. ROS Other: All systems not noted in ROS Statement are negative. Past Medical History Past Medical History: Asthma, Diabetes Mellitus, Hyperlipidemia, Hypertension, Musculoskeletal Disorder Additional Past Medical History / Comment(s): LT SCIATICA. Neck pain, FATTY LIVER , bilateral plantar fascitis (left worse than right) History of Any Multi-Drug Resistant Organisms: None Reported Past Surgical History: Bariatric Surgery, Cholecystectomy, Hysterectomy, Tubal Ligation, Uterine Ablation Additional Past Surgical History / Comment(s): D&C, PAIN CLINIC PROCEDURES, EGD sleeve gastrectomy 04-05-19 (Dr. Santos), Past Anesthesia/Blood Transfusion Reactions: Previous Problems w/ Anesthesia Additional Past Anesthesia/Blood Transfusion Reaction / Comment(s): OCC "HAVE A HARD TIME COMING OUT OF IT (ANESTHESIA)." Past Psychological History: Anxiety, Bipolar, Depression, PTSD Smoking Status: Former smoker Past Alcohol Use History: None Reported Past Drug Use History: None Reported - Past Family History Mother Family Medical History: No Reported History General Exam Limitations: no limitations General appearance: alert, in no apparent distress Head exam: Present: atraumatic, normocephalic, normal inspection Eye exam: Present: normal appearance, PERRL, EOMI. Absent: scleral icterus, conjunctival injection, periorbital swelling ENT exam: Present: normal exam, mucous membranes moist Neck exam: Present: normal inspection, full ROM. Absent: tenderness, meningismus, lymphadenopathy Respiratory exam: Present: normal lung sounds bilaterally. Absent: respiratory distress, wheezes, rales, rhonchi, stridor Cardiovascular Exam: Present: regular rate, normal rhythm, normal heart sounds. Absent: systolic murmur, diastolic murmur, rubs, gallop, clicks GI/Abdominal exam: Present: soft, tenderness (Minimal generalized abdominal tenderness.), normal bowel sounds. Absent: distended, guarding, rebound, rigid Neurological exam: Present: alert, oriented X3, CN II-XII intact, normal gait Psychiatric exam: Present: normal affect, normal mood Course Vital Signs 11/19/19 21:40 Temperature 98.1 F Pulse Rate 82 Respiratory 16 Rate Blood Pressure 139/95 O2 Sat by Pulse 96 Oximetry Medical Decision Making - Medical Decision Making CT abdomen and pelvis was obtained yesterday which showed asymmetric left-sided pelvic atelectasis that may reflect a recently passed stone. There is also possibility of filling defect within the left renal pelvis. Blood clot or urethral neoplasm are in the differential. She did have blood and white blood cells in the urine yesterday and was given Macrobid and urology follow-up. Denying worsening abdominal pain. CBC CMP both unremarkable. Urinalysis shows 4+ ketones, patient given fluids. Patient was given migraine cocktail and had significant improvement in pain. No worsening abdominal pain. Patient feeling well enough to go home. Patient will follow up with urology and primary care. She'll return if she has any worsening symptoms. - Lab Data Result diagrams: 11/19/19 23:06 11/19/19 23:06 Lab Results 11/19/19 11/19/19 11/19/19 Range/Units 23:06 23:06 23:06 WBC 3.0 L (3.8-10.6) k/uL RBC 4.36 (3.80-5.40) m/uL Hgb 13.1 (11.4-16.0) gm/dL Hct 41.1 (34.0-46.0) % MCV 94.1 (80.0-100.0) fL MCH 29.9 (25.0-35.0) pg MCHC 31.8 (31.0-37.0) g/dL RDW 13.3 (11.5-15.5) % Plt Count 214 (150-450) k/uL Neutrophils % 54 % Lymphocytes % 36 % Monocytes % 4 % Eosinophils % 2 % Basophils % 0 % Neutrophils # 1.7 (1.3-7.7) k/uL Lymphocytes # 1.1 (1.0-4.8) k/uL Monocytes # 0.1 (0-1.0) k/uL Eosinophils # 0.1 (0-0.7) k/uL Basophils # 0.0 (0-0.2) k/uL Sodium 137 (137-145) mmol/L Potassium 3.4 L (3.5-5.1) mmol/L Chloride 102 (98-107) mmol/L Carbon Dioxide 29 (22-30) mmol/L Anion Gap 6 mmol/L BUN 8 (7-17) mg/dL Creatinine 0.59 (0.52-1.04) mg/dL Est GFR (CKD-EPI)AfAm >90 (>60 ml/min/1.73 sqM) Est GFR (CKD-EPI)NonAf >90 (>60 ml/min/1.73 sqM) Glucose 84 (74-99) mg/dL Calcium 9.0 (8.4-10.2) mg/dL Total Bilirubin 0.6 (0.2-1.3) mg/dL AST 31 (14-36) U/L ALT 9 (4-34) U/L Alkaline Phosphatase 68 (38-126) U/L Total Protein 6.3 (6.3-8.2) g/dL Albumin 3.6 (3.5-5.0) g/dL Amylase <30 L (30-110) U/L Lipase 37 (23-300) U/L Urine Color Yellow Urine Appearance Clear (Clear) Urine pH 6.0 (5.0-8.0) Ur Specific [place] 1.023 (1.001-1.035) Urine Protein Trace H (Negative) Urine Glucose (UA) Negative (Negative) Urine Ketones 4+ H (Negative) Urine Blood Negative (Negative) Urine Nitrite Negative (Negative) Urine Bilirubin Negative (Negative) Urine Urobilinogen 3.0 (<2.0) mg/dL Ur Leukocyte Esterase Negative (Negative) Disposition Clinical Impression: Headache Disposition: HOME SELF-CARE Condition: Good Instructions (If sedation given, give patient instructions): Migraine Headache (ED) Additional Instructions: Please follow up with urologist given to you yesterday. Please follow-up with primary care in 1-2 days. Return to the emergency department if you have any worsening symptoms. Is patient prescribed a controlled substance at d/c from ED?: No Referrals: [facility] [Primary Care Provider] - 1-2 days Time of Disposition: 00:49
[2019-11-20 00:51] VITALS: BP 131/92; PULSE 83; RESP 18; TEMP 98
== END 2019-11-20 01:00 | disposition home or self-care (01) ==
LOC: EC 21:39
DX: G43.909 Migraine, unspecified, not intractable, without status migrainosus (principal); R82.4 Acetonuria; R10.9 Unspecified abdominal pain; F31.9 Bipolar disorder, unspecified; F41.9 Anxiety disorder, unspecified; Z87.891 Personal history of nicotine dependence; Z88.5 Allergy status to narcotic agent; Z88.8 Allergy status to other drugs, medicaments and biological substances; Z79.899 Other long term (current) drug therapy; Z87.39 Personal history of other diseases of the musculoskeletal system and connective tissue; Z90.49 Acquired absence of other specified parts of digestive tract; Z98.84 Bariatric surgery status
CPT/HCPCS: 36415; 80053; 82150; 83690; 85025; 81003; 99284; 96374; 96375 ×2; 96361 ×2; J1200; J2765; J1885

== ENCOUNTER → 2019-11-22 | Outpatient (CLI) | payer OTHER ==
[2019-11-22 13:40] VITALS: BP 117/81; PULSE 111; RESP 16; TEMP 98.2; BMI 34.1
--- NOTE | 2019-11-22 14:03 | P.HPBAR ---
Bariatric H&P - History & Physicial H&P Date: 11/22/19 History & Physicial: Visit/CC: sarah Patient initial contact: Initial weight: 142.485 kg Initial weight in pounds: 314.13 Height: 5 ft 4 in Initial BMI: 53.8 Last weight: Current weight: 90.265 kg Current weight in pounds: 199.00 Current BMI: 34.1 [place] body weight (based on NIH guidelines): 54.431 kg Excess body weight loss: 59.3% The patient is a 43 year-old F who presents for Bariatric Assessment. Patient's complaints of abdominal pain. She was seen in the emergency room last week. She is several small ventral hernias. She also has had a chronic UTI. She's being evaluated by urology. She's had some minimal GERD. Past Medical History Past Medical History: Asthma, Diabetes Mellitus, Hyperlipidemia, Hypertension, Musculoskeletal Disorder Additional Past Medical History / Comment(s): LT SCIATICA. Neck pain, FATTY LIVER , bilateral plantar fascitis (left worse than right) History of Any Multi-Drug Resistant Organisms: None Reported Past Surgical History: Bariatric Surgery, Cholecystectomy, Hysterectomy, Tubal Ligation, Uterine Ablation Additional Past Surgical History / Comment(s): D&C, PAIN CLINIC PROCEDURES, EGD sleeve gastrectomy 04-05-19 (Dr. Santos), Past Anesthesia/Blood Transfusion Reactions: Previous Problems w/ Anesthesia Additional Past Anesthesia/Blood Transfusion Reaction / Comm: OCC "HAVE A HARD TIME COMING OUT OF IT (ANESTHESIA)." Smoking Status: Former smoker - Past Family History Mother Family Medical History: No Reported History Surgical - Exam Vital Signs Temp Pulse Resp BP 98.2 F 111 H 16 117/81 11/22/19 13:37 11/22/19 13:37 11/22/19 13:37 11/22/19 13:37 - General well developed, well nourished, no distress - Eyes PERRL - ENT normal pinna - Neck no masses - Respiratory normal expansion - Cardiovascular Rhythm: regular - Abdomen Abdomen: soft, non tender Bariatric Assessment & Plan Plan: Status post sleeve yesterday. Patient is following up with urology for her urinary tract infection. Her GERD is minimal be observed. She'll follow-up in one month. Bariatric Checklist Checklist: Plan: Checklist: EGD: 1. Hiatal hernia: 2. H. Pylori: HgbA1c: Vitamin D: Smoking: Former smoker Primary care physician referral: [facility] (Dr. Kacie Smith(??) Psychiatry clearance: Cardiology clearance: Sleep study: Diet journal: VTE risk score: VTE risk level: Rehab needs at discharge:
== END | disposition home or self-care (01) ==
LOC: BARWHC3 13:26
PROVIDERS: ATTEND Surgery
DX: Z48.815 Encounter for surgical aftercare following surgery on the digestive system (principal); N39.0 Urinary tract infection, site not specified; K21.9 Gastro-esophageal reflux disease without esophagitis; R10.9 Unspecified abdominal pain; K43.9 Ventral hernia without obstruction or gangrene; Z87.891 Personal history of nicotine dependence; Z90.49 Acquired absence of other specified parts of digestive tract; Z98.51 Tubal ligation status; Z90.710 Acquired absence of both cervix and uterus; Z98.84 Bariatric surgery status; Z98.890 Other specified postprocedural states
CPT/HCPCS: 99211

== ENCOUNTER → 2019-12-20 | Outpatient (CLI) | payer OTHER ==
[2019-12-20 13:43] VITALS: BP 141/94; PULSE 79; RESP 16; TEMP 97.7; BMI 33.3
--- NOTE | 2019-12-20 13:58 | P.HPBAR ---
Bariatric H&P - History & Physicial H&P Date: 12/20/19 History & Physicial: Visit/CC: F/U Patient initial contact: Initial weight: 142.485 kg Initial weight in pounds: 314.13 Height: 5 ft 4 in Initial BMI: 53.8 Last weight: Current weight: 87.997 kg Current weight in pounds: 194.00 Current BMI: 33.3 [place] body weight (based on NIH guidelines): 54.431 kg Excess body weight loss: 61.8% The patient is a 44 year-old F who presents for Bariatric Assessment. Patient presents today for sleeve gastrectomy follow-up. Patient lost 5 pounds last visit. She's had issues with GERD. Past Medical History Past Medical History: Asthma, Diabetes Mellitus, Hyperlipidemia, Hypertension, Musculoskeletal Disorder Additional Past Medical History / Comment(s): LT SCIATICA. Neck pain, FATTY LIVER , bilateral plantar fascitis (left worse than right) History of Any Multi-Drug Resistant Organisms: None Reported Past Surgical History: Bariatric Surgery, Cholecystectomy, Hysterectomy, Tubal Ligation, Uterine Ablation Additional Past Surgical History / Comment(s): D&C, PAIN CLINIC PROCEDURES, EGD sleeve gastrectomy 04-05-19 (Dr. Santos), Past Anesthesia/Blood Transfusion Reactions: Previous Problems w/ Anesthesia Additional Past Anesthesia/Blood Transfusion Reaction / Comm: OCC "HAVE A HARD TIME COMING OUT OF IT (ANESTHESIA)." Smoking Status: Former smoker - Past Family History Mother Family Medical History: No Reported History Surgical - Exam Vital Signs Temp Pulse Resp BP 97.7 F 79 16 141/94 12/20/19 13:40 12/20/19 13:40 12/20/19 13:40 12/20/19 13:40 - General well developed, well nourished, no distress - Eyes PERRL - Neck no masses - Respiratory normal expansion - Cardiovascular Rhythm: regular - Abdomen Abdomen: soft, non tender Bariatric Assessment & Plan Plan: Status post sleeve gastrectomy. Patient's currently treated with Prilosec. She'll follow-up in 4 weeks. Bariatric Checklist Checklist: Plan: Checklist: EGD: 1. Hiatal hernia: 2. H. Pylori: HgbA1c: Vitamin D: Smoking: Former smoker Primary care physician referral: [facility] (Dr. Kacie Smith(??) Psychiatry clearance: Cardiology clearance: Sleep study: Diet journal: VTE risk score: VTE risk level: Rehab needs at discharge:
== END | disposition home or self-care (01) ==
LOC: BARWHC3 13:11
PROVIDERS: ATTEND Surgery
DX: Z48.815 Encounter for surgical aftercare following surgery on the digestive system (principal); E66.01 Morbid (severe) obesity due to excess calories; K21.9 Gastro-esophageal reflux disease without esophagitis; Z87.891 Personal history of nicotine dependence; Z68.33 Body mass index [BMI] 33.0-33.9, adult; Z98.84 Bariatric surgery status; Z90.49 Acquired absence of other specified parts of digestive tract; Z98.51 Tubal ligation status; Z90.710 Acquired absence of both cervix and uterus; Z98.890 Other specified postprocedural states
CPT/HCPCS: 99211

== ENCOUNTER 2020-04-04 13:28 | Observation (INO) | payer OTHER ==
[2020-04-04] MEDS ORDERED: ASPIRIN 81 MG PO STA (13:56)
[2020-04-04] MEDS ORDERED: SODIUM CHLORIDE 0.9% 1,000 ML IV STA (13:56)
[2020-04-04] MEDS ORDERED: ONDANSETRON 4 MG/2 ML VIAL IVP STA (13:57)
[2020-04-04 14:14] LABS: Basophils % (A) 1 %; Eosinophils # (A) 0.2 k/uL (0-0.7); Eosinophils % (A) 4 %; HCT 38.7 % (34.0-46.0); HGB 12.4 gm/dL (11.4-16.0); Hypochromasia Slight; Lymphocytes # (A) 1.5 k/uL (1.0-4.8); Lymphocytes % (A) 31 %; MCH 30.6 pg (25.0-35.0); MCHC 32.1 g/dL (31.0-37.0); MCV 95.1 fL (80.0-100.0); Mean Platelet Volume 7.8; Monocytes # (A) 0.3 k/uL (0-1.0); Monocytes % (A) 5 %; Neutrophils # (A) 2.8 k/uL (1.3-7.7); Neutrophils % (A) 58 %; Platelet Count 262 k/uL (150-450); RBC 4.07 m/uL (3.80-5.40); WBC 4.8 k/uL (3.8-10.6)
[2020-04-04 14:23] LABS: INR 0.9 (<1.2); Partial Thromboplastin Time 23.5 sec (22.0-30.0); Prothrombin Time 9.5 sec (9.0-12.0)
--- NOTE | 2020-04-04 14:27 | XR ---
EXAMINATION TYPE: XR chest 2V DATE OF EXAM: 04/04/2020 COMPARISON: Prior chest 02/09/2019 HISTORY: Chest pain TECHNIQUE: Frontal and lateral views of the chest are obtained. FINDINGS: There is no focal air space opacity, pleural effusion, or pneumothorax seen. The cardiac silhouette size is within normal limits. The osseous structures are intact. There are overlying car diac leads. Surgical clips are present in the upper abdomen. IMPRESSION: No acute cardiopulmonary process.
[2020-04-04 14:30] LABS: ALT 10 U/L (4-34); AST 29 U/L (14-36); African American GFR (CKD) >90 (>60 ml/min/1.73 sqM); Albumin 3.8 g/dL (3.5-5.0); Alkaline Phosphatase 64 U/L (38-126); Anion Gap 6 mmol/L; Blood Urea Nitrogen 11 mg/dL (7-17); Calcium 8.6 mg/dL (8.4-10.2); Carbon Dioxide 26 mmol/L (22-30); Chloride 106 mmol/L (98-107); Glucose 127 mg/dL (74-99); Magnesium 1.7 mg/dL (1.6-2.3); Non-African American GFR(CKD) >90 (>60 ml/min/1.73 sqM); Potassium 4.1 mmol/L (3.5-5.1); Sodium 138 mmol/L (137-145); Total Bilirubin 0.3 mg/dL (0.2-1.3); Total Protein 6.7 g/dL (6.3-8.2)
--- NOTE | 2020-04-04 14:36 | ED ---
Chest Pain HPI - General Source: patient, family, RN notes reviewed Mode of arrival: wheelchair Limitations: no limitations <Rohan Blount - Last Filed: 04/04/20 16:03> <Asia Hernandez - Last Filed: 04/04/20 16:35> - General Chief Complaint: Chest Pain Stated Complaint: chest pain, side pain Time Seen by Provider: 04/04/20 13:41 - History of Present Illness Initial Comments: This a 44-year-old female presents emergency Department chief complaint left- sided chest pain, left side pain. Patient states started a few days ago progressively getting worse. She states she just feels off. She's had some nausea and diarrhea. Patient had a prior gastric sleeve procedure. She states prior to that she had hypertension hyperlipidemia and diabetes. Patient that she has gone off most medications because of her weight loss. She denies any prior DVT or PE. Denies any fevers or chills. Patient has no dysuria. Patient denies any sick contacts. She states she was evaluated at another hospital with no acute findings. (Rohan Blount) - Related Data Home Medications Medication Instructions Recorded Confirmed DULoxetine HCL [Cymbalta] 60 mg PO HS 11/18/16 04/04/20 HYDROcodone/APAP 10-325MG [[place] 1 tab PO QID PRN 07/22/19 04/04/20 10-325] Cholecalciferol (Vitamin D3) 125 mcg PO DAILY 04/04/20 04/04/20 [Vitamin D3] Multivitamin [Multivitamins Adult 2 tab PO DAILY 04/04/20 04/04/20 Gummies] buPROPion XL [Wellbutrin Xl] 150 mg PO BID 04/04/20 04/04/20 Previous Rx's Medication Instructions Recorded Omeprazole 40 mg PO DAILY #90 capsule. 12/20/19 Allergies Allergy/AdvReac Type Severity Reaction Status Date / Time aripiprazole [From Abilify] AdvReac Anxiety, Verified 04/04/20 16:23 Restless hydromorphone [From Dilaudid] AdvReac Nausea & Verified 04/04/20 16:23 Vomiting Review of Systems ROS Other: All systems not noted in ROS Statement are negative. <Rohan Blount - Last Filed: 04/04/20 16:03> ROS Other: All systems not noted in ROS Statement are negative. <Asia Hernandez - Last Filed: 04/04/20 16:35> ROS Statement: Those systems with pertinent positive or pertinent negative responses have been documented in the HPI. EKG Findings - EKG Comments: EKG Findings:: EKG performed at 13:43 sinus tachycardia rate of 106 ID 160 QRS 78 QT/QTC 336/446 <Jose AlejandroRohan Painting - Last Filed: 04/04/20 16:03> Past Medical History Past Medical History: Asthma, Diabetes Mellitus, Hyperlipidemia, Hypertension, Musculoskeletal Disorder Additional Past Medical History / Comment(s): LT SCIATICA. Neck pain, FATTY LIVER , bilateral plantar fascitis (left worse than right) History of Any Multi-Drug Resistant Organisms: None Reported Past Surgical History: Bariatric Surgery, Cholecystectomy, Hysterectomy, Tubal Ligation, Uterine Ablation Additional Past Surgical History / Comment(s): D&C, PAIN CLINIC PROCEDURES, EGD sleeve gastrectomy 04-05-19 (Dr. Santos), Past Anesthesia/Blood Transfusion Reactions: Previous Problems w/ Anesthesia Additional Past Anesthesia/Blood Transfusion Reaction / Comment(s): OCC "HAVE A HARD TIME COMING OUT OF IT (ANESTHESIA)." Past Psychological History: Anxiety, Bipolar, Depression, PTSD Smoking Status: Former smoker Past Alcohol Use History: None Reported Past Drug Use History: None Reported - Past Family History Mother Family Medical History: No Reported History <Jose AlejandroRohan - Last Filed: 04/04/20 16:03> General Exam Limitations: no limitations General appearance: alert, in no apparent distress Head exam: Present: atraumatic, normocephalic, normal inspection Eye exam: Present: normal appearance, PERRL, EOMI. Absent: scleral icterus, conjunctival injection, periorbital swelling Neck exam: Present: normal inspection. Absent: tenderness, meningismus, lymphadenopathy Respiratory exam: Present: normal lung sounds bilaterally. Absent: respiratory distress, wheezes, rales, rhonchi, stridor Cardiovascular Exam: Present: normal rhythm, tachycardia, normal heart sounds. Absent: systolic murmur, diastolic murmur, rubs, gallop, clicks GI/Abdominal exam: Present: soft, tenderness (Mild), normal bowel sounds. Absent: distended, guarding, rebound, rigid Back exam: Absent: CVA tenderness (R), CVA tenderness (L) Neurological exam: Present: alert, oriented X3, CN II-XII intact Skin exam: Present: warm, dry, intact, normal color. Absent: rash <Rohan Blount - Last Filed: 04/04/20 16:03> Course Vital Signs 04/04/20 04/04/20 04/04/20 13:30 14:00 14:01 Temperature 98.2 F Pulse Rate 108 H 100 Pulse Rate [ 105 H Poultry Grader ] Respiratory 18 16 20 Rate Blood Pressure 126/84 132/82 O2 Sat by Pulse 98 98 Oximetry 04/04/20 15:00 Temperature Pulse Rate 86 Pulse Rate [ Poultry Grader ] Respiratory 16 Rate Blood Pressure 133/82 O2 Sat by Pulse 96 Oximetry Chest Pain MDM <Rohan Blount - Last Filed: 04/04/20 16:03> <Asia Hernandez - Last Filed: 04/04/20 16:35> - [facility] Patient had persistent left-sided chest pain. There are no acute findings at this time. Patiently admitted for cardiac rule out. Patient was started on heparin case discussed with admitting hospitalist. (Rohan Blount) I was available for consultation in the emergency department. The history and physical exam were done by the midlevel provider. I was consulted for this patients care. I reviewed the case with the midlevel provider and based on their presentation of the patient, I agree with the assessment, medical decision making and plan of care as documented. Chart was dictated using [employer] dictation software. Attempts were made to correct any dictation errors however some typographical errors may persist. Patient was seen during the [facility] state of emergency due to the Covid-19 pandemic. (Asia Hernandez) Disposition <Rohan Blount - Last Filed: 04/04/20 16:03> <Asia Hernandez - Last Filed: 04/04/20 16:35> Clinical Impression: Chest pain Disposition: ADMITTED IP TO THIS HOSP Condition: Fair
[2020-04-04] MEDS ORDERED: HEPARIN SODIUM,PORCINE 5,000 UNIT/ML 1 ML VIAL IV ONE (16:00)
[2020-04-04] MEDS ORDERED: HEPARIN SODIUM,PORCINE 5,000 UNIT/ML 1 ML VIAL IV PRN (16:00)
[2020-04-04] MEDS ORDERED: HEPARIN SOD,PORK IN 0.45% NACL 25,000 UNIT in 0.45% NACL 1 250ML.BAG IV SCH (16:00)
[2020-04-04] MEDS ORDERED: NITROGLYCERIN SL TABS 0.4 MG TAB SUBLINGUAL PRN (16:00)
[2020-04-04 20:29] LABS: Glucose,Whole Blood 81 mg/dL (75-99)
[2020-04-04] MEDS ORDERED: KETOROLAC 30 MG/ML 1 ML VIAL IVP STA (21:16)
[2020-04-04] MEDS: buPROPion XL 150 MG TAB.ER.24H PO SCH (21:29)
[2020-04-04] MEDS: DULoxetine HCL 60 MG CAPSULE.DR PO SCH (21:29)
--- NOTE | 2020-04-04 23:20 | P.HPIM ---
History of Present Illness H&P Date: 04/04/20 Chief Complaint: Chest Pain Patient is a 44-year-old female with a known history of hypertension, hyperlipidemia, anxiety/depression/bipolar/PTSD and diet-controlled diabetes and also chronic low back pain and other multiple medical problems came to ER with the complaints of chest pain mainly left-sided and going down up to left upper quadrant upper abdominal and mid abdominal region. Patient is also complaining of upper back pain as well. Patient has been having symptoms for the past 2 or 3 days progressively getting worse. Denies any associated shortness of breath. Does have some nausea. No episodes of vomiting. No headache or dizziness or lightheadedness. No radiation of the pain otherwise. No fever no chills. No cough or sputum production. Patient had history of gastric sleeve surgery about a year ago. Patient does have on and off constipation and diarrhea otherwise. Denies any dysuria or hematuria. Patient states that she was seen at [facility] recently and had CT of the abdomen and pelvis and was told no abnormality was detected and was sent home. 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 Denied any exertional dyspnea otherwise. Chest x-ray showed no acute cardiopulmonary process. EKG showed sinus tachycardia with flattening of the T waves in the lateral leads. Laboratory data showed WBC 4.8, hemoglobin 12.4, platelets 262, Sodium 138, potassium 4.1, chloride 106, BUN 11 and creatinine 0.53 blood sugar 127 magnesium 1.7 troponin x2- proBNP 238 and lipase 135 Review of Systems Constitutional: Patient denies any fever or chills . No generalized weakness or weight loss. Abdomen: Patient denied nausea vomiting and diarrhea and abdominal pain. Cardiovascular: Patient Does have left sided chest pain and no palpitations. No leg swelling. . Respiratory: patient denied any cough is from production. No shortness of breath Neurologic: Patient denied any numbness or tingling. Patient does have dizziness and headache and ringing ears. Musculoskeletal: Patient denies any complaints of joint swelling or deformity. Upper back pain Skin: Negative Psychiatric: Negative Endocrine: No heat or cold intolerance. No recent weight gain. Genitourinary: No dysuria or hematuria. All other 14 point ROS negative except the above Past Medical History Past Medical History: Asthma, Diabetes Mellitus, Hyperlipidemia, Hypertension, Musculoskeletal Disorder Additional Past Medical History / Comment(s): LT SCIATICA. Neck pain, FATTY LIVER , bilateral plantar fascitis (left worse than right) History of Any Multi-Drug Resistant Organisms: None Reported Past Surgical History: Bariatric Surgery, Cholecystectomy, Hysterectomy, Tubal Ligation, Uterine Ablation Additional Past Surgical History / Comment(s): D&C, PAIN CLINIC PROCEDURES, EGD sleeve gastrectomy 04-05-19 (Dr. Santos), Past Anesthesia/Blood Transfusion Reactions: Previous Problems w/ Anesthesia Additional Past Anesthesia/Blood Transfusion Reaction / Comment(s): OCC "HAVE A HARD TIME COMING OUT OF IT (ANESTHESIA)." Past Psychological History: Anxiety, Bipolar, Depression, PTSD Additional Psychological History / Comment(s): Under care of psychiatrist. Smoking Status: Former smoker Past Alcohol Use History: None Reported Additional Past Alcohol Use History / Comment(s): smoked off and on, <1ppd, quit 2006 Past Drug Use History: None Reported - Past Family History Mother Family Medical History: No Reported History Medications and Allergies Home Medications Medication Instructions Recorded Confirmed Type DULoxetine HCL [Cymbalta] 60 mg PO HS 11/18/16 04/04/20 History HYDROcodone/APAP 10-325MG [[place] 1 tab PO QID PRN 07/22/19 04/04/20 History 10-325] Omeprazole 40 mg PO DAILY #90 capsule. 12/20/19 04/04/20 Rx Cholecalciferol (Vitamin D3) 125 mcg PO DAILY 04/04/20 04/04/20 History [Vitamin D3] Multivitamin [Multivitamins Adult 2 tab PO DAILY 04/04/20 04/04/20 History Gummies] buPROPion XL [Wellbutrin Xl] 150 mg PO BID 04/04/20 04/04/20 History Allergies Allergy/AdvReac Type Severity Reaction Status Date / Time aripiprazole [From Abilify] AdvReac Anxiety, Verified 04/04/20 16:23 Restless hydromorphone [From Dilaudid] AdvReac Nausea & Verified 04/04/20 16:23 Vomiting Physical Exam Vitals: Vital Signs Temp Pulse Pulse Resp BP Pulse Ox 04/04/20 18:47 98.9 F 82 16 127/78 98 04/04/20 17:56 98.6 F 81 16 124/77 98 04/04/20 17:01 98.0 F 82 16 128/78 98 04/04/20 15:00 86 16 133/82 96 04/04/20 14:01 105 H 20 04/04/20 14:00 100 16 132/82 98 04/04/20 13:30 98.2 F 108 H 18 126/84 98 Intake and Output 04/04/20 04/04/20 04/04/20 06:59 14:59 22:59 Other: Weight 87.09 kg 87.09 kg PHYSICAL EXAMINATION: Patient is lying in the bed comfortably, no acute distress, awake alert and oriented.. HEENT: Normocephalic. Neck is supple. Pupils reactive. Nostrils clear. Oral cavity is moist. Ears reveal no drainage. Neck reveals no JVD, carotid bruits, or thyromegaly. CHEST EXAMINATION: Trachea is central. Symmetrical expansion. Lung silva clear to auscultation and percussion. CARDIAC: Normal S1, S2 with no gallops. No murmurs, Reproducible chest pain. ABDOMEN: Soft. Bowel sounds normal. No organomegaly. No abdominal bruits. Extremities: reveal no edema. No clubbing or cyanosis Neurologically awake, alert, oriented x3 with well-coordinated movements. No focal deficits noted Skin: No rash or skin lesions. Psychiatric: Coperative. Nonsuicidal Musculoskeletal: No joint swelling or deformity. Normal range of motion. Tenderness over upper back. Results CBC & Chem 7: 04/04/20 13:55 04/04/20 13:55 Labs: Abnormal Lab Results - Last 24 Hours (Table) 04/04/20 Range/Units 13:55 Glucose 127 H (74-99) mg/dL Thrombosis Risk Factor Assmnt - DVT/VTE Prophylaxis DVT/VTE Prophylaxis: Pharmacologic Prophylaxis ordered - Choose All That Apply Each Factor Represents 1 point: Age 41-60 years, Obesity (BMI >25) Thrombosis Risk Factor Assessment Total Risk Factor Score: 2 Thrombosis Risk Factor Assessment Level: Low Risk Assessment and Plan Assessment: Atypical chest pain. Rule out ACS. Could be related to musculoskeletal. History of gastric sleeve surgery in March 2019 Chronic low back pain Hypertension Diet controlled diabetes type 2 DEE Asthma Previous history of smoking Anxiety, bipolar, depression, PTSD DVT prophylaxis Plan: Patient will be continued on telemetry monitoring and serial troponins and EKG. Cardiology was consulted. Patient was started on heparin drip. Continue with PPI as per home dose. Continue the home medications and pain management with her home regimen, [place] 10 every 6 hourly as needed for pain. Patient was given a dose of IV Toradol. Further recommendations based on the clinical course. Time with Patient: Greater than 30
[2020-04-04] MEDS: HYDROcodone/APAP 10-325MG 1 EACH TAB PO PRN (23:38)
[2020-04-05] MEDS: MAGNESIUM SULFATE-D5W PMX 1 GM in DEXTROSE/WATER 1 100ML.BAG IVPB SCH ×2 (00:18→01:30)
[2020-04-05 04:40] LABS: Cholesterol 152 mg/dL (<200); HDL Cholesterol 62 mg/dL (40-60); LDL Cholesterol,Calculated 75 mg/dL (0-99); Triglycerides 76 mg/dL (<150)
[2020-04-05] MEDS: PANTOPRAZOLE 40 MG TABLET PO SCH (06:07)
[2020-04-05] MEDS ORDERED: ASPIRIN 325 MG TAB PO SCH (09:00)
[2020-04-05] MEDS ORDERED: NON FORMULARY DRUG (Cholecalciferol (Vitamin D3) [Vitamin D3] 125 MCG) PO SCH (09:00)
[2020-04-05] MEDS ORDERED: DOBUTamine DRIP for NUC MED 500 MG in DEXTROSE/WATER 1 250ML.BAG IV ONE (09:00)
--- NOTE | 2020-04-05 09:36 | ECHOF ---
Referral Reason:chest pain MEASUREMENTS -------- HEIGHT: 165.1 cm WEIGHT: 99.8 kg BP: RVIDd: 1.8 cm (< 3.3) IVSd: 1.2 cm (0.6 - 1.1) LVIDd: 4.2 cm (3.9 - 5.3) LVPWd: 1.3 cm (0.6 - 1.1) IVSs: 1.8 cm LVIDs: 2.6 cm LVPWs: 1.9 cm LAESV Index (A-L): 20.02 ml/m Ao Diam: 2.8 cm (2.0 - 3.7) AV Cusp: 2.0 cm (1.5 - 2.6) LA Diam: 3.4 cm (2.7 - 3.8) MV EXCURSION: 17.007 mm (> 18.000) MV EF SLOPE: 131 mm/s (70 - 150) EPSS: 0.5 cm MV E Doug: 0.97 m/s MV DecT: 182 ms MV A Doug: 0.68 m/s MV E/A Ratio: 1.43 RAP: 5.00 mmHg RVSP: 13.49 mmHg FINDINGS -------- Sinus rhythm. This was a technically adequate study. The left ventricular size is normal. There is mild concentric left ventricular hypertrophy. Overa ll left ventricular systolic function is normal with, an EF between 55 - 60 %. The right ventricle is normal in size. The left atrial size is normal. Normal LA size by volume 22+/-6 ml/m2. The right atrial size is normal. Interatrial and interventricular septum intact. The aortic valve is trileaflet and appears structurally normal. The mitral valve is normal. The mitral valve leaflets are mildly thickened. There is trace mitral regurgitation. The tricuspid valve appears structurally normal. Trace tricuspid regurgitation present. Right ro tricular systolic pressure is normal at < 35 mmHg. There is no pulmonic regurgitation present. The aortic root size is normal. Normal inferior vena cava with normal inspiratory collapse consistent with estimated right atrial pre ssure of 5 mmHg. There is no pericardial effusion. CONCLUSIONS -------- 1. Sinus rhythm. 2. This was a technically adequate study. 3. The left ventricular size is normal. 4. There is mild concentric left ventricular hypertrophy. 5. Overall left ventricular systolic function is normal with, an EF between 55 - 60 %. 6. The right ventricle is normal in size. 7. The left atrial size is normal. 8. Normal LA size by volume 22+/-6 ml/m2. 9. The right atrial size is normal. 10. Interatrial and interventricular septum intact. 11. The aortic valve is trileaflet and appears structurally normal. 12. The mitral valve is normal. 13. The mitral valve leaflets are mildly thickened. 14. There is trace mitral regurgitation. 15. The tricuspid valve appears structurally normal. 16. Trace tricuspid regurgitation present. 17. Right ventricular systolic pressure is normal at < 35 mmHg. 18. There is no pulmonic regurgitation present. 19. The aortic root size is normal. 20. Normal inferior vena cava with normal inspiratory collapse consistent with estimated right atrial pressure of 5 mmHg. 21. There is no pericardial effusion. SEED COLLECTOR: Wendi Valverde RDCS
--- NOTE | 2020-04-05 10:33 | CONS ---
CONSULTATION CHIEF COMPLAINT: Chest pain. Xiao is a 44-year-old lady with history of morbid obesity, status post surgery, hypertension, dyslipidemia, diabetes, who presented to the hospital primarily complaining of right upper quadrant pain and also chest pain. These symptoms have been going on for the last several days. The patient has had gastric sleeve surgery a year ago. The abdominal discomfort is currently being evaluated by a surgeon. Her chest pain is sharp, precordial, mild intensity, and has radiated to her shoulder. At the time of my evaluation, patient appears comfortable at rest and does not seem to be in significant distress. She has had EKG that showed sinus tachycardia with poor R-wave progression. Labs show that the troponins are negative, LDL cholesterol is 75. I advised the patient to undergo a dobutamine stress echo. If this is abnormal, I will perform cardiac catheterization. If not, she will be discharged home. PAST MEDICAL HISTORY: Significant for morbid obesity status post gastric sleeve. MEDICATIONS: Include Wellbutrin, omeprazole, hydrocodone, Cymbalta, vitamin D. ALLERGIC: To ABILIFY and DILAUDID. FAMILY HISTORY: Negative for premature coronary artery disease. SOCIAL HISTORY: Negative for smoking, EtOH abuse, or drug abuse. REVIEW OF SYSTEMS: HEENT: Unremarkable. CARDIAC: As described above. RESPIRATORY: As described above. GI: Negative. GENITOURINARY: Negative. ALLERGY/IMMUNOLOGY: Negative. SKIN: Negative. MUSCULOSKELETAL: Significant for arthritis. PSYCHOSOCIAL: Negative. ENDOCRINE: Negative. DERM: Negative. CONSTITUTIONAL: Negative. ONCOLOGICAL: Negative. TOLL LINEMAN: Negative. Rest of the system review is not relevant. PHYSICAL EXAM: Patient is afebrile. Heart rate is 78 beats per minute. Blood pressure is 108/70, respiratory rate is 18. There is no jugular venous distention. Carotid upstroke is normal. There is no bruit. Chest exam reveals good air entry bilaterally. Heart exam reveals first and second heart sounds. No gallop. No murmur. No rub. Abdomen is soft, nontender. Exam of extremities did not reveal any edema. Peripheral pulses are felt. ASSESSMENT: 1. Precordial chest pain. 2. Abdominal pain. 3. Morbid obesity, status post gastric sleeve surgery. PLAN: I am going to schedule a dobutamine stress echo on her. If this is negative, she will be discharged home. If this is abnormal, then I will perform cardiac catheterization. MMODL / IJN: [id number] /
[2020-04-05] MEDS: ASPIRIN 81 MG PO SCH (14:14)
[2020-04-05] MEDS: MULTIVITAMINS, THERA 1 EACH TAB PO SCH (14:14)
[2020-04-05] MEDS: buPROPion XL 150 MG TAB.ER.24H PO SCH ×2 (14:14→20:25)
[2020-04-05] MEDS: HYDROcodone/APAP 10-325MG 1 EACH TAB PO PRN ×2 (16:27→22:35)
[2020-04-05] MEDS: DULoxetine HCL 60 MG CAPSULE.DR PO SCH (20:26)
--- NOTE | 2020-04-06 00:10 | P.PN ---
Subjective Progress Note Date: 04/05/20 Principal diagnosis: Chest Pain Patient is a 44-year-old female with a known history of hypertension, hyperlipidemia, anxiety/depression/bipolar/PTSD and diet-controlled diabetes and also chronic low back pain and other multiple medical problems came to ER with the complaints of chest pain mainly left-sided and going down up to left upper quadrant upper abdominal and mid abdominal region. Patient is also complaining of upper back pain as well. Patient has been having symptoms for the past 2 or 3 days progressively getting worse. Denies any associated shortness of breath. Does have some nausea. No episodes of vomiting. No headache or dizziness or lightheadedness. No radiation of the pain otherwise. No fever no chills. No cough or sputum production. Patient had history of gastric sleeve surgery about a year ago. Patient does have on and off constipation and diarrhea otherwise. Denies any dysuria or hematuria. Patient states that she was seen at [facility] recently and had CT of the abdomen and pelvis and was told no abnormality was detected and was sent home. 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 Denied any exertional dyspnea otherwise. Chest x-ray showed no acute cardiopulmonary process. EKG showed sinus tachycardia with flattening of the T waves in the lateral leads. Laboratory data showed WBC 4.8, hemoglobin 12.4, platelets 262, Sodium 138, potassium 4.1, chloride 106, BUN 11 and creatinine 0.53 blood sugar 127 magnesium 1.7 troponin x2- proBNP 238 and lipase 135 04/05/2020 Patient is currently lying in the bed comfortably. Still complaining of sharp precordial chest pain which is constant. Serial troponins x3-. Liver enzymes are not elevated. Patient was seen by cardiology and is planning for stress test. Otherwise patient denied any cough or sputum production. Patient has been afebrile. Tolerating oral diet. No complaints of dizziness or lightheadedness. No abnormality noted in the telemetry. Saturating well on room air. Heart rate is not elevated. Current medications reviewed. Objective - Vital Signs Vital signs: Vital Signs Temp 97.8 F 04/05/20 20:00 Pulse 85 04/05/20 20:00 Resp 18 04/05/20 20:00 BP 115/58 05/20/20 20:00 Pulse Ox 98 04/05/20 20:00 Intake & Output 04/05/20 04/05/20 04/06/20 06:59 18:59 06:59 Intake Total 348.451 270 Balance 348.451 270 Weight 100 kg Intake: Intake, IV Titration 126.451 Amount Heparin Sod,Pork in 0.45% 126.451 NaCl 25,000 unit In 0.45 % NaCl 1 250ml.bag @ 11. 48 UNITS/KG/HR 9.998 mls/ hr IV .Q24H ILEANA Rx#: [id number] Oral 222 270 Other: # Voids 2 1 2 - Exam PHYSICAL EXAMINATION: Patient is lying in the bed comfortably, no acute distress, awake alert and oriented.. HEENT: Normocephalic. Neck is supple. Pupils reactive. Nostrils clear. Oral cavity is moist. Ears reveal no drainage. Neck reveals no JVD, carotid bruits, or thyromegaly. CHEST EXAMINATION: Trachea is central. Symmetrical expansion. Lung silva clear to auscultation and percussion. CARDIAC: Normal S1, S2 with no gallops. No murmurs, Reproducible chest pain. ABDOMEN: Soft. Bowel sounds normal. No organomegaly. No abdominal bruits. Extremities: reveal no edema. No clubbing or cyanosis Neurologically awake, alert, oriented x3 with well-coordinated movements. No focal deficits noted Skin: No rash or skin lesions. Psychiatric: Coperative. Nonsuicidal Musculoskeletal: No joint swelling or deformity. Normal range of motion. Tenderness over upper back. - Labs CBC & Chem 7: 04/04/20 13:55 04/04/20 13:55 Labs: Abnormal Lab Results - Last 24 Hours (Table) 04/04/20 04/05/20 04/05/20 Range/Units 22:08 03:34 03:34 APTT 37.9 H 42.2 H (22.0-30.0) sec HDL Cholesterol 62 H (40-60) mg/dL Assessment and Plan Assessment: Atypical chest pain. Ruled out ACS. Stress test was ordered. . History of gastric sleeve surgery in March 2019 Chronic low back pain Hypertension Diet controlled diabetes type 2 DEE Asthma Previous history of smoking Anxiety, bipolar, depression, PTSD DVT prophylaxis Plan: Patient will be continued on telemetry monitoring and serial troponins and EKG. Cardiology is following. Stress test was ordered. Continue with PPI as per home dose. Continue the home medications and pain management with her home regimen, [place] 10 every 6 hourly as needed for pain. Patient was given a dose of IV Toradol. Further recommendations based on the clinical course. Time with Patient: Greater than 30
[2020-04-06 01:03] VITALS: RESP 16
[2020-04-06] MEDS: PANTOPRAZOLE 40 MG TABLET PO SCH (06:28)
[2020-04-06 07:12] LABS: Basophils % (A) 1 %; Eosinophils # (A) 0.1 k/uL (0-0.7); Eosinophils % (A) 3 %; HCT 35.2 % (34.0-46.0); HGB 11.2 gm/dL (11.4-16.0); Hypochromasia Slight; Lymphocytes # (A) 1.2 k/uL (1.0-4.8); Lymphocytes % (A) 35 %; MCH 30.4 pg (25.0-35.0); MCHC 31.8 g/dL (31.0-37.0); MCV 95.6 fL (80.0-100.0); Mean Platelet Volume 7.5; Monocytes # (A) 0.2 k/uL (0-1.0); Monocytes % (A) 7 %; Neutrophils # (A) 1.9 k/uL (1.3-7.7); Neutrophils % (A) 52 %; Platelet Count 238 k/uL (150-450); RBC 3.68 m/uL (3.80-5.40); RDW 13.2 % (11.5-15.5); WBC 3.6 k/uL (3.8-10.6)
[2020-04-06 07:24] LABS: African American GFR (CKD) >90 (>60 ml/min/1.73 sqM); Anion Gap 5 mmol/L; Blood Urea Nitrogen 10 mg/dL (7-17); Calcium 8.6 mg/dL (8.4-10.2); Carbon Dioxide 28 mmol/L (22-30); Chloride 105 mmol/L (98-107); Glucose 77 mg/dL (74-99); Magnesium 2.1 mg/dL (1.6-2.3); Non-African American GFR(CKD) >90 (>60 ml/min/1.73 sqM); Potassium 4.2 mmol/L (3.5-5.1); Sodium 138 mmol/L (137-145)
[2020-04-06] MEDS: MULTIVITAMINS, THERA 1 EACH TAB PO SCH (08:58)
[2020-04-06] MEDS: buPROPion XL 150 MG TAB.ER.24H PO SCH (08:58)
[2020-04-06] MEDS: ASPIRIN 81 MG PO SCH (08:58)
[2020-04-06 09:54] VITALS: BP 122/78; PULSE 80; TEMP 97.8
--- NOTE | 2020-04-06 10:43 | P.PN ---
Subjective Progress Note Date: 04/06/20 This is a 44-year-old female with history of morbid obesity, status post surgery, hypertension, hyperlipidemia, diabetes, who initially presented to the hospital with symptoms of right upper quadrant pain and chest discomfort. Patient had a gastric sleep surgery one year ago. Pain was very atypical in nature. He underwent a dobutamine echocardiographic study yesterday that was negative for any reversible ischemia. Denies any chest pain this morning, complaining of some mild abdominal discomfort. Echocardiogram with Doppler study revealed a normal left ventricular systolic function. Blood pressure 122/70 with a heart rate in the 70s, 98% on room air. White blood cell count 3.6, hemoglobin 11.2, platelet count 238. Sodium 138, potassium 4.2, BUN 10, creatinine 0.5. Objective - Vital Signs Vital signs: Vital Signs Temp 97.8 F 04/06/20 08:00 Pulse 80 04/06/20 08:00 Resp 16 04/06/20 08:00 BP 122/78 04/06/20 08:00 Pulse Ox 98 04/06/20 08:00 Intake & Output 04/05/20 04/06/20 04/06/20 18:59 06:59 18:59 Intake Total 492 240 Balance 492 240 Weight 99.8 kg Intake: Oral 492 240 Other: # Voids 1 1 - Exam PHYSICAL EXAMINATION: GENERAL: 44-year-old female in no acute distress at the time of my examination HEENT: Head is atraumatic, normocephalic. Pupils equal, round. Sclera anicteric. Conjunctiva are clear. Mucous membranes of the mouth are moist. Neck is supple. There is no elevated jugular venous pressure. No carotid bruit is heard. HEART EXAMINATION: Heart S1, S2 normal. No murmur or gallop heard. CHEST EXAMINATION: Lungs are clear to auscultation and precussion. No chest wall tenderness is noted on palpation or with deep breathing. ABDOMEN: Soft, obese, nontender. Bowel sounds are heard. No organomegaly noted. EXTREMITIES: 2+ peripheral pulses with no evidence of peripheral edema and no calf tenderness noted. NEUROLOGIC patient is awake, alert and oriented 3 . . - Labs CBC & Chem 7: 04/06/20 06:39 04/06/20 06:39 Labs: Abnormal Lab Results - Last 24 Hours (Table) 04/06/20 Range/Units 06:39 WBC 3.6 L (3.8-10.6) k/uL RBC 3.68 L (3.80-5.40) m/uL Hgb 11.2 L (11.4-16.0) gm/dL Assessment and Plan Plan: Assessment and plan #1 atypical chest pain, dobutamine echocardiographic study negative for any reversible ischemia. Echocardiogram with Doppler study revealed a normal left ventricular systolic function. #2 abdominal pain #3 morbid obesity status post gastric surgery Plan From cardiology's perspective, patient may be able to be discharged home today. We'll make a follow-up appointment in the office post discharge. DNP note has been reviewed, I agree with a documented findings and plan of care. Patient was seen and examined.
--- NOTE | 2020-04-06 14:23 | ECHOS ---
STRESS ECHOCARDIOGRAM VIAL: INDICATIONS: Chest pain. MEDICATIONS: BASELINE HEART RATE: 77 BASELINE BLOOD PRESSURE: 105/86 MAXIMUM HEART RATE: 146 MAXIMUM BLOOD PRESSURE: 208/51 85% MPHR: 168 100% MPHR: 174 METS: MAXIMUM STAGE REACHED: 40 mcg/Kg/min TOTAL EXERCISE TIME: 12:33 CLINICAL INFORMATION: Baseline EKG revealed normal sinus rhythm without significant ST-T changes. With dobutamine administration as per protocol, the heart rate went up to 146 beats per minute which is about 85% of predicted maximal. Patient did not have any significant symptoms. EKG did not reveal any significant ST segment changes to indicate ischemia. By EKG criteria this is a negative dobutamine stress test. Baseline echo images revealed a normal wall motion and wall thickening of all segments. With dobutamine administration as per protocol, there was a progressive increase in contractility noted suggesting that there is no evidence of stress-induced ischemia. The patient achieved almost 85% of predicted maximal heart rate with dobutamine administration. There was no evidence of ischemia. FINAL IMPRESSION: 1. By EKG criteria this is unremarkable dobutamine stress test. 2. No evidence of ischemia on the dobutamine stress echocardiogram. Patient achieved almost 85% of predicted maximal heart rate. MMODL / IJN: [id number] /
== END 2020-04-06 15:04 | disposition home or self-care (01) ==
LOC: EC 13:28 → SUPCPDRO 13:28 → 3SCARD 16:00
PROVIDERS: ADMIT Internal Medicine; ATTEND Internal Medicine
DX: R07.89 Other chest pain (principal); R19.7 Diarrhea, unspecified; R11.0 Nausea; R10.11 Right upper quadrant pain; R07.2 Precordial pain; Z98.84 Bariatric surgery status; J45.909 Unspecified asthma, uncomplicated; E11.9 Type 2 diabetes mellitus without complications; E78.5 Hyperlipidemia, unspecified; I10 Essential (primary) hypertension; M54.32 Sciatica, left side; M54.2 Cervicalgia; M72.2 Plantar fascial fibromatosis; F41.9 Anxiety disorder, unspecified; F31.9 Bipolar disorder, unspecified; F43.10 Post-traumatic stress disorder, unspecified; G89.29 Other chronic pain; M54.5 Low back pain; M54.6 Pain in thoracic spine; K59.00 Constipation, unspecified; E66.01 Morbid (severe) obesity due to excess calories; Z68.36 Body mass index [BMI] 36.0-36.9, adult; K75.81 Nonalcoholic steatohepatitis (NASH); M19.90 Unspecified osteoarthritis, unspecified site; Z79.891 Long term (current) use of opiate analgesic; Z79.899 Other long term (current) drug therapy; Z88.8 Allergy status to other drugs, medicaments and biological substances; Z88.5 Allergy status to narcotic agent; Z90.49 Acquired absence of other specified parts of digestive tract; Z87.891 Personal history of nicotine dependence; Z90.710 Acquired absence of both cervix and uterus
CPT/HCPCS: 96366 ×3; 96375 ×2; 96368; 93005 ×2; 96376; 96361; 96365; 99285; 36415; 93306; 93351; 83880; 80061; 80053; 80048; 83690; 83735 ×2; 84484 ×2; 85025 ×2; 85610; 85730 ×2; 71046; G0378 ×3; J1250; J1644 ×2; J2405; J1885; J3475

== ENCOUNTER 2020-04-15 10:10 | Emergency (ER) | payer OTHER ==
[2020-04-15 10:16] VITALS: TEMP 98
--- NOTE | 2020-04-15 10:38 | ED ---
Chest Pain HPI - General Chief Complaint: Chest Pain Stated Complaint: Chest Pain Time Seen by Provider: 04/15/20 10:19 Source: patient Mode of arrival: ambulatory Limitations: no limitations - History of Present Illness Initial Comments: Patient is a 44-year-old female with history of hypertension, hyperlipidemia and hypertension presenting to the emergency department with a chief complaint of chest pain. Patient reports she developed midsternal chest pain/pressure without radiation yesterday while she was at work. States around the same time she had developed shortness of breath with exertion. She also reports waking up this morning and noticed a tingling sensation in bilateral hands and feet. States there is no numbing sensation and no alleviating aggravated factors. Patient believes this is due to her wearing a mask while she is at work. Denies any headaches, one-sided weakness. Denies nausea vomiting, lightheadedness, dizziness. Denies any diaphoretic episodes. - Related Data Home Medications Medication Instructions Recorded Confirmed DULoxetine HCL [Cymbalta] 60 mg PO HS 11/18/16 04/04/20 HYDROcodone/APAP 10-325MG [[place] 1 tab PO QID PRN 07/22/19 04/04/20 10-325] Cholecalciferol (Vitamin D3) 125 mcg PO DAILY 04/04/20 04/04/20 [Vitamin D3] Multivitamin [Multivitamins Adult 2 tab PO DAILY 04/04/20 04/04/20 Gummies] buPROPion XL [Wellbutrin XL] 150 mg PO BID 04/04/20 04/04/20 Previous Rx's Medication Instructions Recorded Omeprazole 40 mg PO DAILY #90 capsule. 12/20/19 Thiamine HCl [Vitamin B-1] 100 mg PO DAILY #30 tablet 04/06/20 Allergies Allergy/AdvReac Type Severity Reaction Status Date / Time aripiprazole [From Abilify] AdvReac Anxiety, Verified 04/15/20 10:16 Restless hydromorphone [From Dilaudid] AdvReac Nausea & Verified 04/15/20 10:16 Vomiting Review of Systems ROS Statement: Those systems with pertinent positive or pertinent negative responses have been documented in the HPI. ROS Other: All systems not noted in ROS Statement are negative. EKG Findings - EKG Comments: EKG Findings:: Sinus rhythm Q-wave in lead 3. Similar EKG on 04/04/20. Ventricular rate 88, IN 154, QRS 74, QTC 454. Past Medical History Past Medical History: Asthma, Diabetes Mellitus, Hyperlipidemia, Hypertension, Musculoskeletal Disorder Additional Past Medical History / Comment(s): LT SCIATICA. Neck pain, FATTY LIVER , bilateral plantar fascitis (left worse than right) History of Any Multi-Drug Resistant Organisms: None Reported Past Surgical History: Bariatric Surgery, Cholecystectomy, Hysterectomy, Tubal Ligation, Uterine Ablation Additional Past Surgical History / Comment(s): D&C, PAIN CLINIC PROCEDURES, EGD sleeve gastrectomy 04-05-19 (Dr. Santos), Past Anesthesia/Blood Transfusion Reactions: Previous Problems w/ Anesthesia Additional Past Anesthesia/Blood Transfusion Reaction / Comment(s): OCC "HAVE A HARD TIME COMING OUT OF IT (ANESTHESIA)." Past Psychological History: Anxiety, Bipolar, Depression, PTSD Smoking Status: Former smoker Past Alcohol Use History: None Reported Past Drug Use History: None Reported - Past Family History Mother Family Medical History: No Reported History General Exam Limitations: no limitations General appearance: alert, in no apparent distress, obese Head exam: Present: atraumatic, normocephalic, normal inspection Eye exam: Present: normal appearance, PERRL, EOMI. Absent: scleral icterus, conjunctival injection, nystagmus Pupils: Present: normal accommodation ENT exam: Present: normal exam, normal oropharynx, mucous membranes moist Neck exam: Present: normal inspection, full ROM Respiratory exam: Present: normal lung sounds bilaterally Cardiovascular Exam: Present: regular rate, normal rhythm, normal heart sounds GI/Abdominal exam: Present: soft. Absent: distended, tenderness Extremities exam: Present: normal inspection, full ROM, normal capillary refill, other (+2 ulnar and radial pulses. +2 dorsalis pedis and posterior tibialis bilaterally.). 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 On exam, no signs of respiratory distress or significant discomfort. Neurological examination is unremarkable. Patient was discharged from the hospital 10 days ago for similar symptoms. Her cardiac echocardiogram was negative for any cardiac wall abnormalities. She also had a stress test with dobutamine which showed no signs of ischemia. Her EKG today is very similar to her last one on 04/05/20. Shows sinus rhythm with Q waves in lead 3. CBC and CMP are unremarkable. Chest x-ray is negative for acute processes. Initial troponins are within normal limits. Considering the patient had a full cardiac workup in less than 2 weeks and she has an appointment scheduled in 3 days, the patient will be discharged and advised to follow-up with cardiology. Case was discussed with Dr. Larsen who is agreeable with the plan. Return parameters were thoroughly discussed with patient is understanding and agreeable. Case discussed with physician. 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 Return to emergency department if symptoms worsen. Is patient prescribed a controlled substance at d/c from ED?: No Referrals: Lola Way MD [Primary Care Provider] - 1-2 days Time of Disposition: 11:38
[2020-04-15 10:46] LABS: Basophils % (A) 1 %; Eosinophils # (A) 0.2 k/uL (0-0.7); Eosinophils % (A) 4 %; HCT 38.3 % (34.0-46.0); HGB 12.6 gm/dL (11.4-16.0); Lymphocytes # (A) 1.5 k/uL (1.0-4.8); Lymphocytes % (A) 31 %; MCH 30.8 pg (25.0-35.0); MCHC 32.9 g/dL (31.0-37.0); MCV 93.6 fL (80.0-100.0); Mean Platelet Volume 7.5; Monocytes # (A) 0.3 k/uL (0-1.0); Monocytes % (A) 6 %; Neutrophils # (A) 2.7 k/uL (1.3-7.7); Neutrophils % (A) 56 %; Platelet Count 286 k/uL (150-450); RBC 4.09 m/uL (3.80-5.40); RDW 12.7 % (11.5-15.5); WBC 4.8 k/uL (3.8-10.6)
[2020-04-15 10:56] LABS: INR 0.9 (<1.2); Partial Thromboplastin Time 23.8 sec (22.0-30.0); Prothrombin Time 9.8 sec (9.0-12.0)
--- NOTE | 2020-04-15 10:57 | XR ---
EXAMINATION TYPE: XR chest 2V DATE OF EXAM: 04/15/2020 COMPARISON: Chest x-ray [address] chest November 19, 2015. HISTORY: Chest pain for one day. TECHNIQUE: Frontal and lateral views of the chest are obtained. FINDINGS: There is no focal air space opacity, pleural effusion, or pneumothorax seen. The cardiac silhouette size is within normal limits. The osseous structures are intact. Overlying EKG leads are redemonstrated. Cholecystectomy clips are suspected. IMPRESSION: No acute process. No significant change from recent x-ray.
[2020-04-15 11:04] LABS: ALT 12 U/L (4-34); AST 30 U/L (14-36); African American GFR (CKD) >90 (>60 ml/min/1.73 sqM); Albumin 3.9 g/dL (3.5-5.0); Alkaline Phosphatase 72 U/L (38-126); Anion Gap 9 mmol/L; Blood Urea Nitrogen 10 mg/dL (7-17); Calcium 8.8 mg/dL (8.4-10.2); Carbon Dioxide 25 mmol/L (22-30); Chloride 105 mmol/L (98-107); Glucose 83 mg/dL (74-99); Non-African American GFR(CKD) >90 (>60 ml/min/1.73 sqM); Potassium 4.3 mmol/L (3.5-5.1); Sodium 139 mmol/L (137-145); Total Bilirubin 0.4 mg/dL (0.2-1.3); Total Protein 6.9 g/dL (6.3-8.2)
[2020-04-15 11:53] VITALS: BP 127/77; PULSE 72; RESP 16
== END 2020-04-15 11:59 | disposition home or self-care (01) ==
LOC: EC 10:10
DX: R07.9 Chest pain, unspecified (principal); R20.2 Paresthesia of skin; E11.9 Type 2 diabetes mellitus without complications; I10 Essential (primary) hypertension; F31.9 Bipolar disorder, unspecified; F41.9 Anxiety disorder, unspecified; Z79.899 Other long term (current) drug therapy; Z87.891 Personal history of nicotine dependence; Z88.5 Allergy status to narcotic agent; Z88.8 Allergy status to other drugs, medicaments and biological substances; Z98.84 Bariatric surgery status
CPT/HCPCS: 36415; 71046; 80053; 83735; 84484; 85025; 85610; 85730; 93005; 99285

== ENCOUNTER 2020-05-27 17:47 | Emergency (ER) | payer OTHER ==
[2020-05-27 17:53] VITALS: RESP 18; TEMP 99.1
[2020-05-27] MEDS ORDERED: SODIUM CHLORIDE 0.9% 1,000 ML IV STA (18:02)
--- NOTE | 2020-05-27 18:05 | ED ---
Chest Pain HPI - General Chief Complaint: Chest Pain Stated Complaint: chest pain Time Seen by Provider: 05/27/20 17:57 Source: patient, RN notes reviewed, old records reviewed Mode of arrival: wheelchair Limitations: no limitations - History of Present Illness Initial Comments: This is a 44-year-old female states she presents today for evaluation regards to chest pain had test showing positive elevated d-dimer patient concerned of persistent chest pain patient states she was not given the information of why she was in the hospital at the last hospitalization. Currently is still having chest pain no shortness of breath occasionally does get diaphoretic at home MD Complaint: chest pain, other (Abnormal lab test) Onset: during rest, during exertion Pain Location: substernal Severity: mild Quality: aching Consistency: intermittent Improves With: nothing Worsens With: nothing Treatments Prior to Arrival: none - Related Data Home Medications Medication Instructions Recorded Confirmed DULoxetine HCL [Cymbalta] 60 mg PO HS 11/18/16 04/04/20 HYDROcodone/APAP 10-325MG [[place] 1 tab PO QID PRN 07/22/19 04/04/20 10-325] Cholecalciferol (Vitamin D3) 125 mcg PO DAILY 04/04/20 04/04/20 [Vitamin D3] Multivitamin [Multivitamins Adult 2 tab PO DAILY 04/04/20 04/04/20 Gummies] buPROPion XL [Wellbutrin XL] 150 mg PO BID 04/04/20 04/04/20 Previous Rx's Medication Instructions Recorded Omeprazole 40 mg PO DAILY #90 capsule. 12/20/19 Thiamine HCl [Vitamin B-1] 100 mg PO DAILY #30 tablet 04/06/20 Allergies Allergy/AdvReac Type Severity Reaction Status Date / Time aripiprazole [From Abilify] AdvReac Anxiety, Verified 04/15/20 10:16 Restless hydromorphone [From Dilaudid] AdvReac Nausea & Verified 04/15/20 10:16 Vomiting Review of Systems ROS Statement: Those systems with pertinent positive or pertinent negative responses have been documented in the HPI. ROS Other: All systems not noted in ROS Statement are negative. EKG Findings - EKG Comments: EKG Findings:: EKG sinus rhythm 85, [place] 150 QRS 80 QTc 426 Past Medical History Past Medical History: Asthma, Diabetes Mellitus, Hyperlipidemia, Hypertension, Musculoskeletal Disorder Additional Past Medical History / Comment(s): LT SCIATICA. Neck pain, FATTY LIVER , bilateral plantar fascitis (left worse than right) History of Any Multi-Drug Resistant Organisms: None Reported Past Surgical History: Bariatric Surgery, Cholecystectomy, Hysterectomy, Tubal Ligation, Uterine Ablation Additional Past Surgical History / Comment(s): D&C, PAIN CLINIC PROCEDURES, EGD sleeve gastrectomy 04-05-19 (Dr. Santos), Past Anesthesia/Blood Transfusion Reactions: Previous Problems w/ Anesthesia Additional Past Anesthesia/Blood Transfusion Reaction / Comment(s): OCC "HAVE A HARD TIME COMING OUT OF IT (ANESTHESIA)." Past Psychological History: Anxiety, Bipolar, Depression, PTSD Smoking Status: Former smoker Past Alcohol Use History: None Reported Past Drug Use History: None Reported - Past Family History Mother Family Medical History: No Reported History General Exam Limitations: no limitations General appearance: alert, in no apparent distress Head exam: Present: atraumatic, normocephalic, normal inspection Eye exam: Present: normal appearance, PERRL, EOMI. Absent: scleral icterus, conjunctival injection, periorbital swelling ENT exam: Present: normal exam, mucous membranes moist Neck exam: Present: normal inspection. Absent: tenderness, meningismus, lymphadenopathy Respiratory exam: Present: normal lung sounds bilaterally. Absent: respiratory distress, wheezes, rales, rhonchi, stridor Cardiovascular Exam: Present: regular rate, normal rhythm, normal heart sounds. Absent: systolic murmur, diastolic murmur, rubs, gallop, clicks GI/Abdominal exam: Present: soft, normal bowel sounds. Absent: distended, tenderness, guarding, rebound, rigid Extremities exam: Present: normal inspection, full ROM, normal capillary refill. Absent: tenderness, pedal edema, joint swelling, calf tenderness Back exam: Present: normal inspection Neurological exam: Present: alert, oriented X3, CN II-XII intact Psychiatric exam: Present: normal affect, normal mood Skin exam: Present: warm, dry, intact, normal color. Absent: rash Course Vital Signs 05/27/20 05/27/20 05/27/20 17:48 18:35 18:45 Temperature 99.1 F Pulse Rate 96 82 Respiratory 18 18 18 Rate Blood Pressure 113/67 O2 Sat by Pulse 97 98 Oximetry 05/27/20 05/27/20 05/27/20 18:50 19:00 19:07 Temperature Pulse Rate 90 Respiratory 18 18 Rate Blood Pressure 91/43 91/43 104/59 O2 Sat by Pulse 98 98 Oximetry 05/27/20 05/27/20 19:59 20:02 Temperature Pulse Rate 78 Respiratory 18 Rate Blood Pressure 107/63 110/75 O2 Sat by Pulse 98 Oximetry - Reevaluation(s) Reevaluation #1: 05/27/20 18:39 Medical records reviewed Reevaluation #2: 05/27/20 18:39 Medical records requested from [facility] Reevaluation #3: 05/27/20 20:11 patient without current chest pain informed of results okay for discharge home Chest Pain MDM - MDM 44 female DF reversible chest pain not specific. Recent CT scans were negative EKG and troponin are negative. Patient was increasing stress will follow up with outpatient for further evaluation management Disposition Clinical Impression: Chest pain Disposition: HOME SELF-CARE Condition: Good Instructions (If sedation given, give patient instructions): Chest Pain (ED) Is patient prescribed a controlled substance at d/c from ED?: No Referrals: Lola Way MD [Primary Care Provider] - 1-2 days
[2020-05-27 19:12] LABS: Basophils % (A) 1 %; Eosinophils # (A) 0.2 k/uL (0-0.7); Eosinophils % (A) 3 %; HCT 40.2 % (34.0-46.0); HGB 12.4 gm/dL (11.4-16.0); Lymphocytes # (A) 1.6 k/uL (1.0-4.8); Lymphocytes % (A) 34 %; MCH 28.8 pg (25.0-35.0); MCHC 30.9 g/dL (31.0-37.0); MCV 93.3 fL (80.0-100.0); Mean Platelet Volume 7.6; Monocytes # (A) 0.3 k/uL (0-1.0); Monocytes % (A) 5 %; Neutrophils # (A) 2.6 k/uL (1.3-7.7); Neutrophils % (A) 54 %; Platelet Count 302 k/uL (150-450); RBC 4.31 m/uL (3.80-5.40); RDW 12.8 % (11.5-15.5); WBC 4.8 k/uL (3.8-10.6)
[2020-05-27 19:30] LABS: ALT 9 U/L (4-34); AST 24 U/L (14-36); African American GFR (CKD) >90 (>60 ml/min/1.73 sqM); Albumin 3.9 g/dL (3.5-5.0); Alkaline Phosphatase 72 U/L (38-126); Anion Gap 9 mmol/L; Blood Urea Nitrogen 8 mg/dL (7-17); Carbon Dioxide 22 mmol/L (22-30); Chloride 108 mmol/L (98-107); Glucose 115 mg/dL (74-99); Magnesium 1.8 mg/dL (1.6-2.3); Non-African American GFR(CKD) >90 (>60 ml/min/1.73 sqM); Potassium 4.5 mmol/L (3.5-5.1); Sodium 139 mmol/L (137-145); Total Bilirubin 0.3 mg/dL (0.2-1.3); Total Protein 6.8 g/dL (6.3-8.2)
[2020-05-27 19:36] LABS: D-Dimer 0.29 mg/L FEU (<0.60); INR 0.9 (<1.2); Partial Thromboplastin Time 23.2 sec (22.0-30.0); Prothrombin Time 9.7 sec (9.0-12.0)
[2020-05-27 20:00] VITALS: PULSE 78
[2020-05-27 20:02] VITALS: BP 110/75
== END 2020-05-27 20:49 | disposition home or self-care (01) ==
LOC: EC 17:47
DX: R07.9 Chest pain, unspecified (principal); F41.9 Anxiety disorder, unspecified; F31.9 Bipolar disorder, unspecified; I10 Essential (primary) hypertension; E11.9 Type 2 diabetes mellitus without complications; J45.909 Unspecified asthma, uncomplicated; Z79.899 Other long term (current) drug therapy; Z88.5 Allergy status to narcotic agent; Z88.8 Allergy status to other drugs, medicaments and biological substances; Z87.891 Personal history of nicotine dependence; Z98.84 Bariatric surgery status
CPT/HCPCS: 36415; 80053; 83735; 83880; 84484; 85025; 85379; 85610; 85730; 93005; 96360; 99285

== ENCOUNTER 2020-09-08 12:45 | Emergency (ER) | payer OTHER ==
[2020-09-08] MEDS ORDERED: NITROGLYCERIN SL TABS 0.4 MG TAB SUBLINGUAL STA (13:59)
[2020-09-08] MEDS ORDERED: ASPIRIN 81 MG PO STA (13:59)
--- NOTE | 2020-09-08 14:33 | ED ---
Chest Pain HPI - General Chief Complaint: Chest Pain Stated Complaint: Chest Pain Source: patient Mode of arrival: wheelchair Limitations: no limitations - History of Present Illness Initial Comments: Patient is a 44-year-old female with past medical history of diabetes, hypertension who presents to the emergency department with reported right sided shoulder pain which radiates around to her anterior chest. States it is reproducible on movement. Admits pleuritic chest pain. Denies previous history of cardiac disease. Admits to some shortness of breath. No nausea, vomiting or diaphoresis. No ripping or tearing sensation. No history of DVT or PE. No calf pain or swelling. Patient states her pain started while she was at work approximately 2 hours ago. Did not take anything for her symptoms. No other alleviating, precipitating or modifying factors - Related Data Home Medications Medication Instructions Recorded Confirmed DULoxetine HCL [Cymbalta] 60 mg PO HS 11/18/16 04/04/20 HYDROcodone/APAP 10-325MG [[place] 1 tab PO QID PRN 07/22/19 04/04/20 10-325] Cholecalciferol (Vitamin D3) 125 mcg PO DAILY 04/04/20 04/04/20 [Vitamin D3] Multivitamin [Multivitamins Adult 2 tab PO DAILY 04/04/20 04/04/20 Gummies] buPROPion XL [Wellbutrin XL] 150 mg PO BID 04/04/20 04/04/20 Previous Rx's Medication Instructions Recorded Omeprazole 40 mg PO DAILY #90 capsule. 12/20/19 Thiamine HCl [Vitamin B-1] 100 mg PO DAILY #30 tablet 04/06/20 Ketorolac [Toradol] 10 mg PO Q8HR PRN #15 tab 09/08/20 Allergies Allergy/AdvReac Type Severity Reaction Status Date / Time aripiprazole [From Abilify] AdvReac Anxiety, Verified 09/08/20 12:50 Restless hydromorphone [From Dilaudid] AdvReac Nausea & Verified 09/08/20 12:50 Vomiting Review of Systems ROS Statement: Those systems with pertinent positive or pertinent negative responses have been documented in the HPI. ROS Other: All systems not noted in ROS Statement are negative. EKG Findings - EKG Comments: EKG Findings:: EKG demonstrates normal sinus rhythm with ventricular rate of 85. DC interval 138. QRS 88. QTC of 452. Inverted T-wave in lead 3. No acute ST segment elevations or depressions Past Medical History Past Medical History: Asthma, Diabetes Mellitus, Hyperlipidemia, Hypertension, Musculoskeletal Disorder Additional Past Medical History / Comment(s): LT SCIATICA. Neck pain, FATTY LIVER , bilateral plantar fascitis (left worse than right) History of Any Multi-Drug Resistant Organisms: None Reported Past Surgical History: Bariatric Surgery, Cholecystectomy, Hysterectomy, Tubal Ligation, Uterine Ablation Additional Past Surgical History / Comment(s): D&C, PAIN CLINIC PROCEDURES, EGD sleeve gastrectomy 04-05-19 (Dr. Santos), Past Anesthesia/Blood Transfusion Reactions: Previous Problems w/ Anesthesia Additional Past Anesthesia/Blood Transfusion Reaction / Comment(s): OCC "HAVE A HARD TIME COMING OUT OF IT (ANESTHESIA)." Past Psychological History: Anxiety, Bipolar, Depression, PTSD Smoking Status: Never smoker Past Alcohol Use History: None Reported Past Drug Use History: None Reported - Past Family History Mother Family Medical History: No Reported History General Exam Limitations: no limitations Course Vital Signs 09/08/20 09/08/20 09/08/20 12:48 14:42 15:31 Temperature 99.3 F Pulse Rate 87 82 75 Respiratory 20 18 18 Rate Blood Pressure 125/79 107/58 104/61 O2 Sat by Pulse 99 98 Oximetry 09/08/20 16:18 Temperature 98.8 F Pulse Rate 80 Respiratory 18 Rate Blood Pressure 116/61 O2 Sat by Pulse 100 Oximetry Chest Pain MDM - MDM Upon arrival patient is placed in room 19. A through history and physical exam was performed. Peripheral IV established. Patient was given aspirin and nitro. Laboratory studies were conducted and chest x-rays performed. Laboratory stud ies demonstrate a negative d-dimer. Troponin is negative chest x-ray demonstrates no acute process. Patient is reevaluated and denies that the pain medication helps. I did give her 15 mg of Toradol. Patient is then reevaluated and states that this did help her pain. I discussed diagnosis, differential and treatment options. Pain continues to be positional and reproducible with chest wall palpation. Patient was admitted earlier this year for stress test and echo which were normal. At this time the patient will be discharged home. He is to follow-up with her primary care physician in regards to her pain. She will be given a work note to be off of work. I will give her a short course of Toradol. Patient was in agreement with the treatment plan. Return if she has any worsening symptoms per patient was discharged in stable condition via Disposition Clinical Impression: Musculoskeletal chest pain Disposition: HOME SELF-CARE Condition: Stable Instructions (If sedation given, give patient instructions): Chest Wall Pain (ED) Additional Instructions: Please call and make an appointment with your doctor on Friday. Take the medications as directed. Stay off of work. Place warm compresses to the site. Return to the emergency room for any new or worsening symptoms Prescriptions: Ketorolac [Toradol] 10 mg PO Q8HR PRN #15 tab PRN Reason: Pain Is patient prescribed a controlled substance at d/c from ED?: No Referrals: Lola Way MD [Primary Care Provider] - 1-2 days Time of Disposition: 16:04
[2020-09-08 14:43] VITALS: RESP 18
[2020-09-08 14:50] LABS: Basophils # (A) 0.1 k/uL (0-0.2); Basophils % (A) 1 %; Eosinophils # (A) 0.1 k/uL (0-0.7); Eosinophils % (A) 2 %; HCT 40.2 % (34.0-46.0); Lymphocytes % (A) 31 %; MCHC 32.2 g/dL (31.0-37.0); MCV 93.1 fL (80.0-100.0); Mean Platelet Volume 8.2; Monocytes # (A) 0.4 k/uL (0-1.0); Monocytes % (A) 6 %; Neutrophils # (A) 3.9 k/uL (1.3-7.7); Neutrophils % (A) 59 %; Platelet Count 257 k/uL (150-450); RBC 4.32 m/uL (3.80-5.40); RDW 13.4 % (11.5-15.5); WBC 6.5 k/uL (3.8-10.6)
[2020-09-08 15:03] LABS: INR 0.9 (<1.2)
[2020-09-08 15:04] LABS: D-Dimer 0.29 mg/L FEU (<0.60); Partial Thromboplastin Time 24.1 sec (22.0-30.0); Prothrombin Time 9.6 sec (9.0-12.0)
[2020-09-08 15:07] LABS: ALT 7 U/L (4-34); AST 30 U/L (14-36); African American GFR (CKD) >90 (>60 ml/min/1.73 sqM); Albumin 4.1 g/dL (3.5-5.0); Alkaline Phosphatase 89 U/L (38-126); Anion Gap 6 mmol/L; Blood Urea Nitrogen 13 mg/dL (7-17); Calcium 9.2 mg/dL (8.4-10.2); Carbon Dioxide 28 mmol/L (22-30); Chloride 103 mmol/L (98-107); Glucose 94 mg/dL (74-99); Magnesium 1.9 mg/dL (1.6-2.3); Non-African American GFR(CKD) >90 (>60 ml/min/1.73 sqM); Potassium 4.1 mmol/L (3.5-5.1); Sodium 137 mmol/L (137-145); Total Bilirubin 0.5 mg/dL (0.2-1.3); Total Protein 7.1 g/dL (6.3-8.2)
--- NOTE | 2020-09-08 15:42 | XR ---
EXAMINATION TYPE: XR chest 2V DATE OF EXAM: 09/08/2020 COMPARISON: R chest x-ray 04/15/2020 HISTORY: Chest pain TECHNIQUE: Frontal and lateral views of the chest are obtained. FINDINGS: There is no focal air space opacity, pleural effusion, or pneumothorax seen. The cardiac silhouette size is within normal limits. The osseous structures are intact. IMPRESSION: No acute cardiopulmonary process.
[2020-09-08] MEDS ORDERED: KETOROLAC 15 MG/ML 1 ML VIAL IVP STA (15:45)
[2020-09-08 16:18] VITALS: BP 116/61; PULSE 80; TEMP 98.8
== END 2020-09-08 16:18 | disposition home or self-care (01) ==
LOC: EC 12:45
DX: R07.89 Other chest pain (principal); F41.9 Anxiety disorder, unspecified; F31.9 Bipolar disorder, unspecified; Z79.899 Other long term (current) drug therapy; Z88.8 Allergy status to other drugs, medicaments and biological substances
CPT/HCPCS: 36415; 93005; 85379; 80053; 83735; 84484; 85025; 85610; 85730; 71046; 99285; 96374; J1885

== ENCOUNTER 2020-12-15 12:15 | Emergency (ER) | payer OTHER ==
[2020-12-15] MEDS ORDERED: SODIUM CHLORIDE 0.9% 1,000 ML IV STA (12:54)
[2020-12-15] MEDS ORDERED: ONDANSETRON 4 MG/2 ML VIAL IVP STA (12:54)
[2020-12-15] MEDS ORDERED: IBUPROFEN 600 MG TAB PO STA (12:54)
[2020-12-15] MEDS ORDERED: diphenhydrAMINE 50 MG/ML 1 ML VIAL IVP STA (13:01)
--- NOTE | 2020-12-15 13:56 | ED ---
Headache HPI - General Chief Complaint: Headache Stated Complaint: +Covid, SOB, headache Time Seen by Provider: 12/15/20 12:28 Source: RN notes reviewed Mode of arrival: wheelchair Limitations: physical limitation - History of Present Illness Initial Comments: Patient is a 45-year-old female that presented to emergency department complaining of headache and tightness between her shoulder blades. She noted that she tested positive for Covid last Friday, reported symptoms of loss of taste and sense of smell. Today she noted that she has had a headache since last night that's been unrelenting constant, generalized over her whole head. She stated the pain was a 10 out of 10 with some nausea and that nothing makes it better or worse. She noted that she given [place] this morning as needed for pain. She noted that she has tightness between her shoulder blades and down her back. She did not appear to be in any distress, discomfort and/or pain. She was sitting up in bed and was pleasant. She denied any change in vision vomiting diarrhea constipation chest pain shortness of breath lightheadedness dizziness weakness fatigue chills fever night sweats. - Related Data Home Medications Medication Instructions Recorded Confirmed DULoxetine HCL [Cymbalta] 60 mg PO HS 11/18/16 04/04/20 HYDROcodone/APAP 10-325MG [[place] 1 tab PO QID PRN 07/22/19 04/04/20 10-325] Cholecalciferol (Vitamin D3) 125 mcg PO DAILY 04/04/20 04/04/20 [Vitamin D3 (5000 Iu)] Multivitamin [Multivitamins Adult 2 tab PO DAILY 04/04/20 04/04/20 Gummies] buPROPion XL [Wellbutrin XL] 150 mg PO BID 04/04/20 04/04/20 Loratadine [Claritin] 10 mg PO DAILY 12/15/20 12/15/20 Previous Rx's Medication Instructions Recorded Omeprazole 40 mg PO DAILY #90 capsule. 12/20/19 Ibuprofen [Motrin] 800 mg PO Q6HR #30 tab 12/15/20 Ondansetron Odt [Zofran Odt] 4 mg PO Q8HR PRN #10 tab 12/15/20 Allergies Allergy/AdvReac Type Severity Reaction Status Date / Time aripiprazole [From Abilify] AdvReac Anxiety, Verified 12/15/20 13:30 Restless hydromorphone [From Dilaudid] AdvReac Nausea & Verified 12/15/20 13:30 Vomiting Review of Systems ROS Statement: Those systems with pertinent positive or pertinent negative responses have been documented in the HPI. ROS Other: All systems not noted in ROS Statement are negative. Past Medical History Past Medical History: Asthma, Diabetes Mellitus, Hyperlipidemia, Hypertension, Musculoskeletal Disorder Additional Past Medical History / Comment(s): LT SCIATICA. Neck pain, FATTY LIVER , bilateral plantar fascitis (left worse than right) History of Any Multi-Drug Resistant Organisms: None Reported Past Surgical History: Bariatric Surgery, Cholecystectomy, Hysterectomy, Tubal Ligation, Uterine Ablation Additional Past Surgical History / Comment(s): D&C, PAIN CLINIC PROCEDURES, EGD sleeve gastrectomy 04-05-19 (Dr. Santos), Past Anesthesia/Blood Transfusion Reactions: Previous Problems w/ Anesthesia Additional Past Anesthesia/Blood Transfusion Reaction / Comment(s): OCC "HAVE A HARD TIME COMING OUT OF IT (ANESTHESIA)." Past Psychological History: Anxiety, Bipolar, Depression, PTSD Smoking Status: Never smoker Past Alcohol Use History: None Reported Past Drug Use History: None Reported - Past Family History Mother Family Medical History: No Reported History General Exam Limitations: physical limitation General appearance: alert, in no apparent distress Head exam: Present: atraumatic, normocephalic, normal inspection Eye exam: Present: normal appearance, PERRL, EOMI. Absent: scleral icterus, conjunctival injection, periorbital swelling ENT exam: Present: normal exam, mucous membranes moist Neck exam: Present: normal inspection. Absent: tenderness, meningismus, lymphadenopathy Respiratory exam: Present: normal lung sounds bilaterally. Absent: respiratory distress, wheezes, rales, rhonchi, stridor Cardiovascular Exam: Present: regular rate, normal rhythm, normal heart sounds. Absent: systolic murmur, diastolic murmur, rubs, gallop, clicks GI/Abdominal exam: Present: soft, normal bowel sounds. Absent: distended, tenderness, guarding, rebound, rigid Extremities exam: Present: normal inspection, full ROM, normal capillary refill. Absent: tenderness, pedal edema, joint swelling, calf tenderness Back exam: Present: normal inspection, paraspinal tenderness (To light palpation per patient, there was no grimacing, pulling away.) Neurological exam: Present: alert, oriented X3, CN II-XII intact Psychiatric exam: Present: normal affect, normal mood Skin exam: Present: warm, dry, intact, normal color. Absent: rash Course Vital Signs 12/15/20 12:24 Temperature 98.8 F Pulse Rate 106 H Respiratory 18 Rate Blood Pressure 114/85 O2 Sat by Pulse 97 Oximetry Medical Decision Making - Medical Decision Making 45-year-old female complaining of headache with some back tightness Disposition Clinical Impression: Migraine headache Disposition: HOME SELF-CARE Condition: Stable Instructions (If sedation given, give patient instructions): Acute Headache (ED) Additional Instructions: Please return to the Emergency Department if symptoms worsen or any other concerns. Increase water intake. Take medications as prescribed. Follow-up with primary care 1-2 days. Is patient prescribed a controlled substance at d/c from ED?: No Referrals: Lola Way MD [Primary Care Provider] - 1-2 days Decision Time: 15:49
[2020-12-15] MEDS ORDERED: KETOROLAC 15 MG/ML 1 ML VIAL IVP STA (14:23)
[2020-12-15] MEDS ORDERED: ORPHENADRINE 30 MG/ML 2 ML VIAL IVP STA (14:27)
[2020-12-15 15:59] VITALS: BP 144/90; PULSE 86; RESP 20; TEMP 97.9
== END 2020-12-15 15:59 | disposition home or self-care (01) ==
LOC: EC 12:15
DX: G43.909 Migraine, unspecified, not intractable, without status migrainosus (principal); R43.8 Other disturbances of smell and taste; F41.9 Anxiety disorder, unspecified; F31.9 Bipolar disorder, unspecified; F43.10 Post-traumatic stress disorder, unspecified; Z79.899 Other long term (current) drug therapy; Z88.8 Allergy status to other drugs, medicaments and biological substances; Z90.49 Acquired absence of other specified parts of digestive tract; Z90.710 Acquired absence of both cervix and uterus
CPT/HCPCS: 99284; 96374; 96375 ×3; 96361; J1200; J2360; J2405; J1885

== ENCOUNTER → 2021-04-30 | Outpatient (CLI) | payer OTHER ==
--- NOTE | 2021-04-30 12:32 | XR ---
EXAMINATION TYPE: XR cervical spine comp DATE OF EXAM: 04/30/2021 COMPARISON: NONE HISTORY: Pain TECHNIQUE: Four views are submitted. FINDINGS: The odontoid is intact. There are no compression deformities. The prevertebral soft tissue structur es are within normal limits. IMPRESSION: 1. No acute process. Consider MRI follow-up.
== END | disposition home or self-care (01) ==
LOC: RADXRMAIN 10:51
PROVIDERS: ATTEND Family Medicine
DX: M54.2 Cervicalgia (principal)
CPT/HCPCS: 72050

== ENCOUNTER → 2021-05-25 | Outpatient (CLI) | payer OTHER | END | disposition home or self-care (01) ==

== ENCOUNTER → 2021-08-30 | Outpatient (CLI) | payer OTHER ==
[2021-08-30 12:42] VITALS: BP 135/85; PULSE 84; RESP 16; TEMP 98
--- NOTE | 2021-08-30 13:00 | P.CONS ---
History of Present Illness - Reason for Consult Consult date: 08/30/21 - Chief Complaint Neck and right arm pain - History of Present Illness This is a 45-year-old morbidly obese lady with history of neck pain with radiation to the right arm down to the right hand with numbness and tingling in the right arm and no specific radicular distribution. The patient has started her physical therapy only yesterday. She denies any alleviating or exacerbating factors however the pain keeps her up at night and affects her quality of sleep. Any bowel or bladder dysfunction. She did have an MRI on the cervical spine however we DON'T HAVE ACCESS TO IT. The patient received [place] 10 mg 3 times a day from Dr. Saavedra. Review of Systems Cardiovascular: Denies chest pain, Denies shortness of breath Respiratory: Denies cough Past Medical History Past Medical History: Asthma, Diabetes Mellitus, Musculoskeletal Disorder, Osteoarthritis (OA) Additional Past Medical History / Comment(s): LT Sciatica. Neck pain with radiation down right arm-numbness and tingling to fingers., plantar fascitis ., hx of pre-diabetes that was resolved with gastric sleeve surgery., states 2nd dose of phizer vaccine for covid was April 2021. History of Any Multi-Drug Resistant Organisms: None Reported Past Surgical History: Bariatric Surgery, Cholecystectomy, Hysterectomy, Tubal Ligation, Uterine Ablation Additional Past Surgical History / Comment(s): D&C, PAIN CLINIC PROCEDURES, EGD sleeve gastrectomy 04-05-19 (Dr. Santos), Past Anesthesia/Blood Transfusion Reactions: Previous Problems w/ Anesthesia Additional Past Anesthesia/Blood Transfusion Reaction / Comm: OCC HARD TIME COMING OUT OF IT ANESTHESIA Smoking Status: Former smoker - Past Family History Mother Family Medical History: No Reported History Medications and Allergies Home Medications Medication Instructions Recorded Confirmed Type DULoxetine HCL [Cymbalta] 60 mg PO HS 11/18/16 08/30/21 History HYDROcodone/APAP 10-325MG [[place] 1 tab PO QID PRN 07/22/19 08/30/21 History 10-325] buPROPion XL [Wellbutrin XL] 150 mg PO BID 04/04/20 08/30/21 History Ergocalciferol [Vitamin D2 (1250 1,250 mcg PO WEEKLY 08/27/21 08/30/21 History Mcg = 17834 Iu)] Rescue Inhaler 1 puff INHALATION DIRECTED PRN 08/27/21 08/30/21 History Allergies Allergy/AdvReac Type Severity Reaction Status Date / Time NSAIDS (Non-Steroidal AdvReac Unknown NO NSAIDS Verified 08/30/21 12:27 Anti-Inflamma DUE TO GASTRIC SLEEVE aripiprazole [From Abilify] AdvReac Anxiety, Verified 08/30/21 12:27 Restless hydromorphone [From Dilaudid] AdvReac Nausea & Verified 08/30/21 12:27 Vomiting Physical Exam Vitals: Vital Signs Temp Pulse Resp BP 08/30/21 12:39 98 F 84 16 135/85 - EENT Eyes: PERRLA - Neurologic Neuro exam of the upper extremities showed normal and symmetrical muscle strength and deep tendon reflexes. Positive tenderness in the cervical paravertebral musculature on the right side Normal range of motion of the cervical spine Neurologic: CNII-XII intact - Psychiatric Psychiatric: A&O x's 3, appropriate affect, intact judgment & insight Assessment and Plan Plan: This is a 45-year-old morbidly obese lady with right cervical radiculopathy. The patient may benefit from getting cervical epidural steroid injection under fluoroscopic guidance. I advised the patient to continue physical therapy for now unless she feels that there is no improvement with it then we can plan on doing this injection. The patient will plan on getting us a copy of her last cervical spine MRI which was done at a different facility. I thank you for the referral
== END ==
LOC: PNWHC3 12:25
PROVIDERS: ATTEND Anesthesiology
DX: M54.12 Radiculopathy, cervical region (principal); E11.9 Type 2 diabetes mellitus without complications; E66.01 Morbid (severe) obesity due to excess calories; J45.909 Unspecified asthma, uncomplicated; M19.90 Unspecified osteoarthritis, unspecified site; Z87.891 Personal history of nicotine dependence; Z88.5 Allergy status to narcotic agent; Z88.6 Allergy status to analgesic agent; Z68.38 Body mass index [BMI] 38.0-38.9, adult
CPT/HCPCS: 99211

== ENCOUNTER → 2021-09-03 | Outpatient (CLI) | payer OTHER ==
[2021-09-03 14:14] VITALS: BP 147/77; PULSE 93; RESP 16; TEMP 99.1; BMI 42.2
--- NOTE | 2021-09-03 16:28 | P.HPBAR ---
Bariatric H&P - History & Physicial H&P Date: 09/03/21 History & Physicial: Visit/CC: f/u Patient initial contact: Initial weight: 142.485 kg Initial weight in pounds: 314.13 Height: 5 ft 4 in Initial BMI: 53.8 Last weight: Current weight: 111.584 kg Current weight in pounds: 246.00 Current BMI: 42.2 [place] body weight (based on NIH guidelines): 54.431 kg Excess body weight loss: 35.0% The patient is a 45 year-old F who presents for Bariatric Assessment. Patient presents today for bariatric follow-up. She has had increased weight gain. She's had some mild GERD symptoms. The patient wishes to speak with the dietitian today for some tips with her diet Past Medical History Past Medical History: Asthma, Diabetes Mellitus, Musculoskeletal Disorder, Osteoarthritis (OA) Additional Past Medical History / Comment(s): LT Sciatica. Neck pain with radiation down right arm-numbness and tingling to fingers., plantar fascitis ., hx of pre-diabetes that was resolved with gastric sleeve surgery., states 2nd dose of phizer vaccine for covid was April 2021. History of Any Multi-Drug Resistant Organisms: None Reported Past Surgical History: Bariatric Surgery, Cholecystectomy, Hysterectomy, Tubal Ligation, Uterine Ablation Additional Past Surgical History / Comment(s): D&C, PAIN CLINIC PROCEDURES, EGD sleeve gastrectomy 04-05-19 (Dr. Santos), Past Anesthesia/Blood Transfusion Reactions: Previous Problems w/ Anesthesia Additional Past Anesthesia/Blood Transfusion Reaction / Comm: OCC HARD TIME COMING OUT OF IT ANESTHESIA Past Psychological History: Anxiety, Depression, PTSD Additional Psychological History / Comment(s): "major depressive disorder". Under care of psychiatrist. Smoking Status: Former smoker Past Alcohol Use History: Rare Additional Past Alcohol Use History / Comment(s): smoked off and on, <1ppd, quit 2006 Past Drug Use History: None Reported - Past Family History Mother Family Medical History: No Reported History Surgical - Exam Vital Signs Temp Pulse Resp BP 99.1 F 93 16 147/77 09/03/21 14:08 09/03/21 14:08 09/03/21 14:08 09/03/21 14:08 - General no distress - Eyes PERRL - ENT normal pinna - Neck no masses - Respiratory normal expansion - Cardiovascular Rhythm: regular - Abdomen Abdomen: soft, non tender Bariatric Assessment & Plan Plan: Morbid obesity. Patient's has had weight gain. She will be the dietitian to improve her diet. She'll follow-up in 4 weeks. Bariatric Checklist Checklist: Plan: Checklist: EGD: 1. Hiatal hernia: 2. H. Pylori: HgbA1c: Vitamin D: Smoking: Former smoker Primary care physician referral: [facility] (Dr. Kacie Smith(??) Psychiatry clearance: Cardiology clearance: Sleep study: Diet journal: VTE risk score: VTE risk level: Rehab needs at discharge:
== END ==
LOC: BARWHC3 13:14
PROVIDERS: ATTEND Surgery
DX: E66.01 Morbid (severe) obesity due to excess calories (principal); Z68.41 Body mass index [BMI] 40.0-44.9, adult; K21.9 Gastro-esophageal reflux disease without esophagitis; J45.909 Unspecified asthma, uncomplicated; M19.90 Unspecified osteoarthritis, unspecified site; Z98.84 Bariatric surgery status; Z87.891 Personal history of nicotine dependence; F32.9 Major depressive disorder, single episode, unspecified; F41.9 Anxiety disorder, unspecified; F43.10 Post-traumatic stress disorder, unspecified; Z88.5 Allergy status to narcotic agent; Z88.6 Allergy status to analgesic agent; Z88.8 Allergy status to other drugs, medicaments and biological substances
CPT/HCPCS: 97803; G0463; 99211

== ENCOUNTER 2021-10-02 10:35 | Day surgery (SDC) | payer OTHER ==
[2021-09-28 16:50] VITALS: BMI 40.9
[~2021-10-02 10:35] MED LIST changes: +LACTATED RINGERS 1,000 ML IV SCH; -SODIUM CHLORIDE 0.9% 1,000 ML IV ONE
[2021-10-02] MEDS ORDERED: LIDOCAINE 1% (10MG/ML) FOR IV START INTRADERMA ONE (11:01)
[2021-10-02 11:02] LABS: Glucose,Whole Blood 84 mg/dL (75-99)
[2021-10-02] MEDS ORDERED: IOPAMIDOL M200 10 ML VIAL ONE (11:03)
[2021-10-02] MEDS ORDERED: MIDAZOLAM 2 MG/2 ML VIAL ONE (11:03)
[2021-10-02] MEDS ORDERED: DEXAMETHASONE SOD PHOSPHATE 10 MG/ML 1 ML VIAL ONE (11:03)
[2021-10-02] MEDS ORDERED: fentaNYL (PF) 50 MCG/ML 2 ML AMP ONE (11:03)
[2021-10-02 11:09] VITALS: TEMP 97.1
--- NOTE | 2021-10-02 11:18 | P.PCN ---
Date of Procedure: 10/02/21 Procedure(s) Performed: . PROCEDURE 1. Cervical epidural steroid injection under fluoroscopic guidance, C7-T1 (fluoroscopy images available in the radiology department ) 2. Cervical epidurogram. PREOPERATIVE DIAGNOSIS: 1- Cervical radiculopathy. POSTOPERATIVE DIAGNOSIS: : 1- Cervical radiculopathy. ANESTHESIA: Local anesthesia with lidocaine 1 % , and moderate sedation, with Versed 2 mg and Fentanyl 50 mcg. EBL 0 PROCEDURE INDICATION: The patient with neck pain and radiculitis unresponsive to conservative treatment consents for procedure. PROCEDURE DESCRIPTION / TECHNIQUE: The patient was seen and identified in the preoperative area. Risks, benefits, complications, including but not limited to infections ,bleeding , allergic reactions to the medications ,and not complete pain releife, and alternatives were discussed with the patient, the patient agreed to proceed with the procedure and signed the consent. Patient was taken to the OR and time out was completed. The patient was placed in the prone position on the procedure table. A pillow was placed under the patients chest to increase the cervical interlaminar space. The cervical area was prepped and draped in the usual sterile fashion. Vital signs were closely monitored during the procedure. Conscious sedation was used during the procedure to decrease patients anxiety. Using anterior-posterior fluoroscopy, the C7-T1 interlaminar space was identified and the skin over this site was marked and then infiltrated with 1% lidocaine subcutaneously. Subsequently, a 20-gauge 3-1/2-inch Tuohy epidural needle was inserted and advanced toward the epidural space by means of the ``hanging-drop technique and guided by AP and lateral fluoroscopy. The correct needle position in the epidural space was verified with the injection of 2 mL of the water soluble contrast dye Isovue-200 and observing an excellent epidurogram with the epidural spread of the dye, after negative aspiration for blood and CSF and in the absence of paresthesias. then, mixture containing 20 mg Dexamethasone and 2 ml of preservative-free normal saline injected and a washout of epidurogram was seen. Needle was withdrawn intact, skin was cleansed, and bandages were applied. Complications= none. Disposition= patient was placed in supine position and transferred to the recovery room area in stable condition and there was no evidence of upper or lower extremity motor or sensory deficit after the procedure patient was discharged from recovery room after discharge criteria met and home discharge instructions was given by the staff and patient will follow with the pain clinic in 2-4 weeks
[2021-10-02] MEDS ORDERED: IV FLUID CONTINUATION 600 ML IV ONE (11:23)
[2021-10-02 11:52] VITALS: RESP 16
--- NOTE | 2021-10-02 12:01 | FL ---
Fluoroscopy HISTORY: Pain 6 seconds fluoroscopy time supplied to the referring clinician. 1 intraoperative C-arm images docume nt the procedure. See dictated report from anesthesia.
[2021-10-02 12:09] VITALS: BP 121/79; PULSE 77
== END 2021-10-02 12:24 | disposition home or self-care (01) ==
LOC: ORPAIN 10:35
PROVIDERS: ATTEND Specialist
DX: M54.12 Radiculopathy, cervical region (principal); F41.9 Anxiety disorder, unspecified
CPT/HCPCS: 62321; J2250; J1100; J3010; Q9966; 99152

== ENCOUNTER → 2021-10-15 | Outpatient (CLI) | payer OTHER | LOC: BARWHC3 13:32 | PROVIDERS: ATTEND Surgery | DX: Z53.9 Procedure and treatment not carried out, unspecified reason (principal) ==

== ENCOUNTER → 2021-10-22 | Outpatient (CLI) | payer OTHER ==
[2021-10-22 13:53] VITALS: BP 144/87; PULSE 103; RESP 18; TEMP 98.1; BMI 42.9
--- NOTE | 2021-10-22 16:17 | P.HPBAR ---
Bariatric H&P - History & Physicial H&P Date: 10/22/21 History & Physicial: Visit/CC: follow up Patient initial contact: Initial weight: 142.485 kg Initial weight in pounds: 314.13 Height: 5 ft 4 in Initial BMI: 53.8 Last weight: Current weight: 113.398 kg Current weight in pounds: 250.00 Current BMI: 42.9 [place] body weight (based on NIH guidelines): 54.431 kg Excess body weight loss: 33.0% The patient is a 45 year-old F who presents for Bariatric Assessment. Patient presents today for better follow-up. She states she is making poor choices due to life stresses. She is gaining another 4 pounds. She has had some mild GERD. Past Medical History Past Medical History: Asthma, Diabetes Mellitus, Musculoskeletal Disorder, Osteoarthritis (OA) Additional Past Medical History / Comment(s): LT Sciatica. plantar fascitis ., hx of pre-diabetes that was resolved with gastric sleeve surgery., History of Any Multi-Drug Resistant Organisms: None Reported Past Surgical History: Bariatric Surgery, Cholecystectomy, Hysterectomy, Tubal Ligation, Uterine Ablation Additional Past Surgical History / Comment(s): D&C, PAIN CLINIC PROCEDURES, EGD sleeve gastrectomy 04-05-19 (Dr. Santos), Past Anesthesia/Blood Transfusion Reactions: Previous Problems w/ Anesthesia Additional Past Anesthesia/Blood Transfusion Reaction / Comm: OCC HARD TIME COMING OUT OF IT ANESTHESIA Past Psychological History: Anxiety, Depression, PTSD Additional Psychological History / Comment(s): "major depressive disorder". Under care of psychiatrist. Smoking Status: Former smoker Past Alcohol Use History: Rare Additional Past Alcohol Use History / Comment(s): smoked off and on, <1ppd, quit 2006 Past Drug Use History: None Reported - Past Family History Mother Family Medical History: No Reported History Surgical - Exam Vital Signs Temp Pulse Resp BP 98.1 F 103 H 18 144/87 10/22/21 13:51 10/22/21 13:51 10/22/21 13:51 10/22/21 13:51 - General well developed, well nourished, no distress - Eyes PERRL - ENT normal pinna - Neck no masses - Respiratory normal expansion - Cardiovascular Rhythm: regular - Abdomen Abdomen: soft, non tender Bariatric Assessment & Plan Plan: Status post sleeve gastric. Patient will visit with dietitian to improve her dietary habits. She'll follow-up in 12 weeks. Her GERD is minimal and will be observed. Bariatric Checklist Checklist: Plan: Checklist: EGD: 1. Hiatal hernia: 2. H. Pylori: HgbA1c: Vitamin D: Smoking: Former smoker Primary care physician referral: [facility] (Dr. Kacie Smith(??) Psychiatry clearance: Cardiology clearance: Sleep study: Diet journal: VTE risk score: VTE risk level: Rehab needs at discharge:
== END ==
LOC: BARWHC3 13:29
PROVIDERS: ATTEND Surgery
DX: Z09 Encounter for follow-up examination after completed treatment for conditions other than malignant neoplasm (principal); K21.9 Gastro-esophageal reflux disease without esophagitis; F41.9 Anxiety disorder, unspecified; F32.A Depression, unspecified; J45.909 Unspecified asthma, uncomplicated; E11.9 Type 2 diabetes mellitus without complications; M19.90 Unspecified osteoarthritis, unspecified site; Z98.84 Bariatric surgery status; Z87.891 Personal history of nicotine dependence; Z88.6 Allergy status to analgesic agent; Z88.5 Allergy status to narcotic agent; Z88.8 Allergy status to other drugs, medicaments and biological substances; Z79.899 Other long term (current) drug therapy
CPT/HCPCS: 99211

== ENCOUNTER 2022-01-17 07:23 | Day surgery (SDC) | payer OTHER ==
[2022-01-16 13:14] VITALS: BMI 41.5
[2022-01-17] MEDS ORDERED: LACTATED RINGERS 1,000 ML IV ONE (07:47)
[2022-01-17] MEDS ORDERED: LACTATED RINGERS 1,000 ML IV SCH ×2 (08:15)
[2022-01-17] MEDS ORDERED: MIDAZOLAM 2 MG/2 ML VIAL ONE (08:18)
[2022-01-17] MEDS ORDERED: DEXAMETHASONE SOD PHOSPHATE 10 MG/ML 1 ML VIAL ONE (08:18)
[2022-01-17] MEDS ORDERED: fentaNYL (PF) 50 MCG/ML 2 ML AMP ONE (08:18)
[2022-01-17] MEDS ORDERED: IOPAMIDOL M200 10 ML VIAL ONE (08:18)
[2022-01-17] MEDS ORDERED: IV FLUID CONTINUATION 600 ML IV ONE (08:50)
--- NOTE | 2022-01-17 09:00 | FL ---
Fluoroscopy HISTORY: Pain 10 seconds fluoroscopy time supplied to the referring clinician. 2 intraoperative C-arm images docum ent the procedure. See dictated report from anesthesia.
[2022-01-17 09:14] VITALS: RESP 16
[2022-01-17 09:17] VITALS: BP 119/83; PULSE 85
--- NOTE | 2022-01-17 09:22 | P.PCN ---
Date of Procedure: 01/17/22 Description of Procedure: Pre- and Post-operative Diagnosis: Cervical radiculopathy, and cervical dege nerative disc disease Procedure: Right-sided C6-C7 Cervical transforaminal epidural under biplanar fluoroscopy Surgeon: Kerry Lee Anesthesia: Local: 1% Lidocaine, IV sedation : 2 mg Versed, and 100 g of fentanyl. Complications: None. Estimated blood loss: None Specimens removed: None Fluoroscopic image: saved to electronic medical records. Indications for Procedure: The patient has been suffering from neck pain and pain radiating to the upper extremity . Inadequate pain control with pharmacologic regimen. Cervical transforaminal epidural was scheduled for the patient. Procedure and Findings: The patient was seen and examined in the holding area. The written informed consent was obtained after explaining the risks, benefits, alternatives of the procedure to the patient. The patient was brought to the procedure room and was placed in the supine position on the operating table. The patient is positioned supine on the procedure table with the neck in slight extension; the shoulders depressed and the head rotated slightly away from the side to be injected to provide easier access. Standard anesthesia monitoring was done through out the procedure. Timeout was completed. The skin preparation was done with ChloraPrep 1 and draping was done in usual sterile fashion. Sterile technique was observed throughout the procedure. The C-arm is rotated into 45 degree oblique , 10 cephalad tilt position so that the largest cross-sectional area of the foramen to be injected is seen on the fluoroscopic monitor Under fluoroscopic guidance, the C3 space was identified. 2 ml of 1% Lidocaine was injected with a 25 gauge needle to achieve adequate local anesthesia of the skin and subcutaneous tissue. A 25 gauge, 3.5 inch spinal needle used for the procedure. Needle distal tip is then advanced down to the lateral mass of the posterior foramen under live fluoroscopic visualization in the previously anesthetized tract of tissue. The needle tip contacted with the lateral mass adjacent to the cephalad half of the foramen. The needle withdrawn few mm and then rotated under live fluoroscopic visualization, and advanced 1- 2 mm anteriorly so that the needle tip is adjacent to the posterisuperior foramen and then advanced few millimeters. At this point, the C-arm should be rotated into the sagittal (AP) plane. Under live fluoroscopic visualization the needle should be slowly advanced until the needle is under the lateral border of the pedicle immediately above the C6 foramen. under live fluoroscopic visualization after negative aspiration 1 mL of Isovue-200 injected through an extension tubing to determine needle placement. The contrast material outline the spinal nerve, enter the spinal canal, not notice any sudden disappearance of contrast, no intrathecal spread. It was negative for any intrathecal, intraneural or intravascular spread. A total of 3 ml solution containing 10 mg Dexamethasone, and 2 ml preservative-free Normal Saline was injected slowly with intermittent aspiration. The needle was removed intact, area was cleaned and bandage was applied. Disposition : The patient tolerated the procedure very well. The patient was transferred to the recovery room and remained stable until discharged home. The patient was given detailed discharge instructions for bleeding, infection, increased pain at the injection site, and was advised to seek immediate medical attention should significant side effects develop. The patient will be followed up with our Pain Clinic within 4 weeks for follow-up visit.
== END 2022-01-17 09:57 | disposition home or self-care (01) ==
LOC: ORPAIN 07:23
DX: M54.12 Radiculopathy, cervical region (principal); M50.30 Other cervical disc degeneration, unspecified cervical region
CPT/HCPCS: 64483; J2250; J1100; J3010; Q9966; 99152

== ENCOUNTER → 2022-01-21 | Outpatient (CLI) | payer OTHER ==
[2022-01-21 13:18] VITALS: BP 145/69; PULSE 115; RESP 16; TEMP 97.7; BMI 43.7
--- NOTE | 2022-01-21 15:56 | P.HPBAR ---
Bariatric H&P - History & Physicial H&P Date: 01/21/22 History & Physicial: Visit/CC: f/u Patient initial contact: Initial weight: 142.485 kg Initial weight in pounds: 314.13 Height: 5 ft 4 in Initial BMI: 53.8 Last weight: Current weight: 115.666 kg Current weight in pounds: 255.00 Current BMI: 43.7 [place] body weight (based on NIH guidelines): 54.431 kg Excess body weight loss: 30.4% The patient is a 46 year-old F who presents for Bariatric Assessment. Patient presents today for [place] fall. She's had some mild GERD. She is actually had weight gain. Past Medical History Past Medical History: Asthma, Diabetes Mellitus, Musculoskeletal Disorder, Osteoarthritis (OA) Additional Past Medical History / Comment(s): LT Sciatica. plantar fascitis ., hx of pre-diabetes that was resolved with gastric sleeve surgery., History of Any Multi-Drug Resistant Organisms: None Reported Past Surgical History: Bariatric Surgery, Cholecystectomy, Hysterectomy, Tubal Ligation, Uterine Ablation Additional Past Surgical History / Comment(s): D&C, PAIN CLINIC PROCEDURES, EGD sleeve gastrectomy 04-05-19 (Dr. Santos), Past Anesthesia/Blood Transfusion Reactions: Previous Problems w/ Anesthesia Additional Past Anesthesia/Blood Transfusion Reaction / Comm: OCC HARD TIME COMING OUT OF IT ANESTHESIA Past Psychological History: Anxiety, Depression, PTSD Additional Psychological History / Comment(s): "major depressive disorder". Under care of psychiatrist. Smoking Status: Former smoker Past Alcohol Use History: Rare Additional Past Alcohol Use History / Comment(s): smoked off and on, <1ppd, quit 2006 Past Drug Use History: None Reported - Past Family History Mother Family Medical History: No Reported History Surgical - Exam Vital Signs Temp Pulse Resp BP 97.7 F 115 H 16 145/69 01/21/22 13:16 01/21/22 13:16 01/21/22 13:16 01/21/22 13:16 - General well developed, well nourished, no distress - Eyes PERRL - ENT normal pinna - Neck no masses - Respiratory normal expansion - Cardiovascular Rhythm: regular - Abdomen Abdomen: soft, non tender Bariatric Assessment & Plan Plan: Worsening morbid obesity. Patient BMI is 44. Patient will be observed closely. Her GERD is minimal will be observed. She was instructed to change some dietary behavior referred to help her lose weight. Bariatric Checklist Checklist: Plan: Checklist: EGD: 1. Hiatal hernia: 2. H. Pylori: HgbA1c: Vitamin D: Smoking: Former smoker Primary care physician referral: [facility] (Dr. Kacie Smith(??) Psychiatry clearance: Cardiology clearance: Sleep study: Diet journal: VTE risk score: VTE risk level: Rehab needs at discharge:
[2022-01-21 18:25] LABS: MCHC 31.6 g/dL (32.0-37.0); MCV 88.8 fL (80.0-97.0); Mean Platelet Volume 10.7 fL (9.5-12.2); NRBC Per 100 WBC 0 /100 WBCS (0.0-0.0); Platelet Count 370 X 10*3/uL (140-440); RBC 4.28 X 10*6/uL (4.10-5.20); RDW 12.4 % (11.5-14.5); WBC 6.46 X 10*3/uL (4.50-10.00)
[2022-01-21 19:11] LABS: % Iron Saturation 8.11 (12.00-45.00); ALT <5 U/L (8-44); AST 12 U/L (13-35); African American GFR (CKD) 124.9 (60.0-200.0); Albumin 4.1 g/dL (3.8-4.9); Albumin/Globulin Ratio 1.78 (1.60-3.17); Alkaline Phosphatase 88 U/L (41-126); Blood Urea Nitrogen 11.4 mg/dL (9.0-27.0); Calcium 8.8 mg/dL (8.7-10.3); Carbon Dioxide 21.8 mmol/L (20.0-27.5); Chloride 103 mmol/L (96-109); Ferritin 26.1 ng/mL (10.0-291.0); Globulin 2.3 g/dL (1.6-3.3); Glucose 99 mg/dL (70-110); Iron 34 ug/dL (50-170); Magnesium 2.1 mg/dL (1.5-2.4); Non-African American GFR(CKD) 107.8 (60.0-200.0); Potassium 4.2 mmol/L (3.5-5.5); Sodium 139 mmol/L (135-145); Total Bilirubin <0.15 mg/dL (0.30-1.20); Total Iron Binding Capacity 413 ug/dL (228-460); Total Protein 6.4 g/dL (6.2-8.2)
[2022-01-22 13:25] LABS: Zinc, Serum 45 ug/dL (60-130)
[2022-01-23 06:21] LABS: Vitamin A 36 ug/dL (38-106)
== END ==
LOC: BARWHC3 13:02
PROVIDERS: ATTEND Surgery
DX: E66.01 Morbid (severe) obesity due to excess calories (principal); D50.8 Other iron deficiency anemias; E44.0 Moderate protein-calorie malnutrition; E55.9 Vitamin D deficiency, unspecified; T56.894A Toxic effect of other metals, undetermined, initial encounter; K90.9 Intestinal malabsorption, unspecified; Z68.41 Body mass index [BMI] 40.0-44.9, adult; K21.9 Gastro-esophageal reflux disease without esophagitis; Z71.3 Dietary counseling and surveillance; J45.909 Unspecified asthma, uncomplicated; E11.9 Type 2 diabetes mellitus without complications; M19.90 Unspecified osteoarthritis, unspecified site; Z98.84 Bariatric surgery status; Z87.891 Personal history of nicotine dependence; F41.9 Anxiety disorder, unspecified; F32.A Depression, unspecified; F43.10 Post-traumatic stress disorder, unspecified; Z88.6 Allergy status to analgesic agent; Z88.5 Allergy status to narcotic agent
CPT/HCPCS: 84255; 84425; 80053; 82607; 82728; 82746; 83540; 83550; 83735; 84443; 84590; 84630; 85027; 82306; 36415; G0463; 99211

== ENCOUNTER → 2022-01-24 | Outpatient (CLI) | payer OTHER ==
--- NOTE | 2022-01-24 12:24 | MR ---
EXAMINATION TYPE: MR knee LT wo con DATE OF EXAM: 01/24/2022 COMPARISON: None HISTORY: Left knee pain, locking, and swelling for 1 year. TECHNIQUE: Multiplanar, multisequence imaging of the left knee is performed without IV contrast. FINDINGS: There is some motion on exam. MEDIAL MENISCUS: There is some abnormal signal within the medial meniscus, definitive tear not identi fied with certainty LATERAL MENISCUS: Anterior and posterior horns show no definitive tear. CRUCIATE LIGAMENTS: The anterior and posterior cruciate ligaments are intact and unremarkable. COLLATERAL LIGAMENTS: The medial collateral ligament and lateral collateral ligament complex are inta ct and unremarkable. EXTENSOR MECHANISM: Visualized quadriceps and patellar tendons are intact. EFFUSION: Suprapatellar joint effusion is present POPLITEAL CYST: There is a semimembranosus gastrocnemius cyst measuring 2.2 x 0.9 x 4.6 cm in cephal ad to caudal dimension TRICOMPARTMENT SPACES: There is tricompartmental joint space loss and chondromalacia patella changes are present. 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 OTHER: Subcutaneous edema present in the prepatellar region along the anterior soft tissues of the p atellar tendon is well IMPRESSION: There is significant motion on exam. Advanced osteoarthritic changes are present. Additional findings above.
== END | disposition home or self-care (01) ==
LOC: RADMRIMAIN 09:12
PROVIDERS: ATTEND Orthopaedic Surgery Sports Medicine
DX: M17.12 Unilateral primary osteoarthritis, left knee (principal); M22.42 Chondromalacia patellae, left knee; M71.22 Synovial cyst of popliteal space [Baker], left knee; M25.462 Effusion, left knee

== ENCOUNTER 2022-02-13 18:04 | Emergency (ER) | payer OTHER ==
--- NOTE | 2022-02-13 21:42 | ED ---
General Adult HPI - General Chief complaint: Upper Respiratory Infection Stated complaint: Covid +,PCP sent pt in for an infusion Time Seen by Provider: 02/13/22 21:00 Source: patient, RN notes reviewed Mode of arrival: ambulatory - History of Present Illness Initial comments: 46-year-old well-appearing female in no acute distress, presents ambulatory with steady gait stating she was sent by Dr. Davila for monoclonal antibodies after testing positive for coronavirus today. Patient states that she was positive for coronavirus in November of last year. She did get the vaccine. She did not get a booster. Patient does have history of asthma, obesity, diabetes, bariatric surgery, cholecystectomy and hysterectomy. -: days(s) (1) Location: head Severity scale (1-10): 10 Quality: aching Consistency: constant Improves with: none Worsens with: none Associated Symptoms: fever/chills, headaches, malaise, nausea/vomiting (No vomiting), other (Sore throat and congestion) - Related Data Home Medications Medication Instructions Recorded Confirmed DULoxetine HCL [Cymbalta] 60 mg PO HS 11/18/16 02/13/22 HYDROcodone/APAP 10-325MG [Clark 1 tab PO QID PRN 07/22/19 02/13/22 10-325] Albuterol Inhaler [Ventolin Hfa 2 puff INHALATION RT-QID PRN 02/13/22 02/13/22 Inhaler] Ergocalciferol (Vitamin D2) 1,250 mcg PO Q7D 02/13/22 02/13/22 [Drisdol (50,000 Iu)] Fluticasone Nasal [place] [Flonase 1 spray EA NOSTRIL DAILY PRN 02/13/22 02/13/22 Nasal [place]] Loratadine 10 mg PO DAILY 02/13/22 02/13/22 buPROPion XL [Wellbutrin XL] 300 mg PO DAILY 02/13/22 02/13/22 Allergies Allergy/AdvReac Type Severity Reaction Status Date / Time NSAIDS (Non-Steroidal AdvReac Unknown NO NSAIDS Verified 02/13/22 22:59 Anti-Inflamma DUE TO GASTRIC SLEEVE aripiprazole [From Abilify] AdvReac Anxiety, Verified 02/13/22 22:59 Restless hydromorphone [From Dilaudid] AdvReac Nausea & Verified 02/13/22 22:59 Vomiting Review of Systems ROS Statement: Those systems with pertinent positive or pertinent negative responses have been documented in the HPI. ROS Other: All systems not noted in ROS Statement are negative. Past Medical History Past Medical History: Asthma, Diabetes Mellitus, Musculoskeletal Disorder, Osteoarthritis (OA) Additional Past Medical History / Comment(s): LT Sciatica. plantar fascitis ., hx of pre-diabetes that was resolved with gastric sleeve surgery., History of Any Multi-Drug Resistant Organisms: None Reported Past Surgical History: Bariatric Surgery, Cholecystectomy, Hysterectomy, Tubal Ligation, Uterine Ablation Additional Past Surgical History / Comment(s): D&C, PAIN CLINIC PROCEDURES, EGD sleeve gastrectomy 04-05-19 (Dr. Santos), Past Anesthesia/Blood Transfusion Reactions: Previous Problems w/ Anesthesia Additional Past Anesthesia/Blood Transfusion Reaction / Comment(s): OCC HARD TIME COMING OUT OF IT ANESTHESIA Past Psychological History: Anxiety, Depression, PTSD Smoking Status: Former smoker Past Alcohol Use History: None Reported Past Drug Use History: None Reported - Past Family History Mother Family Medical History: No Reported History General Exam Limitations: no limitations General appearance: alert, in no apparent distress Head exam: Present: atraumatic Eye exam: Present: normal appearance. Absent: scleral icterus, conjunctival injection ENT exam: Present: normal exam, normal oropharynx, mucous membranes moist Neck exam: Present: normal inspection, full ROM. Absent: meningismus Respiratory exam: Present: normal lung sounds bilaterally. Absent: respiratory distress, wheezes, rales, rhonchi, stridor, chest wall tenderness, accessory muscle use, decreased breath sounds Cardiovascular Exam: Present: regular rate, normal heart sounds. Absent: JVD Extremities exam: Present: normal capillary refill. Absent: pedal edema Neurological exam: Present: alert, oriented X3, normal gait Psychiatric exam: Present: normal affect, normal mood Skin exam: Present: warm, dry, intact, normal color. Absent: cyanosis, diaphoretic, petechiae, pallor Course Vital Signs 02/13/22 02/13/22 18:57 23:52 Temperature 99.4 F 97.6 F Pulse Rate 94 78 Respiratory 20 18 Rate Blood Pressure 140/112 119/76 O2 Sat by Pulse 97 97 Oximetry Medical Decision Making - Medical Decision Making 46-year-old well-appearing female in no acute distress, sent by PCP with a positive coronavirus test and request for monoclonal antibodies. Patient states symptoms started today with congestion, sore throat, headache and nausea. Patient had coronavirus in November of last year. She has been vaccinated but did not get a booster. Patient's oxygen saturation 97%. Lung sounds are clear to auscultation. She does not have a cough complaints of breathing. Denies chest pain. Patient was given IV fluids and Tylenol for her headache. She received monoclonal antibody infusion without any difficulty. She was discharged home to follow up with her primary care doctor and return to the emergency room if any new or worsening symptoms. Also instructed to self quarantine for 5 days from symptom onset and 24 hours of fever. Disposition Clinical Impression: COVID-19 Disposition: HOME SELF-CARE Condition: Good Instructions (If sedation given, give patient instructions): COVID-19 (Coronavirus Disease 2019) (ED) Additional Instructions: Self quarantine for 5 days from symptom onset. You can go into public with just a mask if your symptoms have resolved and you have not had a fever in 24 hours. You can take vitamin C, vitamin D and Zinc to improve immune health. Increase your fluid intake. Follow-up with your primary care doctor next week and return to the emergency room with any new or concerning symptoms including difficulty in breathing, chest pain or persistent nausea vomiting. Is patient prescribed a controlled substance at d/c from ED?: No Referrals: Lola Way MD [Primary Care Provider] - 1-2 days Time of Disposition: 00:01
[2022-02-13] MEDS ORDERED: ACETAMINOPHEN TAB 325 MG TAB PO STA (22:15)
[2022-02-13] MEDS ORDERED: SODIUM CHLORIDE 0.9% 1,000 ML IV ONE (22:26)
[2022-02-13] MEDS ORDERED: SODIUM CHLORIDE 0.9% 50 ML IVPB ONE (22:30)
[2022-02-13] MEDS ORDERED: SOTROVIMAB (EUA) 500 MG in SODIUM CHLORIDE 0.9% 100 ML IVPB ONE (22:30)
[2022-02-13 23:52] VITALS: BP 119/76; PULSE 78; RESP 18; TEMP 97.6
== END 2022-02-14 00:07 | disposition home or self-care (01) ==
LOC: EC 18:04
DX: U07.1 COVID-19 (principal); J45.909 Unspecified asthma, uncomplicated; E11.9 Type 2 diabetes mellitus without complications; M19.90 Unspecified osteoarthritis, unspecified site; F41.9 Anxiety disorder, unspecified; F32.A Depression, unspecified; F43.10 Post-traumatic stress disorder, unspecified; Z88.5 Allergy status to narcotic agent; Z98.84 Bariatric surgery status; Z90.49 Acquired absence of other specified parts of digestive tract; Z90.710 Acquired absence of both cervix and uterus; Z98.51 Tubal ligation status; Z87.891 Personal history of nicotine dependence
CPT/HCPCS: 99283; Q0247

== ENCOUNTER 2022-02-26 09:33 | Day surgery (SDC) | payer OTHER ==
[2022-02-25 11:17] VITALS: BMI 40.9
[2022-02-26 09:55] VITALS: TEMP 98.6
[2022-02-26] MEDS ORDERED: LIDOCAINE 1% (10MG/ML) FOR IV START INTRADERMA ONE (10:05)
[2022-02-26] MEDS ORDERED: DEXAMETHASONE SOD PHOSPHATE 10 MG/ML 1 ML VIAL ONE (10:20)
[2022-02-26] MEDS ORDERED: IOPAMIDOL M200 10 ML VIAL ONE (10:20)
[2022-02-26] MEDS ORDERED: MIDAZOLAM 2 MG/2 ML VIAL ONE (10:20)
[2022-02-26] MEDS ORDERED: fentaNYL (PF) 50 MCG/ML 2 ML AMP ONE (10:20)
--- NOTE | 2022-02-26 10:31 | P.PCN ---
Date of Procedure: 02/26/22 Description of Procedure: PROCEDURE 1. Cervical epidural steroid injection under fluoroscopic guidance, right C6-C7 paramedian 2. Cervical epidurogram. PREOPERATIVE DIAGNOSIS: Cervical radiculopathy POSTOPERATIVE DIAGNOSIS: Cervical radiculopathy Imaging: Fluoroscopy was used, images where saved to the medical record ANESTHESIA: Local anesthesia with 1% lidocaine and (IV conscious sedation ) PROCEDURE DESCRIPTION / TECHNIQUE: The patient was seen and identified in the preoperative area. Risks, benefits, and alternatives were discused with the patient and the patient has consented to the procedure. Risks of the procedure include potential for bleeding, infection, nerve damage, and incomplete pain relief were discussed with the patient. All questions were answered for the patient Patient was taken to the OR and time out was completed. The patient was placed in the prone position on the procedure table. A pillow was placed under the patients chest to increase the cervical interlaminar space. The cervical area was prepped and draped in the usual sterile fashion. Vital signs were closely monitored during the procedure. Using anterior-posterior fluoroscopy, the C6-C7 interlaminar space was identified and the skin over this site was marked and then infiltrated with 1% lidocaine subcutaneously. Subsequently, a 20-gauge 3-1/2-inch Tuohy epidural needle was inserted and advanced toward the epidural space by means of the [id number] technique and guided by AP and lateral fluoroscopy. The correct needle position in the epidural space was verified with the injection of 1 mL of the water soluble contrast dye [id number]-180 and observing an excellent epidurogram with the epidural spread of the dye, after negative aspiration for blood and CSF and in the absence of paresthesias. Again after negative aspiration, a mixture containing 10 mg Dexamethasone and 2 ml of preservative- free normal saline injected and a washout of epidurogram was seen. Needle was wi thdrawn intact, skin was cleansed, and bandages were applied. Complications: none. Disposition: patient was placed in supine position and transferred to the recovery room area in stable condition and there was no evidence of upper or lower extremity motor or sensory deficit after the procedure patient was discharged from recovery room after discharge criteria met and home discharge instructions was given by the staff and patient will follow with the pain as directed. If there is no improvement from this injection, we should avoid doing a third one unless Dr. Benoit and would like that done
[2022-02-26] MEDS ORDERED: IV FLUID CONTINUATION 800 ML IV ONE (10:36)
[2022-02-26] MEDS ORDERED: LACTATED RINGERS 1,000 ML IV ONE (10:36)
[2022-02-26 10:53] VITALS: BP 125/85; PULSE 80; RESP 14
[2022-02-26 10:58] LABS: Glucose,Whole Blood 114 mg/dL (75-99)
--- NOTE | 2022-02-26 12:37 | FL ---
EXAMINATION TYPE: FL guided pain mgmt statistic DATE OF EXAM: 02/26/2022 HISTORY: Fluoroscopy time 3 seconds of fluoroscopy provided. IMPRESSION: 1. Fluoroscopy time.
== END 2022-02-26 11:05 | disposition home or self-care (01) ==
LOC: ORPAIN 09:33
PROVIDERS: ATTEND Hospitalist
DX: M54.12 Radiculopathy, cervical region (principal)
CPT/HCPCS: 62321; J2250; J1100; J3010; Q9966

== ENCOUNTER → 2022-04-08 | Outpatient (CLI) | payer OTHER ==
--- NOTE | 2022-04-08 10:13 | P.PN ---
Subjective Progress Note Date: 04/08/22 This is a 46-year-old obese lady with history of chronic neck pain with radiation to the right upper extremity down to the fingers with occasional numbness and tingling. The patient also feels pain on the right side of her head starting from the occipital area going to the frontal. She had cervical epidural steroid injection twice which gave her 30% of pain relief however her pain is still intolerable. The pain keeps her up at night. Her neck pain increases with movement of the neck. She denies any bowel or bladder dysfunction or any weight loss recently. She does feel some weakness in her right arm. Patient denies new-onset weakness, bowel/bladder incontinence, or any other signs or symptoms of cauda equina syndrome. There are no signs of acute intoxication, and no indications of medication diversion or overuse. In addition to above, 13-point review of systems is also negative for chest pain, shortness of breath, changes in vision, changes in hearing, new onset weakness, abdominal pain, diarrhea, extreme fatigue, malaise, fever, skin changes, homicidal or suicidal ideation, or bowel or bladder incontinence. Vital Signs: Reviewed in EMR Gen: AAOx3, NAD HEENT: PERRLA,hearing grossly normal Pulm: resp unlabored Neck: supple, trachea midline Neuro exam of the upper extremities:Mildly decreased muscle strength to 4 out of 5 in the major muscle groups bilaterally and symmetrically Tenderness in the paravertebral musculature:Positive tenderness in the cervical paravertebral musculature and right trapezius muscle Normal range of motion of the right shoulder joint Markedly decreased range of motion of the cervical spine Neuro: CN II-XII grossly intact, Imaging: Reviewed in EMR/chart Assessment: Cervical spondylosis without myelopathy Cervicogenic headache Right cervical radiculopathy Myofascial pain Morbid obesity Plan: 1. Explanation: When patients on opioids, opioid and psychological risk scores were reviewed. Diagnoses, prognoses, and multiple treatment options including but not limited to physical therapy, interventional therapies, adjuvant medical therapies, narcotic medication therapies, and surgery were discussed with the patient and all questions were answered to the patient's satisfaction. 2. Opioid agreement:When patients are prescribed opoids through our clinic, opioid agreement is signed with the patient and the patient is warned not to use opioids while driving or before driving and not to combine opioids with benzodiazepines or alcohol. 3. Counseling: When patient is smoking or obese, the patient was counseled extensively on SMOKING CESSATION, BODY MASS INDEX, EXERCISE. Specifically, the patient was instructed regarding the importance of smoking cessation, obesity, and exercise in the context of both chronic pain and overall health. 4. Procedures: I will schedule for a right cervical diagnostic medial branch block for levels C 3,4 and 5 on the right side. Due to the patient's body habitus I do not think we'll be able to the block in the C6 and 7 medial branches on the right side. if The patient's headache is not improving then we'll plan on doing the C1-C2 and third occipital nerve block on the right side in the future. 5. Consultations: None 6. Investigations: None 7. Medications: None prescribed today 8. Disposition: Proceed with the above-mentioned procedure as soon as possible 9. Maps were reviewed and were appropriate. Objective - Vital Signs Vital signs: Intake & Output 04/07/22 04/08/22 04/08/22 18:59 06:59 18:59 Weight 113.398 kg
[2022-04-08 10:22] VITALS: BP 125/85; PULSE 89; RESP 18; TEMP 99.2
== END ==
LOC: PNWHC3 09:48
PROVIDERS: ATTEND Anesthesiology
DX: M47.22 Other spondylosis with radiculopathy, cervical region (principal); M79.18 Myalgia, other site; E66.01 Morbid (severe) obesity due to excess calories; G44.86 Cervicogenic headache; Z68.41 Body mass index [BMI] 40.0-44.9, adult; Z88.6 Allergy status to analgesic agent; Z88.5 Allergy status to narcotic agent; Z88.8 Allergy status to other drugs, medicaments and biological substances; Z87.891 Personal history of nicotine dependence
CPT/HCPCS: 99211

== ENCOUNTER → 2022-04-29 | Outpatient (CLI) | payer OTHER ==
[2022-04-29 13:29] VITALS: BP 130/82; PULSE 100; TEMP 98.5; BMI 43.9
--- NOTE | 2022-04-29 13:49 | P.HPBAR ---
Bariatric H&P - History & Physicial H&P Date: 04/29/22 History & Physicial: Visit/CC: sleeve f/u Patient initial contact: Initial weight: 142.485 kg Initial weight in pounds: 314.13 Height: 5 ft 4 in Initial BMI: 53.8 Last weight: Current weight: 116.12 kg Current weight in pounds: 256.00 Current BMI: 43.9 [place] body weight (based on NIH guidelines): 54.431 kg Excess body weight loss: 29.9% The patient is a 46 year-old F who presents for Bariatric Assessment. Patient currently weighs 256 pounds. She last weight 265 pounds her last visit. She's had some mild GERD. She currently feels well. Past Medical History Past Medical History: Asthma, Diabetes Mellitus, Musculoskeletal Disorder, Osteoarthritis (OA) Additional Past Medical History / Comment(s): LT Sciatica. plantar fascitis ., hx of pre-diabetes that was resolved with gastric sleeve surgery., History of Any Multi-Drug Resistant Organisms: None Reported Past Surgical History: Bariatric Surgery, Cholecystectomy, Hysterectomy, Tubal Ligation, Uterine Ablation Additional Past Surgical History / Comment(s): D&C, PAIN CLINIC PROCEDURES, EGD sleeve gastrectomy 04-05-19 (Dr. Santos), Past Anesthesia/Blood Transfusion Reactions: Previous Problems w/ Anesthesia Additional Past Anesthesia/Blood Transfusion Reaction / Comm: OCC HARD TIME COMING OUT OF IT ANESTHESIA Past Psychological History: Anxiety, Depression, PTSD Additional Psychological History / Comment(s): "major depressive disorder". Under care of psychiatrist. Smoking Status: Former smoker Past Alcohol Use History: None Reported Additional Past Alcohol Use History / Comment(s): smoked off and on, <1ppd, quit 2006 Past Drug Use History: None Reported - Past Family History Mother Family Medical History: No Reported History Surgical - Exam Vital Signs Temp Pulse BP 98.5 F 100 130/82 04/29/22 13:26 04/29/22 13:26 04/29/22 13:26 - General well developed, well nourished, no distress - Abdomen Abdomen: soft, non tender Bariatric Assessment & Plan Plan: Status post sleeve gastrectomy. Patient's morbid obesity. Her BMI is 44. She will work on increasing her dietary control. Her GERD is minimal and will be observed. Bariatric Checklist Checklist: Plan: Checklist: EGD: 1. Hiatal hernia: 2. H. Pylori: HgbA1c: Vitamin D: Smoking: Former smoker Primary care physician referral: [facility] (Dr. Kacie Smith(??) Psychiatry clearance: Cardiology clearance: Sleep study: Diet journal: VTE risk score: VTE risk level: Rehab needs at discharge:
== END ==
LOC: BARWHC3 12:55
PROVIDERS: ATTEND Surgery
DX: E66.01 Morbid (severe) obesity due to excess calories (principal); K21.9 Gastro-esophageal reflux disease without esophagitis; Z68.41 Body mass index [BMI] 40.0-44.9, adult; Z98.84 Bariatric surgery status; Z87.891 Personal history of nicotine dependence; F43.10 Post-traumatic stress disorder, unspecified; F41.9 Anxiety disorder, unspecified; F32.A Depression, unspecified; J45.909 Unspecified asthma, uncomplicated; E11.9 Type 2 diabetes mellitus without complications; M19.90 Unspecified osteoarthritis, unspecified site; Z88.6 Allergy status to analgesic agent; Z88.5 Allergy status to narcotic agent; Z88.8 Allergy status to other drugs, medicaments and biological substances
CPT/HCPCS: 99211

== ENCOUNTER 2022-05-10 07:43 | Day surgery (SDC) | payer OTHER ==
[2022-05-09 11:03] VITALS: BMI 40.9
[~2022-05-10 07:43] MED LIST changes: +LIDOCAINE 1% (10MG/ML) FOR IV START INTRADERMA PRN
[2022-05-10 08:08] VITALS: TEMP 97.5
[2022-05-10] MEDS ORDERED: ROPIVACAINE 5MG/ML 20ML VIAL ONE (08:35)
[2022-05-10] MEDS ORDERED: MIDAZOLAM 2 MG/2 ML VIAL ONE (08:35)
[2022-05-10] MEDS ORDERED: methylPREDNISolone ACETATE 40 MG/ML 1 ML VIAL ONE (08:35)
[2022-05-10] MEDS ORDERED: fentaNYL (PF) 50 MCG/ML 2 ML AMP ONE (08:35)
[2022-05-10] MEDS ORDERED: LACTATED RINGERS 1,000 ML IV ONE (08:57)
[2022-05-10] MEDS ORDERED: IV FLUID CONTINUATION 1,000 ML IV ONE (08:57)
--- NOTE | 2022-05-10 08:57 | P.PCN ---
Date of Procedure: 05/10/22 Procedure(s) Performed: PREOPERATIVE DIAGNOSIS: 1-Cervical Spondylosis with Facet Arthropathy.without myelopathy. POSTOPERATIVE DIAGNOSIS: Same as preoperative diagnosis. PROCEDURES: Diagnostic Right C3, C4 , C5 , medial branch blocks, with fluoroscopic guidance (fluoroscopy images available in radiology department ) ( to target the facet joint at Right C3-4 , C4- 5 ) # 1st ANESTHESIA: Monitored anesthesia care as per anesthesia department. EBL: Minimal PROCEDURE INDICATION: The patient with neck pain secondary to cervical arthropathy unresponsive to more conservative treatments. PROCEDURE DESCRIPTION / TECHNIQUE: The patient was seen and identified in the preoperative area. Risks, benefits, complications, and alternatives were discussed with the patient, the patient agreed to proceed with the procedure and signed the consent. IV was started. Vital signs remained stable throughout the procedure. Patient was taken to the OR and time out was completed. The patient was placed in the Lateral position on the procedure table. The cervical area was prepped and draped in the usual sterile fashion. Critical pause was taken. Vital signs were closely monitored during the procedure. Conscious sedation was used during the procedure to decrease patients anxiety. Using cross-table lateral fluoroscopy, the centroid of the trapezoid of right C3, C4 , C5 was identified, marked, and localized with 1% lidocaine 1 ml at each level for skin and Sub Q infiltrations . Subsequently, a 25 G 3 spinal needle was advanced guided by fluoroscopy to the centroid of the trapezoid of Right C3, C4 , C5, . Garfield tip position was confirmed at the centroid of the trapezoids of Right C3 , C4 , C5 with anteroposterior fluoroscopy. Subsequently, 1.5 ml of preservative-free Ropivacaine 0.5% mixed with Depo- Medrol 40 mg and half ml of the mixture was injected after negative aspiration for blood and CSF. Garfield was then removed intact . COMPLICATIONS: No acute complications. DISPOSITION / PLANS: The patient was placed in a supine position and transferred to the recovery area in a stable condition for observation and was discharged from the recovery room after meeting discharge criteria. Home discharge instructions given to the patient by the staff. The patient was reexamined prior to discharge. The patient will schedule a follow up in the clinic in 2-4 weeks.
[2022-05-10 09:32] VITALS: BP 102/54; PULSE 78; RESP 18
--- NOTE | 2022-05-10 10:36 | FL ---
Fluoroscopy HISTORY: Pain 14 seconds fluoroscopy time supplied to the referring clinician. 2 intraoperative C-arm images docum ent the procedure. See dictated report from anesthesia.
== END 2022-05-10 09:45 | disposition home or self-care (01) ==
LOC: ORPAIN 07:43
PROVIDERS: ATTEND Specialist
DX: M47.812 Spondylosis without myelopathy or radiculopathy, cervical region (principal); Z88.5 Allergy status to narcotic agent; Z88.6 Allergy status to analgesic agent; Z88.8 Allergy status to other drugs, medicaments and biological substances; J45.909 Unspecified asthma, uncomplicated; E66.01 Morbid (severe) obesity due to excess calories; Z79.899 Other long term (current) drug therapy; Z79.51 Long term (current) use of inhaled steroids; Z98.84 Bariatric surgery status; Z90.710 Acquired absence of both cervix and uterus; Z98.51 Tubal ligation status
CPT/HCPCS: 64490; 64491; J2250; J1030; J3010; J2795

== ENCOUNTER 2022-11-29 18:17 | Emergency (ER) | payer OTHER ==
[2022-11-29 18:22] VITALS: TEMP 98.2
[2022-11-29] MEDS ORDERED: SODIUM CHLORIDE 0.9% 1,000 ML IV ONE (18:44)
[2022-11-29 19:24] LABS: Basophils # (A) 0.1 k/uL (0-0.2); Basophils % (A) 1 %; Eosinophils # (A) 0.1 k/uL (0-0.7); Eosinophils % (A) 2 %; HGB 11.6 gm/dL (11.4-16.0); Lymphocytes # (A) 1.5 k/uL (1.0-4.8); Lymphocytes % (A) 23 %; MCH 26.7 pg (25.0-35.0); MCHC 31.3 g/dL (31.0-37.0); MCV 85.3 fL (80.0-100.0); Monocytes # (A) 0.4 k/uL (0-1.0); Monocytes % (A) 6 %; Neutrophils # (A) 4.1 k/uL (1.3-7.7); Neutrophils % (A) 66 %; Platelet Count 259 k/uL (150-450); RBC 4.34 m/uL (3.80-5.40); WBC 6.3 k/uL (3.8-10.6)
[2022-11-29 19:44] LABS: ALT 11 U/L (4-34); AST 16 U/L (14-36); African American GFR (CKD) >90 (>60 ml/min/1.73 sqM); Albumin 3.9 g/dL (3.5-5.0); Alkaline Phosphatase 79 U/L (38-126); Anion Gap 6 mmol/L; Blood Urea Nitrogen 6 mg/dL (7-17); Calcium 8.6 mg/dL (8.4-10.2); Carbon Dioxide 26 mmol/L (22-30); Chloride 108 mmol/L (98-107); Glucose 99 mg/dL (74-99); Non-African American GFR(CKD) >90 (>60 ml/min/1.73 sqM); Potassium 3.7 mmol/L (3.5-5.1); Sodium 140 mmol/L (137-145); Total Bilirubin 0.2 mg/dL (0.2-1.3); Total Protein 6.6 g/dL (6.3-8.2)
[2022-11-29] MEDS ORDERED: ACETAMINOPHEN TAB 325 MG TAB PO STA (20:10)
[2022-11-29] MEDS ORDERED: LIDOCAINE 1% INJ 10MG/ML (30 ML VIAL-PF) SQ ONE (21:46)
--- NOTE | 2022-11-29 22:31 | ED ---
General Adult HPI - General Chief complaint: Recheck/Abnormal Lab/Rx Stated complaint: Cellulitis Time Seen by Provider: 11/29/22 18:37 Source: patient, RN notes reviewed Mode of arrival: ambulatory Limitations: no limitations - History of Present Illness Initial comments: 47-year-old female with no significant past medical history presents to the emergency department on the right breast abscess. She noticed the abscess yesterday, was seen at [facility] and was given a prescription for Bactrim. She reports that this morning she woke up in noticed that the abscess was there and had worsening redness around the area. She denies any self incision and drainage procedure. She denies any fever, chills, chest pain, shortness, abdominal pain, nausea, vomiting, diarrhea. - Related Data Home Medications Medication Instructions Recorded Confirmed DULoxetine HCL [Cymbalta] 60 mg PO HS 11/18/16 05/10/22 HYDROcodone/APAP 10-325MG [[place] 1 tab PO Q6H PRN 07/22/19 05/10/22 10-325] Albuterol Inhaler [Ventolin Hfa 2 puff INHALATION RT-QID PRN 02/13/22 05/10/22 Inhaler] Ergocalciferol (Vitamin D2) 1,250 mcg PO SA 02/13/22 05/10/22 [Drisdol (50,000 Iu)] Fluticasone Nasal [place] [Flonase 1 spray EA NOSTRIL DAILY PRN 02/13/22 05/10/22 Nasal [place]] Loratadine 10 mg PO DAILY 02/13/22 05/10/22 buPROPion XL [Wellbutrin XL] 300 mg PO DAILY 02/13/22 05/10/22 Allergies Allergy/AdvReac Type Severity Reaction Status Date / Time NSAIDS (Non-Steroidal AdvReac Unknown NO NSAIDS Verified 11/29/22 18:22 Anti-Inflamma DUE TO GASTRIC SLEEVE aripiprazole [From Abilify] AdvReac Anxiety, Verified 11/29/22 18:22 Restless hydromorphone [From Dilaudid] AdvReac Nausea & Verified 11/29/22 18:22 Vomiting Review of Systems ROS Statement: Those systems with pertinent positive or pertinent negative responses have been documented in the HPI. ROS Other: All systems not noted in ROS Statement are negative. Past Medical History Past Medical History: Asthma, Diabetes Mellitus, Musculoskeletal Disorder, Osteoarthritis (OA) Additional Past Medical History / Comment(s): LT Sciatica. plantar fascitis ., hx of pre-diabetes that was resolved with gastric sleeve surgery., History of Any Multi-Drug Resistant Organisms: None Reported Past Surgical History: Bariatric Surgery, Cholecystectomy, Hysterectomy, Tubal Ligation, Uterine Ablation Additional Past Surgical History / Comment(s): D&C, PAIN CLINIC PROCEDURES, EGD sleeve gastrectomy 04-05-19 (Dr. Santos), Past Anesthesia/Blood Transfusion Reactions: Previous Problems w/ Anesthesia Additional Past Anesthesia/Blood Transfusion Reaction / Comment(s): OCC HARD TIME COMING OUT OF IT ANESTHESIA Past Psychological History: Anxiety, Depression, PTSD Smoking Status: Former smoker Past Alcohol Use History: None Reported Past Drug Use History: None Reported - Past Family History Mother Family Medical History: No Reported History General Exam Limitations: no limitations General appearance: alert, in no apparent distress Head exam: Present: atraumatic, normocephalic, normal inspection Eye exam: Present: normal appearance, PERRL, EOMI. Absent: scleral icterus, conjunctival injection, periorbital swelling ENT exam: Present: normal exam, mucous membranes moist Neck exam: Present: normal inspection. Absent: tenderness, meningismus, lymphadenopathy Respiratory exam: Present: normal lung sounds bilaterally. Absent: respiratory distress, wheezes, rales, rhonchi, stridor Cardiovascular Exam: Present: regular rate, normal rhythm, normal heart sounds. Absent: systolic murmur, diastolic murmur, rubs, gallop, clicks GI/Abdominal exam: Present: soft, normal bowel sounds. Absent: distended, tenderness, guarding, rebound, rigid Extremities exam: Present: normal inspection, full ROM, normal capillary refill. Absent: tenderness, pedal edema, joint swelling, calf tenderness Back exam: Present: normal inspection Neurological exam: Present: alert, oriented X3, CN II-XII intact Psychiatric exam: Present: normal affect, normal mood Skin exam: Present: warm, dry, intact, normal color, other (2 cm lesion to the right breast, it is erythematous, warm to touch.). Absent: rash Course Vital Signs 11/29/22 11/29/22 18:18 22:50 Temperature 98.2 F Pulse Rate 109 H 98 Respiratory 20 18 Rate Blood Pressure 159/89 152/90 O2 Sat by Pulse 100 Oximetry - Reevaluation(s) Reevaluation #1: 11/29/22 22:30 had incision and drainage procedure performed in the emergency department. Wound Culture sent Procedures - Incision & Drainage Site: chest (R breast ) Anesthetic Used: lidocaine 1% I&D Cleaning Method: Alcohol Wipe Sterile Field Used?: Yes Scalpel Used: #11 Needle Aspiration Performed?: No Irrigation Performed?: Yes I&D Drainage Obtained: Pus, Blood Culture Obtained?: Yes Complications: pain, bleeding Patient Tolerated Procedure: well, no complications Medical Decision Making - Medical Decision Making Was pt. sent in by a medical professional or institution (, PA, VETERINARY HOSPITAL SHIFT LEAD, urgent care, hospital, or correction...) When possible be specific @ -[No] Did you speak to anyone other than the patient for history (EMS, parent, family, police, friend...)? What history was obtained from this source @ -[No] Did you review nursing and triage notes (agree or disagree)? Why? @ -[I reviewed and agree with nursing and triage notes] Were old charts reviewed (outside hosp., previous admission, EMS record, old EKG, old radiological studies, urgent care reports/EKG's, correction records)? Report findings @ -[No old charts were reviewed] Differential Diagnosis (chest pain, altered mental status, abdominal pain women, abdominal pain men, vaginal bleeding, weakness, fever, dyspnea, syncope, headache, dizziness, GI bleed, back pain, seizure, CVA, palpatations, mental health)? @ -[not applicable] EKG interpreted by me (3pts min.). @ -[As above] X-rays interpreted by me (1pt min.). @ -[None done] CT interpreted by me (1pt min.). @ -[None done] U/S interpreted by me (1pt. min.). @ -[None done] What testing was considered but not performed or refused? (CT, X-rays, U/S, labs)? Why? @ -[None] What meds were considered but not given or refused? Why? @ -[None] Did you discuss the management of the patient with other professionals (professionals i.e. , PA, VETERINARY HOSPITAL SHIFT LEAD, lab, RT, psych nurse, pediatric social worker, superintendent cemetery, teacher, commercial loan collection officer, shelter case manager)? Give summary @ -[No] Was smoking cessation discussed for >3mins.? @ -[No] Was critical care preformed (if so, how long)? @ -[No] Were there social determinants of health that impacted care today? How? (Homele ssness, low income, unemployed, alcoholism, drug addiction, transportation, low edu. Level, literacy, decrease access to med. care, custodial, rehab)? @ -[No] Was there de-escalation of care discussed even if they declined (Discuss DNR or withdrawal of care, Hospice)? DNR status @ -[No] What co-morbidities impacted this encounter? (DM, HTN, Smoking, COPD, CAD, Cancer, CVA, ARF, Chemo, Hep., AIDS, mental health diagnosis, sleep apnea, morbid obesity)? @ -[None] Was patient admitted / discharged? Hospital course, mention meds given and route, prescriptions, significant lab abnormalities, going to OR and other pertinent info. @ -47-year-old female presents to the emergency department with a chief complaint of abscess. She had a history and physical performed. Physical exam is essentially unremarkable with small abscess to the right breast. Patient had an I&D performed, tolerated well. 2cm of packing placed to ensure wound stays open. She was encouraged to finish out her Bactrim prescription. Patient had lab work and imaging performed. Patient was given toradol and fluids with symptomatic relief on the emergency department. I discussed the results in detail with the patient, patient verbalized understanding all questions were addressed. Return precautions were discussed. Patient was discharged in stable condition. I discussed the case with Dr. Hunter who agrees with plan for discharge Undiagnosed new problem with uncertain prognosis? @ -[No] Drug Therapy requiring intensive monitoring for toxicity (Heparin, Nitro, Insulin, Cardizem)? @ -[No] Were any procedures done? @ -[No] Diagnosis/symptom? @ -R breast abscess Acute, or Chronic, or Acute on Chronic? @ -acute Uncomplicated (without systemic symptoms) or Complicated (systemic symptoms)? @ -[default] Side effects of treatment? @ -[No] Exacerbation, Progression, or Severe Exacerbation? @ -[No] Poses a threat to life or bodily function? How? (Chest pain, [place], [place], pneumonia, PE, COPD, DKA, ARF, appy, cholecystitis, CVA, Diverticulitis, Homicidal, Suici kaci, threat to staff... and all critical care pts) @ -[No] - Lab Data Result diagrams: 11/29/22 19:07 11/29/22 19:07 Lab Results 11/29/22 11/29/22 11/29/22 Range/Units 19:07 19:07 19:07 WBC 6.3 (3.8-10.6) k/uL RBC 4.34 (3.80-5.40) m/uL Hgb 11.6 (11.4-16.0) gm/dL Hct 37.0 (34.0-46.0) % MCV 85.3 (80.0-100.0) fL MCH 26.7 (25.0-35.0) pg MCHC 31.3 (31.0-37.0) g/dL RDW 14.0 (11.5-15.5) % Plt Count 259 (150-450) k/uL MPV 8.0 Neutrophils % 66 % Lymphocytes % 23 % Monocytes % 6 % Eosinophils % 2 % Basophils % 1 % Neutrophils # 4.1 (1.3-7.7) k/uL Lymphocytes # 1.5 (1.0-4.8) k/uL Monocytes # 0.4 (0-1.0) k/uL Eosinophils # 0.1 (0-0.7) k/uL Basophils # 0.1 (0-0.2) k/uL Sodium 140 (137-145) mmol/L Potassium 3.7 (3.5-5.1) mmol/L Chloride 108 H (98-107) mmol/L Carbon Dioxide 26 (22-30) mmol/L Anion Gap 6 mmol/L BUN 6 L (7-17) mg/dL Creatinine 0.71 (0.52-1.04) mg/dL Est GFR (CKD-EPI)AfAm >90 (>60 ml/min/1.73 sqM) Est GFR (CKD-EPI)NonAf >90 (>60 ml/min/1.73 sqM) Glucose 99 (74-99) mg/dL Plasma Lactic Acid Romaine 1.4 (0.7-2.0) mmol/L Calcium 8.6 (8.4-10.2) mg/dL Total Bilirubin 0.2 (0.2-1.3) mg/dL AST 16 (14-36) U/L ALT 11 (4-34) U/L Alkaline Phosphatase 79 (38-126) U/L Total Protein 6.6 (6.3-8.2) g/dL Albumin 3.9 (3.5-5.0) g/dL Disposition Clinical Impression: Abscess Disposition: HOME SELF-CARE Condition: Stable Instructions (If sedation given, give patient instructions): Abscess (ED) Additional Instructions: These return to the nearest emergency department if symptoms worsen or persist. Is patient prescribed a controlled substance at d/c from ED?: No Referrals: Lola Way MD [Primary Care Provider] - 1-2 days Time of Disposition: 22:30
[2022-11-29 23:13] VITALS: BP 152/90; PULSE 98; RESP 18
== END 2022-11-29 23:17 | disposition home or self-care (01) ==
LOC: EC 18:17
DX: N61.1 Abscess of the breast and nipple (principal); J45.909 Unspecified asthma, uncomplicated; E11.9 Type 2 diabetes mellitus without complications; M19.90 Unspecified osteoarthritis, unspecified site; F41.9 Anxiety disorder, unspecified; F32.A Depression, unspecified; Z87.891 Personal history of nicotine dependence; Z88.6 Allergy status to analgesic agent; Z88.8 Allergy status to other drugs, medicaments and biological substances; Z88.5 Allergy status to narcotic agent; Z79.899 Other long term (current) drug therapy
CPT/HCPCS: 36415; 80053; 83605; 85025; 87070; 87205; 87077; 87186; 99283; 96360; 10060; J2001

== ENCOUNTER → 2023-05-05 | Outpatient (CLI) | payer OTHER ==
--- NOTE | 2023-05-05 13:54 | MM ---
Reason for Exam: Screening (asymptomatic). Last mammogram was performed 5 year(s) and 3 month(s) ago. Patient History: Menarche at age 10. First Full-Term at age 16. Hysterectomy at age 39. Paternal aunt had breast cancer. Paternal aunt had ovarian cancer. Risk Values: Areli 5 year model risk: 0.7%. NCI Lifetime model risk: 6.6%. Prior Study Comparison: 05/17/2014 Bilateral Screening Mammogram, [facility]. 02/03/2018 Bilateral Screening Mammogram, [facility]. Tissue Density: The breast tissue is heterogeneously dense. This may lower the sensitivity of mammography. Findings: Analyzed By CAD. Benign appearing consultations left breast. There is no suspicious group of microcalcifications or new suspicious mass in either breast. Overall Assessment: Benign, BI-RAD 2 Management: Screening Mammogram of both breasts in [address] [facility] will attempt to contact patient to return for supplemental views and ultrasound if indicated. Patient should continue monthly self-breast exams. A clinical breast exam by your physician is recommended on an annual basis. This exam should not preclude additional follow-up of suspicious palpable abnormalities. Note on Areli scores and lifetime risk: 1. A Areli score greater than 3% is considered moderate risk. If this is the case, consider specialist referral to assess eligibility for a risk reducing agent. 2. If overall lifetime risk for the development of breast cancer is 20% or higher, the patient may qualify for future screening with alternating mammogram and breast MRI. Electronically signed and approved by: Ye Boston DO
== END | disposition home or self-care (01) ==
LOC: RADMAMWWP 12:32
PROVIDERS: ATTEND Family Medicine
DX: Z12.31 Encounter for screening mammogram for malignant neoplasm of breast (principal); Z80.3 Family history of malignant neoplasm of breast; Z80.41 Family history of malignant neoplasm of ovary
CPT/HCPCS: 77063; 77067

== ENCOUNTER 2023-05-29 07:32 | Day surgery (SDC) | payer OTHER ==
[2023-05-26 11:05] VITALS: BMI 39.6
[~2023-05-29 07:32] MED LIST changes: -LIDOCAINE 1% (10MG/ML) FOR IV START INTRADERMA PRN
[2023-05-29 08:14] VITALS: TEMP 98.6
[2023-05-29] MEDS ORDERED: PROPOFOL 10 MG/ML 20 ML VIAL IV ONE (08:36)
--- NOTE | 2023-05-29 08:38 | P.GSHP ---
History of Present Illness H&P Date: 05/29/23 Chief Complaint: Screening colonoscopy This a 47-year-old female presents today for screening colonoscopy. Patient denies a significant GI complaints. Past Medical History Past Medical History: Asthma, Hypertension, Liver Disease, Musculoskeletal Disorder Additional Past Medical History / Comment(s): Left sciatica, neck pain with migraines, fatty liver. History of Any Multi-Drug Resistant Organisms: MRSA Date of last positivie culture/infection: 01/08 MDRO Source:: right breast Past Surgical History: Bariatric Surgery, Hysterectomy, Tubal Ligation, Uterine Ablation Additional Past Surgical History / Comment(s): D&C, PAIN CLINIC PROCEDURES, Gastric Sleeve 2018. Past Anesthesia/Blood Transfusion Reactions: Postoperative Nausea & Vomiting (PONV) Additional Past Anesthesia/Blood Transfusion Reaction / Comment(s): OCCASIONALLY HAS A HARD TIME COMING OUT OF ANESTHESIA. Past Psychological History: Anxiety, Bipolar, Depression, PTSD Smoking Status: Former smoker Past Alcohol Use History: None Reported Additional Past Alcohol Use History / Comment(s): smoked off and on, <1ppd, quit in 2006. Past Drug Use History: None Reported - Past Family History Mother Family Medical History: No Reported History Medications and Allergies Home Medications Medication Instructions Recorded Confirmed Type DULoxetine HCL [Cymbalta] 60 mg PO HS 11/18/16 05/29/23 History HYDROcodone/APAP 10-325MG [[place] 1 tab PO QID PRN 07/22/19 05/29/23 History 10-325] Ergocalciferol (Vitamin D2) 1,250 mcg PO SA 02/13/22 05/29/23 History [Drisdol (50,000 Iu)] Fluticasone Nasal [place] [Flonase 1 spray EA NOSTRIL DAILY PRN 02/13/22 05/29/23 History Nasal [place]] Loratadine 10 mg PO DAILY PRN 02/13/22 05/29/23 History buPROPion XL [Wellbutrin XL] 300 mg PO QAM 02/13/22 05/29/23 History Allergies Allergy/AdvReac Type Severity Reaction Status Date / Time NSAIDS (Non-Steroidal AdvReac Unknown NO NSAIDS Verified 05/29/23 08:21 Anti-Inflamma DUE TO GASTRIC SLEEVE aripiprazole [From Abili] AdvReac Anxiety, Verified 05/29/23 08:21 Restless hydromorphone [From Dilaudid] AdvReac Nausea & Verified 05/29/23 08:21 Vomiting Surgical - Exam Vital Signs Temp Pulse Resp BP Pulse Ox 98.6 F 83 16 156/76 97 05/29/23 08:13 05/29/23 08:13 05/29/23 08:13 05/29/23 08:13 05/29/23 08:13 - General well developed, well nourished, no distress - Eyes PERRL - ENT normal pinna - Neck no masses - Respiratory normal expansion - Cardiovascular Rhythm: regular - Abdomen Abdomen: soft, non tender Assessment and Plan Assessment: We'll perform screening colonoscopy
--- NOTE | 2023-05-29 08:55 | P.OP ---
Date of Procedure: 05/29/23 Preoperative Diagnosis: Screening colonoscopy Postoperative Diagnosis: Diverticulosis Procedure(s) Performed: Colonoscopy Anesthesia: MAC Surgeon: Woody Santos Pathology: none sent Condition: stable Disposition: PACU Description of Procedure: Patient's placed on the endoscopy table in the lateral position. He received IV sedation. Digital rectal exam performed. This revealed no abnormalities. The flexible colonoscope was then placed patient anus and passed throughout the entire colon. The ileocecal valve was visualized. The cecum, ascending and transverse colon appeared normal. In the descending and sigmoid colon there is moderate diverticular changes. Scope summer back the rectum and this appeared normal. Scope withdrawn for patient.
[2023-05-29 08:59] VITALS: PULSE 74
[2023-05-29 09:15] VITALS: BP 124/81; RESP 18
== END 2023-05-29 09:42 | disposition home or self-care (01) ==
LOC: ORWHC2ENDO 07:32
PROVIDERS: ATTEND Surgery
DX: Z12.11 Encounter for screening for malignant neoplasm of colon (principal); K57.30 Diverticulosis of large intestine without perforation or abscess without bleeding; J45.909 Unspecified asthma, uncomplicated; I10 Essential (primary) hypertension; K76.0 Fatty (change of) liver, not elsewhere classified; F41.9 Anxiety disorder, unspecified; Z98.84 Bariatric surgery status; Z87.891 Personal history of nicotine dependence; Z88.6 Allergy status to analgesic agent; Z79.899 Other long term (current) drug therapy
CPT/HCPCS: 45378; J2704

== ENCOUNTER → 2023-06-02 | Outpatient (CLI) | payer OTHER ==
[2023-06-02 09:45] VITALS: BP 111/72; PULSE 82; RESP 16; TEMP 98.3
--- NOTE | 2023-06-02 14:38 | P.PAINPG ---
PQRS Measure Charge Sheet Comment: A 47 yr old female with a history of severe and chronic neck pain secondary to cervical DDD and spondylosis with facet arthropathy without myelopathy presents today for evaluation s/p R MBB C4-C6 #1. Pt states she experienced 25 % pain relief x 4 hrs s/p procedure. Pain level is provoked at 10/10 in intensity, constant, localized in the mid to lower cervical spine, sharp in character w/o shooting pain. Pain is provoked by hyperextension, rotation. Pain is alleviated with ice, injections, medications, repositioning and rest. Oswestry axial pain score at 26. Interventional pain procedures completed include WILLIS C7-T1, R TFESI C6-7, R MBB C4-C6 x1 Patient is currently on [place], Tyl Patient denies any side effects of the medication(s), denies excessive drowsiness or sleepiness, denies suicidal ideation and reports that the current pain medication is helping to control the pain and improve activities of daily living. Patient denies any motor or sensory deficits. Patient denies any fever or night sweats, denies any change in the bowel movements or urination. Physical Examination: -Constitutional: Cooperative. Not in acute distress . - Neurologic: Cranial nerve II to XII intact. No focal neurological deficits. - Psychatric: Alert & oriented x 3. Matching mood & appropriate affect. Judgment and insight intact. - Musculoskeletal: Cervical spine: Muscle bulk/ tone/ strength in the bilateral upper extremities normal Vertebral body tenderness to palpation over C6 Spurling test positive Distraction test positive Facet loading test positive TTP Thoracic spine Muscle bulk / tone/ strength in the bilateral paraspinal muscles normal Vertebral body tender to palpation over Facet loading test positive TTP Lumbar spine: Motor bulk/ tone/ strength lower extremities , thigh and legs : 5/5 Deep tendon reflexes : Normal Knee Jerk. Normal Ankle Jerk . Vertebral body tenderness to palpation over Lumbar Facet Loading Test positive Straight Leg Raise: positive at 30 degrees right side/ left side Gaenslen's Test positive Sacral spine : Severe tenderness over the Sacroiliac joint: right side / left side Range of motion: Flexion of the lumbar spine <60 degrees Range of motion: Extension of the lumbar spine <20 degrees Gaenslen's Test positive R / L Jose test: positive right side / left side Thigh Thrust Test positive R / L Sacral Thrust Test positive R/ L Assessment and plan: Chronic neck pain secondary to cervical DDD, spondylosis with facet arthropathy without myelopathy Recommendation of PT x 6 wks re: M50.30. May follow up for a re evaluation. All questions answered. I have spent less than 30 minutes on patient care today. Dr Mae was available by phone for the evaluation of this patient. The time was used to review the medical records including relevant urine studies and Prescription history (MAPs), review of the available imaging, evaluation and examination of the patient, coordination of care with the medical staff and if applicable referring physicians, as well as creation of the medical record - Pain Location Right Neck Non-Pharmacological Interventions: Ice Pharmacological Interventions: PRN Medication, Scheduled Medication PQRS Narrative: Smoking Status Former smoker Hx Alcohol Use (MH) No Home Medications: Ambulatory Orders DULoxetine HCL [Cymbalta] 60 mg PO HS 11/18/16 HYDROcodone/APAP 10-325MG [[place] 10-325] 1 tab PO QID PRN 07/22/19 Ergocalciferol (Vitamin D2) [Drisdol (50,000 Iu)] 1,250 mcg PO SA 02/13/22 Fluticasone Nasal [place] [Flonase Nasal [place]] 1 spray EA NOSTRIL DAILY PRN 02/13/22 Loratadine 10 mg PO DAILY PRN 02/13/22 buPROPion XL [Wellbutrin XL] 300 mg PO QAM 02/13/22 Controlled Substance Measures - Controlled Substance Measures Is patient prescribed a controlled substance at discharge?: No
== END ==
LOC: PNWHC3 09:19
PROVIDERS: ATTEND Specialist
DX: M50.322 Other cervical disc degeneration at C5-C6 level (principal); M47.812 Spondylosis without myelopathy or radiculopathy, cervical region; G89.29 Other chronic pain; Z87.891 Personal history of nicotine dependence; Z88.5 Allergy status to narcotic agent; Z88.8 Allergy status to other drugs, medicaments and biological substances; Z88.6 Allergy status to analgesic agent
CPT/HCPCS: 99211

== ENCOUNTER → 2023-06-27 | Outpatient (CLI) | payer OTHER ==
[2023-06-27 15:52] LABS: Basophils # (A) 0.03 X 10*3/uL (0.00-0.10); Basophils % (A) 0.6 %; Eosinophils # (A) 0.05 X 10*3/uL (0.04-0.35); Eosinophils % (A) 1.1 %; HCT 39.8 % (37.2-46.3); HGB 12.1 d/dL (12.0-15.0); Immature Grans, Automated 0 %; Lymphocytes # (A) 1.82 X 10*3/uL (0.90-5.00); Lymphocytes % (A) 38.2 %; MCH 26.9 pg (27.0-32.0); MCHC 30.4 d/dL (32.0-37.0); MCV 88.6 FL (80.0-97.0); Mean Platelet Volume 11.4 FL (9.5-12.2); Monocytes # (A) 0.35 X 10*3/uL (0.20-1.00); Monocytes % (A) 7.4 %; NRBC Per 100 WBC 0 X 10*3/uL (0.00-0.01); Neutrophils # (A) 2.51 X 10*3/uL (1.80-7.70); Neutrophils % (A) 52.7 %; Platelet Count 343 X 10*3/uL (140-440); RBC 4.49 X 10*6/uL (4.10-5.20); RDW 13.2 % (11.5-14.5); WBC 4.76 X 10*3/uL (4.50-10.00)
== END | disposition home or self-care (01) ==
LOC: LABPAT 09:29
PROVIDERS: ATTEND Surgery
DX: Z01.818 Encounter for other preprocedural examination (principal); D64.9 Anemia, unspecified; F17.200 Nicotine dependence, unspecified, uncomplicated
CPT/HCPCS: 36415; 85025; 86850; 86900; 86901; 93005

== ENCOUNTER → 2023-06-27 | Outpatient (CLI) | payer OTHER ==
--- NOTE | 2023-06-27 11:16 | US ---
EXAMINATION TYPE: US transvaginal DATE OF EXAM: 06/27/2023 COMPARISON: CT 2019 CLINICAL INDICATION: Female, 47 years old with history of N93.9 ABNORMAL UTERINE AND VAGINAL BLEEDING ; Pain and bleeding after intercourse x couple months, history of hysterectomy 9 years ago TECHNIQUE: Transvaginal only per patient's order Date of LMP: 9 years ago EXAM MEASUREMENTS: Right Ovary: not seen Left Ovary: not seen 1. Uterus: surgically absent 2. Endometrium: surgically absent 3. Right Ovary: not seen due to overlying bowel gas 4. Left Ovary: not seen due to overlying bowel gas 5. Bilateral Adnexa: wnl 6. Posterior cul-de-sac: wnl IMPRESSION: Unremarkable postoperative pelvis.
== END | disposition home or self-care (01) ==
LOC: RADUSWWP 10:10
PROVIDERS: ATTEND Internal Medicine
DX: N93.9 Abnormal uterine and vaginal bleeding, unspecified (principal); Z90.710 Acquired absence of both cervix and uterus
CPT/HCPCS: 76830

== ENCOUNTER 2023-07-08 05:39 | Day surgery (SDC) | payer OTHER ==
[2023-07-01 11:01] VITALS: BMI 38.2
[~2023-07-08 05:39] MED LIST changes: +ACETAMINOPHEN TAB 500 MG TAB PO PRN; +HEPARIN SODIUM,PORCINE/PF 5,000 UNIT/0.5 ML SYRINGE SQ PRN; -LACTATED RINGERS 1,000 ML IV SCH
[2023-07-08] MEDS ORDERED: DEXAMETHASONE SOD PHOSPHATE 4 MG/ML 1 ML VIAL IV ONE (06:25)
[2023-07-08] MEDS ORDERED: ONDANSETRON 4 MG/2 ML VIAL IVP ONE ×2 (06:25→09:15)
[2023-07-08] MEDS: LACTATED RINGERS 1,000 ML IV SCH ×2 (06:27→10:28)
[2023-07-08 06:45] LABS: Glucose,Whole Blood 96 mg/dL (70-110)
[2023-07-08 06:46] VITALS: RESP 16
[2023-07-08] MEDS ORDERED: fentaNYL (PF) 50 MCG/ML 2 ML AMP ONE (07:32)
[2023-07-08] MEDS ORDERED: LIDOCAINE 2% INJ 20 MG/ML (2 ML VIAL) ONE (07:32)
[2023-07-08] MEDS ORDERED: ROCURONIUM 10 MG/ML (5 ML VIAL) IV ONE (07:32)
[2023-07-08] MEDS ORDERED: HYDROmorphone (PF) 1 MG/ML ONE (07:32)
[2023-07-08] MEDS ORDERED: SUCCINYLCHOLINE CHLORIDE 200 MG/10 ML VIAL IV ONE (07:32)
[2023-07-08] MEDS ORDERED: KETOROLAC 15 MG/ML 1 ML VIAL ONE (07:32)
[2023-07-08] MEDS ORDERED: BUPIVACAINE (PF) 0.25% 10 ML VIAL SQ ONE ×3 (07:32→07:55)
[2023-07-08] MEDS ORDERED: PROPOFOL 10 MG/ML 20 ML VIAL IV ONE (07:32)
[2023-07-08] MEDS ORDERED: GLYCOPYRROLATE 0.2 MG/ML 2 ML VIAL ONE (07:32)
[2023-07-08] MEDS ORDERED: NEOSTIGMINE 1 MG/ML 10 ML VIAL ONE (07:32)
[2023-07-08] MEDS ORDERED: MIDAZOLAM 2 MG/2 ML VIAL ONE (07:32)
[2023-07-08] MEDS ORDERED: KETAMINE 10 MG/ML 20 ML VIAL ONE (07:32)
--- NOTE | 2023-07-08 08:43 | P.OP ---
Date of Procedure: 07/08/23 Preoperative Diagnosis: Incisional hernia Postoperative Diagnosis: Incisional hernia Procedure(s) Performed: Laparoscopic robotic-assisted repair of incisional hernia Partial omentectomy Transversus abdominis plane block Anesthesia: VENU Surgeon: Woody Santos Estimated Blood Loss (ml): 5 Pathology: other (Omentum) Condition: stable Disposition: PACU Description of Procedure: The patient was placed on the operating table in the supine position. He received general anesthesia. His abdomen was prepped and draped usual fashion. Using a 5 mm optical trocar under direct visualization the peritoneal cavity was entered in the left upper quadrant. The abdomen was then insufflated. The laparoscope was placed back into the perineal cavity. Next a 8 mm robotic trocar was placed in the left lower quadrant and a 12 mm robotic trocar was placed in the left lateral position. The original 5 mm trocar was exchanged for a 8 mm robotic trocar. The patient's placed in the left side up position. A 4 quadrant transverse abdominal splint block was then performed using 1% local Xylocaine. And the patient was docked to the robot. The incisional hernia was visualized. Using hook cautery the peritoneum over the incisional hernia was excised. Incarcerated omentum was dissected free and sent to pathology. The fascial opening was repaired using 0V LOC suture. Next a piece of 11 cm round ventral light ST mesh was placed into the. Cavity and secured with 2 OV lock suture. The patient was undocked the robot. The needles were retrieved. The fascia of the 12 mm trocar site was closed with 0 Ethibond suture. Skin was closed interrupted 3-0 Monocryl suture. Dermabond dressings was applied. Patient tolerated procedure well and was sent to recovery room stable condition.
[2023-07-08 09:07] VITALS: TEMP 97
[2023-07-08] MEDS: fentaNYL (PF) 50 MCG/ML 2 ML AMP IV PRN ×2 (09:15→10:03)
[2023-07-08] MEDS ORDERED: HYDROcodone/APAP 5-325MG 1 EACH TAB ONE (10:54)
[2023-07-08] MEDS ORDERED: HYDROcodone/APAP 5-325MG 1 EACH TAB PO ONE (11:05)
[2023-07-08 12:10] VITALS: BP 149/87; PULSE 78
== END 2023-07-08 12:15 | disposition home or self-care (01) ==
LOC: OR 05:39
PROVIDERS: ATTEND Surgery
DX: K43.2 Incisional hernia without obstruction or gangrene (principal); J45.909 Unspecified asthma, uncomplicated; F32.A Depression, unspecified; E66.01 Morbid (severe) obesity due to excess calories; Z68.45 Body mass index [BMI] 70 or greater, adult; Z79.899 Other long term (current) drug therapy
CPT/HCPCS: 86900; 86901; 86850; 36415; 49591; C1781; J2250; J0330; J1100; J2710; J0690; J2405; J3010; J1170; J1885; J2704; J1644; J2001; J0665; 88305

== ENCOUNTER → 2023-07-28 | Outpatient (CLI) | payer OTHER ==
[2023-07-28 15:07] VITALS: BP 119/73; PULSE 98; TEMP 97.8
--- NOTE | 2023-08-20 09:27 | P.HPBAR ---
Bariatric H&P - History & Physicial H&P Date: 07/28/23 History & Physicial: Visit/CC: hernia repair F/U Patient initial contact: Initial weight: 142.485 kg Initial weight in pounds: 314.13 Height: 5 ft 4 in Initial BMI: Last weight: Current weight: 107.048 kg Current weight in pounds: Current BMI: [place] body weight (based on NIH guidelines): Excess body weight loss: The patient is a 47 year-old F who presents for Bariatric Assessment. Patient presents today for bariatric follow-up. She is had a 20 weight cancer last visit. She has minimal complaints of GERD. Patient states she has emotional stresses creating poor dietary choices.. Past Medical History Past Medical History: Asthma, Hypertension, Liver Disease, Musculoskeletal Disorder Additional Past Medical History / Comment(s): Left sciatica, neck pain with migraines, fatty liver. , INCISIONAL HERNIA History of Any Multi-Drug Resistant Organisms: MRSA Year Discovered:: 01/08 MDRO Source:: right breast Past Surgical History: Bariatric Surgery, Hernia Repair, Hysterectomy, Tubal Ligation, Uterine Ablation Additional Past Surgical History / Comment(s): D&C, PAIN CLINIC PROCEDURES, Gastric Sleeve 2019. EGD, COLONOSCOPY Past Anesthesia/Blood Transfusion Reactions: Postoperative Nausea & Vomiting (PONV) Additional Past Anesthesia/Blood Transfusion Reaction / Comm: OCCASIONALLY HAS A HARD TIME COMING OUT OF ANESTHESIA. Past Psychological History: Anxiety, Bipolar, Depression, PTSD Additional Psychological History / Comment(s): Under care of psychiatrist. Smoking Status: Former smoker Past Alcohol Use History: None Reported Additional Past Alcohol Use History / Comment(s): smoked off and on, <1ppd, quit in 2006. Past Drug Use History: None Reported - Past Family History Mother Family Medical History: No Reported History Surgical - Exam Vital Signs Temp Pulse BP 97.8 F 98 119/73 07/28/23 15:02 07/28/23 15:02 07/28/23 15:02 - General well developed, well nourished, no distress - Eyes PERRL - ENT normal pinna - Neck no masses - Respiratory normal expansion - Cardiovascular Rhythm: regular - Abdomen Abdomen: soft, non tender Bariatric Assessment & Plan Plan: Patient's GERD is minimal observed. Patient will try to improve her dietary choices. She'll follow-up in 4 weeks. Bariatric Checklist Checklist: Plan: Checklist: EGD: 1. Hiatal hernia: 2. H. Pylori: HgbA1c: Vitamin D: Smoking: Former smoker Primary care physician referral: [facility] Psychiatry clearance: Cardiology clearance: Sleep study: Diet journal: VTE risk score: VTE risk level: Rehab needs at discharge:
== END ==
LOC: BARWHC3 13:46
PROVIDERS: ATTEND Surgery
DX: K21.9 Gastro-esophageal reflux disease without esophagitis (principal); J45.909 Unspecified asthma, uncomplicated; I10 Essential (primary) hypertension; Z87.39 Personal history of other diseases of the musculoskeletal system and connective tissue; Z87.19 Personal history of other diseases of the digestive system; Z87.891 Personal history of nicotine dependence; Z98.84 Bariatric surgery status; Z88.5 Allergy status to narcotic agent; Z88.8 Allergy status to other drugs, medicaments and biological substances; Z88.1 Allergy status to other antibiotic agents; Z79.899 Other long term (current) drug therapy; Z79.51 Long term (current) use of inhaled steroids
CPT/HCPCS: 99211

== ENCOUNTER 2025-05-06 12:15 | Emergency (ER) | payer OTHER ==
[2025-05-06 12:19] VITALS: RESP 18
--- NOTE | 2025-05-06 12:34 | ED ---
General Adult HPI - General Chief complaint: Extremity Problem,Nontraumatic Stated complaint: L hand issue Time Seen by Provider: 05/06/25 12:20 Source: patient, RN notes reviewed Mode of arrival: ambulatory Limitations: no limitations - History of Present Illness Initial comments: Patient is a 49-year-old female present to the emergency department with concern for wrist pain. Symptoms have been present for months. Patient did have x-rays done and was told she has carpal tunnel as well as a cyst. Patient has discomfort and paresthesias entire left hand. No weakness. No loss of sensation. Patient has tight braces and is chronically on pain medication without improvement of symptoms. Patient states she is here today for orthopedic referral. - Related Data Home Medications Medication Instructions Recorded Confirmed DULoxetine HCL [Cymbalta] 60 mg PO HS 11/18/16 07/28/23 HYDROcodone/APAP 10-325MG [[place] 1 tab PO QID PRN 07/22/19 07/28/23 10-325] Ergocalciferol (Vitamin D2) 1,250 mcg PO SA 02/13/22 07/28/23 [Drisdol (50,000 Iu)] Fluticasone Nasal [place] [Flonase 1 spray EA NOSTRIL DAILY PRN 02/13/22 07/28/23 Nasal [place]] Loratadine 10 mg PO DAILY PRN 02/13/22 07/28/23 buPROPion XL [Wellbutrin XL] 300 mg PO QAM 02/13/22 07/28/23 Previous Rx's Medication Instructions Recorded Docusate [Colace] 100 mg PO BID #20 capsule 07/08/23 HYDROcodone/APAP 5-325MG [[place] 1 tab PO Q6HR PRN #10 tab 07/08/23 5-325] Allergies Allergy/AdvReac Type Severity Reaction Status Date / Time NSAIDS (Non-Steroidal AdvReac Unknown NO NSAIDS Verified 05/06/25 12:16 Anti-Inflamma DUE TO GASTRIC SLEEVE aripiprazole [From Abilify] AdvReac Anxiety, Verified 05/06/25 12:16 Restless hydromorphone [From Dilaudid] AdvReac Nausea & Verified 05/06/25 12:16 Vomiting Review of Systems ROS Statement: Those systems with pertinent positive or pertinent negative responses have been documented in the HPI. ROS Other: All systems not noted in ROS Statement are negative. Constitutional: Denies: fever Eyes: Denies: eye pain Respiratory: Denies: dyspnea Gastrointestinal: Denies: abdominal pain Musculoskeletal: Reports: as per HPI Past Medical History Past Medical History: Asthma, Hypertension, Liver Disease, Musculoskeletal Disorder Additional Past Medical History / Comment(s): Left sciatica, neck pain with migraines, fatty liver. , INCISIONAL HERNIA History of Any Multi-Drug Resistant Organisms: MRSA Date of last positivie culture/infection: 01/08 MDRO Source:: right breast Past Surgical History: Bariatric Surgery, Hernia Repair, Hysterectomy, Tubal Ligation, Uterine Ablation Additional Past Surgical History / Comment(s): D&C, PAIN CLINIC PROCEDURES, Gastric Sleeve 2019. EGD, COLONOSCOPY Past Anesthesia/Blood Transfusion Reactions: Postoperative Nausea & Vomiting (PONV) Additional Past Anesthesia/Blood Transfusion Reaction / Comment(s): OCCASIONALLY HAS A HARD TIME COMING OUT OF ANESTHESIA. Past Psychological History: Anxiety, Bipolar, Depression, PTSD Smoking Status: Former smoker Past Alcohol Use History: None Reported Past Drug Use History: None Reported - Past Family History Mother Family Medical History: No Reported History General Exam Limitations: no limitations General appearance: alert, in no apparent distress Head exam: Present: normocephalic Eye exam: Present: normal appearance Neck exam: Present: normal inspection Respiratory exam: Present: normal lung sounds bilaterally Cardiovascular Exam: Present: regular rate, normal rhythm Expanded Peripheral pulses: 2+: Radial (L) GI/Abdominal exam: Present: soft. Absent: tenderness Extremities exam: Present: other (Left palmar side wrist with cystic structure on the radial side consistent with ganglion cyst. Minimal discomfort. No color change. Good pharmacy director strength and sensation distally.) Neurological exam: Present: alert. Absent: motor sensory deficit Psychiatric exam: Present: normal affect, normal mood Skin exam: Present: normal color. Absent: erythema Course Vital Signs 05/06/25 12:16 Temperature 97.8 F Pulse Rate 106 H Respiratory 18 Rate Blood Pressure 165/93 O2 Sat by Pulse 98 Oximetry Medical Decision Making - Medical Decision Making Was pt. sent in by a medical professional or institution (, PA, TRUCK GUARD, urgent care, hospital, or [facility]...) When possible be specific @ -Patient states she called orthopedics and was sent to the emergency department for referral Did you speak to anyone other than the patient for history (EMS, parent, family, police, friend...)? What history was obtained from this source @ -No Did you review nursing and triage notes (agree or disagree)? Why? @ -I reviewed and agree with nursing and triage notes Were old charts reviewed (outside hosp., previous admission, EMS record, old EKG, old radiological studies, urgent care reports/EKG's, [facility] records)? Report findings @ -No old charts were reviewed Differential Diagnosis (chest pain, altered mental status, abdominal pain women, abdominal pain men, vaginal bleeding, weakness, fever, dyspnea, syncope, headache, dizziness, GI bleed, back pain, seizure, CVA, palpatations, mental health, musculoskeletal)? @ -Differential Musculoskeletal Muscular strain, contusion, ligament sprain, fracture, arthritis, septic arthritis, bursitis, cellulitis, muscle spasm, nerve compression, DVT, arterial occlusion, herpes zoster, electrolyte abnormality, tumor.... This is not meant to be in all inclusive list EKG interpreted by me (3pts min.). @ -As above X-rays interpreted by me (1pt min.). @ -None done CT interpreted by me (1pt min.). @ -None done U/S interpreted by me (1pt. min.). @ -None done What testing was considered but not performed or refused? (CT, X-rays, U/S, labs)? Why? @ -Considered imaging however patient has already had this What meds were considered but not given or refused? Why? @ -None Did you discuss the management of the patient with other professionals (professionals i.e. , PA, TRUCK GUARD, lab, RT, psych nurse, social services specialist, countersinker balance screw hole, teacher, eeo officer, director of casework services)? Give summary @ -No Was smoking cessation discussed for >3mins.? @ -No Was critical care preformed (if so, how long)? @ -No Were there social determinants of health that impacted care today? How? (Homelessness, low income, unemployed, alcoholism, drug addiction, transportation, low edu. Level, literacy, decrease access to med. care, senior living, rehab)? @ -No Was there de-escalation of care discussed even if they declined (Discuss DNR or withdrawal of care, Hospice)? DNR status @ -No What co-morbidities impacted this encounter? (DM, HTN, Smoking, COPD, CAD, Cancer, CVA, ARF, Chemo, Hep., AIDS, mental health diagnosis, sleep apnea, morbid obesity)? @ -None Was patient admitted / discharged? Hospital course, mention meds given and route, prescriptions, significant lab abnormalities, going to OR and other pertinent info. @ -Patient presents with problems with ganglion cyst, previously diagnosed as well as carpal tunnel. Patient request orthopedic referral. Patient is receptive to Toradol shot. Specifically updated on this being an NSAID and she states she is allowed to have this. Undiagnosed new problem with uncertain prognosis? @ -No Drug Therapy requiring intensive monitoring for toxicity (Heparin, Nitro, Insulin, Cardizem)? @ -No Were any procedures done? @ -No Diagnosis/symptom? @ -Ganglion cyst Acute, or Chronic, or Acute on Chronic? @ -Acute Uncomplicated (without systemic symptoms) or Complicated (systemic symptoms)? @ -Default Side effects of treatment? @ -No Exacerbation, Progression, or Severe Exacerbation? @ -No Poses a threat to life or bodily function? How? (Chest pain, [place], MS, pneumonia, PE, COPD, DKA, ARF, appy, cholecystitis, CVA, Diverticulitis, Homicidal, Suicidal, threat to staff... and all critical care pts) @ -No Disposition Clinical Impression: Ganglion cyst Disposition: HOME SELF-CARE Condition: Stable Instructions (If sedation given, give patient instructions): Ganglion Cyst (ED) Additional Instructions: Please follow-up with your primary care physician and orthopedics, number provided. Return for increased pain, swelling, redness, loss of strength or sensation to your hand or wrist, worsening symptoms or other concerns. Is patient prescribed a controlled substance at d/c from ED?: No Referrals: Justin Wayne MD [Primary Care Provider] - 1-2 days Cari Sanders [Doctor of Osteopathic Medicine] - 1-2 days Time of Disposition: 12:33
[2025-05-06] MEDS: KETOROLAC 15 MG/ML 1 ML VIAL IM STA (12:45)
[2025-05-06 12:57] VITALS: BP 155/86; PULSE 98; TEMP 97.9
== END 2025-05-06 13:39 | disposition home or self-care (01) ==
LOC: EC 12:15
DX: M67.432 Ganglion, left wrist (principal); Z87.891 Personal history of nicotine dependence; Z88.5 Allergy status to narcotic agent; Z88.6 Allergy status to analgesic agent; Z88.8 Allergy status to other drugs, medicaments and biological substances
CPT/HCPCS: 99283; 96372; J1885